=== PATIENT | female | born 1960 | race Two or more races ===

== ENCOUNTER 2021-04-12 11:33 | Outpatient (REF) | payer OTHER, SELFPAY ==
[2021-04-18 23:45] LABS: HPV mRNA E6/E7 rflx Not Detected (Not Detected)
== END 2021-04-12 11:34 | disposition home or self-care (01) ==
LOC: HO.LNP 11:33
PROVIDERS: Visit Provider Internal Medicine
DX: Z01.419 Encounter for gynecological examination (general) (routine) without abnormal findings (principal)
CPT/HCPCS: 87624; 88142

== ENCOUNTER 2021-04-15 09:21 | Outpatient (REF) | payer OTHER, SELFPAY ==
[2021-04-15 11:08] LABS: MANUAL DIFF FLAG NO
[2021-04-15 11:23] LABS: Basophils Absolute Auto 0.1 X10*3/uL (0.0-0.2); Basophils Percent Auto 1.1 % (0-2); Eosinophils Absolute Auto 0.2 X10*3/uL (0.0-0.4); Eosinophils Percent Auto 4.1 % (0-4); Hematocrit 42.4 % (37-47); Imm Gran Abs Auto 0.01 X10*3/uL (0.00-0.03); Imm Gran Pct Auto 0.2 % (0.0-0.4); Lymphocytes Absolute Auto 1.4 X10*3/uL (1.2-4.9); Lymphocytes Percent Auto 30.6 % (20-40); Mean Corpuscular Hemoglobin 28.7 pg (27.0-33.0); Mean Corpuscular Volume 86.9 fL (80-98); Mean Platelet Volume 10.7 fL (9.4-12.3); Monocytes Absolute Auto 0.4 X10*3/uL (0.1-1.2); Neutrophils Absolute Auto 2.6 X10*3/uL (2.0-8.3); Platelet Count 240 X10*3/uL (160-400); Red Blood Count 4.88 X10*6/uL (4.20-5.50); Red Cell Distribution Width 13.1 % (11.0-16.0); White Blood Count 4.7 X10*3/uL (4.8-10.8)
[2021-04-15 11:38] LABS: Alanine Aminotransferase 19 U/L (0-31); Anion Gap 10 (12-20); Aspartate Amino Transferase 24 U/L (5-31); Blood Urea Nitrogen 13 mg/dL (9-16); Calcium 9.3 mg/dL (8.4-10.2); Carbon Dioxide 28 mmol/L (22-29); Chloride 107 mmol/L (96-108); Cholesterol 186 mg/dL; Estimated Glomerular Filt Rate > 60; Glucose Fasting 89 mg/dL (60-99); HDL Cholesterol 35 mg/dL; LDL Cholesterol Calculated 124 mg/dl; Potassium 4.1 mmol/L (3.3-5.1); Sodium 141 mmol/L (135-145); Triglycerides 135 mg/dL
[2021-04-15 11:59] LABS: Vitamin D 25-OH Total 24.7 ng/mL (>30)
== END 2021-04-15 09:22 | disposition home or self-care (01) ==
LOC: HO.HMGCLDS 09:21
PROVIDERS: PCP Internal Medicine; Visit Provider Internal Medicine
DX: Z00.01 Encounter for general adult medical examination with abnormal findings (principal); M35.00 Sjogren syndrome, unspecified; R12 Heartburn; M79.609 Pain in unspecified limb; R20.2 Paresthesia of skin; I10 Essential (primary) hypertension; Z78.0 Asymptomatic menopausal state
CPT/HCPCS: 36415; 80048; 80061; 82306; 84443; 84450; 84460; 85025

== ENCOUNTER 2021-10-04 11:45 | Outpatient (REF) | payer OTHER, SELFPAY ==
--- NOTE | ~2021-10-04 | XR_ITS ---
EXAMINATION: XR HIP, LEFT AND PELVIS CLINICAL INFORMATION: Pain left hip COMPARISON: None TECHNIQUE: Two views of the left hip. FINDINGS: AP pelvis: There is a reduction the lateral right hip joint space with moderate size right acetabular spur. The left hip joint space is normal. SI joints are normal. No visible acute fracture or dislocation of the pelvis. The soft tissues are normal. Left hip: The left hip joint space is maintained normal. No bony erosive changes, loose bodies or soft tissue calcification. No visible acute fracture or dislocation. XR/XR hip LT w PEL1V IMPRESSION: Moderate degenerative changes right hip joint. The left hip joint space is unremarkable.
== END 2021-10-04 11:46 | disposition home or self-care (01) ==
LOC: HO.HMGCX 11:45
PROVIDERS: Visit Provider Internal Medicine
DX: M25.552 Pain in left hip (principal)
CPT/HCPCS: 73502

== ENCOUNTER 2022-04-14 07:00 | Outpatient (REF) | payer OTHER, SELFPAY ==
[2022-04-14 11:06] LABS: Appearance Urine Clear; Color Urine Yellow; Glucose Urine UA Negative (Negative); Leukocyte Esterase Urine Negative (Negative); Nitrite Urine Negative (Negative); PH 5.5 (5.0-9.0); Specific Gravity - Urine 1.025 (1.005-1.025); Urine Blood Negative (Negative); Urine Ketones Negative (Negative); Urine Protein Negative (Neg-Trace)
[2022-04-14 11:08] LABS: MANUAL DIFF FLAG NO
[2022-04-14 11:09] LABS: Basophils Absolute Auto 0.1 X10*3/uL (0.0-0.2); Eosinophils Absolute Auto 0.2 X10*3/uL (0.0-0.4); Eosinophils Percent Auto 4.4 % (0-4); Hematocrit 41.5 % (37.0-47.0); Hemoglobin 13.6 g/dl (12.0-16.0); Imm Gran Abs Auto 0.01 X10*3/uL (0.00-0.03); Imm Gran Pct Auto 0.2 % (0.0-0.4); Mean Corpuscular HGB Conc 32.8 g/dl (31.0-35.0); Mean Corpuscular Hemoglobin 28.3 pg (27.0-33.0); Mean Corpuscular Volume 86.3 fL (80.0-98.0); Mean Platelet Volume 10.6 fL (9.4-12.3); Monocytes Absolute Auto 0.5 X10*3/uL (0.1-1.2); Monocytes Percent Auto 10.2 % (2-11); Neutrophils Absolute Auto 2.3 x10*3/uL (2.0-8.3); Neutrophils Percent Auto 45.2 % (45-73); Platelet Count 233 X10*3/uL (160-400); Red Blood Count 4.81 X10*6/uL (4.20-5.50); Red Cell Distribution Width 13.1 % (11.0-16.0)
[2022-04-14 11:25] LABS: Alanine Aminotransferase 26 U/L (0-31); Anion Gap 13 (12-20); Aspartate Amino Transferase 24 U/L (5-31); Blood Urea Nitrogen 18 mg/dL (9-16); Calcium 9.1 mg/dL (8.4-10.2); Carbon Dioxide 26 mmol/L (22-29); Chloride 106 mmol/L (96-108); Cholesterol 209 mg/dL; Estimated Glomerular Filt Rate > 60; Glucose Fasting 96 mg/dL (60-99); HDL Cholesterol 34 mg/dL; LDL Cholesterol Calculated 138 mg/dl; Potassium 4.2 mmol/L (3.3-5.1); Sodium 141 mmol/L (135-145); Triglycerides 185 mg/dL
[2022-04-14 11:53] LABS: TSH reflex Free T4 2.21 uIU/mL (0.32-4.0)
[2022-04-14 12:18] LABS: Vitamin D 25-OH Total 35.6 ng/mL (>30)
== END 2022-04-14 07:01 | disposition home or self-care (01) ==
LOC: HO.HMGCLDS 07:00
PROVIDERS: PCP Internal Medicine; Visit Provider Internal Medicine
DX: Z00.01 Encounter for general adult medical examination with abnormal findings (principal); R12 Heartburn; M79.7 Fibromyalgia; M54.50 Low back pain, unspecified; M35.00 Sjogren syndrome, unspecified; G47.9 Sleep disorder, unspecified; G47.19 Other hypersomnia
CPT/HCPCS: 36415; 80048; 80061; 81003; 82306; 84443; 84450; 84460; 85025

== ENCOUNTER 2022-05-15 15:40 | Outpatient (REF) | payer OTHER, SELFPAY ==
[2022-05-15 16:02] LABS: MANUAL DIFF FLAG NO
[2022-05-15 16:21] LABS: Basophils Absolute Auto 0.1 X10*3/uL (0.0-0.2); Eosinophils Absolute Auto 0.3 X10*3/uL (0.0-0.4); Eosinophils Percent Auto 5.3 % (0-4); Hematocrit 41.4 % (37.0-47.0); Hemoglobin 13.8 g/dl (12.0-16.0); Imm Gran Abs Auto 0.01 X10*3/uL (0.00-0.03); Imm Gran Pct Auto 0.2 % (0.0-0.4); Lymphocytes Absolute Auto 1.8 X10*3/uL (1.2-4.9); Lymphocytes Percent Auto 35.3 % (20-40); Mean Corpuscular HGB Conc 33.3 g/dl (31.0-35.0); Mean Corpuscular Hemoglobin 28.6 pg (27.0-33.0); Mean Corpuscular Volume 85.7 fL (80.0-98.0); Mean Platelet Volume 10.1 fL (9.4-12.3); Monocytes Absolute Auto 0.5 X10*3/uL (0.1-1.2); Monocytes Percent Auto 8.8 % (2-11); Neutrophils Absolute Auto 2.5 x10*3/uL (2.0-8.3); Neutrophils Percent Auto 49.4 % (45-73); Platelet Count 256 X10*3/uL (160-400); Red Blood Count 4.83 X10*6/uL (4.20-5.50); Red Cell Distribution Width 12.9 % (11.0-16.0); White Blood Count 5.1 X10*3/uL (4.8-10.8)
[2022-05-15 16:34] LABS: Appearance Urine Clear; Color Urine Yellow; Glucose Urine UA Negative (Negative); Leukocyte Esterase Urine Trace (Negative); Nitrite Urine Negative (Negative); Specific Gravity - Urine >= 1.030 (1.005-1.025); UMIC TRIGGER UA YES; Urine Blood Negative (Negative); Urine Ketones Trace mg/dL (Negative); Urine Protein Negative (Neg-Trace)
[2022-05-15 16:39] LABS: Bacteria Urine None Seen (None Seen); Hyaline Casts Urine 0-2 /LPF (0-2); WBC Urine 0-5 /HPF (0-5)
[2022-05-15 16:48] LABS: Alanine Aminotransferase 35 U/L (0-31); Albumin Level 4.4 g/dL (3.5-5.0); Alkaline Phosphatase 107 U/L (39-117); Anion Gap 14 (12-20); Aspartate Amino Transferase 28 U/L (5-31); Bilirubin Total 0.2 mg/dL (0.0-1.0); Blood Urea Nitrogen 17 mg/dL (9-16); C Reactive Protein 0.03 mg/dL (< or = 0.50); Calcium 9.5 mg/dL (8.4-10.2); Carbon Dioxide 23 mmol/L (22-29); Chloride 108 mmol/L (96-108); Estimated Glomerular Filt Rate > 60; Glucose Random 116 mg/dL (60-115); Potassium 4.4 mmol/L (3.3-5.1); Rheumatoid Factor < 15.0 IU/mL (<15.0); Sodium 141 mmol/L (135-145); Total Protein 8.1 g/dL (6.5-8.0)
[2022-05-15 17:00] LABS: Erythrocyte Sedimentation Rate 13 MM/HR (0-20)
[2022-05-15 17:34] LABS: Creatinine Urine 189.06 mg/dL; Protein/Creatinine Ratio, Ur 0.07 (<0.2); Total Protein Urine Random 13 mg/dL (<12)
[2022-05-18 15:07] LABS: Anti Nuclear Antibody Screen POSITIVE (NEGATIVE)
[2022-05-21 13:42] LABS: Cardiolipin IgG Ab <2.0 GPL-U/mL; Cardiolipin IgM Ab <2.0 MPL-U/mL
[2022-05-22 04:37] LABS: Beta-2 Glycoprotein IgA 10.1 U/mL (<20.0); Beta-2 Glycoprotein IgG <2.0 U/mL (<20.0); Beta-2 Glycoprotein IgM <2.0 U/mL (<20.0)
[2022-05-22 13:42] LABS: PTT (LAC) Screen 37 sec (<=40)
== END 2022-05-15 15:41 | disposition home or self-care (01) ==
LOC: HO.LAB 15:40
PROVIDERS: Visit Provider Student in an Organized Health Care Education/Training Program
DX: M35.00 Sjogren syndrome, unspecified (principal)
CPT/HCPCS: 36415; 80053; 81001; 82550; 84156; 85025; 85597; 85613; 85652; 85730; 86038; 86039; 86140; 86146; 86147; 86431

== ENCOUNTER 2022-05-16 06:48 | Outpatient (REF) | payer OTHER, SELFPAY ==
[2022-05-17 13:18] LABS: Complement C3 66 mg/dL (83-193)
[2022-05-18 15:07] LABS: IgA 559 mg/dL (47-310); IgG 1798 mg/dL (600-1640); IgM 61 mg/dL (50-300)
[2022-05-18 21:51] LABS: Prot Elec - Albumin 4.5 g/dL (3.8-4.8); Prot Elec - Alpha1 0.2 g/dL (0.2-0.3); Prot Elec - Alpha2 0.7 g/dL (0.5-0.9); Prot Elec - Beta 1 0.6 g/dL (0.4-0.6); Prot Elec - Beta 2 0.5 g/dL (0.2-0.5); Prot Elec - Gamma 1.6 g/dL (0.8-1.7); Prot Elec - Total Protein 8.1 g/dL (6.1-8.1)
[2022-05-23 05:11] LABS: Anti DNA DS Antibody 1 IU/mL; SM/Ribonucleoprotein Ab 2.8 POS AI (<1.0 NEG); Smith Protein <1.0 NEG AI (<1.0 NEG)
[2022-05-24 17:07] LABS: Cryoglobulin, Qual NONE DETECTED ((NDT))
== END 2022-05-16 06:49 | disposition home or self-care (01) ==
LOC: HO.LAB 06:48
PROVIDERS: PCP Internal Medicine; Visit Provider Student in an Organized Health Care Education/Training Program
DX: M35.00 Sjogren syndrome, unspecified (principal)
CPT/HCPCS: 36415; 82595; 82784; 84165; 86160; 86225; 86235; 86334

== ENCOUNTER → 2022-05-24 12:45 | Outpatient (REF) | payer OTHER, SELFPAY | LOC: HO.SL 12:45 | PROVIDERS: PCP Internal Medicine; Visit Provider Nurse Practitioner Family | DX: R06.83 Snoring (principal); G47.9 Sleep disorder, unspecified; G47.19 Other hypersomnia | CPT/HCPCS: 95806 ==

== ENCOUNTER 2022-07-27 14:43 | Outpatient (REF) | payer OTHER, SELFPAY ==
[2022-07-27 16:19] LABS: MANUAL DIFF FLAG NO
[2022-07-27 16:23] LABS: Basophils Percent Auto 0.8 % (0-2); Eosinophils Absolute Auto 0.4 X10*3/uL (0.0-0.4); Eosinophils Percent Auto 7.1 % (0-4); Hematocrit 41.4 % (37.0-47.0); Hemoglobin 13.8 g/dl (12.0-16.0); Imm Gran Abs Auto 0.01 X10*3/uL (0.00-0.03); Imm Gran Pct Auto 0.2 % (0.0-0.4); Lymphocytes Absolute Auto 1.8 X10*3/uL (1.2-4.9); Lymphocytes Percent Auto 35.4 % (20-40); Mean Corpuscular HGB Conc 33.3 g/dl (31.0-35.0); Mean Corpuscular Hemoglobin 28.9 pg (27.0-33.0); Mean Corpuscular Volume 86.8 fL (80.0-98.0); Mean Platelet Volume 10.2 fL (9.4-12.3); Monocytes Absolute Auto 0.4 X10*3/uL (0.1-1.2); Monocytes Percent Auto 8.7 % (2-11); Neutrophils Absolute Auto 2.4 x10*3/uL (2.0-8.3); Neutrophils Percent Auto 47.8 % (45-73); Platelet Count 238 X10*3/uL (160-400); Red Blood Count 4.77 X10*6/uL (4.20-5.50); White Blood Count 5.1 X10*3/uL (4.8-10.8)
[2022-07-27 16:42] LABS: Alanine Aminotransferase 31 U/L (0-31); Albumin Level 4.4 g/dL (3.5-5.0); Alkaline Phosphatase 119 U/L (39-117); Anion Gap 13 (12-20); Aspartate Amino Transferase 27 U/L (5-31); Bilirubin Total 0.2 mg/dL (0.0-1.0); Blood Urea Nitrogen 14 mg/dL (9-16); C Reactive Protein < 0.10 mg/dL (< or = 0.50); Calcium 9.7 mg/dL (8.4-10.2); Carbon Dioxide 28 mmol/L (22-29); Chloride 107 mmol/L (96-108); Estimated Glomerular Filt Rate > 60; Glucose Random 97 mg/dL (60-115); Potassium 4.6 mmol/L (3.3-5.1); Sodium 143 mmol/L (135-145); Total Protein 8.1 g/dL (6.5-8.0)
[2022-07-27 17:02] LABS: Erythrocyte Sedimentation Rate 14 MM/HR (0-20)
[2022-07-27 18:21] LABS: Appearance Urine Clear; Color Urine Yellow; Glucose Urine UA Negative (Negative); Leukocyte Esterase Urine Negative (Negative); Nitrite Urine Negative (Negative); Specific Gravity - Urine >= 1.030 (1.005-1.025); Urine Blood Negative (Negative); Urine Ketones Negative (Negative); Urine Protein Negative (Neg-Trace)
[2022-07-27 18:26] LABS: Bacteria Urine None Seen (None Seen); Hyaline Casts Urine 0-2 /LPF (0-2); WBC Urine 0-5 /HPF (0-5)
[2022-07-27 18:37] LABS: Protein/Creatinine Ratio, Ur 0.06 (<0.2); Total Protein Urine Random 11 mg/dL (<12)
[2022-07-31 13:39] LABS: Complement C3 96 mg/dL (83-193)
[2022-08-02 13:13] LABS: Anti DNA DS Antibody 2 IU/mL
[2022-08-08 13:03] LABS: TPMT Activity 14
== END 2022-07-27 14:44 | disposition home or self-care (01) ==
LOC: HO.LAB 14:43
PROVIDERS: PCP Internal Medicine; Visit Provider Student in an Organized Health Care Education/Training Program
DX: M35.01 Sjogren syndrome with keratoconjunctivitis (principal); M79.7 Fibromyalgia; Z79.899 Other long term (current) drug therapy
CPT/HCPCS: 36415; 80053; 81001; 82657; 84156; 85025; 85652; 86140; 86160; 86225

== ENCOUNTER → 2022-09-24 19:30 | Outpatient (REF) | payer OTHER, SELFPAY | LOC: HO.SL 19:30 | PROVIDERS: Visit Provider Nurse Practitioner Family | DX: G47.9 Sleep disorder, unspecified (principal); G47.19 Other hypersomnia; R06.83 Snoring; Z79.899 Other long term (current) drug therapy | CPT/HCPCS: 95810 ==

== ENCOUNTER 2023-03-28 15:02 | Outpatient (REF) | payer OTHER, SELFPAY ==
--- NOTE | ~2023-03-28 | CT_ITS ---
EXAMINATION: CT head/brain wo IV con CLINICAL INFORMATION: Reason for Exam G44.82 - Headache associated with sexual activity COMPARISON: occipital headache radiating to the front, which started after having sexual intercourse approximately 2 weeks ago TECHNIQUE: Contiguous axial imaging was performed from the skull base to vertex without intravenous contrast. Sagittal and coronal reformatted images were obtained. This CT examination was performed using dose optimization techniques as appropriate, variously including the following: * Automated exposure control * Adjustment of mA and/or kV according to patient size (this includes techniques or standardized protocols for targeted exams where dose is matched to indication/reason for exam; i.e. extremities or head) Use of iterative reconstruction technique DLP: 580 mGy-cm FINDINGS: No acute osseous or soft tissue abnormality. The mastoid air cells and visualized portions of the paranasal sinuses are well aerated. There is no evidence of acute intracranial hemorrhage or territorial infarction. No abnormal mass effect or midline shift is seen. De La Cruz to white matter differentiation is well preserved. No extra-axial fluid collections are identified. No hydrocephalus. No significant volume loss. Patchy periventricular and deep white matter hypoattenuation is consistent with mild small vessel ischemic changes. Degenerative changes of the right temporomandibular joint with calcified bodies within the joint. CT/CT head/brain wo IV con IMPRESSION: 1. No acute intracranial abnormality including hemorrhage, mass effect, hydrocephalus, or acute territorial edematous infarction. 2. Mild chronic microangiopathic white matter hypodensity. 3. Degenerative changes of the right temporomandibular joint with several calcified intra-articular bodies.
== END 2023-03-28 15:03 | disposition home or self-care (01) ==
LOC: HO.CT 15:02
PROVIDERS: PCP Internal Medicine; Visit Provider Internal Medicine
DX: G44.82 Headache associated with sexual activity (principal)
CPT/HCPCS: 70450

== ENCOUNTER 2023-04-16 08:00 | Outpatient (AMB) | payer OTHER, SELFPAY ==
--- NOTE | 2023-04-16 08:06 | MHC.PC.OV ---
Vital Signs 04/16/23 08:09 Height 5 ft 6 in Weight 166 lb BMI 26.8 BP 108/72 Blood Pressure Location Lt brachial Position Sitting Pulse 60 Pulse Source Pulse Oximeter Pulse Oximetry (%) 97 Oxygen Delivery Method Room Air Intake Visit Reasons: Annual PE Intake Note: Pt is here today for her PE Allergies No Known Allergies Allergy (Verified 04/16/23 08:58) Medication List - Last Reconciled 04/16/23 by Helena Han MD calcium carbonate-vitamin D3 200 mg (500 mg) -400 unit tabs PO cyclosporine 0.05% (Restasis) 1 drp ophthalmic (eye) BID duloxetine 20 mg PO DAILY hydroxychloroquine 200 mg PO BID omeprazole 40 mg PO DAILY PRN tizanidine 4 mg PO BEDTIME PRN Tobacco use date assessed: 04/16/23 Dental Screening Dental Screen Date: 04/16/23 Did you have a dental visit in the last 12 months?: Yes Did you have a dental problem in the last 6 months where you did not have access to dental care?: No Was dental information given to patient?: Patient has dentist HPI Annual PE HPI Details 62-year-old lady here today for physical exam. She has Sjogren's syndrome and fibromyalgia currently being followed by Rheumatology at [place], has dry eye syndrome, followed by Dr. Chitra Tee , who also does her regular eye exam. She takes an occasional omeprazole as needed for heartburn symptoms. She is due for again for her screening mammogram this June 2023, does it at [facility], is up-to-date with her cervical cancer. She is up-to-date with her shingles vaccine, Tdap, gets yearly flu vaccine but does not want to get a COVID booster. [facility] Medical History (Updated 04/16/23 @ 09:01 by Helena Han MD) COVID-19 vaccine dose declined Heartburn symptom History of sleep study Long-term use of Plaquenil Difficulty sleeping Achilles tendinitis of left lower extremity Paresthesia and pain of extremity Fibromyalgia Sjogrens syndrome Surgical History Hx of colonoscopy History of cholecystectomy Status post left breast lumpectomy Family History Mother Arthritis Diabetes mellitus Hypertension Mental health disorder Father CKD (chronic kidney disease) Maternal Grandfather Mental health disorder Social History Housing: House Alcohol intake: never Patient Tobacco Use Status: Never used Tobacco e-Cigarette/Vaping Use: Never Used Second Hand Smoke Exposure: No service: No Current occupational status: unemployed Cognitive needs: No Hearing needs: No Vision needs: No Female Reproductive History Menstrual Menopause type: natural Questionnaire PHQ-9 Over the last 2 weeks, how often have you been bothered by any of the following problems? 1. Little interest or pleasure in doing things: several days 2. Feeling down, depressed, or hopeless: not at all 3. Trouble falling or staying asleep, or sleeping too much: several days 4. Feeling tired or having little energy: several days 5. Poor appetite or overeating: not at all 6. Feeling bad about yourself - or that you are a failure or have let yourself or your family down: not at all 7. Trouble concentrating on things, such as reading the newspaper or watching television: not at all 8. Moving or speaking so slowly that other people could have noticed. Or the opposite - being so fidgety or restless that you have been moving around a lot more than usual: not at all 9. Thoughts that you would be better off or of hurting yourself in some way: not at all Total score: 3 Depression Screening Interpretation: Negative 32171 - PHQ-9 Billing: Yes Source: Developed by Drs. Ronaldo Haynes, Deysi Lacey, Jerome Locke and colleagues, with an educational sarmad from [employer]. Thrive Questionnaire Date Thrive assessed: 04/16/23 I am a: Patient What is your living situation today?: I have a steady place to live Within the past 12 months, did the food you bought not last and you didn't have the money to get more?: Never true Within the past 12 months, did you worry whether your food would run out before you got money to buy more?: Never true Do you have trouble paying for medicines?: No Do you have trouble getting transportation to medical appointments?: No Do you have trouble paying your heating and electricity bill?: No Do you have trouble taking care of your child, family member or friend?: No Do you have trouble with day-to-day activities such as bathing, preparing meals, shopping, managing finances, etc.?: No Are you currently unemployed and looking for a job?: No Are you interested in more education?: No AUDIT C Alcohol Use Questionnaire (AUDIT-C) 1. How often do you have a drink containing alcohol?: Never Total Score: 0 BIANCA-7 AMB Questionnaire BIANCA-7 Date BIANCA - 7 assessed: 04/16/23 Feeling nervous, anxious, or on edge: 0 = Not at all Not being able to stop or control worryin = Not at all Worrying too much about different things: 0 = Not at all Trouble relaxin = Not at all Being so restless that it is hard to sit still: 0 = Not at all Becoming easily annoyed or irritable: 0 = Not at all Feeling afraid as if something awful might happen: 0 = Not at all Total BIANCA-7 score (0-4 normal; 5-9 mild; 10-14 moderate; 15-21 severe): 0 Source: Developed by Drs. Ronaldo Haynes, Deysi Lacey, Jerome Locke and colleagues, with an educational sarmad from [employer]. BIANCA-7 Assessment Billing BIANCA-7 Assessment Tool: BIANCA-7 Assessment 93870 Review of Systems Const Reports body aches, Reports difficulty sleeping (Due to body aches and hot flashes), Denies frequent falls, Denies lethargy and Denies weakness Eyes Reports dry eyes (Followed by Dr. Chitra Tee) ENT Reports no additional complaints Card Denies chest pain, Denies rapid heart rate, Denies irregular heart rhythm and Denies lightheadedness Resp Reports no additional complaints GI Reports no additional complaints Denies dysuria and Denies urinary incontinence Musc Reports as per HPI, Reports myalgias, Reports arthralgias, Denies joint swelling, Denies numbness, Reports stiffness and Reports tingling (In lower extremities) Skin/Breast Denies breast pain and Denies rash Neuro Denies frequent falls, Denies numbness, Reports tingling (In lower extremities) and Denies weakness Psych Reports no additional complaints Endo Reports no additional complaints Sushil/Lymph Reports no additional complaints Aller/Immun Reports no additional complaints Physical exam (Primary Care) Vital Signs: Last Vital Signs Pulse 60 04/16/23 08:09 BP 108/72 04/16/23 08:09 Pulse Ox 97 04/16/23 08:09 Oxygen Delivery Method Room Air 04/16/23 08:09 BMI result Body Mass Index 26.8 Tobacco/Smoking Status: Tobacco use Status Tobacco use date assessed 04/16/23 04/16/23 08:19 Patient Tobacco Use Status Never used Tobacco 04/16/23 08:16 e-Cigarette/Vaping Use Never Used 04/16/23 08:16 PHQ-9: PHQ-9 Score PHQ-9: Total score 3 04/16/23 08:48 Depression Screening Interpretation: Negative Thrive Assessment: Date of Thrive Assessment Date Thrive assessed 04/16/23 04/16/23 08:31 Const General: cooperative, comfortable and no acute distress Orientation/consciousness: patient oriented x3 HENMT Head: Yes normocephalic and Yes atraumatic Ears: external ears normal, TM's normal bilaterally and EAC's normal General nose exam: Normal external nose present Face and sinus: Yes sinuses nontender and Yes face symmetric Mouth: Normal oral and palatal mucosa present, oropharynx normal and moist mucous membranes Eyes General: appearance normal, both eyes and all related structures Periorbital: periorbital findings normal EOM: EOMs intact bilaterally Neck Neck: Yes full ROM, Yes no lymphadenopathy, Yes supple and Yes tender (Paracervical area, and base of occiput) Chest Breast/axilla palpation: normal palpation of the breasts and normal palpation of the axillae Resp Auscultation: clear to auscultation bilaterally Cardio Other: S1-S2 present regular rate and rhythm Peripheral pulses: femoral pulses present, popliteal pulses present, posterior tibial pulses present and dorsalis pedis present GI Other: Normal bowel sounds, soft, nontender, no mass palpated General: Yes no CVA tenderness and Yes deferred (Sees OBGYN, up-to-date with her Pap smear and pelvic exam) Back/Spine/Pelvis Back: no CVA tenderness Thoracic/Lumbar Spine: paraspinal muscle tenderness bilaterally in the lower lumbar Skin General skin exam: no rashes or lesions noted Neuro Other: Negative Romberg, able to do tandem walk without difficulty, 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 General: patient oriented x3 Cognition (Neuro): normal cognition Gait exam (Neuro): Normal gait present Motor exam (neuro): 5/5 motor strength present throughout Romberg Test: Negative Extrem Other: Tenderness on mid February total aspect of knees and ankles, no cough tenderness General: Yes full ROM, Yes no joint enlargement, Yes no clubbing, cyanosis or edema and Yes normal gait Psych Appearance: grossly normal and well kempt Mental Status: mental status grossly normal Speech and movement: Normal speech and movement present Affect: normal affect Attitude: cooperative Thought process: Normal thought process present Assessment and Plan Assessment & Plan (1) Annual visit for general adult medical examination with abnormal findings: Code(s): Z00. - Encounter for general adult medical examination with abnormal findings Plan: Will check appropriate labs. Continue with regular dental visit every 6 months and regular eye exams, sees Dr. Chitra Tee. Take adequate calcium in diet and vitamin-D 3 at 2000 IU per cap once a day, in addition to weight-bearing exercises to help maintain good muscle tone and weight control. Instructed to do self-breast exam, and continue to get yearly mammogram, due again June 2023. Colonoscopy screening up-to-date, reminded to get her flu shot, declines getting COVID booster, up-to-date with her shingles vaccine and Tdap (2) Fibromyalgia: Code(s): M79.7 - Fibromyalgia Plan: Followed by Rheumatology, currently on duloxetine and disease and it (3) Sjogrens syndrome: Code(s): M35.00 - Sjogren syndrome, unspecified Qualifiers: Sjogren organ or system involvement: keratoconjunctivitis Qualified Code(s): M35.01 - Sjogren syndrome with keratoconjunctivitis Plan: Currently on hydroxychloroquine, and cyclosporine for her dry eyes Orders: Orders Lipid Panel Today M35.00 - Sjogren syndrome, unspecified, M79.7 - Fibromyalgia, Z00. - Encounter for general adult medical examination with abnormal findings Alanine Aminotransferase Today M35.00 - Sjogren syndrome, unspecified, M79.7 - Fibromyalgia, Z00.01 - Encounter for general adult medical examination with abnormal findings Vitamin D 25-OH Total Today M35.00 - Sjogren syndrome, unspecified, M79.7 - Fibromyalgia, Z00.01 - Encounter for general adult medical examination with abnormal findings Aspartate Amino Transferase Today M35.00 - Sjogren syndrome, unspecified, M79.7 - Fibromyalgia, Z00.01 - Encounter for general adult medical examination with abnormal findings Glucose Fasting Today M35.00 - Sjogren syndrome, unspecified, M79.7 - Fibromyalgia, Z00.01 - Encounter for general adult medical examination with abnormal findings Coding Level of Care Code Est Pt Prev Care 40-64y(24632) Diagnoses Annual visit for general adult medical examination with abnormal findings Z00.01 Fibromyalgia M79.7 Sjogren's syndrome with keratoconjunctivitis sicca M35.01 Sjogren organ or system involvement: keratoconjunctivitis Additional Codes BIANCA-7 Assessment Billing - BIANCA-7 Assessment Tool: BIANCA-7 Assessment 30502 ([id number])
[2023-04-16 08:09] VITALS: BP 108/72; PULSE 60; O2SAT 97; BMI 26.8
== END 2023-04-16 09:01 | disposition home or self-care (01) ==
PROVIDERS: Visit Provider Internal Medicine
DX: Z00.01 Encounter for general adult medical examination with abnormal findings (principal); M79.7 Fibromyalgia; M35.01 Sjogren syndrome with keratoconjunctivitis
CPT/HCPCS: 99396

== ENCOUNTER 2023-04-20 07:16 | Outpatient (REF) | payer OTHER, SELFPAY ==
[2023-04-20 11:33] LABS: Alanine Aminotransferase 25 U/L (0-31); Aspartate Amino Transferase 26 U/L (5-31); Cholesterol 197 mg/dL (<200); Glucose Fasting 93 mg/dL (60-99); HDL Cholesterol 35 mg/dL (>40); LDL Cholesterol Calculated 128 mg/dL (<100); Triglycerides 173 mg/dL (<150)
[2023-04-20 11:49] LABS: Vitamin D 25-OH Total 38.7 ng/mL (>30)
== END 2023-04-20 07:17 | disposition home or self-care (01) ==
LOC: HO.HMGCLDS 07:16
PROVIDERS: PCP Internal Medicine; Visit Provider Internal Medicine
DX: Z00.01 Encounter for general adult medical examination with abnormal findings (principal); M79.7 Fibromyalgia; M35.00 Sjogren syndrome, unspecified
CPT/HCPCS: 36415; 80061; 82306; 82947; 84450; 84460

== ENCOUNTER 2023-09-11 10:10 | Outpatient (AMB) | payer OTHER, SELFPAY ==
[2023-09-11 10:15] VITALS: BP 120/78; PULSE 83; TEMP 36.4; O2SAT 96; BMI 26.8
--- NOTE | 2023-09-11 10:15 | AM.OFFWIN_ITS ---
Intake Vital Signs 09/11/23 10:15 Height 5 ft 6 in Weight 166 lb BMI 26.8 BP 120/78 Blood Pressure Location Lt brachial Position Sitting Pulse 83 Pulse Source Pulse Oximeter Temp 97.5 F Temp Source Temporal Artery Scan Pulse Oximetry (%) 96 Intake Visit Reasons: EP wheezing cough runny nose Intake Note: pt is here today for wheezing runny nose started last Saturday Patient Tobacco Use Status: Never used Tobacco Allergies No Known Allergies Allergy (Verified 09/11/23 10:15) Do you need a note to return to daycare/school/sports/work: Yes HPI HPI Comments History of Present Illness Details iterpretting for her Saturday last week, onset symptoms + wheezing keeps her up at night + congestion, runny nose and eyes + headache Went to ER Saturday and told + URI secondary to RSV at [facility] Notes from her show ecg, labs and xray unremarkable; note reviewed in chart as well Was given prednisone and nasal spray and cough syrup Prednisone helped but has finished course No fevers She said no body aches Normal energy She said feeling better than last week but wanted to be rechecked because wheeze is worse [facility] Medical History (Updated 09/11/23 @ 10:49 by Sandra Schmidt PA-C) TMJ arthropathy COVID-19 vaccine dose declined Heartburn symptom History of sleep study Long-term use of Plaquenil Difficulty sleeping Achilles tendinitis of left lower extremity Paresthesia and pain of extremity Fibromyalgia Sjogrens syndrome Surgical History Hx of colonoscopy History of cholecystectomy Status post left breast lumpectomy Family History Mother Arthritis Diabetes mellitus Hypertension Mental health disorder Father CKD (chronic kidney disease) Maternal Grandfather Mental health disorder Social History Housing: House Alcohol intake: never Patient Tobacco Use Status: Never used Tobacco e-Cigarette/Vaping Use: Never Used Second Hand Smoke Exposure: No service: No Current occupational status: unemployed Cognitive needs: No Hearing needs: No Vision needs: No Review of Systems Const Denies body aches, Denies chills, Denies fatigue and Denies fever(s) Eyes Denies blurry vision ENT Denies otalgia (fullness), Reports nasal discharge, Denies sinus pressure and Reports sore throat Card Denies chest pain Resp Reports chest congestion, Reports cough, Reports pain with cough and Reports wheezing GI Denies abdominal pain Endo Denies fatigue Aller/Immun Reports wheezing Physical Exam Vital Signs: Last Vital Signs Temp 97.5 F 09/11/23 10:15 Pulse 83 09/11/23 10:15 BP 120/78 09/11/23 10:15 Pulse Ox 96 09/11/23 10:15 BMI result Body Mass Index 26.8 General: Non-toxic, NAD. Speaking full sentences. Skin: Warm dry throughout Eye: EOMI HENT: Airway patent. Uvula midline. No pharyngeal erythema or edema. 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 Bilateral canals clear. L Tm + erythema with slight bulge. R TM non-erythe matous, non-bulging. No TM perforation or hemotympanum noted. Respiratory: + diffuse wheeze throughout with crackles R base. No accessory muscle use or stridor. Cardiac: RRR. No murmur MSK: Full ROM extremities. Neurology: A/O. No aphasia or facial droop. Gait without abnormality Psych: Good mood and affect Assessment & Plan Assessment & Plan (1) Bronchitis: Code(s): J40 - Bronchitis, not specified as acute or chronic Plan: Patient seen and evaluated. ER note showed lungs CTA and today after course of steroids she is wheezing throughout with R base crackles She also has R TM erythema on exam Will hold on repeat chest xray and treat empirically for new bacterial bronchitis and R OM Azigthromycin to pharmacy Proair prn wheeze Tessalon for cough D/C flonase and cough syrup F/U with PCP Discussed worsening s/s to monitor for and when to go to ED Patient gave verbal understanding and had no additional questions or concerns at time of discharge All questions answered Medications: New benzonatate 200 mg PO BID-TID PRN 14 caps 0RF cough azithromycin start on day 2 of therapy 250 mg PO DAILY 6 days 6 tabs 0RF albuterol sulfate 90 mcg/actuation 1 puff inhalation QID 1 week PRN 6.7 grams 0RF shortness of breath or wheezing Discontinued hydroxychloroquine Discontinued Reason: Patient no longer taking 200 mg PO BID 180 tabs 1RF Coding Level of Care Code Est Pt Level 3 (41456) Diagnoses Bronchitis J40
== END 2023-09-11 10:51 | disposition home or self-care (01) ==
PROVIDERS: PCP Internal Medicine; Visit Provider Physician Assistant
DX: J40 Bronchitis, not specified as acute or chronic (principal)
CPT/HCPCS: 99213

== ENCOUNTER 2023-09-30 11:50 | Outpatient (AMB) | payer OTHER, SELFPAY ==
--- NOTE | 2023-09-30 12:25 | A.OFFPC_ITS ---
Vital Signs 09/30/23 12:28 Height 5 ft 6 in Weight 166 lb BMI 26.8 BP 104/72 Blood Pressure Location Lt brachial Position Sitting Pulse 71 Pulse Source Pulse Oximeter Pulse Oximetry (%) 97 Oxygen Delivery Method Room Air Intake Visit Reasons: Difficulty sleeping Intake Note: Pt is here today wants to discuss sleep difficulty Allergies No Known Allergies Allergy (Verified 09/30/23 12:45) Medication List - Last Reconciled 09/30/23 by Helena Han MD albuterol sulfate 90 mcg/actuation 1 puff inhalation QID PRN 1 week calcium carbonate-vitamin D3 200 mg (500 mg) -400 unit tabs PO duloxetine 20 mg PO DAILY fluticasone propionate 50 mcg/actuation sprays intranasal omeprazole 40 mg PO DAILY PRN tizanidine 4 mg PO BEDTIME PRN Tobacco use date assessed: 09/30/23 Dental Screening Dental Screen Date: 09/30/23 Did you have a dental visit in the last 12 months?: Yes Did you have a dental problem in the last 6 months where you did not have access to dental care?: No Was dental information given to patient?: Patient has dentist HPI Difficulty sleeping HPI Details 63-year-old lady with history of fibromy algia, Sjogren syndrome, here today complaining of difficulty initiating and maintaining sleep. This has been ongoing issue now for the last several years, has had a home sleep study done in 2021 which showed normal findings, however, patient states that she do really did not sleep during that test as her joint pains has kept her awake. She has b een advised to do an in-lab sleep study but was unable to do so during the pandemic.. Would like to have in lab sleep study done. She has also been having intermittent episodes of pain in her right hip, worse when she lies on that right side. Has been taking Tylenol, massaging arthritis cream over affected joint which affords only temporary relief. No history of trauma or strenuous exertion reported. Denies any abnormality in gait, no history of falls [facility] Medical History (Updated 09/30/23 @ 12:58 by Helena Han MD) Right hip pain TMJ arthropathy COVID-19 vaccine dose declined Heartburn symptom History of sleep study Long-term use of Plaquenil Difficulty sleeping Achilles tendinitis of left lower extremity Paresthesia and pain of extremity Fibromyalgia Sjogrens syndrome Surgical History Hx of colonoscopy History of cholecystectomy Status post left breast lumpectomy Family History Mother Arthritis Diabetes mellitus Hypertension Mental health disorder Father CKD (chronic kidney disease) Maternal Grandfather Mental health disorder Social History Housing: House Alcohol intake: never Patient Tobacco Use Status: Never used Tobacco e-Cigarette/Vaping Use: Never Used Second Hand Smoke Exposure: No service: No Current occupational status: unemployed Cognitive needs: No Hearing needs: No Vision needs: No Questionnaire PHQ-9 Over the last 2 weeks, how often have you been bothered by any of the following problems? 1. Little interest or pleasure in doing things: several days 2. Feeling down, depressed, or hopeless: not at all 3. Trouble falling or staying asleep, or sleeping too much: several days 4. Feeling tired or having little energy: several days 5. Poor appetite or overeating: not at all 6. Feeling bad about yourself - or that you are a failure or have let yourself or your family down: not at all 7. Trouble concentrating on things, such as reading the newspaper or watching television: not at all 8. Moving or speaking so slowly that other people could have noticed. Or the opposite - being so fidgety or restless that you have been moving around a lot more than usual: not at all 9. Thoughts that you would be better off or of hurting yourself in some way: not at all Total score: 3 Depression Screening Interpretation: Negative Depression Screening Done: Yes 99447 - PHQ-9 Billing: Yes Source: Developed by Drs. Ronaldo Haynes, Deysi Lacey, Jerome Locke and colleagues, with an educational sarmad from [employer]. Thrive Questionnaire Date Thrive assessed: 09/30/23 I am a: Patient What is your living situation today?: I have a steady place to live Within the past 12 months, did the food you bought not last and you didn't have the money to get more?: Never true Within the past 12 months, did you worry whether your food would run out before you got money to buy more?: Never true Do you have trouble paying for medicines?: No Do you have trouble getting transportation to medical appointments?: No Do you have trouble paying your heating and electricity bill?: No Do you have trouble taking care of your child, family member or friend?: No Do you have trouble with day-to-day activities such as bathing, preparing meals, shopping, managing finances, etc.?: No Are you currently unemployed and looking for a job?: No Are you interested in more education?: No THRIVE Score: 0 AUDIT C Alcohol Use Questionnaire (AUDIT-C) 1. How often do you have a drink containing alcohol?: Never Total Score: 0 BIANCA-7 AMB Questionnaire BIANCA-7 Date BIANCA - 7 assessed: 09/30/23 Feeling nervous, anxious, or on edge: 0 = Not at all Not being able to stop or control worryin = Not at all Worrying too much about different things: 0 = Not at all Trouble relaxin = Not at all Being so restless that it is hard to sit still: 0 = Not at all Becoming easily annoyed or irritable: 0 = Not at all Feeling afraid as if something awful might happen: 0 = Not at all Total BIANCA-7 score (0-4 normal; 5-9 mild; 10-14 moderate; 15-21 severe): 0 Source: Developed by Drs. Ronaldo Haynes, Deysi Lacey, Jerome Locke and colleagues, with an educational sarmad from [employer]. BIANCA-7 Assessment Billing BIANCA-7 Assessment Tool: BIANCA-7 Assessment 07679 Review of Systems Const Denies frequent falls ENT Reports no additional complaints Card Denies chest pain, Denies rapid heart rate, Denies irregular heart rhythm and Denies lightheadedness Resp Reports no additional complaints GI Reports no additional complaints Denies dysuria and Denies urinary incontinence Musc Reports as per HPI and Denies joint swelling Skin/Breast Denies rash Neuro Denies frequent falls Physical exam (Primary Care) Vital Signs: Last Vital Signs Pulse 71 09/30/23 12:28 BP 104/72 09/30/23 12:28 Pulse Ox 97 09/30/23 12:28 Oxygen Delivery Method Room Air 09/30/23 12:28 BMI result Body Mass Index 26.8 Tobacco/Smoking Status: Tobacco use Status Tobacco use date assessed 09/30/23 09/30/23 12:32 Patient Tobacco Use Status Never used Tobacco 09/30/23 12:32 e-Cigarette/Vaping Use Never Used 09/30/23 12:32 PHQ-9: PHQ-9 Score PHQ-9: Total score 3 10/02/23 04:49 Depression Screening Interpretation: Negative Thrive Assessment: Date of Thrive Assessment Date Thrive assessed 09/30/23 09/30/23 12:34 Const General: comfortable and no acute distress Orientation/consciousness: patient oriented x3 HENMT Head: Yes normocephalic Ears: external ears normal General nose exam: Normal external nose present Face and sinus: Yes sinuses nontender and Yes face symmetric Mouth: Normal oral and palatal mucosa present, oropharynx normal and moist mucous membranes Eyes General: appearance normal, both eyes and all related structures Neck Neck: Yes full ROM, Yes no lymphadenopathy and Yes supple Resp Auscultation: clear to auscultation bilaterally Cardio Other: S1-S2 present regular rate and rhythm GI Other: Normal bowel sounds, soft, nontender, no mass palpated General: Yes no CVA tenderness Back/Spine/Pelvis Back: no CVA tenderness Skin General skin exam: no rashes or lesions noted Neuro Other: Negative Romberg, able to do tandem walk without difficulty, 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 (2) Right hip pain: Code(s): M25.551 - Pain in right hip Plan: X-ray of right hip with pelvis ordered, (3) Loud snoring: Code(s): R06.83 - Snoring Plan: Referred to sleep medicine Clinic for in-lab sleep study Orders: Orders XR hip RT w PEL1V 09/30/23 M25.551 - Pain in right hip Referrals Sleep Medicine Referral G47.9 - Sleep disorder, unspecified Coding Level of Care Code Est Pt Level 3 (11722) Diagnoses Sleeping difficulty G47.9 Right hip pain M25.551 Loud snoring R06.83 Additional Codes BIANCA-7 Assessment Billing - BIANCA-7 Assessment Tool: BIANCA-7 Assessment [id number] ([id number])
[2023-09-30 12:28] VITALS: BP 104/72; PULSE 71; O2SAT 97; BMI 26.8
== END 2023-09-30 13:02 | disposition home or self-care (01) ==
PROVIDERS: PCP Internal Medicine; Visit Provider Internal Medicine
DX: G47.9 Sleep disorder, unspecified (principal); M25.551 Pain in right hip; R06.83 Snoring
CPT/HCPCS: 99213

== ENCOUNTER 2023-09-30 13:03 | Outpatient (REF) | payer OTHER, SELFPAY ==
--- NOTE | ~2023-09-30 | XR_ITS ---
EXAMINATION: XR HIP, RIGHT CLINICAL INFORMATION: Pain. COMPARISON: Prior radiographs dated 10/04/2021. TECHNIQUE: AP and frog-leg lateral views of the right hip are submitted, together with a frontal view of the pelvis. FINDINGS: Bony alignment and mineralization are normal. There is moderately severe narrowing of the right acetabular joint space superolaterally, with exuberant peripheral osteophyte formation at the lateral margin of the right acetabular roof. There is mild narrowing of the superolateral left acetabular joint space. There is mild peripheral osteophyte formation of the left acetabular roof. The femoral heads are smooth. There is no fracture or dislocation. There is chronic widening of the upper sacroiliac joints, left greater than right. This is consistent with prior CT findings (04/26/2020; 5.86). The pubic symphysis is intact. There are pelvic phleboliths. No foreign body is seen. XR/XR hip RT w PEL1V IMPRESSION: There are degenerative changes of the bilateral hips, moderately severe on the right and mild on the left. No fracture or dislocation is seen.
== END 2023-09-30 13:04 | disposition home or self-care (01) ==
LOC: HO.HMGCX 13:03
PROVIDERS: PCP Internal Medicine; Visit Provider Internal Medicine
DX: M25.551 Pain in right hip (principal)
CPT/HCPCS: 73502

== ENCOUNTER 2024-01-09 14:58 | Outpatient (AMB) | payer OTHER, SELFPAY ==
[2024-01-09 15:00] VITALS: BP 112/74; PULSE 86; O2SAT 96; BMI 27.3
--- NOTE | 2024-01-09 15:00 | MHC.OFFVIS ---
Vital Signs 01/09/24 15:00 Height 5 ft 6 in Weight 169 lb BMI 27.3 BP 112/74 Blood Pressure Location Rt brachial Position Sitting Pulse 86 Pulse Source Pulse Oximeter Pulse Oximetry (%) 96 Oxygen Delivery Method Room Air Intake Visit Reasons: INP-Sleep disorder-CONF Intake Note: Patient presents for sleep disorder. patient feels like she gasping and choking when she falls asleep and wakes up a lot and she snores a lot. Allergies No Known Allergies Allergy (Verified 01/09/24 15:03) Medication List - Last Reconciled 01/09/24 by GREGORIO Maldonado albuterol sulfate 90 mcg/actuation 1 puff inhalation QID PRN 1 week calcium carbonate-vitamin D3 200 mg (500 mg) -400 unit tabs PO duloxetine 20 mg PO DAILY fluticasone propionate 50 mcg/actuation sprays intranasal omeprazole 40 mg PO DAILY PRN tizanidine 4 mg PO BEDTIME PRN HPI Comments Details: 63-yr-old female presents for f/u of sleep difficulties. Pt was last seen by our former colleague Delia Chavez NP in 2021. Since that visit, pt underwent in-lab sleep study which showed decreased sleep efficiency, but did not show sleep apnea or PLMS. 09/25/22, in-lab PSG- AHI 0.6/hr, average SpO2 94% w/ O2 alli 86% (though SpO2 ,88% x's 0.1min), PLMS 2.2/hr w/ PLMS arousal index- 0.2/hr. Pt reports she continues to snore and have episodes of gasping arousals, difficulty falling and staying asleep. She is also prone to restless legs, morning headaches, daytime tiredness. She has seen ENT- states was told to try nasal spray. [facility] Medical History (Updated 01/09/24 @ 17:07 by GREGORIO Maldonado) Difficulty sleeping Right hip pain TMJ arthropathy COVID-19 vaccine dose declined Heartburn symptom History of sleep study Long-term use of Plaquenil Achilles tendinitis of left lower extremity Paresthesia and pain of extremity Fibromyalgia Sjogrens syndrome Surgical History Hx of colonoscopy History of cholecystectomy Status post left breast lumpectomy Family History Mother Arthritis Diabetes mellitus Hypertension Mental health disorder Father CKD (chronic kidney disease) Maternal Grandfather Mental health disorder Social History Housing: House Alcohol intake: never Patient Tobacco Use Status: Never used Tobacco e-Cigarette/Vaping Use: Never Used Second Hand Smoke Exposure: No service: No Current occupational status: unemployed Cognitive needs: No Hearing needs: No Vision needs: No Physical Exam Vital Signs: Last Vital Signs Pulse 86 01/09/24 15:00 BP 112/74 01/09/24 15:00 Pulse Ox 96 01/09/24 15:00 Oxygen Delivery Method Room Air 01/09/24 15:00 BMI result Body Mass Index 27.3 Const General: no acute distress Orientation/consciousness: patient oriented x3 HEENT Other: Mallampati stage 3-4 Bilateral intranasal redness. Resp Effort & Inspection: normal respiratory effort and able to speak in complete sentences Auscultation: clear to auscultation bilaterally Cardio Rate: regular rate Rhythm: regular rhythm Heart sounds: S1 normal heart sound present and S2 normal heart sound present Neuro General: patient oriented x3 Psych Mental Status: mental status grossly normal Speech and movement: Clear speech present Attitude: cooperative Assessment & Plan Assessment & Plan (1) Snoring: Code(s): R06.83 - Snoring Category: Medical (2) Difficulty sleeping: Code(s): G47.9 - Sleep disorder, unspecified Category: Medical (3) Allergic rhinitis: Code(s): J30.9 - Allergic rhinitis, unspecified Category: Medical Plan Reviewed in-lab sleep study- no evidence for sleep apnea or PLMS. She does have decreased sleep efficiency. Advised to try OTC saline spray, f/b fluticasone, and then azelastine nasal spray- reviewed optimal administration technique. May also try OTC breathe-right strips for snoring. Pt advsied to call/message if this is not helpful. f/u in 6 months or sooner prn. Medications: New azelastine administer into each nostril 1 - 2 sprays intranasal BID 30 days 30 mL 6RF Changed From fluticasone propionate 50 mcg/actuation intranasal To fluticasone propionate 50 mcg/actuation 1 spray intranasal BID 30 days 16 grams 6RF Coding Level of Care Code Est Pt Level 4 (57136) Diagnoses Snoring R06.83 Difficulty sleeping G47.9 Allergic rhinitis J30.9
== END 2024-01-09 15:30 | disposition home or self-care (01) ==
PROVIDERS: PCP Internal Medicine; Visit Provider Nurse Practitioner Family
DX: R06.83 Snoring (principal); G47.9 Sleep disorder, unspecified; J30.9 Allergic rhinitis, unspecified
CPT/HCPCS: 99214

== ENCOUNTER → 2024-01-09 14:58 | Outpatient (BNVA) | payer OTHER, SELFPAY | PROVIDERS: PCP Internal Medicine; Visit Provider Nurse Practitioner Family | DX: G47.9 Sleep disorder, unspecified (principal); R06.83 Snoring; J30.9 Allergic rhinitis, unspecified | CPT/HCPCS: 99212 ==

== ENCOUNTER 2024-01-17 10:49 | Outpatient (AMB) | payer OTHER, SELFPAY ==
--- NOTE | 2024-01-17 10:53 | AM.OFFWIN_ITS ---
Intake Vital Signs 01/17/24 10:54 Height 5 ft 6 in Weight 169 lb BMI 27.3 BP 118/80 Blood Pressure Location Lt brachial Position Sitting Pulse 74 Pulse Source Pulse Oximeter Temp 98.2 F Temp Source Oral Pulse Oximetry (%) 97 Oxygen Delivery Method Room Air Intake Visit Reasons: EP Pain legs/rash Intake Note: pt here c/o leg pain/rash. Started a while ago. pt can not remember. Has worsened over last couple days Patient Tobacco Use Status: Never used Tobacco Allergies No Known Allergies Allergy (Verified 01/17/24 10:54) Do you need a note to return to daycare/school/sports/work: No HPI HPI Comments History of Present Illness Details Patient is a 63-year-old female complaining of bilateral donald itching for a few weeks now she said it was really itchy yesterday so she decided come in today. She denies any contact with any grass or leaves are being outside at all. She denies any fevers or recent bug bites. She has not taken anything to make it better and nothing seems to make it worse. She is also complaining of right hip pain. She states she saw Dr. Han for it before but it has not getting better, she has not taken any [id number] medication or used any ice or heat to try to make it better. [facility] Medical History (Updated 01/17/24 @ 11:20 by Khushi Harris PA-C) Difficulty sleeping Right hip pain TMJ arthropathy COVID-19 vaccine dose declined Heartburn symptom History of sleep study Long-term use of Plaquenil Achilles tendinitis of left lower extremity Paresthesia and pain of extremity Fibromyalgia Sjogrens syndrome Surgical History Hx of colonoscopy History of cholecystectomy Status post left breast lumpectomy Family History Mother Arthritis Diabetes mellitus Hypertension Mental health disorder Father CKD (chronic kidney disease) Maternal Grandfather Mental health disorder Social History Housing: House Alcohol intake: never Patient Tobacco Use Status: Never used Tobacco e-Cigarette/Vaping Use: Never Used Second Hand Smoke Exposure: No service: No Current occupational status: unemployed Cognitive needs: No Hearing needs: No Vision needs: No Review of Systems Const All systems reviewed & are unremarkable except as noted in HPI and below Physical Exam Vital Signs: Last Vital Signs Temp 98.2 F 01/17/24 10:54 Pulse 74 01/17/24 10:54 BP 118/80 01/17/24 10:54 Pulse Ox 97 01/17/24 10:54 Oxygen Delivery Method Room Air 01/17/24 10:54 BMI result Body Mass Index 27.3 Const General: cooperative, healthy appearing, comfortable and no acute distress Orientation/consciousness: patient oriented x3 Limitations: no limitations HEENT Head: Yes normal to inspection Eyes General: appearance normal, both eyes and all related structures Resp Effort & Inspection: normal respiratory effort and able to speak in complete sentences Skin Other: A streaky, linear maculopapular rash with crusted lesions on anterior bilateral shins, approx 5cm x 3cm area on each leg. Neuro General: patient oriented x3 Results Reviewed Results Reviewed: Reviewed office note from Dr. Han in September and associated x-ray of the right hip. Assessment & Plan Assessment & Plan (1) Contact dermatitis: Code(s): L25.9 - Unspecified contact dermatitis, unspecified cause Qualifiers: Contact dermatitis type: allergic Contact dermatitis trigger: other trigger Qualified Code(s): L23.89 - Allergic contact dermatitis due to other agents Plan: Unknown trigger however this looks exactly like poison shameka. Patient adamantly denies she has had any contact with any kind of leaf or grass. Recommended hydrocortisone cream for symptomatic treatment and I will send a few hydroxyzine so she can be comfortable sleeping at night. (2) Right hip pain: Code(s): M25.551 - Pain in right hip Plan: Reviewed x-ray results with patient and recommended Voltaren cream, if no relief, she should follow up with her PCP. Plan see above Medications: New hydroxyzine HCl May take 1-2 tablets as needed for relief of itching 10 mg PO QID 10 tabs 0RF Coding Level of Care Code Est Pt Level 4 (51313) Diagnoses Allergic contact dermatitis due to other agents L23.89 Contact dermatitis type: allergic Contact dermatitis trigger: other trigger Right hip pain M25.551
[2024-01-17 10:54] VITALS: BP 118/80; PULSE 74; TEMP 36.8; O2SAT 97; BMI 27.3
== END 2024-01-17 11:27 | disposition home or self-care (01) ==
PROVIDERS: PCP Internal Medicine; Visit Provider Physician Assistant
DX: L23.89 Allergic contact dermatitis due to other agents (principal); M25.551 Pain in right hip
CPT/HCPCS: 99214

== ENCOUNTER 2024-02-13 13:46 | Outpatient (AMB) | payer OTHER, SELFPAY ==
[2024-02-13 14:43] VITALS: BMI 27.3
--- NOTE | 2024-02-13 14:43 | A.OFFVIS_ITS ---
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 Patient reports she has been having intermittent episodes of pain in her right hip, worse when she lies on that right side. Has been taking Tylenol, massaging arthritis cream over affected joint which affords only temporary relief. No history of trauma or strenuous exertion reported. 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 Patient reports she has been having intermittent episodes of pain in her right hip, worse when she lies on that right side. Has been taking Tylenol, massaging arthritis cream over affected joint which affords only temporary relief. No history of trauma or strenuous exertion reported. She describes groin pain that is worse with standing form a seated position, getting into and out of bed. She is very uncomfortable. This has been present for ~3-4 months. Left hip pain is also present but less so. [facility] Medical History Bilateral hip pain Degenerative joint disease of both hips Difficulty sleeping Right hip pain TMJ arthropathy COVID-19 vaccine dose declined Heartburn symptom History of sleep study Long-term use of Plaquenil Achilles tendinitis of left lower extremity Paresthesia and pain of extremity Fibromyalgia Sjogrens syndrome Surgical History Hx of colonoscopy History of cholecystectomy Status post left breast lumpectomy Family History Mother Arthritis Diabetes mellitus Hypertension Mental health disorder Father CKD (chronic kidney disease) Maternal Grandfather Mental health disorder Social History Housing: House Alcohol intake: never Patient Tobacco Use Status: Never used Tobacco e-Cigarette/Vaping Use: Never Used Second Hand Smoke Exposure: No Advance Directives: No Advance Directives Information Provided: No Do you have a plan to hurt others: No Plan service: No Current occupational status: unemployed Cognitive needs: No Hearing needs: No Vision needs: No Physical Exam Vital Signs: BMI result Body Mass Index 27.3 Extrem Other: Right hip with 0-90 deg flexion 20 deg abd and 10 deg add with pain + impingement test with restricted FADIIR + gait antalgia on right Results Reviewed Results Reviewed: I personally reviewed relevant radiographs. There is mild left and moderate right hip OA with pincer type impingement Assessment & Plan Assessment & Plan (1) Degenerative joint disease of both hips: Code(s): M16.0 - Bilateral primary osteoarthritis of hip Category: Medical Plan: This is a 63 yo F with right hip OA and Sjogren's and fibromyalgia. I explained the details surrounding her hip OA and her hip pain. I discussed treatment options including PT, injections and AMADOR. At this point, given the duration of her symptoms and her comorbidities I recommend a hip injection. I explained this to her and she would like to proceed forward. I ordered a hip injection with Pain Management. See me in 2-3 months. (2) Sjogrens syndrome: Code(s): M35.00 - Sjogren syndrome, unspecified Category: Medical Qualifiers: Sjogren organ or system involvement: keratoconjunctivitis Qualified Code(s): M35.01 - Sjogren syndrome with keratoconjunctivitis Plan: (3) Fibromyalgia: Code(s): M79.7 - Fibromyalgia Category: Medical Plan: Orders: Referrals Pain Management Referral M16.11 - Unilateral primary osteoarthritis, right hip Coding Level of Care Code New Pt Level 4 (07262) Diagnoses Degenerative joint disease of both hips M16.0 Sjogren's syndrome with keratoconjunctivitis sicca M35.01 Sjogren organ or system involvement: keratoconjunctivitis Fibromyalgia M79.7
== END 2024-02-13 15:59 | disposition home or self-care (01) ==
PROVIDERS: PCP Internal Medicine; Visit Provider Orthopaedic Surgery
DX: M16.0 Bilateral primary osteoarthritis of hip (principal); M35.01 Sjogren syndrome with keratoconjunctivitis; M79.7 Fibromyalgia
CPT/HCPCS: 99204

== ENCOUNTER → 2024-02-13 13:46 | Outpatient (BNVA) | payer OTHER, SELFPAY | PROVIDERS: PCP Internal Medicine; Visit Provider Orthopaedic Surgery | DX: M16.0 Bilateral primary osteoarthritis of hip (principal); M35.01 Sjogren syndrome with keratoconjunctivitis; M79.7 Fibromyalgia | CPT/HCPCS: 99202 ==

== ENCOUNTER 2024-02-19 10:09 | Outpatient (AMB) | payer OTHER, SELFPAY ==
--- NOTE | 2024-02-19 10:21 | AM.OFFWIN_ITS ---
Intake Vital Signs 02/19/24 10:23 Height 5 ft 6 in Weight 166 lb BMI 26.8 BP 108/70 Blood Pressure Location Rt brachial Position Sitting Pulse 81 Pulse Source Pulse Oximeter Temp 98.6 F Temp Source Oral Pulse Oximetry (%) 97 Oxygen Delivery Method Room Air Intake Visit Reasons: EP ?UTI 3 weeks Intake Note: pt here c/o urinary symptoms, frequency, urgency, burning for 3 weeks Patient Tobacco Use Status: Never used Tobacco Allergies No Known Allergies Allergy (Verified 02/19/24 10:22) Do you need a note to return to daycare/school/sports/work: No HPI HPI Comments History of Present Illness Details Patient is a 63-year-old female complaining of 3 weeks of ongoing issues with urination. She states that she tries to go but sometimes the urine does not pass, but she feels like she has to go and can not. She states she had 1 day of burning when she urinates about a week ago but that has since resolved. She denies any fevers. She states she was told she has had kidney stones in the past but they were always small and passed on their own. She denies any blo od in her urine. [facility]LY [facility] Medical History Bilateral hip pain Degenerative joint disease of both hips Difficulty sleeping Right hip pain TMJ arthropathy COVID-19 vaccine dose declined Heartburn symptom History of sleep study Long-term use of Plaquenil Achilles tendinitis of left lower extremity Paresthesia and pain of extremity Fibromyalgia Sjogrens syndrome Surgical History Hx of colonoscopy History of cholecystectomy Status post left breast lumpectomy Family History Mother Arthritis Diabetes mellitus Hypertension Mental health disorder Father CKD (chronic kidney disease) Maternal Grandfather Mental health disorder Social History Housing: House Alcohol intake: never Patient Tobacco Use Status: Never used Tobacco e-Cigarette/Vaping Use: Never Used Second Hand Smoke Exposure: No service: No Current occupational status: unemployed Cognitive needs: No Hearing needs: No Vision needs: No Review of Systems Const All systems reviewed & are unremarkable except as noted in HPI and below Physical Exam Vital Signs: Last Vital Signs Temp 98.6 F 02/19/24 10:23 Pulse 81 02/19/24 10:23 BP 108/70 02/19/24 10:23 Pulse Ox 97 02/19/24 10:23 Oxygen Delivery Method Room Air 02/19/24 10:23 BMI result Body Mass Index 26.8 Const General: cooperative, healthy appearing, comfortable, no acute distress and well developed Orientation/consciousness: patient oriented x3 Limitations: no limitations HEENT Head: Yes normal to inspection Eyes General: appearance normal, both eyes and all related structures Neck Neck: Yes normal visual inspection and Yes full ROM Resp Effort & Inspection: normal respiratory effort and able to speak in complete sentences GI Inspection: Yes normal to inspection Palpation (GI): Soft to palpation and nontender General: Yes no CVA tenderness Back/Spine/Pelvis Back: no CVA tenderness Skin General skin exam: no rashes or lesions noted Neuro General: patient oriented x3 Extrem General: Yes normal to inspection Results AMB Urinalysis, Automated UA Leukoctes 0 Ang/uL Last Edit by Madi Radre CMA on 02/19/24 10:33 UA Nitrite Negative Last Edit by Madi Rader CMA on 02/19/24 10:33 UA Urobilinogen 0.2 mg/dL Last Edit by Madi Rader CMA on 02/19/24 10:33 UA Protein 15 mg/dL Last Edit by Madi Rader CMA on 02/19/24 10:33 UA pH 5.5 Last Edit by Madi Rader CMA on 02/19/24 10:33 UA Blood 25 Dat/uL Last Edit by Madi Rader CMA on 02/19/24 10:33 UA Specific [place] 1.025 Last Edit by Madi Rader CMA on 02/19/24 10:33 UA Ketone Negative Last Edit by Madi Rader CMA on 02/19/24 10:33 UA Bilirubin 0 mg/dL Last Edit by Madi Rader CMA on 02/19/24 10:33 UA Glucose 0 mg/dL Last Edit by Madi Rader CMA on 02/19/24 10:33 Results Reviewed Results Reviewed: Laboratory Last Values Urine pH (Auto) 5.5 02/19/24 10:31 Specific [place] (Auto) 1.025 02/19/24 10:31 Urine Protein (Auto) 15 mg/dL 02/19/24 10:31 Glucose (UA)(Auto) 0 mg/dL 02/19/24 10:31 Urine Ketones (Auto) Negative 02/19/24 10:31 Urine Blood (Auto) 25 Dat/uL 02/19/24 10:31 Urine Nitrite (Auto) Negative 02/19/24 10:31 Urine Bilirubin (Auto) 0 mg/dL 02/19/24 10:31 Urine Urobilinogen (Auto) 0.2 mg/dL 02/19/24 10:31 Leukocyte Esterase (Auto) 0 Ang/uL 02/19/24 10:31 Assessment & Plan Assessment & Plan (1) Blood in urine: Code(s): R31.9 - Hematuria, unspecified Qualifiers: Hematuria type: other microscopic Qualified Code(s): R31.29 - Other microscopic hematuria Plan: UA was negative for infection, + blood, as patient has history of kidney stones and is intermittently unable to pass urine, sent to ED for further workup. Called [facility] ED with expect Plan see above Orders: Orders AMB Urinalysis Automated Today Z13.9 - Encounter for screening, unspecified Coding Level of Care Code Est Pt Level 5 (07344) Diagnoses Other microscopic hematuria R31.29 Hematuria type: other microscopic
[2024-02-19 10:23] VITALS: BP 108/70; PULSE 81; TEMP 37; O2SAT 97; BMI 26.8
== END 2024-02-19 11:06 | disposition home or self-care (01) ==
PROVIDERS: PCP Internal Medicine; Visit Provider Physician Assistant
DX: R31.29 Other microscopic hematuria (principal)
CPT/HCPCS: 81003; 99215

== ENCOUNTER 2024-02-19 11:05 | Emergency (ER) | payer OTHER, SELFPAY ==
--- NOTE | ~2024-02-19 | CT_ITS ---
EXAMINATION: CT ABDOMEN AND PELVIS WITHOUT CONTRAST CLINICAL INFORMATION: Flank pain. Hematuria. COMPARISON: 04/26/2020 TECHNIQUE: Multidetector volumetric imaging was performed from the superior aspect of the liver through the pubic symphysis. Sagittal and coronal reformatted images were obtained on the technologist's workstation. This CT examination was performed using dose optimization techniques as appropriate, variously including the following: *Automated exposure control *Adjustment of mA and/or kV according to patient size (this includes techniques or standardized protocols for targeted exams where dose is matched to indication/reason for exam; i.e. extremities or head) *Use of iterative reconstruction technique DLP: 555 mGy-cm FINDINGS: LUNG BASES: The visualized lung bases are unremarkable. LIVER, GALLBLADDER, AND BILIARY TREE: The noncontrast liver is decreased in attenuation. No biliary ductal dilatation is present. The gallbladder is surgically absent. PANCREAS: Unremarkable. SPLEEN: Unremarkable. ADRENAL GLANDS: Unremarkable. KIDNEYS AND URETERS: The kidneys are symmetric in size. 9 mm exophytic upper pole right renal lesion is incompletely evaluated though may represent a cyst. No renal or ureteral calculus. No hydronephrosis or perinephric fluid collection. BLADDER: Underdistended. GASTROINTESTINAL TRACT: Small and large bowel loops are of normal caliber. No small bowel obstruction. Diverticular disease of the colon. ABDOMINAL WALL: Small fat-containing umbilical hernia. LYMPH NODES: No bulky lymphadenopathy. VASCULAR: Normal caliber abdominal aorta. PELVIC VISCERA: Unremarkable. OSSEOUS STRUCTURES: No destructive bone lesions. CT/CT abdomen pelvis wo IV con IMPRESSION: No nephrolithiasis or hydronephrosis. Hepatic steatosis.
[2024-02-19 11:22] VITALS: BP 134/79; PULSE 70; RESP 18; TEMP 36.3; O2SAT 96; BMI 27.5
--- NOTE | 2024-02-19 11:27 | ED.GENADULT ---
HPI - General Adult General Chief complaint: Urogenital-Female Stated complaint: blood in urine Time Seen by Provider: 02/19/24 13:46 Source: patient, RN notes reviewed and old records reviewed Mode of arrival: ambulatory History of Present Illness ED Provider: Brenda Fuchs PA-C HPI narrative: 63-year-old female with a past medical history of fibromyalgia presenting to the ED complaining of microscopic hematuria noted at PCP office [employer] and urinary frequency/urgency/hesitancy x3 weeks. Also reports associated back pain. Denies fever, chills, nausea/vomiting, abdominal pain, dysuria. Related Data Home Medications ?Medication ?Instructions ?Recorded ?Confirmed duloxetine 20 mg capsule,delayed 20 mg PO DAILY 04/13/22 05/15/22 release tizanidine 4 mg capsule 4 mg PO BEDTIME PRN 06/14/22 calcium carbonate 200 mg calcium tab PO 07/27/22 01/09/24 (500 mg)-vitamin D3 400 unit tablet Previous Rx's ?Medication ?Instructions ?Recorded albuterol sulfate 90 mcg/actuation 1 puff inhalation QID PRN 09/11/23 aerosol inhaler shortness of breath or wheezing 1 week #6.7 grams azelastine 137 mcg (0.1 %) nasal 1 - 2 spray intranasal BID 30 days 01/09/24 spray #30 mL fluticasone propionate 50 1 spray intranasal BID 30 days #16 01/09/24 mcg/actuation nasal grams spray,suspension hydroxyzine HCl 10 mg tablet 10 mg PO QID #10 tabs 01/17/24 omeprazole 40 mg capsule,delayed 40 mg PO DAILY PRN heartburn #90 02/05/24 release caps phenazopyridine 200 mg tablet 200 mg PO TID PRN pain 6 doses #6 02/19/24 (Pyridium) tabs Allergies Allergy/AdvReac Type Severity Reaction Status Date / Time No Known Allergies Allergy Verified 02/19/24 11:30 Review of Systems Review of Systems: Constitutional: No Fever, No Chills ENT/Mouth: No Ear Pain, No Nasal Congestion, No Sinus Pain, No Hoarseness, No sore throat, No Rhinorrhea, No Swallowing Difficulty Cardiovascular: No Chest Pain, No SOB Respiratory: No Cough, No Sputum, No Wheezing Gastrointestinal: No Nausea, No Vomiting, No Diarrhea, No Constipation, No Abdominal pain Genitourinary: No Dysuria, + Urinary Frequency, + Hematuria (microscopic), No Urinary Incontinence/retention, + Urgency, + Flank Pain, + urinary hesitancy Musculoskeletal: No joint pain, No Myalgias, No Joint Swelling Skin: No Skin Lesions, No rash Neuro: No Weakness Yes all other systems are reviewed and are negative Constitutional: Constitutional: Reports as per [facility] Past Medical History Attestation statement: The following information was validated with the patient. Source: old records reviewed Medical History Bilateral hip pain Degenerative joint disease of both hips Difficulty sleeping Right hip pain TMJ arthropathy COVID-19 vaccine dose declined Heartburn symptom History of sleep study Long-term use of Plaquenil Achilles tendinitis of left lower extremity Paresthesia and pain of extremity Fibromyalgia Sjogrens syndrome Surgical History Hx of colonoscopy History of cholecystectomy Status post left breast lumpectomy Family History Family History Mother Arthritis Diabetes mellitus Hypertension Mental health disorder Father CKD (chronic kidney disease) Maternal Grandfather Mental health disorder Social History Social History Housing: House Alcohol intake: never Patient Tobacco Use Status: Never used Tobacco e-Cigarette/Vaping Use: Never Used Second Hand Smoke Exposure: No Advance Directives: No Advance Directives Information Provided: No Do you have a plan to hurt others: No Plan service: No Current occupational status: unemployed Cognitive needs: No Hearing needs: No Vision needs: No Physical Exam ED Vital Signs: Vital Signs - 24 hr 02/19/24 11:22 Temperature 97.3 F Pulse Rate 70 Respiratory Rate 18 Blood Pressure 134/79 Pulse Oximetry 96 Oxygen Delivery Method Room Air BMI result Body Mass Index 27.5 Const General: cooperative, healthy appearing and no acute distress Orientation/consciousness: patient oriented x3 Limitations: no limitations HENMT Head: Yes normal to inspection and Yes atraumatic Ears: hearing grossly normal bilaterally General nose exam: Normal external nose present Face and sinus: Yes normal facial exam Eyes General: appearance normal, both eyes and all related structures EOM: EOMs intact bilaterally Neck Neck: Yes normal visual inspection and Yes no meningeal signs Resp Effort & Inspection: normal respiratory effort and no respiratory distress Cardio Rate: regular rate GI Inspection: Yes normal to inspection Palpation (GI): Soft to palpation, nontender, no guarding and not rigid General: Yes no CVA tenderness Back/Spine/Pelvis Back: no CVA tenderness Skin Rashes: no rashes Wounds: no wounds Neuro General: patient oriented x3, tone normal and no meningeal signs Cranial nerves: Yes CN's II-XII intact bilaterally Gait exam (Neuro): Normal gait present Extrem General: Yes normal to inspection Course Course Course Narrative: This is an RME: Additional HPI, ROS, PE not included below will be deferred to primary provider. RME assessment and note performed by: Adele Cook PA-C This is a 76-[id number]-female, with a hx of fibromyalgia, who presents to the ER with complaints of hematuria. She was seen at her PCP this morning as she has had urinary frequency and urgency. No dysuria. Also endorsing back pain. Plan: Labs, CT -labs reassuring. UA with trace blood, not infected > will discharge home with Pyridium and urology follow-up CT abdomen pelvis wo IV con IMPRESSION: No nephrolithiasis or hydronephrosis. Hepatic steatosis. >Results discussed with patient including worrisome signs and symptoms and strict return precautions, and when to return to the emergency department. They verbalized understanding and feel safe for discharge at this time. Medical Decision Making Medical Decision Making [facility] Narrative: 63-year-old female with a past medical history of fibromyalgia presenting to the ED complaining of microscopic hematuria noted at PCP office [employer]ILD[employer] and urinary frequency/urgency/hesitancy x3 weeks. Also reports associated back pain. On exam vital signs stable, NAD, nontoxic appearing, abdomen soft/nontender, no CVAT. Concern for UTI vs renal stone vs pyelo. Lower suspicion for appendicitis/diverticulitis without tenderness on exam Plan: Labs, UA, CT Please refer to course for remaining clinical decision making, interpretation of labs/imaging results, and discussions with consultants and/or family members. Differential Diagnosis Differential Diagnoses: The differential diagnosis associated with the presentation includes As above Admission/Observation Consideration of admission/observation: Escalation of care including admission/observation considered Lab Data [facility] Lab Attestation statement: I reviewed the patient's lab results. 02/19/24 12:07 02/19/24 12:07 Labs: Lab Results 02/19/24 02/19/24 Range/Units 12:07 14:00 WBC 5.7 (4.8-10.8) X10*3/uL RBC 5.13 (4.20-5.50) X10*6/uL Hgb 14.9 (12.0-16.0) g/dl Hct 44.8 (37.0-47.0) % MCV 87.3 (80.0-98.0) fL MCH 29.0 (27.0-33.0) pg MCHC 33.3 (31.0-35.0) g/dl RDW 12.9 (11.0-16.0) % Plt Count 253 (160-400) X10*3/uL MPV 9.8 (9.4-12.3) fL Immature Gran % (Auto) 0.4 (0.0-0.4) % Neut % (Auto) 59.8 (45-73) % Lymph % (Auto) 28.1 (20-40) % [place] % (Auto) 8.4 (2-11) % Eos % (Auto) 2.8 (0-4) % Baso % (Auto) 0.5 (0-2) % Lymph # (Auto) 1.6 (1.2-4.9) X10*3/uL [place] # (Auto) 0.5 (0.1-1.2) X10*3/uL Eos # (Auto) 0.2 (0.0-0.4) X10*3/uL Baso # (Auto) 0.0 (0.0-0.2) X10*3/uL Abs Immat Gran (auto) 0.02 (0.00-0.03) X10*3/uL Absolute Neuts (auto) 3.4 (2.0-8.3) x10*3/uL Absolute Nucleated RBC 0.000 (0.0-0.012) X10*3/uL Nucleated RBC % (auto) 0.0 (0.0-0.2) /100WBC Sodium 141 (135-145) mmol/L Potassium 4.8 (3.3-5.1) mmol/L Chloride 108 (96-108) mmol/L Carbon Dioxide 29 (22-29) mmol/L Anion Gap 9 L (12-20) BUN 16 (9-16) mg/dL Creatinine 0.83 (0.5-1.4) mg/dL Estim Creat Clear Calc 71.1 Estimated GFR > 60 Random Glucose 114 (60-115) mg/dL Calcium 9.8 (8.4-10.2) mg/dL Magnesium 2.4 (1.6-2.6) mg/dL Total Bilirubin 0.3 (0.0-1.0) mg/dL Direct Bilirubin 0.1 (0.0-0.5) mg/dL AST 25 (5-31) U/L ALT 27 (0-31) U/L Alkaline Phosphatase 122 H (39-117) U/L Total Protein 8.3 H (6.5-8.0) g/dL Albumin 4.4 (3.5-5.0) g/dL Lipase 34 (8-78) U/L Urine Color Yellow Urine Appearance Clear Urine pH 5.0 (5.0-9.0) Ur Specific [place] 1.025 (1.005-1.025) Urine Protein Negative (Neg-Trace) mg/dL Urine Glucose (UA) Negative (Negative) mg/dL Urine Ketones Negative (Negative) mg/dL Urine Blood Trace H (Negative) Urine Nitrite Negative (Negative) Ur Leukocyte Esterase Negative (Negative) Urine RBC 0-2 (0-2) /HPF Urine WBC 0-5 (0-5) /HPF Ur Squamous Epith Cells 0-2 (0-2) /HPF Urine Bacteria None Seen (None Seen) Hyaline Casts 0-2 (0-2) /LPF Radiology Impression Discussion of test interpretation with radiology: I have reviewed the radiologist's reading. Independent Historian Clinical information obtained from an independent historian. History obtained from or confirmed by: Spouse External Record Review External record reviewed: Inpatient record, Office record, Outpatient record, Prior outpatient labs, Prior outpatient radiology, Primary care record and Outside ED record Tests considered The following testing was considered but not selected: As above Prescription Management I considered prescription management with: Pain Medication Discharge Plan Discharge Clinical Impression: Hematuria, microscopic, Urinary hesitancy Patient Disposition: Home, Self-Care Instructions: Hematuria (ED), Urinary Urgency and Frequency (DC) Additional Instructions: Your blood work and CT scan were reassuring Your urine does have microscopic blood, please follow-up with urology as well as her doctor If symptoms persist or worsen you constant worsening pain, inability to pee, fever, nausea or vomiting return to the ED Prescriptions: New phenazopyridine [Pyridium] 200 mg tablet 200 mg PO TID PRN (Reason: pain) Qty: 6 0RF No Action omeprazole 40 mg capsule,delayed release(DR/EC) 40 mg PO DAILY PRN (Reason: heartburn) Qty: 90 1RF duloxetine 20 mg capsule,delayed release(DR/EC) 20 mg PO DAILY albuterol sulfate 90 mcg/actuation HFA aerosol inhaler 1 puff inhalation QID PRN (Reason: shortness of breath or wheezing) 7 Days Qty: 6.7 0RF hydroxyzine HCl 10 mg tablet 10 mg PO QID Qty: 10 0RF Rx Instructions: May take 1-2 tablets as needed for relief of itching tizanidine 4 mg capsule 4 mg PO BEDTIME PRN calcium carbonate-vitamin D3 200 mg (500 mg) -400 unit tablet PO fluticasone propionate 50 mcg/actuation spray,suspension 1 spray intranasal BID 30 Days Qty: 16 6RF azelastine 137 mcg (0.1 %) aerosol,spray 1 - 2 spray intranasal BID 30 Days Qty: 30 6RF Rx Instructions: administer into each nostril Referrals: [facility] [Provider Group] Helena Han MD [Primary Care Provider] - Print Language: Greenlandic
[2024-02-19 12:12] LABS: MANUAL DIFF FLAG NO
[2024-02-19 12:18] LABS: Basophils Percent Auto 0.5 % (0-2); Eosinophils Absolute Auto 0.2 X10*3/uL (0.0-0.4); Eosinophils Percent Auto 2.8 % (0-4); Hematocrit 44.8 % (37.0-47.0); Hemoglobin 14.9 g/dl (12.0-16.0); Imm Gran Abs Auto 0.02 X10*3/uL (0.00-0.03); Imm Gran Pct Auto 0.4 % (0.0-0.4); Lymphocytes Absolute Auto 1.6 X10*3/uL (1.2-4.9); Lymphocytes Percent Auto 28.1 % (20-40); Mean Corpuscular HGB Conc 33.3 g/dl (31.0-35.0); Mean Corpuscular Volume 87.3 fL (80.0-98.0); Mean Platelet Volume 9.8 fL (9.4-12.3); Monocytes Absolute Auto 0.5 X10*3/uL (0.1-1.2); Monocytes Percent Auto 8.4 % (2-11); Neutrophils Absolute Auto 3.4 x10*3/uL (2.0-8.3); Neutrophils Percent Auto 59.8 % (45-73); Platelet Count 253 X10*3/uL (160-400); Red Blood Count 5.13 X10*6/uL (4.20-5.50); Red Cell Distribution Width 12.9 % (11.0-16.0); White Blood Count 5.7 X10*3/uL (4.8-10.8)
[2024-02-19 12:32] LABS: Alanine Aminotransferase 27 U/L (0-31); Albumin Level 4.4 g/dL (3.5-5.0); Alkaline Phosphatase 122 U/L (39-117); Anion Gap 9 (12-20); Aspartate Amino Transferase 25 U/L (5-31); Bilirubin Direct 0.1 mg/dL (0.0-0.5); Bilirubin Total 0.3 mg/dL (0.0-1.0); Blood Urea Nitrogen 16 mg/dL (9-16); Calcium 9.8 mg/dL (8.4-10.2); Carbon Dioxide 29 mmol/L (22-29); Chloride 108 mmol/L (96-108); Creatinine Clr Calc Pharmacy 71.1; Estimated Glomerular Filt Rate > 60; Glucose Random 114 mg/dL (60-115); Lipase 34 U/L (8-78); Magnesium 2.4 mg/dL (1.6-2.6); Potassium 4.8 mmol/L (3.3-5.1); Sodium 141 mmol/L (135-145); Total Protein 8.3 g/dL (6.5-8.0)
[2024-02-19 14:18] LABS: Appearance Urine Clear; Color Urine Yellow; Glucose Urine UA Negative (Negative); Leukocyte Esterase Urine Negative (Negative); Nitrite Urine Negative (Negative); Specific Gravity - Urine 1.025 (1.005-1.025); UMIC TRIGGER UACC YES; Urine Blood Trace (Negative); Urine Ketones Negative (Negative); Urine Protein Negative (Neg-Trace)
[2024-02-19 14:23] LABS: Bacteria Urine None Seen (None Seen); Hyaline Casts Urine 0-2 /LPF (0-2); RBC Urine 0-2 /HPF (0-2); Squamous Epithelial Cell Urine 0-2 /HPF (0-2); WBC Urine 0-5 /HPF (0-5)
[2024-02-19 15:35] VITALS: BP 128/71; PULSE 60; RESP 16; TEMP 36.2; O2SAT 95
== END 2024-02-19 15:36 | disposition home or self-care (01) ==
PROVIDERS: Physician Assistant Medical; Emergency Provider Emergency Medicine; PCP Internal Medicine
DX: R31.29 Other microscopic hematuria (principal); R39.11 Hesitancy of micturition; Z79.899 Other long term (current) drug therapy
CPT/HCPCS: 36415; 74176; 80048; 80076; 81001; 83690; 83735; 85025; 99282; 99284

== ENCOUNTER 2024-02-24 10:26 | Outpatient (AMB) | payer OTHER, SELFPAY ==
[2024-02-24 10:32] VITALS: BP 122/88; PULSE 71; O2SAT 96; BMI 27.8
--- NOTE | 2024-02-24 10:32 | A.OFFPC_ITS ---
Vital Signs 02/24/24 10:32 Height 5 ft 5 in Weight 167 lb BMI 27.8 BP 122/88 Blood Pressure Location Lt brachial Position Sitting Pulse 71 Pulse Source Pulse Oximeter Pulse Oximetry (%) 96 Oxygen Delivery Method Room Air Intake Visit Reasons: re-current rash on feet Intake Note: Pt is here today for her re-current rash on feet Allergies No Known Allergies Allergy (Verified 02/24/24 11:06) Medication List - Last Reconciled 02/24/24 by Helena Han MD albuterol sulfate 90 mcg/actuation 1 puff inhalation QID PRN 1 week azelastine 1 - 2 sprays intranasal BID 30 days calcium carbonate-vitamin D3 200 mg (500 mg) -400 unit tabs PO duloxetine 20 mg PO DAILY hydrocortisone 1% (Anti-Itch (hydrocortisone)) 1 appl topical TID PRN omeprazole 40 mg PO DAILY PRN phenazopyridine (Pyridium) 200 mg PO TID PRN 6 doses Tobacco use date assessed: 02/24/24 Dental Screening Dental Screen Date: 02/24/24 HPI re-current rash on feet HPI Details 63-year-old lady here today complaining of increased dusky color in both feet. She initially was prescribed a cream for athlete's foot for a rash on both feet which has helped. However the discoloration remains. She also was recently seen at the ER complaining of urinary frequency and urgency and low back pain. Urinalysis showed unremarkable findings except for presence of microscopic hematuria.. Patient also would like a handicap placard completed today as she has severe osteoarthritis and has been having difficulty walking for long distances. [facility] Medical History Bilateral hip pain Degenerative joint disease of both hips Difficulty sleeping Right hip pain TMJ arthropathy COVID-19 vaccine dose declined Heartburn symptom History of sleep study Long-term use of Plaquenil Achilles tendinitis of left lower extremity Paresthesia and pain of extremity Fibromyalgia Sjogrens syndrome Surgical History Hx of colonoscopy History of cholecystectomy Status post left breast lumpectomy Family History Mother Arthritis Diabetes mellitus Hypertension Mental health disorder Father CKD (chronic kidney disease) Maternal Grandfather Mental health disorder Social History Housing: House Alcohol intake: never Patient Tobacco Use Status: Never used Tobacco e-Cigarette/Vaping Use: Never Used Second Hand Smoke Exposure: No service: No Current occupational status: unemployed Cognitive needs: No Hearing needs: No Vision needs: No Questionnaire PHQ-9 Over the last 2 weeks, how often have you been bothered by any of the following problems? 1. Little interest or pleasure in doing things: not at all 2. Feeling down, depressed, or hopeless: not at all 3. Trouble falling or staying asleep, or sleeping too much: several days 4. Feeling tired or having little energy: several days 5. Poor appetite or overeating: not at all 6. Feeling bad about yourself - or that you are a failure or have let yourself or your family down: not at all 7. Trouble concentrating on things, such as reading the newspaper or watching television: not at all 8. Moving or speaking so slowly that other people could have noticed. Or the opposite - being so fidgety or restless that you have been moving around a lot more than usual: not at all 9. Thoughts that you would be better off or of hurting yourself in some way: not at all Total score: 2 Depression Screening Interpretation: Negative Depression Screening Done: Yes 79740 - PHQ-9 Billing: Yes Source: Developed by Drs. Ronaldo Haynes, Deysi Lacey, Jerome Locke and colleagues, with an educational sarmad from [employer]. Thrive Questionnaire Date Thrive assessed: 09/30/23 I am a: Patient What is your living situation today?: I have a steady place to live Within the past 12 months, did the food you bought not last and you didn't have the money to get more?: Never true Within the past 12 months, did you worry whether your food would run out before you got money to buy more?: Never true Do you have trouble paying for medicines?: No Do you have trouble getting transportation to medical appointments?: No Do you have trouble paying your heating and electricity bill?: No Do you have trouble taking care of your child, family member or friend?: No Do you have trouble with day-to-day activities such as bathing, preparing meals, shopping, managing finances, etc.?: No Are you currently unemployed and looking for a job?: No Are you interested in more education?: No Please select the resources that you would like help with: Housing/Fdc Currently or been in a relationship where the following occur: No concerns reported THRIVE Score: 0 AUDIT C Alcohol Use Questionnaire (AUDIT-C) 1. How often do you have a drink containing alcohol?: Never Total Score: 0 BIANCA-7 AMB Questionnaire BIANCA-7 Date BIANCA - 7 assessed: 09/30/23 Feeling nervous, anxious, or on edge: 0 = Not at all Not being able to stop or control worryin = Not at all Worrying too much about different things: 0 = Not at all Trouble relaxin = Not at all Being so restless that it is hard to sit still: 0 = Not at all Becoming easily annoyed or irritable: 0 = Not at all Feeling afraid as if something awful might happen: 0 = Not at all Total BIANCA-7 score (0-4 normal; 5-9 mild; 10-14 moderate; 15-21 severe): 0 Source: Developed by Drs. Ronaldo Haynes, Deysi Lacey, Jerome Locke and colleagues, with an educational sarmad from [employer]. BIANCA-7 Assessment Billing BIANCA-7 Assessment Tool: BIANCA-7 Assessment 75547 Review of Systems Const All systems reviewed & are unremarkable except as noted in HPI and below Physical exam (Primary Care) Vital Signs: Last Vital Signs Pulse 71 02/24/24 10:32 BP 122/88 02/24/24 10:32 Pulse Ox 96 02/24/24 10:32 Oxygen Delivery Method Room Air 02/24/24 10:32 BMI result Body Mass Index 27.8 Tobacco/Smoking Status: Tobacco use Status Tobacco use date assessed 02/24/24 02/24/24 10:33 Patient Tobacco Use Status Never used Tobacco 02/24/24 10:33 e-Cigarette/Vaping Use Never Used 02/24/24 10:33 PHQ-9: PHQ-9 Score PHQ-9: Total score 2 03/02/24 01:41 Depression Screening Interpretation: Negative Thrive Assessment: Date of Thrive Assessment Date Thrive assessed 09/30/23 02/24/24 10:33 Currently or been in a relationship where the following occur: No concerns reported Const Other: Alert oriented x3, no acute distress noted ambulatory with slow gait Orientation/consciousness: patient oriented x3 Neck Neck: Yes full ROM, Yes no lymphadenopathy and Yes supple Thyroid: Thyroid normal Resp Effort & Inspection: normal respiratory effort and able to speak in complete sentences Auscultation: clear to auscultation bilaterally Cardio Other: S1-S2 present regular rate and rhythm, decreased pedal pulses noted in both lower extremities Bruits: no carotid bruits GI Palpation (GI): Soft to palpation, nontender, no guarding and no masses Auscultation: normal bowel sounds Skin Other: Duskiness of both feet, slight erythema noted on lateral aspect of both feet Neuro General: patient oriented x3, gait normal, tone normal, moves all extremities and no focal motor deficits Extrem Other: Both feet cool to touch, unable to palpate good pulses in dorsalis pedis or popliteal tibial area no calf tenderness Assessment and Plan Assessment & Plan (1) Decreased pedal pulses: Code(s): R09.89 - Other specified symptoms and signs involving the circulatory and respiratory systems Plan: Ordered arterial ultrasound (2) Numbness and tingling of both legs below knees: Code(s): R20.0 - Anesthesia of skin; R20.2 - Paresthesia of skin Plan: Arterial ultrasound of both lower extremity ordered (3) Hematuria, microscopic: Code(s): R31.29 - Other microscopic hematuria Plan: Ordered a repeat urinalysis with microscopic exam and urine cytology for m icrohematuria (4) Degenerative joint disease of both hips: Code(s): M16.0 - Bilateral primary osteoarthritis of hip Plan: Handicap placard application completed and given back to patient (5) Rash: Code(s): R21 - Rash and other nonspecific skin eruption Plan: Empirically prescribed triamcinolone acetonide 0.1% to apply sparingly to affected area twice a day for no more than 10 days at a time. Return to clinic if no improvement noted Orders: Orders UA CC w/rflx Micro + Cult 02/24/24 R31.29 - Other microscopic hematuria US arterial duplex LE BI 02/24/24 R09.89 - Other specified symptoms and signs involving the circulatory and respiratory systems, R20.0 - Anesthesia of skin, R20.2 - Paresthesia of skin Medications: New triamcinolone acetonide 0.1% 1 appl topical BID 30 grams 0RF 10 days R21 - Rash and other nonspecific skin eruption cane As directed 1 ea 0RF M16.0 - Bilateral primary osteoarthritis of hip Coding Level of Care Code Est Pt Level 4 (83514) Diagnoses Decreased pedal pulses R09.89 Numbness and tingling of both legs below knees R20.0; R20.2 Hematuria, microscopic R31.29 Degenerative joint disease of both hips M16.0 Rash R21 Additional Codes BIANCA-7 Assessment Billing - BIANCA-7 Assessment Tool: BIANCA-7 Assessment [id number] ([id number])
== END 2024-02-24 12:26 | disposition home or self-care (01) ==
PROVIDERS: PCP Internal Medicine; Visit Provider Internal Medicine
DX: R09.89 Other specified symptoms and signs involving the circulatory and respiratory systems (principal); R20.0 Anesthesia of skin; R20.2 Paresthesia of skin; R31.29 Other microscopic hematuria; M16.0 Bilateral primary osteoarthritis of hip; R21 Rash and other nonspecific skin eruption
CPT/HCPCS: 99214

== ENCOUNTER 2024-02-24 11:31 | Outpatient (REF) | payer OTHER, SELFPAY ==
[2024-02-24 13:17] LABS: Appearance Urine Clear; Color Urine Dark Yellow; Glucose Urine UA Negative (Negative); Leukocyte Esterase Urine Negative (Negative); Nitrite Urine Negative (Negative); Specific Gravity - Urine 1.025 (1.005-1.025); Urine Blood Negative (Negative); Urine Ketones Negative (Negative); Urine Protein Negative (Neg-Trace)
== END 2024-02-24 11:32 | disposition home or self-care (01) ==
LOC: HO.HMGCLDS 11:31
PROVIDERS: PCP Internal Medicine; Visit Provider Internal Medicine
DX: R31.29 Other microscopic hematuria (principal)
CPT/HCPCS: 81003

== ENCOUNTER 2024-03-03 13:23 | Outpatient (REF) | payer OTHER, SELFPAY ==
--- NOTE | ~2024-03-03 | US_ITS ---
EXAMINATION: Noninvasive assessment of the bilateral lower extremities with ARTERIAL DUPLEX. CLINICAL INFORMATION: Decreased pedal pulses with lower extremity numbness and tingling TECHNIQUE: Duplex Doppler techniques with waveform analysis and measurement of velocities in the bilateral common femoral, profunda femoris, superficial femoral, popliteal and tibial arteries were performed. . COMPARISON: None FINDINGS: DIRECT DUPLEX DOPPLER FINDINGS: RIGHT LEG: Common femoral artery: 124 cm/s, phasicity: Triphasic Profunda femoris artery: 60.4 cm/s, phasicity: Triphasic Superficial femoral artery (proximal): 85.3 cm/s, phasicity: Triphasic Superficial femoral artery (mid): 75.4 cm/s, phasicity: Triphasic Superficial femoral artery (distal): 55.9 cm/s, phasicity: Triphasic Popliteal artery: 80.5 cm/s, phasicity: Triphasic Posterior tibial artery: 66.6 cm/s, phasicity: Triphasic Peroneal artery: 20.0 cm/s, phasicity: Biphasic Anterior tibial artery: 43.1 cm/s, phasicity: Triphasic Dorsalis pedis artery: 33.2 cm/s, phasicity:Biphasic Pardo's cyst in the popliteal fossa measuring 3.1 x 1.1 x 1.3 cm LEFT LEG: Common femoral artery: 163 cm/s, phasicity: Triphasic Profunda femoris artery: 53.9 cm/s, phasicity: Triphasic Superficial femoral artery (proximal): 82.4 cm/s, phasicity: Triphasic Superficial femoral artery (mid): 89.1 cm/s, phasicity: Triphasic Superficial femoral artery (distal): 85.7 cm/s, phasicity: Biphasic Popliteal artery: 108 cm/s, phasicity: Triphasic Posterior tibial artery: 86.1 cm/s, phasicity: Triphasic Peroneal artery: 40.1 cm/s, phasicity: Triphasic Anterior tibial artery: 8.1 cm/s, phasicity: Monophasic Dorsalis pedis artery: 24.3 cm/s, phasicity: Monophasic US/US arterial duplex LE BI IMPRESSION: Right leg: Widely patent arterial flow throughout the right lower extremity without significant stenosis or occlusion. Left leg: Widely patent arterial flow within the left lower extremity without significant stenosis or occlusion. Dampened waveform in the anterior tibial artery which could be due to distal atresia
== END 2024-03-03 13:24 | disposition home or self-care (01) ==
LOC: HO.US 13:23
PROVIDERS: PCP Internal Medicine; Visit Provider Internal Medicine
DX: R09.89 Other specified symptoms and signs involving the circulatory and respiratory systems (principal); R20.0 Anesthesia of skin; R20.2 Paresthesia of skin
CPT/HCPCS: 93925

== ENCOUNTER 2024-04-03 13:25 | Outpatient (REF) | payer OTHER, SELFPAY ==
[2024-04-03 16:08] LABS: Urine Cytology See Pathology rpt
== END 2024-04-03 13:26 | disposition home or self-care (01) ==
LOC: HO.LNP 13:25
PROVIDERS: PCP Internal Medicine; Visit Provider Urology
DX: N39.0 Urinary tract infection, site not specified (principal); N28.89 Other specified disorders of kidney and ureter
CPT/HCPCS: 81003; 88112; 99202

== ENCOUNTER 2024-04-03 13:25 | Outpatient (AMB) | payer OTHER, SELFPAY ==
--- NOTE | 2024-04-03 13:26 | MHC.OFFVIS ---
Intake Visit Reasons: microscopic hematuria/possible kidney cyst Intake Note: Patient is present for MICROSCOPIC HEMATURIA/POSSIBLE KIDNEY CYST Urology Medication:PYRIDIUM Antibiotic Allergy:NONE Blood Thinner:NONE Supervisor Wool Shearing Required: Yes Supervisor Wool Shearing Name: Alberto [id number] Information Interpreted: non-clinical & clinical Allergies No Known Allergies Allergy (Verified 04/03/24 13:27) HPI Comments Details: Rebecca here for evaluation for microscopic hematuria and renal lesion. Reviewed 02/19/24 CTAP wo IV contrast- a 9mm exophytic indeterminate lesion right upper pole. I have discussed reasons for blood in the urine may include but are not limited to kidney stones, cancer in the urinary tract, BPH, or inflammatory conditions of the urinary tract. I have discussed workup to include cystoscopy evaluation. Further evaluation of renal lesion with mri abdomen renal mass protocol. [facility] Medical History Bilateral hip pain Degenerative joint disease of both hips Difficulty sleeping Right hip pain TMJ arthropathy COVID-19 vaccine dose declined Heartburn symptom History of sleep study Long-term use of Plaquenil Achilles tendinitis of left lower extremity Paresthesia and pain of extremity Fibromyalgia Sjogrens syndrome Surgical History Hx of colonoscopy History of cholecystectomy Status post left breast lumpectomy Family History Mother Arthritis Diabetes mellitus Hypertension Mental health disorder Father CKD (chronic kidney disease) Maternal Grandfather Mental health disorder Social History Housing: House Alcohol intake: never Patient Tobacco Use Status: Never used Tobacco e-Cigarette/Vaping Use: Never Used Second Hand Smoke Exposure: No service: No Current occupational status: unemployed Cognitive needs: No Hearing needs: No Vision needs: No Review of Systems Const All systems reviewed & are unremarkable except as noted in HPI and below Reports no additional complaints Eyes Reports no additional complaints ENT Reports no additional complaints Card Reports no additional complaints Resp Reports no additional complaints GI Reports no additional complaints Reports as per HPI Musc Reports no additional complaints Skin/Breast Reports system reviewed and no additional complaints, except as documented Neuro Reports no additional complaints Psych Reports no additional complaints Endo Reports no additional complaints Sushil/Lymph Reports no additional complaints Aller/Immun Reports no additional complaints Physical Exam Const General: cooperative, healthy appearing and no acute distress Orientation/consciousness: patient oriented x3 HEENT Head: Yes normal to inspection, Yes normocephalic and Yes atraumatic Eyes Conjunctivae: conjunctivae normal Neck Neck: Yes normal visual inspection and Yes trachea midline Chest Chest palpation & inspection: normal inspection of the chest Resp Effort & Inspection: normal respiratory effort Cardio Rate: regular rate GI Inspection: Yes normal to inspection Neuro General: patient oriented x3 Psych Appearance: grossly normal Results AMB Urinalysis, Automated UA Leukoctes 0 Ang/uL Last Edit by Jeremi Rene [facility] on 04/03/24 13:43 UA Nitrite Negative Last Edit by Jeremi Rene [facility] on 04/03/24 13:43 UA Urobilinogen 0.2 mg/dL Last Edit by Jeremi Rene [facility] on 04/03/24 13:43 UA Protein 0 mg/dL Last Edit by Jeremi Rene [facility] on 04/03/24 13:43 UA pH 5.5 Last Edit by Jeremi Rene [facility] on 04/03/24 13:43 UA Blood 25 Dat/uL Last Edit by Jeremi Rene [facility] on 04/03/24 13:43 UA Specific [place] 1.030 Last Edit by Jeremi Rene [facility] on 04/03/24 13:43 UA Ketone Negative Last Edit by Jeremi Rene [facility] on 04/03/24 13:43 UA Bilirubin 0 mg/dL Last Edit by Jeremi Rene [facility] on 04/03/24 13:43 UA Glucose 0 mg/dL Last Edit by Jeremi Rene [facility] on 04/03/24 13:43 Results Reviewed Results Reviewed: Laboratory Last Values Urine pH (Auto) 5.5 04/03/24 13:42 Specific [place] (Auto) 1.030 04/03/24 13:42 Urine Protein (Auto) 0 mg/dL 04/03/24 13:42 Glucose (UA)(Auto) 0 mg/dL 04/03/24 13:42 Urine Ketones (Auto) Negative 04/03/24 13:42 Urine Blood (Auto) 25 Dat/uL 04/03/24 13:42 Urine Nitrite (Auto) Negative 04/03/24 13:42 Urine Bilirubin (Auto) 0 mg/dL 04/03/24 13:42 Urine Urobilinogen (Auto) 0.2 mg/dL 04/03/24 13:42 Leukocyte Esterase (Auto) 0 Ang/uL 04/03/24 13:42 Date of Service: 02/19/24 EXAMINATION: CT ABDOMEN AND PELVIS WITHOUT CONTRAST CLINICAL INFORMATION: Flank pain. Hematuria. COMPARISON: 04/26/2020 TECHNIQUE: Multidetector volumetric imaging was performed from the superior aspect of the liver through the pubic symphysis. Sagittal and coronal reformatted images were obtained on the technologist's workstation. This CT examination was performed using dose optimization techniques as appropriate, variously including the following: *Automated exposure control *Adjustment of mA and/or kV according to patient size (this includes techniques or standardized protocols for targeted exams where dose is matched to indication/reason for exam; i.e. extremities or head) *Use of iterative reconstruction technique DLP: 555 mGy-cm FINDINGS: LUNG BASES: The visualized lung bases are unremarkable. LIVER, GALLBLADDER, AND BILIARY TREE: The noncontrast liver is decreased in attenuation. No biliary ductal dilatation is present. The gallbladder is surgically absent. PANCREAS: Unremarkable. SPLEEN: Unremarkable. ADRENAL GLANDS: Unremarkable. KIDNEYS AND URETERS: The kidneys are symmetric in size. 9 mm exophytic upper pole right renal lesion is incompletely evaluated though may represent a cyst. No renal or ureteral calculus. No hydronephrosis or perinephric fluid collection. BLADDER: Underdistended. GASTROINTESTINAL TRACT: Small and large bowel loops are of normal caliber. No small bowel obstruction. Diverticular disease of the colon. ABDOMINAL WALL: Small fat-containing umbilical hernia. LYMPH NODES: No bulky lymphadenopathy. VASCULAR: Normal caliber abdominal aorta. PELVIC VISCERA: Unremarkable. OSSEOUS STRUCTURES: No destructive bone lesions. No nephrolithiasis or hydronephrosis. Hepatic steatosis. Assessment & Plan Assessment & Plan (1) Renal mass of unknown nature: Code(s): N28.89 - Other specified disorders of kidney and ureter Category: Medical Plan I have discussed workup to include cystoscopy evaluation. Further evaluation of renal lesion with mri abdomen renal mass protocol. Orders: Orders AMB Urinalysis Automated 04/03/24 Z13.9 - Encounter for screening, unspecified Urine Cytology 04/03/24 N39.0 - Urinary tract infection, site not specified Patient Instructions: The patient had an opportunity to ask questions regarding treatment plan. The patient expressed understanding and agreement with the above treatment plan. The patient is aware they should contact our office by phone for worsening of their current condition or the appearance of new symptoms. Compliance is encouraged with any medications and followup testing that is ordered. It is a privilege to be allowed the opportunity to participate in the urologic care of your patient. If you have any questions or concerns regarding treatment for the above conditions please do not hesitate to contact me. The office telephone contact is [phone]. This note is constructed in part using voice recognition software. While every effort has been made to ensure accuracy surgical scheduler errors may have been included. Yours sincerely, Kb Garcia MD Coding Level of Care Code New Pt Level 4 (44882) Diagnoses Renal mass of unknown nature N28.89
== END 2024-04-03 14:32 | disposition home or self-care (01) ==
PROVIDERS: PCP Internal Medicine; Visit Provider Urology
DX: N28.89 Other specified disorders of kidney and ureter (principal)
CPT/HCPCS: 99204

== ENCOUNTER 2024-04-13 08:31 | Outpatient (AMB) | payer OTHER, SELFPAY ==
--- NOTE | 2024-04-13 08:34 | A.OFFVIS_ITS ---
Vital Signs 04/13/24 08:35 Height 5 ft 5 in Weight 167 lb BMI 27.8 Intake Visit Reasons: OV Bilat hip OA,discuss surgery Intake Note: Rebecca is a 63 year old female who presents today for a follow up of her bilateral hip OA, right greater than left. At her last visit on 02/13/24 various treatment options were discussed & a referral to pain management was placed for injection in the right hip. As per Pain managment workload, patient does not wish to proceed with injection Allergies No Known Allergies Allergy (Verified 04/27/24 09:13) HPI HPI OV Bilat hip OA,discuss surgery: Details: Rebecca is a 63 year old female who presents today for a follow up of her bilateral hip OA, right greater than left. At her last visit on 02/13/24 various treatment options were discussed & a referral to pain management was placed for injection in the right hip. As per Pain managment workload, patient does not wish to proceed with injection. She has been having severe right hip pain and walking with a limp. She is frustrated that she can not be more active. She has Sjogren's apparently and she did not want an injection if it was only going to be temporary. [facility] Medical History (Updated 04/27/24 @ 09:39 by Helena Han MD) Skin lesion of right arm Chronic GERD Bilateral hip pain Degenerative joint disease of both hips Difficulty sleeping Right hip pain TMJ arthropathy COVID-19 vaccine dose declined Heartburn symptom History of sleep study Long-term use of Plaquenil Achilles tendinitis of left lower extremity Paresthesia and pain of extremity Fibromyalgia Sjogrens syndrome Surgical History Hx of colonoscopy History of cholecystectomy Status post left breast lumpectomy Family History Mother Arthritis Diabetes mellitus Hypertension Mental health disorder Father CKD (chronic kidney disease) Maternal Grandfather Mental health disorder Social History Housing: House Alcohol intake: never Patient Tobacco Use Status: Never used Tobacco e-Cigarette/Vaping Use: Never Used Second Hand Smoke Exposure: No service: No Current occupational status: unemployed Cognitive needs: No Hearing needs: No Vision needs: No Physical Exam Vital Signs: BMI result Body Mass Index 27.8 Extrem Other: Right hip with 0-90 deg flexion 20 deg abd and 10 deg add with pain + impingement test with restricted FADIIR + gait antalgia on right Results Reviewed Results Reviewed: I personally reviewed relevant radiographs. Moderately severe right hip osteoarthritis. Mild left hip osteoarthritis Assessment & Plan Assessment & Plan (1) Arthritis of right hip: Code(s): M16.11 - Unilateral primary osteoarthritis, right hip Category: Medical Plan: This is a 63-year-old woman with severe arthritis of the right hip. She walks with a cane and can not walk without pain and a limp. She has tried conservative management with physical therapy and NSAIDs but she can not tolerate NSAIDs and has a history of Sjogren's and fibromyalgia. I had a long discussion with her and her . She has severe disease and is severely limited. She would like to be more active. I do think she is suffering from severe arthritis and would benefit from arthroplasty. I asked her about Rheumatology and her diagnosis of Sjogren's and she states she has not seen a sales service technician for a short while. I will have her see 1 of our rheumatologists here. I reviewed with her the radiographic findings and the risks, benefits and alternatives to surgery including, but not limited to the risk of infection, pain, need for further surgery as well as the medical complications associated with surgery. She does have some chronic pain and I discussed that inpatient with a diagnosis of fibromyalgia recovery is typically longer but this is not a contraindication to surgery. Sjogren's syndrome can lead to stiffness in joints mostly the smaller joints however and I would encourage her to get feedback from a sales service technician to possibly resume her disease modifying antirheumatic agents if reasonable. (2) Sjogrens syndrome: Code(s): M35.00 - Sjogren syndrome, unspecified Category: Medical Qualifiers: Sjogren organ or system involvement: keratoconjunctivitis Qualified Code(s): M35.01 - Sjogren syndrome with keratoconjunctivitis Plan: Referral to rheumatology (3) Fibromyalgia: Code(s): M79.7 - Fibromyalgia Category: Medical Plan: Coding Level of Care Code Est Pt Level 4 (04182) Diagnoses Arthritis of right hip M16.11 Sjogren's syndrome with keratoconjunctivitis sicca M35.01 Sjogren organ or system involvement: keratoconjunctivitis Fibromyalgia M79.7
[2024-04-13 08:35] VITALS: BMI 27.8
== END 2024-04-13 09:07 | disposition home or self-care (01) ==
PROVIDERS: PCP Internal Medicine; Visit Provider Orthopaedic Surgery
DX: M16.11 Unilateral primary osteoarthritis, right hip (principal); M79.7 Fibromyalgia; M35.01 Sjogren syndrome with keratoconjunctivitis
CPT/HCPCS: 99214

== ENCOUNTER → 2024-04-13 08:31 | Outpatient (BNVA) | payer OTHER, SELFPAY | PROVIDERS: PCP Internal Medicine; Visit Provider Orthopaedic Surgery | DX: M16.0 Bilateral primary osteoarthritis of hip (principal); M35.01 Sjogren syndrome with keratoconjunctivitis; M79.7 Fibromyalgia; R26.89 Other abnormalities of gait and mobility | CPT/HCPCS: 99212 ==

== ENCOUNTER 2024-04-27 08:01 | Outpatient (AMB) | payer OTHER, SELFPAY ==
[2024-04-27 08:09] VITALS: BP 124/80; PULSE 65; O2SAT 97; BMI 28.0
--- NOTE | 2024-04-27 08:09 | A.OFFPC_ITS ---
Vital Signs 04/27/24 08:09 Height 5 ft 5 in Weight 168 lb BMI 28.0 BP 124/80 Blood Pressure Location Rt brachial Position Sitting Pulse 65 Pulse Source Pulse Oximeter Pulse Oximetry (%) 97 Oxygen Delivery Method Room Air Intake Visit Reasons: PE Intake Note: Pt is here today mammogram 10/07/23, papsmear 04/13/21, colonoscopy 01/26/16 Allergies No Known Allergies Allergy (Verified 04/27/24 09:13) Medication List - Last Reconciled 04/27/24 by Helena Han MD albuterol sulfate 90 mcg/actuation 1 puff inhalation QID PRN 1 week calcium carbonate-vitamin D3 200 mg (500 mg) -400 unit tabs PO cane As directed hydrocortisone 1% (Anti-Itch (hydrocortisone)) 1 appl topical TID PRN omeprazole 40 mg PO DAILY PRN triamcinolone acetonide 0.1% 1 appl topical BID 10 days Tobacco use date assessed: 04/27/24 Dental Screening Dental Screen Date: 04/27/24 Did you have a dental visit in the last 12 months?: Yes Did you have a dental problem in the last 6 months where you did not have access to dental care?: No Was dental information given to patient?: Patient has dentist HPI PE HPI Details 63-year-old lady with history of fibromy algia, Sjogren syndrome, osteoarthritis in both hips, here today for her physical exam. She is up-to-date with her screening mammogram done earlier this year, last Pap smear was done in 2020 with negative findings, and she had a screening colonoscopy done 2016 done at [facility] which showed normal findings, due again in 2025. Complains of frequent heartburn and abdominal bloating/gas, not relieved with omeprazole. Patient would like a referral back to [facility] for further evaluation and would like to have an upper endoscopy done. Complaining of pruritic skin lesions on right forearm which seems to be increasing in size and number, requesting referral to Dermatology. Has bilateral degenerative arthritis in both hips right more than the left, seen by Dr. Briseno, and is to be scheduled for right hip replacement. Patient does not want to get any vaccines. [facility] Medical History (Updated 04/27/24 @ 09:39 by Helena Han MD) Skin lesion of right arm Chronic GERD Bilateral hip pain Degenerative joint disease of both hips Difficulty sleeping Right hip pain TMJ arthropathy COVID-19 vaccine dose declined Heartburn symptom History of sleep study Long-term use of Plaquenil Achilles tendinitis of left lower extremity Paresthesia and pain of extremity Fibromyalgia Sjogrens syndrome Surgical History Hx of colonoscopy History of cholecystectomy Status post left breast lumpectomy Family History Mother Arthritis Diabetes mellitus Hypertension Mental health disorder Father CKD (chronic kidney disease) Maternal Grandfather Mental health disorder Social History Housing: House Alcohol intake: never Patient Tobacco Use Status: Never used Tobacco e-Cigarette/Vaping Use: Never Used Second Hand Smoke Exposure: No service: No Current occupational status: unemployed Cognitive needs: No Hearing needs: No Vision needs: No Questionnaire PHQ-9 Over the last 2 weeks, how often have you been bothered by any of the following problems? 1. Little interest or pleasure in doing things: not at all 2. Feeling down, depressed, or hopeless: not at all 3. Trouble falling or staying asleep, or sleeping too much: not at all 4. Feeling tired or having little energy: not at all 5. Poor appetite or overeating: not at all 6. Feeling bad about yourself - or that you are a failure or have let yourself or your family down: not at all 7. Trouble concentrating on things, such as reading the newspaper or watching television: not at all 8. Moving or speaking so slowly that other people could have noticed. Or the opposite - being so fidgety or restless that you have been moving around a lot more than usual: not at all 9. Thoughts that you would be better off or of hurting yourself in some way: not at all Total score: 0 Depression Screening Interpretation: Negative Depression Screening Done: Yes [id number] - PHQ-9 Billing: Yes Source: Developed by Drs. Ronaldo Haynes, Deysi Lacey, Jerome Locke and colleagues, with an educational sarmad from [employer]. Thrive Questionnaire Date Thrive assessed: 04/27/24 I am a: Patient What is your living situation today?: I have a steady place to live Within the past 12 months, did the food you bought not last and you didn't have the money to get more?: Never true Within the past 12 months, did you worry whether your food would run out before you got money to buy more?: Never true Do you have trouble paying for medicines?: No Do you have trouble getting transportation to medical appointments?: No Do you have trouble paying your heating and electricity bill?: No Do you have trouble taking care of your child, family member or friend?: No Do you have trouble with day-to-day activities such as bathing, preparing meals, shopping, managing finances, etc.?: No Are you currently unemployed and looking for a job?: No Are you interested in more education?: No Please select the resources that you would like help with: None Currently or been in a relationship where the following occur: No concerns reported THRIVE Score: 0 AUDIT C Alcohol Use Questionnaire (AUDIT-C) 1. How often do you have a drink containing alcohol?: Never Total Score: 0 BIANCA-7 AMB Questionnaire BIANCA-7 Date BIANCA - 7 assessed: 04/27/24 Feeling nervous, anxious, or on edge: 0 = Not at all Not being able to stop or control worryin = Not at all Worrying too much about different things: 0 = Not at all Trouble relaxin = Not at all Being so restless that it is hard to sit still: 0 = Not at all Becoming easily annoyed or irritable: 0 = Not at all Feeling afraid as if something awful might happen: 0 = Not at all Total BIANCA-7 score (0-4 normal; 5-9 mild; 10-14 moderate; 15-21 severe): 0 Source: Developed by Drs. Ronaldo Haynes, Deysi Lacey, Jerome Locke and colleagues, with an educational sarmad from [employer]. BIANCA-7 Assessment Billing BIANCA-7 Assessment Tool: BIANCA-7 Assessment 87491 Review of Systems Const Denies frequent falls and Denies weakness Eyes Details: Sees Dr. Chitra Tee at [facility] Reports blurry vision (Wears reading glasses) and Reports dry eyes ENT Reports no additional complaints, Denies dizziness and Reports dry mouth Card Denies chest pain, Denies rapid heart rate, Denies irregular heart rhythm and Denies lightheadedness Resp Reports no additional complaints GI Reports as per HPI, Denies melena, Denies hematochezia, Denies change in bowel habits and Reports excessive flatus Denies dysuria and Denies urinary incontinence Musc Reports as per HPI, Denies abnormal gait and Denies joint swelling Skin/Breast Reports as per HPI, Denies breast swelling, Denies breast pain and Denies breast mass Neuro Denies abnormal gait, Denies dizziness, Denies frequent falls, Denies convulsions, Denies Sensory deficit (Neuro) and Denies weakness Psych Reports no additional complaints Endo Reports no additional complaints Sushil/Lymph Reports no additional complaints Aller/Immun Reports no additional complaints Physical exam (Primary Care) Vital Signs: Last Vital Signs Pulse 65 04/27/24 08:09 BP 124/80 04/27/24 08:09 Pulse Ox 97 04/27/24 08:09 Oxygen Delivery Method Room Air 04/27/24 08:09 BMI result Body Mass Index 28.0 Tobacco/Smoking Status: Tobacco use Status Tobacco use date assessed 04/27/24 04/27/24 08:11 Patient Tobacco Use Status Never used Tobacco 04/27/24 08:11 e-Cigarette/Vaping Use Never Used 04/27/24 08:11 PHQ-9: PHQ-9 Score PHQ-9: Total score 0 04/27/24 08:52 Depression Screening Interpretation: Negative Thrive Assessment: Date of Thrive Assessment Date Thrive assessed 04/27/24 04/27/24 08:52 Currently or been in a relationship where the following occur: No concerns reported Const Other: Alert oriented x3, no acute distress noted ambulatory with slow gait Orientation/consciousness: patient oriented x3 Neck Neck: Yes full ROM, Yes no lymphadenopathy and Yes supple Thyroid: Thyroid normal Resp Effort & Inspection: normal respiratory effort and able to speak in complete sentences Auscultation: clear to auscultation bilaterally Cardio Other: S1-S2 present regular rate and rhythm, decreased pedal pulses noted in both lower extremities Bruits: no carotid bruits GI Palpation (GI): Soft to palpation, nontender, no guarding and no masses Auscultation: normal bowel sounds General: Yes no CVA tenderness Back/Spine/Pelvis Back: no CVA tenderness and No back tenderness Skin Other: Brownish macular lesions noted on right forearm some with irregular margins Neuro General: patient oriented x3, gait normal, tone normal, moves all extremities and no focal motor deficits Sensory Exam: No Sensory deficit (Neuro) Extrem General: Yes full ROM, Yes no joint enlargement, Yes no pedal edema, Yes no calf tenderness and Yes normal gait Psych Appearance: grossly normal and well kempt Mental Status: mental status grossly normal Affect: normal affect Attitude: cooperative Thought process: Normal thought process present Thought content: Normal thought content present Assessment and Plan Assessment & Plan (1) Annual visit for general adult medical examination with abnormal findings: Code(s): Z00.01 - Encounter for general adult medical examination with abnormal findings Plan: Will check appropriate labs. Recommended dental visit every 6 months regular eye exams, sees Dr. Chitra Tee Take adequate calcium in diet and vitamin- D 3 at 2000 IU per cap once a day, in addition to weight-bearing exercises to help maintain good muscle tone and weight control. Instructed to do self-breast exam, and up-to-date with her yearly mammogram. Advised to get a bone density scan, patient will be seeing her childrens club attendant later this year states that she will request testing. Patient does not want to get any vaccinations. She is up-to-date with her colonoscopy done at [facility], due again in 2025 (2) Skin lesion of right arm: Code(s): L98.9 - Disorder of the skin and subcutaneous tissue, unspecified Plan: Referred to [place] [facility] for further evaluation management (3) Fibromyalgia: Code(s): M79.7 - Fibromyalgia Plan: Has an appointment for follow-up with Dr. Alonso, rheumatology clinic at [facility] in 06/2024 (4) Sjogrens syndrome: Code(s): M35.00 - Sjogren syndrome, unspecified Qualifiers: Sjogren organ or system involvement: keratoconjunctivitis Qualified Code(s): M35.01 - Sjogren syndrome with keratoconjunctivitis Plan: Has an appointment for follow-up with her childrens club attendant, Dr. Alonso already scheduled (5) COVID-19 vaccine dose declined: Code(s): Z28.21 - Immunization not carried out because of patient refusal (6) Difficulty sleeping: Code(s): G47.9 - Sleep disorder, unspecified Plan: , no obstructive sleep apnea or restless leg syndrome seen on recent sleep study, has an appointment for follow-up with the sleep clinic already scheduled later this year (7) Degenerative joint disease of both hips: Code(s): M16.0 - Bilateral primary osteoarthritis of hip Plan: Sees Dr. Briseno, has been advised right hip replacement (8) Blood in urine: Code(s): R31.9 - Hematuria, unspecified Qualifiers: Hematuria type: other microscopic Qualified Code(s): R31.29 - Other microscopic hematuria Plan: Has an appointment for follow-up with her urology for cystoscopy evaluation next month (9) Chronic GERD: Code(s): K21.9 - Gastro-esophageal reflux disease without esophagitis Plan: Discontinue omeprazole, not helping, prescription sent for famotidine 40 mg 1 tablet taken once a day an hour before supper or before sleeping. Referred to [facility] for further evaluation management Orders: Orders Complete Blood Count Auto Diff Today K21.9 - Gastro-esophageal reflux disease without esophagitis, M35.01 - Sjogren syndrome with keratoconjunctivitis, M79.7 - Fibromyalgia, R31.29 - Other microscopic hematuria, Z00.01 - Encounter for general adult medical examination with abnormal findings, Z13.1 - Encounter for screening for diabetes mellitus, Z13.220 - Encounter for screening for lipoid disorders Alanine Aminotransferase Today K21.9 - Gastro-esophageal reflux disease without esophagitis, M35.01 - Sjogren syndrome with keratoconjunctivitis, M79.7 - Fibromyalgia, R31.29 - Other microscopic hematuria, Z00.01 - Encounter for general adult medical examination with abnormal findings, Z13.1 - Encounter for screening for diabetes mellitus, Z13.220 - Encounter for screening for lipoid disorders Basic Metabolic Panel Fasting Today K21.9 - Gastro-esophageal reflux disease without esophagitis, M35.01 - Sjogren syndrome with keratoconjunctivitis, M79.7 - Fibromyalgia, R31.29 - Other microscopic hematuria, Z00.01 - Encounter for general adult medical examination with abnormal findings, Z13.1 - Encounter for screening for diabetes mellitus, Z13.220 - Encounter for screening for lipoid disorders Aspartate Amino Transferase Today K21.9 - Gastro-esophageal reflux disease without esophagitis, M35.01 - Sjogren syndrome with keratoconjunctivitis, M79.7 - Fibromyalgia, R31.29 - Other microscopic hematuria, Z00.01 - Encounter for general adult medical examination with abnormal findings, Z13.1 - Encounter for screening for diabetes mellitus, Z13.220 - Encounter for screening for lipoid disorders Lipid Panel Today K21.9 - Gastro-esophageal reflux disease without esophagitis, M35.01 - Sjogren syndrome with keratoconjunctivitis, M79.7 - Fibromyalgia, R31.29 - Other microscopic hematuria, Z00.01 - Encounter for general adult medical examination with abnormal findings, Z13.1 - Encounter for screening for diabetes mellitus, Z13.220 - Encounter for screening for lipoid disorders Vitamin D 25-OH Total Today K21.9 - Gastro-esophageal reflux disease without esophagitis, M35.01 - Sjogren syndrome with keratoconjunctivitis, M79.7 - Fibromyalgia, R31.29 - Other microscopic hematuria, Z00.01 - Encounter for general adult medical examination with abnormal findings, Z13.1 - Encounter for screening for diabetes mellitus, Z13.220 - Encounter for screening for lipoid disorders Referrals Gastroenterology Referral K21.9 - Gastro-esophageal reflux disease without esophagitis Dermatology Referral L98.9 - Disorder of the skin and subcutaneous tissue, unspecified Medications: New famotidine 40 mg PO BEDTIME 30 tabs 2RF Discontinued omeprazole Discontinued Reason: Doctor's Order 40 mg PO DAILY PRN 90 caps 1RF heartburn Coding Level of Care Code Est Pt Prev Care 40-64y(81066) Diagnoses Annual visit for general adult medical examination with abnormal findings Z00.01 Skin lesion of right arm L98.9 Fibromyalgia M79.7 Sjogren's syndrome with keratoconjunctivitis sicca M35.01 Sjogren organ or system involvement: keratoconjunctivitis COVID-19 vaccine dose declined Z28.21 Difficulty sleeping G47.9 Degenerative joint disease of both hips M16.0 Other microscopic hematuria R31.29 Hematuria type: other microscopic Chronic GERD K21.9 Additional Codes BIANCA-7 Assessment Billing - BIANCA-7 Assessment Tool: BIANCA-7 Assessment [id number] ([id number])
== END 2024-04-27 11:04 | disposition home or self-care (01) ==
PROVIDERS: PCP Internal Medicine; Visit Provider Internal Medicine
DX: Z00.01 Encounter for general adult medical examination with abnormal findings (principal); L98.9 Disorder of the skin and subcutaneous tissue, unspecified; M79.7 Fibromyalgia; M35.01 Sjogren syndrome with keratoconjunctivitis; Z28.21 Immunization not carried out because of patient refusal; G47.9 Sleep disorder, unspecified; M16.0 Bilateral primary osteoarthritis of hip; R31.29 Other microscopic hematuria; K21.9 Gastro-esophageal reflux disease without esophagitis

== ENCOUNTER → 2024-04-27 08:01 | Outpatient (BNVA) | payer OTHER, SELFPAY | PROVIDERS: PCP Internal Medicine; Visit Provider Internal Medicine | DX: Z00.01 Encounter for general adult medical examination with abnormal findings (principal); L98.9 Disorder of the skin and subcutaneous tissue, unspecified; M79.7 Fibromyalgia; M35.01 Sjogren syndrome with keratoconjunctivitis; G47.9 Sleep disorder, unspecified; M16.0 Bilateral primary osteoarthritis of hip; R31.29 Other microscopic hematuria; K21.9 Gastro-esophageal reflux disease without esophagitis; Z28.21 Immunization not carried out because of patient refusal | CPT/HCPCS: 96127 ==

== ENCOUNTER 2024-04-29 07:11 | Outpatient (REF) | payer OTHER, SELFPAY ==
[2024-04-29 10:10] LABS: MANUAL DIFF FLAG NO
[2024-04-29 10:16] LABS: Basophils Percent Auto 0.8 % (0-2); Eosinophils Absolute Auto 0.2 X10*3/uL (0.0-0.4); Eosinophils Percent Auto 4.3 % (0-4); Hematocrit 42.5 % (37.0-47.0); Imm Gran Abs Auto 0.02 X10*3/uL (0.00-0.03); Imm Gran Pct Auto 0.4 % (0.0-0.4); Lymphocytes Absolute Auto 1.7 X10*3/uL (1.2-4.9); Lymphocytes Percent Auto 33.5 % (20-40); Mean Corpuscular HGB Conc 32.9 g/dl (31.0-35.0); Mean Corpuscular Hemoglobin 28.7 pg (27.0-33.0); Mean Corpuscular Volume 87.3 fL (80.0-98.0); Mean Platelet Volume 10.5 fL (9.4-12.3); Monocytes Absolute Auto 0.4 X10*3/uL (0.1-1.2); Monocytes Percent Auto 8.2 % (2-11); Neutrophils Absolute Auto 2.7 x10*3/uL (2.0-8.3); Neutrophils Percent Auto 52.8 % (45-73); Platelet Count 229 X10*3/uL (160-400); Red Blood Count 4.87 X10*6/uL (4.20-5.50); Red Cell Distribution Width 13.2 % (11.0-16.0); White Blood Count 5.1 X10*3/uL (4.8-10.8)
[2024-04-29 10:49] LABS: Alanine Aminotransferase 32 U/L (0-31); Anion Gap 9 (12-20); Aspartate Amino Transferase 28 U/L (5-31); Blood Urea Nitrogen 14 mg/dL (9-16); Calcium 9.3 mg/dL (8.4-10.2); Carbon Dioxide 29 mmol/L (22-29); Chloride 108 mmol/L (96-108); Cholesterol 182 mg/dL (<200); Estimated Glomerular Filt Rate > 60; Glucose Fasting 90 mg/dL (60-99); HDL Cholesterol 32 mg/dL (>40); LDL Cholesterol Calculated 119 mg/dL (<100); Potassium 3.8 mmol/L (3.3-5.1); Sodium 142 mmol/L (135-145); Triglycerides 157 mg/dL (<150)
[2024-04-29 11:06] LABS: Vitamin D 25-OH Total 40.9 ng/mL (>30)
== END 2024-04-29 07:12 | disposition home or self-care (01) ==
LOC: HO.HMGCLDS 07:11
PROVIDERS: PCP Internal Medicine; Visit Provider Internal Medicine
DX: Z00.01 Encounter for general adult medical examination with abnormal findings (principal); Z13.220 Encounter for screening for lipoid disorders; Z13.1 Encounter for screening for diabetes mellitus; M35.01 Sjogren syndrome with keratoconjunctivitis; M79.7 Fibromyalgia; R31.29 Other microscopic hematuria; K21.9 Gastro-esophageal reflux disease without esophagitis
CPT/HCPCS: 36415; 80048; 80061; 82306; 84450; 84460; 85025

== ENCOUNTER 2024-05-22 12:34 | Outpatient (AMB) | payer OTHER, SELFPAY ==
--- NOTE | 2024-05-22 13:01 | MHC.OFFVIS ---
Intake Visit Reasons: Cysto Intake Note: Patient is present for Cystoscopy Urology Medication:none Antibiotic Allergy:none Blood Thinner:none Lot:[id number] Exp:06/08/27 Technology Auditor Required: No Allergies No Known Allergies Allergy (Verified 05/22/24 13:03) HPI Comments Details: 05/22/24--Rebecca here for follow up for microscopic hematuria and renal lesion. Here for cysto. Cystoscopy findings. mild bladder wall thickening. no suspicious lesions. MRI pending. Review of chart: 04/03/24--Reviewed 02/19/24 CTAP wo IV contrast- a 9mm exophytic indeterminate lesion right upper pole. I have discussed reasons for blood in the urine may include but are not limited to kidney stones, cancer in the urinary tract, BPH, or inflammatory conditions of the urinary tract. I have discussed workup to include cystoscopy evaluation. Further evaluation of renal lesion with mri abdomen renal mass protocol. [facility] Medical History (Updated 04/27/24 @ 09:39 by Helena Han MD) Skin lesion of right arm Chronic GERD Bilateral hip pain Degenerative joint disease of both hips Difficulty sleeping Right hip pain TMJ arthropathy COVID-19 vaccine dose declined Heartburn symptom History of sleep study Long-term use of Plaquenil Achilles tendinitis of left lower extremity Paresthesia and pain of extremity Fibromyalgia Sjogrens syndrome Surgical History Hx of colonoscopy History of cholecystectomy Status post left breast lumpectomy Family History Mother Arthritis Diabetes mellitus Hypertension Mental health disorder Father CKD (chronic kidney disease) Maternal Grandfather Mental health disorder Social History Housing: House Alcohol intake: never Patient Tobacco Use Status: Never used Tobacco e-Cigarette/Vaping Use: Never Used Second Hand Smoke Exposure: No service: No Current occupational status: unemployed Cognitive needs: No Hearing needs: No Vision needs: No Review of Systems Const All systems reviewed & are unremarkable except as noted in HPI and below Reports no additional complaints Eyes Reports no additional complaints ENT Reports no additional complaints Card Reports no additional complaints Resp Reports no additional complaints GI Reports no additional complaints Reports as per HPI Musc Reports no additional complaints Skin/Breast Reports system reviewed and no additional complaints, except as documented Neuro Reports no additional complaints Psych Reports no additional complaints Endo Reports no additional complaints Sushil/Lymph Reports no additional complaints Aller/Immun Reports no additional complaints Office Procedures Cystoscopy Consent Discussed risk and benefit or proposed procedure with the patient. Information consent for procedure given to the patient. Discussed technical aspects, risks, benefits and alternatives in full. Addressed all of the patient's questions and concerns regarding the procedure. The patient demonstrated knowledge and understanding. They wish to proceed with this procedure. Preparation The patient was prepped in the usual manner. A consultant nurse was present and in the room. Genitalia was prepped with betadine solution in a sterile manner. Lidocaine Jelly 2% was placed into the urethra and 16Fr flexible Olympus cystoscope was inserted into the meatus after adequate lubrication. Procedure Time out per protocol performed. Bladder Inspection Bladder Inspection: The bladder was inspected in its entirety with utilization retroflexion displaying: Tumor(s): no suspicious bladder lesions visualized Trabeculation: Mild no cellule changes, or diverticuli Mucosal Erthema: NA Orifices: normal shape and position Urethra: normal Cystoscopy findings: as noted, no suspicious bladder lesions visualized [id number] DISPOSABLE SCOPE URO-G FLEXIBLE SCOPE Procedure code (CPT) selection complete Office Meds lidocaine HCl 2 % mucosal jelly in applicator Performing Provider: Kb Garcia MD [facility] Administered by: Patricio Weiss LPN on 05/22/24 13:25 Dose Route Admin Location Dispensed Lot Number Expiration Date ND Fashion Consultant Selling 10 mL intra-urethral 10 mL naproxen 500 mg tablet Performing Provider: Kb Garcia MD Performing Location[facility] [place] Administered by: Patricio Weiss LPN on 05/22/24 13:25 Dose Route Admin Location Dispensed Lot Number Expiration Date ND Fashion Consultant Selling 500 mg PO 1 tab ciprofloxacin HCl 500 mg tablet Performing Provider: Kb Garcia MD Performing Location: [facility] [place] [facility] Administered by: Patricio Weiss LPN on 05/22/24 13:25 Dose Route Admin Location Dispensed Lot Number Expiration Date ND Fashion Consultant Selling 500 mg PO 1 tab Results AMB Urinalysis, Automated UA Leukoctes 0 Ang/uL Last Edit by Jeremi Rene CCMA on 05/22/24 13:18 UA Nitrite Negative Last Edit by Jeremi Rene, [facility] on 05/22/24 13:18 UA Urobilinogen 0.2 mg/dL Last Edit by Jeremi Rene [facility] on 05/22/24 13:18 UA Protein 15 mg/dL Last Edit by Jeremi Rene [facility] on 05/22/24 13:18 UA pH 5.0 Last Edit by Jeremi Rene, [facility] on 05/22/24 13:18 UA Blood 10 Dat/uL Last Edit by Jeremi Rene [facility] on 05/22/24 13:18 UA Specific [place] 1.030 Last Edit by Jeremi Rene [facility] on 05/22/24 13:18 UA Ketone Negative Last Edit by Jeremi Rene [facility] on 05/22/24 13:18 UA Bilirubin 1 mg/dL Last Edit by Jeremi Rene [facility] on 05/22/24 13:18 UA Glucose 0 mg/dL Last Edit by Jeremi Rene [facility] on 05/22/24 13:18 Results Reviewed Results Reviewed: Laboratory Last Values Urine pH (Auto) 5.0 05/22/24 13:17 Specific [place] (Auto) 1.030 05/22/24 13:17 Urine Protein (Auto) 15 mg/dL 05/22/24 13:17 Glucose (UA)(Auto) 0 mg/dL 05/22/24 13:17 Urine Ketones (Auto) Negative 05/22/24 13:17 Urine Blood (Auto) 10 Dat/uL 05/22/24 13:17 Urine Nitrite (Auto) Negative 05/22/24 13:17 Urine Bilirubin (Auto) 1 mg/dL 05/22/24 13:17 Urine Urobilinogen (Auto) 0.2 mg/dL 05/22/24 13:17 Leukocyte Esterase (Auto) 0 Ang/uL 05/22/24 13:17 Date of Service: 02/19/24 EXAMINATION: CT ABDOMEN AND PELVIS WITHOUT CONTRAST CLINICAL INFORMATION: Flank pain. Hematuria. COMPARISON: 04/26/2020 TECHNIQUE: Multidetector volumetric imaging was performed from the superior aspect of the liver through the pubic symphysis. Sagittal and coronal reformatted images were obtained on the technologist's workstation. This CT examination was performed using dose optimization techniques as appropriate, variously including the following: *Automated exposure control *Adjustment of mA and/or kV according to patient size (this includes techniques or standardized protocols for targeted exams where dose is matched to indication/reason for exam; i.e. extremities or head) *Use of iterative reconstruction technique DLP: 555 mGy-cm FINDINGS: LUNG BASES: The visualized lung bases are unremarkable. LIVER, GALLBLADDER, AND BILIARY TREE: The noncontrast liver is decreased in attenuation. No biliary ductal dilatation is present. The gallbladder is surgically absent. PANCREAS: Unremarkable. SPLEEN: Unremarkable. ADRENAL GLANDS: Unremarkable. KIDNEYS AND URETERS: The kidneys are symmetric in size. 9 mm exophytic upper pole right renal lesion is incompletely evaluated though may represent a cyst. No renal or ureteral calculus. No hydronephrosis or perinephric fluid collection. BLADDER: Underdistended. GASTROINTESTINAL TRACT: Small and large bowel loops are of normal caliber. No small bowel obstruction. Diverticular disease of the colon. ABDOMINAL WALL: Small fat-containing umbilical hernia. LYMPH NODES: No bulky lymphadenopathy. VASCULAR: Normal caliber abdominal aorta. PELVIC VISCERA: Unremarkable. OSSEOUS STRUCTURES: No destructive bone lesions. No nephrolithiasis or hydronephrosis. Hepatic steatosis. Assessment & Plan Assessment & Plan (1) Renal mass of unknown nature: Code(s): N28.89 - Other specified disorders of kidney and ureter Category: Medical (2) Blood in urine: Code(s): R31.9 - Hematuria, unspecified Category: Medical Qualifiers: Hematuria type: other microscopic Qualified Code(s): R31.29 - Other microscopic hematuria Plan Cystoscopy findings. mild bladder wall thickening. no suspicious lesions. Further evaluation of renal lesion with mri abdomen renal mass protocol. MRI pending. Orders: Orders AMB Cystoscopy 05/22/24 R31.29 - Other microscopic hematuria AMB Urinalysis Automated 05/22/24 Z13.9 - Encounter for screening, unspecified Patient Instructions: The patient had an opportunity to ask questions regarding treatment plan. The patient expressed understanding and agreement with the above treatment plan. The patient is aware they should contact our office by phone for worsening of their current condition or the appearance of new symptoms. Compliance is encouraged with any medications and followup testing that is ordered. It is a privilege to be allowed the opportunity to participate in the urologic care of your patient. If you have any questions or concerns regarding treatment for the above conditions please do not hesitate to contact me. The office telephone contact is [phone]. This note is constructed in part using voice recognition software. While every effort has been made to ensure accuracy sql engineer errors may have been included. Yours sincerely, Kb Garcia MD Coding Level of Care Code Procedure Only Diagnoses Renal mass of unknown nature N28.89 Other microscopic hematuria R31.29 Hematuria type: other microscopic CPT Codes Cystoscopy - CPT: 58453-[id number] ([id number])
== END 2024-05-22 14:00 | disposition home or self-care (01) ==
PROVIDERS: PCP Internal Medicine; Visit Provider Urology
DX: R31.29 Other microscopic hematuria (principal); Z13.9 Encounter for screening, unspecified
CPT/HCPCS: 52000

== ENCOUNTER → 2024-05-22 12:34 | Outpatient (BNVA) | payer OTHER, SELFPAY | PROVIDERS: PCP Internal Medicine; Visit Provider Urology | DX: R31.29 Other microscopic hematuria (principal); N28.89 Other specified disorders of kidney and ureter | CPT/HCPCS: 52000; 81003 ==

== ENCOUNTER → 2024-05-25 09:04 | Outpatient (BNV) | payer OTHER, SELFPAY | PROVIDERS: PCP Internal Medicine; Visit Provider Radiology Diagnostic Radiology | DX: N28.89 Other specified disorders of kidney and ureter (principal); R39.11 Hesitancy of micturition; R31.29 Other microscopic hematuria | CPT/HCPCS: 74183 ==

== ENCOUNTER 2024-05-25 09:06 | Outpatient (REF) | payer OTHER, SELFPAY ==
--- NOTE | ~2024-05-25 | MR_ITS ---
EXAMINATION: MR ABDOMEN WITHOUT AND WITH CONTRAST CLINICAL INFORMATION: 9 mm exophytic lesion, right kidney. COMPARISON: Correlated to CT dated February 19, 2024. TECHNIQUE: MR abdomen was performed without and with use of 7.5 mL intravenous Gadavist gadolinium contrast. Postcontrast images are performed in multiphase dynamic sequences. Imaging was performed in 3 planes. No reported immediate complications. FINDINGS: Submitted for interpretation on July 06, 2024. LIVER, GALLBLADDER, AND BILIARY TREE: Liver measures 16 cm. No focal enhancing lesion. Main portal vein, hepatic veins and intrahepatic portion of the IVC are patent. No intrahepatic biliary ductal dilatation. Bladder is absent. Common bile duct measures 4 mm. PANCREAS: No focal pancreatic mass. No main pancreatic ductal dilatation. No peripancreatic fluid collection. SPLEEN: 9 cm. No focal mass. ADRENAL GLANDS: No nodular lesions. KIDNEYS AND URETERS: Right kidney: There is an 8 mm exophytic intrinsic hyperintense T1 fat-sat without enhancement lesion in the lateral aspect of the upper pole/midportion junction. There is a 4 mm intrinsic hyperintense T1 fat sat nonenhancing lesion at the corticomedullary junction anterior midportion. Normal enhancement pattern throughout the renal parenchyma. No hydronephrosis. Normal enhancement pattern of the main renal vessels. Left kidney: Less than 3 mm nonenhancing lesions in the corticomedullary junction of the posterior midportion and posterior midportion/lower pole junction. Normal enhancement pattern of the renal parenchyma. No hydronephrosis. Normal enhancement pattern of the main renal vessels. GASTROINTESTINAL TRACT: Abundant stool. No intestinal obstruction pattern. No ascites. ABDOMINAL WALL: Fat-containing umbilical hernia, moderate size. LYMPH NODES: No lymphadenopathy, retroperitoneal or mesenteric. VASCULAR: No aneurysm or dissection, abdominal aorta. OSSEOUS STRUCTURES: Multilevel thoracolumbar spondylosis more conspicuous at L1-2, T11-12, L3-4 to L5-S1 levels. MR/MR abdomen wo/w con IMPRESSION: 8 mm hemorrhagic nonenhancing cyst, right kidney. Recommend follow-up. Electronically signed by: Aguilar Morton MD 07/06/2024 03:59 PM EST
[2024-05-25] MEDS: gadobutroL 7.5 ML VIAL IVPUSH (10:16)
== END 2024-05-25 09:07 | disposition home or self-care (01) ==
LOC: HO.MRI 09:06
PROVIDERS: PCP Internal Medicine; Visit Provider Urology
DX: R31.29 Other microscopic hematuria (principal); R39.11 Hesitancy of micturition
CPT/HCPCS: 74183; A9585

== ENCOUNTER 2024-06-15 08:01 | Outpatient (REF) | payer OTHER, SELFPAY ==
[2024-06-15 10:11] LABS: MANUAL DIFF FLAG NO
[2024-06-15 10:18] LABS: Basophils Percent Auto 0.9 % (0-2); Eosinophils Absolute Auto 0.2 X10*3/uL (0.0-0.4); Eosinophils Percent Auto 5.2 % (0-4); Hematocrit 42.9 % (37.0-47.0); Hemoglobin 14.2 g/dl (12.0-16.0); Imm Gran Abs Auto 0.01 X10*3/uL (0.00-0.03); Imm Gran Pct Auto 0.2 % (0.0-0.4); Lymphocytes Absolute Auto 1.6 X10*3/uL (1.2-4.9); Lymphocytes Percent Auto 33.8 % (20-40); Mean Corpuscular HGB Conc 33.1 g/dl (31.0-35.0); Mean Corpuscular Hemoglobin 28.5 pg (27.0-33.0); Mean Corpuscular Volume 86.1 fL (80.0-98.0); Mean Platelet Volume 10.4 fL (9.4-12.3); Monocytes Absolute Auto 0.4 X10*3/uL (0.1-1.2); Monocytes Percent Auto 9.5 % (2-11); Neutrophils Absolute Auto 2.4 x10*3/uL (2.0-8.3); Neutrophils Percent Auto 50.4 % (45-73); Platelet Count 244 X10*3/uL (160-400); Red Blood Count 4.98 X10*6/uL (4.20-5.50); Red Cell Distribution Width 13.1 % (11.0-16.0); White Blood Count 4.7 X10*3/uL (4.8-10.8)
[2024-06-15 10:36] LABS: Alanine Aminotransferase 37 U/L (0-31); Albumin Level 3.9 g/dL (3.5-5.0); Alkaline Phosphatase 104 U/L (39-117); Anion Gap 11 (12-20); Aspartate Amino Transferase 34 U/L (5-31); Bilirubin Total 0.5 mg/dL (0.0-1.0); Blood Urea Nitrogen 11 mg/dL (9-16); C Reactive Protein < 0.10 mg/dL (< or = 0.50); Carbon Dioxide 26 mmol/L (22-29); Chloride 107 mmol/L (96-108); Estimated Glomerular Filt Rate > 60; Glucose Random 95 mg/dL (60-115); Potassium 3.8 mmol/L (3.3-5.1); Sodium 140 mmol/L (135-145); Total Protein 7.8 g/dL (6.5-8.0)
[2024-06-15 10:47] LABS: Appearance Urine Clear; Color Urine Yellow; Glucose Urine UA Negative (Negative); Leukocyte Esterase Urine Negative (Negative); Nitrite Urine Negative (Negative); Urine Blood Negative (Negative); Urine Ketones Negative (Negative); Urine Protein Negative (Neg-Trace)
[2024-06-15 10:53] LABS: Bacteria Urine None Seen (None Seen); Hyaline Casts Urine 0-2 /LPF (0-2); RBC Urine 0-2 /HPF (0-2); Squamous Epithelial Cell Urine 0-2 /HPF (0-2); WBC Urine 0-5 /HPF (0-5)
[2024-06-15 10:57] LABS: Creatinine Urine 162.78 mg/dL; Protein/Creatinine Ratio, Ur 0.06 (<0.2); Total Protein Urine Random 10 mg/dL (<12)
[2024-06-15 11:10] LABS: Erythrocyte Sedimentation Rate 12 MM/HR (0-20)
[2024-06-16 08:58] LABS: Complement C3 60 mg/dL (83-193)
[2024-06-16 13:39] LABS: Prot Elec - Alpha1 0.2 g/dL (0.2-0.3); Prot Elec - Alpha2 0.6 g/dL (0.5-0.9); Prot Elec - Beta 1 0.5 g/dL (0.4-0.6); Prot Elec - Beta 2 0.5 g/dL (0.2-0.5); Prot Elec - Gamma 1.5 g/dL (0.8-1.7); Prot Elec - Total Protein 7.4 g/dL (6.1-8.1)
[2024-06-16 18:13] LABS: Anti DNA DS Antibody 1 IU/mL
[2024-06-16 22:38] LABS: IgA 541 mg/dL (70-320); IgG 1782 mg/dL (600-1540); IgM 69 mg/dL (50-300)
== END 2024-06-15 08:02 | disposition home or self-care (01) ==
LOC: HO.HMGCLDS 08:01
PROVIDERS: PCP Internal Medicine; Visit Provider Student in an Organized Health Care Education/Training Program
DX: M35.01 Sjogren syndrome with keratoconjunctivitis (principal); M32.9 Systemic lupus erythematosus, unspecified
CPT/HCPCS: 36415; 80053; 81001; 82570; 82784; 84156; 84165; 85025; 85652; 86140; 86160; 86225; 86334

== ENCOUNTER 2024-06-24 15:41 | Outpatient (AMB) | payer OTHER, SELFPAY ==
--- NOTE | 2024-06-24 15:43 | MHC.OFFVIS ---
Vital Signs 06/24/24 15:47 Height 5 ft 5 in Weight 170 lb 3.15 oz BMI 28.3 BP 120/80 Blood Pressure Location Rt brachial Position Sitting Pulse 75 Pulse Source Pulse Oximeter Pulse Oximetry (%) 97 Oxygen Delivery Method Room Air Intake Visit Reasons: Sjogren's/CM Intake Note: Patient presents for Sjogren's. Dot Net Architect Required: Yes Dot Net Architect Language: Belt Line Feeder Services: Dot Net Architect Present Dot Net Architect Name: Brea [id number] Information Interpreted: non-clinical & clinical Allergies No Known Allergies Allergy (Verified 06/24/24 15:46) Medication List - Last Reconciled 06/24/24 by Andrew Mohan MD albuterol sulfate 90 mcg/actuation 1 puff inhalation QID PRN 1 week calcium carbonate-vitamin D3 200 mg (500 mg) -400 unit tabs PO cane As directed famotidine 40 mg PO BEDTIME hydrocortisone 1% (Anti-Itch (hydrocortisone)) 1 appl topical TID PRN triamcinolone acetonide 0.1% 1 appl topical BID 10 days HPI Comments Details: This is a 64-year-old female with SLE/Sjogren's overlap who presents for follow-up. She states that after her last visit with id 07/2022 she lost her insurance and she ran out of her hydroxychloroquine. She states that she has been feeling about the same overall. She has been having worsening right hip pain however. She was recently evaluated by Orthopedics and right hip replacement was suggested. She is here for rheumatology clearance. She denies any other significant joint pains. Denies any unexplained fevers, weight loss or skin rashes. She continues to have dry eyes and dry mouth. She uses tears that are prescribed by her retort setter as well as a natural supplement for her generalized dryness. Initial history: This is a 62-year-old female with a past medical history of Sjogren's and fibromyalgia who is here for evaluation. She she used to follow-up at [facility] but the housekeeping lead over there left the practice. She was diagnosed with Sjogren and fibromyalgia about 2 years ago. She has dry eyes and dry mouth. She is on Restasis eyedrops as well as Plaquenil once daily. She is also on Cymbalta 20 mg daily for fibromyalgia. Patient continues to have diffuse pain, usually worse when it is colder or humid. Sicca symptoms are unchanged. Well controlled with eyedrops PFSH Medical History Skin lesion of right arm Chronic GERD Bilateral hip pain Degenerative joint disease of both hips Difficulty sleeping Right hip pain TMJ arthropathy COVID-19 vaccine dose declined Heartburn symptom History of sleep study Long-term use of Plaquenil Achilles tendinitis of left lower extremity Paresthesia and pain of extremity Fibromyalgia Sjogrens syndrome Surgical History Hx of colonoscopy History of cholecystectomy Status post left breast lumpectomy Family History Mother Arthritis Diabetes mellitus Hypertension Mental health disorder Father CKD (chronic kidney disease) Maternal Grandfather Mental health disorder Social History Housing: House Alcohol intake: never Patient Tobacco Use Status: Never used Tobacco e-Cigarette/Vaping Use: Never Used Second Hand Smoke Exposure: No service: No Current occupational status: unemployed Cognitive needs: No Hearing needs: No Vision needs: No Female Reproductive History Menstrual Menopause type: natural Review of Systems Const Denies fever(s) and Denies weight loss Eyes Reports dry eyes ENT Reports dry mouth Resp Reports no additional complaints Musc Reports arthralgias and Denies joint swelling Skin/Breast Denies rash Physical Exam Vital Signs: Last Vital Signs Pulse 75 06/24/24 15:47 BP 120/80 06/24/24 15:47 Pulse Ox 97 06/24/24 15:47 Oxygen Delivery Method Room Air 06/24/24 15:47 BMI result Body Mass Index 28.3 Const General: cooperative, healthy appearing, comfortable and no acute distress Nutritional Appearance: overweight Orientation/consciousness: patient oriented x3 Limitations: no limitations HEENT Head: Yes normocephalic and Yes atraumatic Mouth: moist mucous membranes Resp Effort & Inspection: normal respiratory effort and able to speak in complete sentences Auscultation: clear to auscultation bilaterally Cardio Rate: regular rate Rhythm: regular rhythm Heart sounds: S1 normal heart sound present and S2 normal heart sound present GI Inspection: No distended Palpation (GI): Soft to palpation and nontender Skin Other: Subtle livedo reticularis on both legs Neuro General: patient oriented x3 Extrem Other: Subtle osteoarthritic changes of both hands with no active synovitis Multiple fibromyalgia tender points Normal nailfold capillaroscopy Assessment & Plan Assessment & Plan (1) Sjogrens syndrome: Code(s): M35.00 - Sjogren syndrome, unspecified Category: Medical Qualifiers: Sjogren organ or system involvement: keratoconjunctivitis Qualified Code(s): M35.01 - Sjogren syndrome with keratoconjunctivitis Plan: This is a 64-year-old female with Sjogren's/mild SLE diagnosed in 2019 with (+ve SSa + TIMEKEEPER dry eyes on Restasis and dry mouth, arthralgias, fatigue) who presents for follow-up. After her last visit in 07/2022 patient ran out of her insurance and was unable to follow-up with me. She has not been on hydroxychloroquine for more than 1 year. On exam I do not see any signs suggestive of active disease. Her blood work is essentially unremarkable except for low C3 and C4 but no signs of organ damage. She is not on any DMARDs currently. I will keep monitoring patient off DMARDs at this time Labs before next visit in 6 months (2) Pre-op evaluation: Code(s): Z01.818 - Encounter for other preprocedural examination Category: Medical Plan: From Rheumatology standpoint, patient does not have active disease and is not on DMARDs currently. No objection to right hip replacement Plan I spent 25 minutes reviewing patient's chart, evaluating patient, ordering diagnostic workup, counseling patient and documenting in the chart Orders: Orders Complement C4 6 Months M32.9 - Systemic lupus erythematosus, unspecified Erythrocyte Sedimentation Rate 6 Months M32.9 - Systemic lupus erythematosus, unspecified Protein Creatinine Ratio, Ur 6 Months M32.9 - Systemic lupus erythematosus, unspecified Sjogren's Antibodies 6 Months M32.9 - Systemic lupus erythematosus, unspecified Comprehensive Met. Panel 6 Months M32.9 - Systemic lupus erythematosus, unspecified Anti DNA DS Antibody 6 Months M32.9 - Systemic lupus erythematosus, unspecified Complement C3 6 Months M32.9 - Systemic lupus erythematosus, unspecified C Reactive Protein 6 Months M32.9 - Systemic lupus erythematosus, unspecified UA w Microscopic 6 Months M32.9 - Systemic lupus erythematosus, unspecified DNA Double Stranded-Crithidia 6 Months M32.9 - Systemic lupus erythematosus, unspecified Complete Blood Count Auto Diff 6 Months M32.9 - Systemic lupus erythematosus, unspecified Coding Level of Care Code Est Pt Level 4 (74305) Diagnoses Sjogren's syndrome with keratoconjunctivitis sicca M35.01 Sjogren organ or system involvement: keratoconjunctivitis Pre-op evaluation Z01.818
[2024-06-24 15:47] VITALS: BP 120/80; PULSE 75; O2SAT 97; BMI 28.3
== END 2024-06-24 16:16 | disposition home or self-care (01) ==
PROVIDERS: PCP Internal Medicine; Visit Provider Student in an Organized Health Care Education/Training Program
DX: M35.01 Sjogren syndrome with keratoconjunctivitis (principal); Z01.818 Encounter for other preprocedural examination
CPT/HCPCS: 99214

== ENCOUNTER → 2024-06-24 15:41 | Outpatient (BNVA) | payer OTHER, SELFPAY | PROVIDERS: PCP Internal Medicine; Visit Provider Student in an Organized Health Care Education/Training Program | DX: Z01.818 Encounter for other preprocedural examination (principal); M35.01 Sjogren syndrome with keratoconjunctivitis; M79.7 Fibromyalgia; Z79.899 Other long term (current) drug therapy | CPT/HCPCS: 99212 ==

== ENCOUNTER 2024-07-10 15:58 | Outpatient (AMB) | payer OTHER, SELFPAY ==
--- NOTE | 2024-07-09 22:25 | A.OFFVIS_ITS ---
Intake Visit Reasons: MRI follow up(MRI Pending) Intake Note: Patient is present for MRI Results Urology Med: None Antibiotic Allergy: None Blood Thinner: None Incident Response Coordinator Required: Yes Incident Response Coordinator Language: Ride Operator Services: Incident Response Coordinator Present Incident Response Coordinator Name: [id number] Information Interpreted: non-clinical & clinical Accompanied by: Self / Same As Patient Allergies No Known Allergies Allergy (Verified 06/24/24 15:46) Medication List - Last Reconciled 07/11/24 by Kb Garcia MD albuterol sulfate 90 mcg/actuation 1 puff inhalation QID PRN 1 week calcium carbonate-vitamin D3 200 mg (500 mg) -400 unit tabs PO cane As directed famotidine 40 mg PO BEDTIME hydrocortisone 1% (Anti-Itch (hydrocortisone)) 1 appl topical TID PRN triamcinolone acetonide 0.1% 1 appl topical BID 10 days HPI Comments Details: 07/10/24--Rebecca is followed for hematuria and had MRI for indeterminate cyst. I have reviewed results with her. FU in Mri--05/25/24--right hemorrhagic nonenhancing cyst. microscopic hematuria. FU in one year. 05/22/24--Rebecca here for follow up for microscopic hematuria and renal lesion. Here for cysto. Cystoscopy findings. mild bladder wall thickening. no suspicious lesions. MRI pending. Review of chart: 04/03/24--Reviewed 02/19/24 CTAP wo IV contrast- a 9mm exophytic indeterminate lesion right upper pole. I have discussed reasons for blood in the urine may include but are not limited to kidney stones, cancer in the urinary tract, BPH, or inflammatory conditions of the urinary tract. I have discussed workup to include cystoscopy evaluation. Further evaluation of renal lesion with mri abdomen renal mass protocol. [facility] Medical History Skin lesion of right arm Chronic GERD Bilateral hip pain Degenerative joint disease of both hips Difficulty sleeping Right hip pain TMJ arthropathy COVID-19 vaccine dose declined Heartburn symptom History of sleep study Long-term use of Plaquenil Achilles tendinitis of left lower extremity Paresthesia and pain of extremity Fibromyalgia Sjogrens syndrome Surgical History Hx of colonoscopy History of cholecystectomy Status post left breast lumpectomy Family History Mother Arthritis Diabetes mellitus Hypertension Mental health disorder Father CKD (chronic kidney disease) Maternal Grandfather Mental health disorder Social History Housing: House Alcohol intake: never Patient Tobacco Use Status: Never used Tobacco e-Cigarette/Vaping Use: Never Used Second Hand Smoke Exposure: No service: No Current occupational status: unemployed Cognitive needs: No Hearing needs: No Vision needs: No Review of Systems Const All systems reviewed & are unremarkable except as noted in HPI and below Reports no additional complaints Eyes Reports no additional complaints ENT Reports no additional complaints Card Reports no additional complaints Resp Reports no additional complaints GI Reports no additional complaints Reports as per HPI Musc Reports no additional complaints Skin/Breast Reports system reviewed and no additional complaints, except as documented Neuro Reports no additional complaints Psych Reports no additional complaints Endo Reports no additional complaints Sushil/Lymph Reports no additional complaints Aller/Immun Reports no additional complaints Telehealth Telehealth Telehealth Platform: [employer] Location of provider rendering services: practice address Location of patient: address on file Patient Identification confirmed using: Name, : Yes Telehealth method: voice only Patient verbally consented to treatment: Yes Patient verbally consented to billing insurance company: Yes Patient informed of any privacy concerns related to visit: Yes Minutes spent on Phone/Video with Pt.: 16 Results Reviewed Results Reviewed: Date of Service: 05/25/24 MR ABDOMEN WITHOUT AND WITH CONTRAST CLINICAL INFORMATION: 9 mm exophytic lesion, right kidney. COMPARISON: Correlated to CT dated February 19, 2024. TECHNIQUE: MR abdomen was performed without and with use of 7.5 mL intravenous Gadavist gadolinium contrast. Postcontrast images are performed in multiphase dynamic sequences. Imaging was performed in 3 planes. No reported immediate complications. FINDINGS: Submitted for interpretation on July 06, 2024. LIVER, GALLBLADDER, AND BILIARY TREE: Liver measures 16 cm. No focal enhancing lesion. Main portal vein, hepatic veins and intrahepatic portion of the IVC are patent. No intrahepatic biliary ductal dilatation. Bladder is absent. Common bile duct measures 4 mm. PANCREAS: No focal pancreatic mass. No main pancreatic ductal dilatation. No peripancreatic fluid collection. SPLEEN: 9 cm. No focal mass. ADRENAL GLANDS: No nodular lesions. KIDNEYS AND URETERS: Right kidney: There is an 8 mm exophytic intrinsic hyperintense T1 fat-sat without enhancement lesion in the lateral aspect of the upper pole/midportion junction. There is a 4 mm intrinsic hyperintense T1 fat sat nonenhancing lesion at the corticomedullary junction anterior midportion. Normal enhancement pattern throughout the renal parenchyma. No hydronephrosis. Normal enhancement pattern of the main renal vessels. Left kidney: Less than 3 mm nonenhancing lesions in the corticomedullary junction of the posterior midportion and posterior midportion/lower pole junction. Normal enhancement pattern of the renal parenchyma. No hydronephrosis. Normal enhancement pattern of the main renal vessels. GASTROINTESTINAL TRACT: Abundant stool. No intestinal obstruction pattern. No ascites. ABDOMINAL WALL: Fat-containing umbilical hernia, moderate size. LYMPH NODES: No lymphadenopathy, retroperitoneal or mesenteric. VASCULAR: No aneurysm or dissection, abdominal aorta. OSSEOUS STRUCTURES: Multilevel thoracolumbar spondylosis more conspicuous at L1-2, T11-12, L3-4 to L5-S1 levels. IMPRESSION: 8 mm hemorrhagic nonenhancing cyst, right kidney. Recommend follow-up. Date of Service: 02/19/24 EXAMINATION: CT ABDOMEN AND PELVIS WITHOUT CONTRAST CLINICAL INFORMATION: Flank pain. Hematuria. COMPARISON: 04/26/2020 TECHNIQUE: Multidetector volumetric imaging was performed from the superior aspect of the liver through the pubic symphysis. Sagittal and coronal reformatted images were obtained on the technologist's workstation. This CT examination was performed using dose optimization techniques as appropriate, variously including the following: *Automated exposure control *Adjustment of mA and/or kV according to patient size (this includes techniques or standardized protocols for targeted exams where dose is matched to indication/reason for exam; i.e. extremities or head) *Use of iterative reconstruction technique DLP: 555 mGy-cm FINDINGS: LUNG BASES: The visualized lung bases are unremarkable. LIVER, GALLBLADDER, AND BILIARY TREE: The noncontrast liver is decreased in attenuation. No biliary ductal dilatation is present. The gallbladder is surgically absent. PANCREAS: Unremarkable. SPLEEN: Unremarkable. ADRENAL GLANDS: Unremarkable. KIDNEYS AND URETERS: The kidneys are symmetric in size. 9 mm exophytic upper pole right renal lesion is incompletely evaluated though may represent a cyst. No renal or ureteral calculus. No hydronephrosis or perinephric fluid collection. BLADDER: Underdistended. GASTROINTESTINAL TRACT: Small and large bowel loops are of normal caliber. No small bowel obstruction. Diverticular disease of the colon. ABDOMINAL WALL: Small fat-containing umbilical hernia. LYMPH NODES: No bulky lymphadenopathy. VASCULAR: Normal caliber abdominal aorta. PELVIC VISCERA: Unremarkable. OSSEOUS STRUCTURES: No destructive bone lesions. No nephrolithiasis or hydronephrosis. Hepatic steatosis. Assessment & Plan Assessment & Plan (1) Blood in urine: Code(s): R31.9 - Hematuria, unspecified Category: Medical Qualifiers: Hematuria type: other microscopic Qualified Code(s): R31.29 - Other microscopic hematuria (2) Renal cyst: Code(s): N28.1 - Cyst of kidney, acquired Category: Medical Plan right hemorrhagic cyst. microscopic hematuria. FU in one year. Renal US prior Orders: Orders US renal BI 10 Months N28.1 - Cyst of kidney, acquired, R31.29 - Other microscopic hematuria Patient Instructions: The patient had an opportunity to ask questions regarding treatment plan. The patient expressed understanding and agreement with the above treatment plan. The patient is aware they should contact our office by phone for worsening of their current condition or the appearance of new symptoms. Compliance is enco uraged with any medications and followup testing that is ordered. It is a privilege to be allowed the opportunity to participate in the urologic care of your patient. If you have any questions or concerns regarding treatment for the above conditions please do not hesitate to contact me. The office telephone contact is [phone]. This note is constructed in part using voice recognition software. While every effort has been made to ensure accuracy visiting teacher errors may have been included. Yours sincerely, Kb Garcia MD Coding Level of Care Code Tele Est Pt Level 3 (69557) Diagnoses Other microscopic hematuria R31.29 Hematuria type: other microscopic Renal cyst N28.1
== END 2024-07-10 16:00 | disposition home or self-care (01) ==
LOC: HO.HUSH 15:58
PROVIDERS: PCP Internal Medicine; Visit Provider Urology
DX: R31.29 Other microscopic hematuria (principal); N28.1 Cyst of kidney, acquired
CPT/HCPCS: 99213

== ENCOUNTER → 2024-07-10 15:58 | Outpatient (BNVA) | payer OTHER, SELFPAY | PROVIDERS: PCP Internal Medicine; Visit Provider Urology ==

== ENCOUNTER 2024-08-03 15:13 | Outpatient (AMB) | payer OTHER, SELFPAY ==
--- NOTE | 2024-08-03 15:32 | A.OFFVIS_ITS ---
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 09/25/22, in-lab PSG- AHI 0.6/hr, average SpO2 94% w/ O2 alli 86% (though SpO2 ,88% x's 0.1min), PLMS 2.2/hr w/ PLMS arousal index- 0.2/hr. Pt reports she continues to have bothersome snoring. She has tried the nasal sprays, and this helps soem but not completely. She previously was seen ENT- states was told to try nasal spray. [facility] Medical History Skin lesion of right arm Chronic GERD Bilateral hip pain Degenerative joint disease of both hips Difficulty sleeping Right hip pain TMJ arthropathy COVID-19 vaccine dose declined Heartburn symptom History of sleep study Long-term use of Plaquenil Achilles tendinitis of left lower extremity Paresthesia and pain of extremity Fibromyalgia Sjogrens syndrome Surgical History Hx of colonoscopy History of cholecystectomy Status post left breast lumpectomy Family History Mother Arthritis Diabetes mellitus Hypertension Mental health disorder Father CKD (chronic kidney disease) Maternal Grandfather Mental health disorder Social History Housing: House Alcohol intake: never Patient Tobacco Use Status: Never used Tobacco e-Cigarette/Vaping Use: Never Used Second Hand Smoke Exposure: No service: No Current occupational status: unemployed Cognitive needs: No Hearing needs: No Vision needs: No Physical Exam Vital Signs: Last Vital Signs Pulse 69 08/03/24 15:33 BP 115/72 08/03/24 15:33 Pulse Ox 96 08/03/24 15:33 Oxygen Delivery Method Room Air 08/03/24 15:33 BMI result Body Mass Index 28.8 Const General: no acute distress Orientation/consciousness: patient oriented x3 Resp Effort & Inspection: normal respiratory effort and able to speak in complete sentences Auscultation: clear to auscultation bilaterally Neuro General: patient oriented x3 Psych Mental Status: mental status grossly normal Speech and movement: Clear speech present Attitude: cooperative Assessment & Plan Assessment & Plan (1) Snoring: Code(s): R06.83 - Snoring Category: Medical (2) Difficulty sleeping: Code(s): G47.9 - Sleep disorder, unspecified Category: Medical (3) Allergic rhinitis: Code(s): J30.9 - Allergic rhinitis, unspecified Category: Medical Plan Continue OTC saline spray, f/b fluticasone, and then azelastine nasal spray- reviewed optimal administration technique. Reviewed OTC snoring treatments, such as breathe-right strips, oral snoring appliances, wedge pillows, anti-role devices. Printed information on these devices shared with patient. Pt advised to call/message if this is not helpful. Monitor headaches, restless leg s/s. f/u in 6 months or sooner prn. Coding Level of Care Code Est Pt Level 3 (15954) Diagnoses Snoring R06.83 Difficulty sleeping G47.9 Allergic rhinitis J30.9
[2024-08-03 15:33] VITALS: BP 115/72; PULSE 69; O2SAT 96; BMI 28.8
== END 2024-08-03 16:23 | disposition home or self-care (01) ==
PROVIDERS: PCP Internal Medicine; Visit Provider Nurse Practitioner Family
DX: R06.83 Snoring (principal); G47.9 Sleep disorder, unspecified; J30.9 Allergic rhinitis, unspecified
CPT/HCPCS: 99213

== ENCOUNTER 2024-08-18 07:13 | Outpatient (REF) | payer OTHER, SELFPAY ==
[2024-08-18 07:22] LABS: MANUAL DIFF FLAG NO
--- NOTE | 2024-08-18 07:24 | ECG_ITS ---
Test Reason : PRE OP Blood Pressure : */* mmHG Vent. Rate : 62 BPM Atrial Rate : 62 BPM P-R Int : 158 ms QRS Dur : 78 ms QT Int : 440 ms P-R-T Axes : 43 50 71 degrees QTcB Int : 446 ms Normal sinus rhythm Normal ECG No previous ECGs available Referred By: Helena Han Electronically Signed By: Mono Ortega
[2024-08-18 08:22] LABS: Basophils Absolute Auto 0.1 X10*3/uL (0.0-0.2); Basophils Percent Auto 0.9 % (0-2); Eosinophils Absolute Auto 0.2 X10*3/uL (0.0-0.4); Eosinophils Percent Auto 4.2 % (0-4); Hematocrit 43.3 % (37.0-47.0); Hemoglobin 14.4 g/dl (12.0-16.0); Imm Gran Abs Auto 0.01 X10*3/uL (0.00-0.03); Imm Gran Pct Auto 0.2 % (0.0-0.4); Lymphocytes Percent Auto 36.2 % (20-40); Mean Corpuscular HGB Conc 33.3 g/dl (31.0-35.0); Mean Corpuscular Hemoglobin 28.6 pg (27.0-33.0); Mean Corpuscular Volume 86.1 fL (80.0-98.0); Mean Platelet Volume 10.2 fL (9.4-12.3); Monocytes Absolute Auto 0.5 X10*3/uL (0.1-1.2); Neutrophils Absolute Auto 2.7 x10*3/uL (2.0-8.3); Neutrophils Percent Auto 49.5 % (45-73); Platelet Count 219 X10*3/uL (160-400); Red Blood Count 5.03 X10*6/uL (4.20-5.50); Red Cell Distribution Width 13.1 % (11.0-16.0); White Blood Count 5.5 X10*3/uL (4.8-10.8)
[2024-08-18 08:56] LABS: Anion Gap 8 (12-20); Blood Urea Nitrogen 15 mg/dL (9-16); Calcium 8.8 mg/dL (8.4-10.2); Carbon Dioxide 26 mmol/L (22-29); Chloride 110 mmol/L (96-108); Estimated Glomerular Filt Rate > 60; Glucose Fasting 85 mg/dL (60-99); Potassium 3.9 mmol/L (3.3-5.1); Sodium 140 mmol/L (135-145)
== END 2024-08-18 07:14 | disposition home or self-care (01) ==
LOC: HO.LAB 07:13
PROVIDERS: PCP Internal Medicine; Visit Provider Internal Medicine
DX: Z01.818 Encounter for other preprocedural examination (principal); M16.0 Bilateral primary osteoarthritis of hip
CPT/HCPCS: 36415; 80048; 85025; 93005

== ENCOUNTER → 2024-08-18 07:24 | Outpatient (BNV) | payer OTHER, SELFPAY | PROVIDERS: PCP Internal Medicine; Visit Provider Internal Medicine Cardiovascular Disease | DX: Z01.818 Encounter for other preprocedural examination (principal) | CPT/HCPCS: 93010 ==

== ENCOUNTER 2024-08-31 12:45 | Outpatient (AMB) | payer OTHER, SELFPAY ==
[2024-08-31 13:01] VITALS: BP 122/80; PULSE 69; TEMP 36.7; O2SAT 97; BMI 29.0
--- NOTE | 2024-08-31 13:01 | MHC.PC.OV ---
Vital Signs 08/31/24 13:01 Height 5 ft 5 in Weight 174 lb BMI 29.0 BP 122/80 Blood Pressure Location Lt brachial Position Sitting Pulse 69 Pulse Source Pulse Oximeter Temp 98.1 F Temp Source Oral Pulse Oximetry (%) 97 Oxygen Delivery Method Room Air Intake Visit Reasons: Rt AMADOR Dr Briseno 10/21/24 Intake Note: Pt is here today for her pre-op with Dr. Briseno for Rt AMADOR on 10/21/24 Allergies No Known Allergies Allergy (Verified 08/31/24 13:28) Medication List - Last Reconciled 08/31/24 by Helena Han MD albuterol sulfate 90 mcg/actuation 1 puff inhalation QID PRN 1 week zzqzyzb-obxdhdqyoiizd-kxsyrmtx 250-250-65 mg (Excedrin Extra Strength) 1 tab PO Q4-6H PRN calcium carbonate-vitamin D3 200 mg (500 mg) -400 unit tabs PO cane As directed walker Folding front wheeled walker Tobacco use date assessed: 08/31/24 Dental Screening Dental Screen Date: 08/31/24 Did you have a dental visit in the last 12 months?: Yes Did you have a dental problem in the last 6 months where you did not have access to dental care?: No Was dental information given to patient?: Patient has dentist HPI Rt AMADOR Dr Briseno 10/21/24 HPI Details 64-year-old lady with past medical history significant for osteoarthritis, allergic rhinitis, fibromyalgia and Sjogren syndrome, here today for preoperative exam for right total hip arthroplasty, scheduled for 10/21/24, requested by Dr. Briseno. -She manages migraines occurring twice weekly with Excedrin Extra Strength, but has switched to Excedrin Tension Headache due to aspirin concerns pre-surgery. - she has mixed dyslipidemia linked to poor dietary habits - has occasional gastroesophageal reflux, discussed lifestyle modifications and taking kafn-wcv-xhyrbey Pepcid AC as needed - Ongoing management for Systemic Lupus Erythematosus and Sj?gren's Syndrome under rheumatology was noted. - Encouraged to get vaccinated against the flu and get a COVID booster. [facility] Medical History (Updated 09/06/24 @ 22:58 by Helena Han MD) Chronic GERD Bilateral hip pain Degenerative joint disease of both hips Difficulty sleeping TMJ arthropathy COVID-19 vaccine dose declined Heartburn symptom History of sleep study Long-term use of Plaquenil Achilles tendinitis of left lower extremity Paresthesia and pain of extremity Fibromyalgia Sjogrens syndrome Surgical History Hx of colonoscopy History of cholecystectomy Status post left breast lumpectomy Family History Mother Arthritis Diabetes mellitus Hypertension Mental health disorder Father CKD (chronic kidney disease) Maternal Grandfather Mental health disorder Social History Housing: House Alcohol intake: never Patient Tobacco Use Status: Never used Tobacco e-Cigarette/Vaping Use: Never Used Second Hand Smoke Exposure: No service: No Current occupational status: unemployed Cognitive needs: No Hearing needs: No Vision needs: Yes Questionnaire PHQ-9 Over the last 2 weeks, how often have you been bothered by any of the following problems? 1. Little interest or pleasure in doing things: more than half the days 2. Feeling down, depressed, or hopeless: more than half the days 4. Feeling tired or having little energy: several days 5. Poor appetite or overeating: not at all 6. Feeling bad about yourself - or that you are a failure or have let yourself or your family down: not at all 7. Trouble concentrating on things, such as reading the newspaper or watching television: not at all 8. Moving or speaking so slowly that other people could have noticed. Or the opposite - being so fidgety or restless that you have been moving around a lot more than usual: not at all 9. Thoughts that you would be better off or of hurting yourself in some way: not at all Depression Screening Interpretation: Negative Depression Screening Done: Yes Source: Developed by Drs. Ronaldo Haynes, Deysi Lacey, Jerome Locke and colleagues, with an educational asrmad from [employer]. Thrive Questionnaire Date Thrive assessed: 08/24/24 I am a: Patient What is your living situation today?: I have a steady place to live Within the past 12 months, did the food you bought not last and you didn't have the money to get more?: I choose not to answer this question Within the past 12 months, did you worry whether your food would run out before you got money to buy more?: I choose not to answer this question Do you have trouble paying for medicines?: I choose not to answer this question Do you have trouble getting transportation to medical appointments?: No Do you have trouble paying your heating and electricity bill?: No Do you have trouble taking care of your child, family member or friend?: No Do you have trouble with day-to-day activities such as bathing, preparing meals, shopping, managing finances, etc.?: No Are you currently unemployed and looking for a job?: No Are you interested in more education?: No Please select the resources that you would like help with: None Currently or been in a relationship where the following occur: No concerns reported THRIVE Score: 0 AUDIT C Alcohol Use Questionnaire (AUDIT-C) 1. How often do you have a drink containing alcohol?: Never Total Score: 0 BIANCA-7 AMB Questionnaire BIANCA-7 Date BIANCA - 7 assessed: 08/31/24 Feeling nervous, anxious, or on edge: 0 = Not at all Not being able to stop or control worryin = Not at all Worrying too much about different things: 0 = Not at all Trouble relaxin = Nearly every day Being so restless that it is hard to sit still: 0 = Not at all Becoming easily annoyed or irritable: 0 = Not at all Feeling afraid as if something awful might happen: 0 = Not at all Total BIANCA-7 score (0-4 normal; 5-9 mild; 10-14 moderate; 15-21 severe): 3 Source: Developed by Drs. Ronaldo Haynes, Deysi Lacey, Jerome Locke and colleagues, with an educational sarmad from [employer]. BIANCA-7 Assessment Billing BIANCA-7 Assessment Tool: BIANCA-7 Assessment 91024 Review of Systems Const All systems reviewed & are unremarkable except as noted in HPI and below Reports no additional complaints Eyes Reports dry eyes ENT Reports dry mouth Card Reports no additional complaints Resp Reports no additional complaints GI Reports no additional complaints Reports as per HPI Musc Reports arthralgias and Denies joint swelling Skin/Breast Reports system reviewed and no additional complaints, except as documented Neuro Reports no additional complaints Psych Reports no additional complaints Endo Reports no additional complaints Sushil/Lymph Reports no additional complaints Aller/Immun Reports no additional complaints Physical exam (Primary Care) Vital Signs: Last Vital Signs Temp 98.1 F 08/31/24 13:01 Pulse 69 08/31/24 13:01 BP 122/80 08/31/24 13:01 Pulse Ox 97 08/31/24 13:01 Oxygen Delivery Method Room Air 08/31/24 13:01 BMI result Body Mass Index 29.0 Tobacco/Smoking Status: Tobacco use Status Tobacco use date assessed 08/31/24 08/31/24 13:03 Patient Tobacco Use Status Never used Tobacco 08/31/24 13:03 e-Cigarette/Vaping Use Never Used 08/31/24 13:03 Depression Screening Interpretation: Negative Thrive Assessment: Date of Thrive Assessment Date Thrive assessed 08/24/24 08/31/24 13:03 Currently or been in a relationship where the following occur: No concerns reported Const Other: Alert oriented x3, no acute distress noted ambulatory with slow gait Orientation/consciousness: patient oriented x3 HENMT Ears: external ears normal, TM's normal bilaterally and EAC's normal General nose exam: Normal external nose present Face and sinus: Yes face symmetric Mouth: Normal oral and palatal mucosa present, oropharynx normal and moist mucous membranes Eyes General: appearance normal, both eyes and all related structures Neck Neck: Yes full ROM, Yes no lymphadenopathy and Yes supple Thyroid: Thyroid normal Resp Effort & Inspection: normal respiratory effort and able to speak in complete sentences Auscultation: clear to auscultation bilaterally Cardio Other: S1-S2 present regular rate and rhythm GI Palpation (GI): Soft to palpation, nontender, no guarding and no masses Auscultation: normal bowel sounds General: Yes no CVA tenderness Back/Spine/Pelvis Back: no CVA tenderness and No back tenderness Neuro General: patient oriented x3, gait normal, moves all extremities and no focal motor deficits Extrem Other: Decreased range of motion in hip joints, no gross bone deformity or joint swelling General: Yes no joint enlargement, Yes no pedal edema, Yes no calf tenderness and Yes normal gait Psych Appearance: grossly normal and well kempt Mental Status: mental status grossly normal Affect: normal affect Attitude: cooperative Thought process: Normal thought process present Thought content: Normal thought content present Results Reviewed Results Reviewed: Name: Rebecca Cole Age/Sex: 64/F : 1960 Unit#: [id number] Attend Dr: Helena Han MD Re08/18/24 Status: DEP REF Location: [facility] Disch: SPEC : [id number] REYNOLD: 08/18/24 STATUS: COMP REQ : [id number] RECD: 08/18/[address] [facility] [address]: Helena Han MD COMP: 08/18/24 ENTERED: 08/18/24 [facility] DR: ORDERED: CBC Auto Diff Test Result Flag Reference WBC 5.5 4.8-10.8 X10*3/uL RBC 5.03 4.20-5.50 X10*6/uL HGB 14.4 12.0-16.0 g/dl HCT 43.3 37.0-47.0 % MCV 86.1 80.0-98.0 fL MCH 28.6 27.0-33.0 pg MCHC 33.3 31.0-35.0 g/dl RDW 13.1 11.0-16.0 % PLT 219 160-400 X10*3/uL MPV 10.2 9.4-12.3 fL Neut Pct Auto 49.5 45-73 % ImGran Pct Auto 0.2 0.0-0.4 % Lymp Pct Auto 36.2 20-40 % [place] Pct Auto 9.0 2-11 % Eos Pct Auto 4.2 H 0-4 % Baso Pct Auto 0.9 0-2 % NRBC Pct Auto 0.0 0.0-0.2 /100WBC ANC Neut Abs # 2.7 2.0-8.3 x10*3/uL ImGran Abs Auto 0.01 0.00-0.03 X10*3/uL Lymph Abs Auto 2.0 1.2-4.9 X10*3/uL [place] Abs Auto 0.5 0.1-1.2 X10*3/uL Eos Abs Auto 0.2 0.0-0.4 X10*3/uL Baso Abs Auto 0.1 0.0-0.2 X10*3/uL NRBC Abs Auto 0.000 0.0-0.012 X10*3/uL Name: Rebecca Cole Age/Sex: 64/F [facility] 1960 [id number]#: [id number] Attend Dr: Helena Han MD Re08/18/24 Status: DEP REF Location: [facility] Disch: SPEC : [id number] REYNOLD: 08/18/24 STATUS: COMP REQ : [id number] RECD: 08/18/[address]: Helena Han MD COMP: 08/18/24 ENTERED: 08/18/24 [facility] DR: ORDERED: Met Prof Fast Test Result Flag Reference Sodium 140 135-145 mmol/L Potassium 3.9 3.3-5.1 mmol/L CL 110 H 96-108 mmol/L CO2 26 22-29 mmol/L Gap 8 L 12-20 BUN 15 9-16 mg/dL Creat 0.78 0.5-1.4 mg/dL eGFR > 60 Chronic Kidney Disease: Estimated GFR < 60 mL/min/1.73m2 Severe Kidney Disease: Estimated GFR < 15 mL/min/1.73m2 FBS 85 60-99 mg/dL CA 8.8 8.4-10.2 mg/dL Coding Level of Care Code Est Pt Level 4 (33934) Diagnoses Pre-op evaluation Z01.818 Sjogren's syndrome with keratoconjunctivitis sicca M35.01 Sjogren organ or system involvement: keratoconjunctivitis Fibromyalgia M79.7 Degenerative joint disease of both hips M16.0 Chronic GERD K21.9 Additional Codes BIANCA-7 Assessment Billing - BIANCA-7 Assessment Tool: BIANCA-7 Assessment 97681 ([id number]) Assessment & Plan Assessment & Plan (1) Pre-op evaluation: Code(s): Z01.818 - Encounter for other preprocedural examination Category: Medical Plan: Currently not on any NSAIDs or DMARDs for her arthritis for Sjogren syndrome, evaluated already by Rheumatology and no contraindications to proposed surgery seen. Patient has been advised to avoid any NSAIDs at least a week prior to scheduled surgery (2) Sjogrens syndrome: Code(s): M35.00 - Sjogren syndrome, unspecified Category: Medical Qualifiers: Sjogren organ or system involvement: keratoconjunctivitis Qualified Code(s): M35.01 - Sjogren syndrome with keratoconjunctivitis Plan: Followed by Rheumatology currently off DMARD, as per rheumatology disease not active (3) Fibromyalgia: Code(s): M79.7 - Fibromyalgia Category: Medical Plan: Takes Tylenol as needed (4) Degenerative joint disease of both hips: Code(s): M16.0 - Bilateral primary osteoarthritis of hip Category: Medical Plan: Takes Tylenol as needed (5) Chronic GERD: Code(s): K21.9 - Gastro-esophageal reflux disease without esophagitis Category: Medical Plan: Takes OTC famotidine as needed
--- OUTSIDE RECORDS SUMMARY | 2024-08-31 17:24 | XMS_ITS | Clinical Summary ---
Author Organization [facility] ity Address [address] [place] [address] Care Team Providers Care Ropeman Name Role Phone Unavailable Primary Care Provider Unavailabl e Social History Tobacco Use Types Packs/Day Years Used Date Smoking Tobacco: Never Assessed Sex and Gender Information Value Date Recorded Sex Assigned at Not on file Gender Identity Not on file Sexual Orientation Not on file Plan of Treatment Health Maintenance Due Date Last Done Comments Breast Cancer Screening 1960 DTaP,Tdap,and Td Vaccines (1 - Tdap) 1980 Cervical Cancer Screening: P ap Smear 1982 Zoster Vaccines (1 of 2) 2011 COVID-19 Vaccine (2023-2 5 season) 2024 Influenza Vaccine (#1) 2024 RSV Immunization Patients 60 + Years Old (1 - 1-dose 75+ series) 2036 HIB Vaccines Aged Out No longer eligi ble based on patient's age to complete this topic HPV Vaccines Aged Out No longer eligi ble based on patient's age to complete this topic Hepatitis A Vaccines Aged Out No long er eligible based on patient's age to complete this topic Hepatitis B Vaccines Aged Out No long er eligible based on patient's age to complete this topic IPV Vaccines Aged Out No longer eligi ble based on patient's age to complete this topic MMR Vaccines Aged Out No longer eligi ble based on patient's age to complete this topic Meningococcal ACWY Vaccine Aged Out N o longer eligible based on patient's age to complete this topic Pneumococcal Vaccine: Pediat rics (0 to 5 Years) and At-Risk Patients (6 to 64 Years) Aged Out No longer eligible b ased on patient's age to complete this topic RSV Immunization Patients Un latricia 20 months Aged Out No longer eligible b ased on patient's age to complete this topic Varicella Vaccines Aged Out No longer eligible based on patient's age to complete this topic
--- OUTSIDE RECORDS SUMMARY | 2024-08-31 17:24 | XMS_ITS | Patient Health Record ---
Author Organization [facility] Address [address] [address] Support Name Relationship Address Phone PAULETTE DOUGLAS Guarantor Unknown [phone] Reason For Referral No Information Plan Of Treatment No Information
== END 2024-08-31 15:58 | disposition home or self-care (01) ==
PROVIDERS: PCP Internal Medicine; Visit Provider Internal Medicine
DX: Z01.818 Encounter for other preprocedural examination (principal); M35.01 Sjogren syndrome with keratoconjunctivitis; M79.7 Fibromyalgia; M16.0 Bilateral primary osteoarthritis of hip; K21.9 Gastro-esophageal reflux disease without esophagitis

== ENCOUNTER → 2024-08-31 12:45 | Outpatient (BNVA) | payer OTHER, SELFPAY | PROVIDERS: PCP Internal Medicine; Visit Provider Internal Medicine | DX: Z01.818 Encounter for other preprocedural examination (principal); M35.01 Sjogren syndrome with keratoconjunctivitis; M79.7 Fibromyalgia; M16.0 Bilateral primary osteoarthritis of hip; K21.9 Gastro-esophageal reflux disease without esophagitis | CPT/HCPCS: 96127; 99212 ==

== ENCOUNTER → 2024-09-25 08:38 | Outpatient (BNVA) | payer OTHER, SELFPAY | PROVIDERS: PCP Internal Medicine | DX: Z01.818 Encounter for other preprocedural examination (principal) ==

== ENCOUNTER 2024-10-12 11:10 | Outpatient (AMB) | payer OTHER, SELFPAY ==
--- NOTE | 2024-10-12 11:53 | A.OFFPC_ITS ---
Vital Signs 10/12/24 11:54 Height 5 ft 5 in Weight 17 lb BMI 2.8 BP 110/90 H Blood Pressure Location Lt brachial Position Sitting Pulse 86 Pulse Source Pulse Oximeter Temp 98.2 F Temp Source Oral Pulse Oximetry (%) 96 Oxygen Delivery Method Room Air Intake Visit Reasons: Back Pain Intake Note: Pt is here today Lower mid back pain into Lt mid back: Has a foul odor upon urination Source Water Protection Specialist Required: Yes Source Water Protection Specialist Name: ROBERT ledezma [id number] Information Interpreted: clinical only Allergies No Known Allergies Allergy (Verified 10/12/24 11:56) Medication List - Last Reconciled 10/12/24 by Helena Han MD acetaminophen-caffeine 500-65 mg 1 tab PO TID PRN albuterol sulfate 90 mcg/actuation 1 puff inhalation QID PRN 1 week cane As directed cholecalciferol (vitamin D3) (Vitamin D3) 25 mcg PO DAILY docosahexaenoic acid-epa 120-180 mg (Fish Oil) 1 cap PO DAILY magnesium citrate 100 mg PO DAILY peg 400-propylene glycol 0.4-0.3 % (Systane Gel) 1 drp ophthalmic (eye) Q4-6H PRN potassium gluconate 550 mg PO DAILY walker Folding front wheeled walker Tobacco use date assessed: 10/12/24 Dental Screening Dental Screen Date: 08/31/24 [facility] Medical History (Updated 09/23/24 @ 11:07 by Franci Montes, RN) DJD (degenerative joint disease) History of blood transfusion Hepatic steatosis Hand numbness Arthritis Migraines Hx of migraines Allergic rhinitis Snores Chronic GERD Bilateral hip pain Degenerative joint disease of both hips TMJ arthropathy COVID-19 vaccine dose declined Heartburn symptom History of sleep study Long-term use of Plaquenil Difficulty sleeping Achilles tendinitis of left lower extremity Paresthesia and pain of extremity Fibromyalgia Sjogrens syndrome Surgical History (Updated 09/23/24 @ 10:15 by Franci Montes, RN) History of lumpectomy of right breast Hx of hemorrhoidectomy Hx of colonoscopy History of cholecystectomy Family History Mother Arthritis Diabetes mellitus Hypertension Mental health disorder Father CKD (chronic kidney disease) Maternal Grandfather Mental health disorder Social History Housing: House Are you a primary companion caregiver to a significant other at home: No Do you presently have visiting nurse or other home services: No Alcohol intake: never Comment: in bathroom, aware of trip hazard Patient Tobacco Use Status: Never used Tobacco e-Cigarette/Vaping Use: Never Used Second Hand Smoke Exposure: No service: No Current occupational status: unemployed Cognitive needs: No Hearing needs: No Vision needs: Yes Questionnaire Thrive Questionnaire Date Thrive assessed: 08/24/24 I am a: Patient What is your living situation today?: I have a steady place to live Within the past 12 months, did the food you bought not last and you didn't have the money to get more?: I choose not to answer this question Within the past 12 months, did you worry whether your food would run out before you got money to buy more?: I choose not to answer this question Do you have trouble paying for medicines?: I choose not to answer this question Do you have trouble getting transportation to medical appointments?: No Do you have trouble paying your heating and electricity bill?: No Do you have trouble taking care of your child, family member or friend?: No Do you have trouble with day-to-day activities such as bathing, preparing meals, shopping, managing finances, etc.?: No Are you currently unemployed and looking for a job?: No Are you interested in more education?: No Please select the resources that you would like help with: None Currently or been in a relationship where the following occur: No concerns reported THRIVE Score: 0 BIANCA-7 AMB Questionnaire BIANCA-7 Date BIANCA - 7 assessed: 08/31/24 Source: Developed by Drs. Ronaldo Haynes, Deysi Lacey, Jerome Locke and colleagues, with an educational sarmad from [employer]. Physical exam (Primary Care) Vital Signs: Last Vital Signs Temp 98.2 F 10/12/24 11:54 Pulse 86 10/12/24 11:54 BP 110/90 H 10/12/24 11:54 Pulse Ox 96 10/12/24 11:54 Oxygen Delivery Method Room Air 10/12/24 11:54 BMI result Body Mass Index 2.8 Tobacco/Smoking Status: Tobacco use Status Tobacco use date assessed 10/12/24 10/12/24 11:59 Patient Tobacco Use Status Never used Tobacco 10/12/24 11:59 e-Cigarette/Vaping Use Never Used 10/12/24 11:59 Thrive Assessment: Date of Thrive Assessment Date Thrive assessed 08/24/24 10/12/24 11:59 Currently or been in a relationship where the following occur: No concerns reported Results AMB Urinalysis, Automated UA Leukoctes 0 Ang/uL Last Edit by Jazmyn Ledezma, KATY on 10/12/24 12:05 UA Nitrite Negative Last Edit by Jazmyn Ledezma, SUPERINTENDENT CUSTODIAN JANITOR on 10/12/24 12:05 UA Urobilinogen 0.2 mg/dL Last Edit by Jazmyn Ledezma, SUPERINTENDENT CUSTODIAN JANITOR on 10/12/24 12:05 UA Protein 0 mg/dL Last Edit by Jazmyn Ledezma, SUPERINTENDENT CUSTODIAN JANITOR on 10/12/24 12:05 UA pH 5.5 Last Edit by Jazmyn Ledezma, SUPERINTENDENT CUSTODIAN JANITOR on 10/12/24 12:05 UA Blood 0 Dat/uL Last Edit by Jazmyn Ledezma, SUPERINTENDENT CUSTODIAN JANITOR on 10/12/24 12:05 UA Specific [place] 1.030 Last Edit by Jazmyn Ledezma, SUPERINTENDENT CUSTODIAN JANITOR on 10/12/24 12:05 UA Ketone Negative Last Edit by Jazmyn Ledezma, SUPERINTENDENT CUSTODIAN JANITOR on 10/12/24 12:05 UA Bilirubin 1 mg/dL Last Edit by Jazmyn Ledezma, SUPERINTENDENT CUSTODIAN JANITOR on 10/12/24 12:05 UA Glucose 100 mg/dL Last Edit by Jazmyn Ledezma, SUPERINTENDENT CUSTODIAN JANITOR on 10/12/24 12:05 Results Reviewed Results Reviewed: Laboratory Last Values Urine pH (Auto) 5.5 10/12/24 12:02 Specific [place] (Auto) 1.030 10/12/24 12:02 Urine Protein (Auto) 0 mg/dL 10/12/24 12:02 Glucose (UA)(Auto) 100 mg/dL 10/12/24 12:02 Urine Ketones (Auto) Negative 10/12/24 12:02 Urine Blood (Auto) 0 Dat/uL 10/12/24 12:02 Urine Nitrite (Auto) Negative 10/12/24 12:02 Urine Bilirubin (Auto) 1 mg/dL 10/12/24 12:02 Urine Urobilinogen (Auto) 0.2 mg/dL 10/12/24 12:02 Leukocyte Esterase (Auto) 0 Ang/uL 10/12/24 12:02 Coding Level of Care Code Est Pt Level 3 (15499) Diagnoses Acute low back pain M54.50 Assessment & Plan Assessment & Plan (1) Acute low back pain: Code(s): M54.50 - Low back pain, unspecified Plan: Radiating to midthoracic area, not accompanied by any urinary incontinence, no dysuria urinary frequency. Urinalysis did not show any evidence of UTI. Advised to take Tylenol arthritis 650 mg per tablet 1 tablet 3 times a day as needed for pain, apply Salonpas patch to affected area every 12 hours as needed as well Orders: Orders AMB Urinalysis Automated Today Z13.9 - Encounter for screening, unspecified
[2024-10-12 11:54] VITALS: BP 110/90; PULSE 86; TEMP 36.8; O2SAT 96
--- OUTSIDE RECORDS SUMMARY | 2024-10-12 12:43 | XMS_ITS | Clinical Summary ---
Author Organization [facility] ity Address [address] [place] [address] Care Team Providers Care Manager Inventory Management Name Role Phone Unavailable Primary Care Provider Unavailabl e Social History Tobacco Use Types Packs/Day Years Used Date Smoking Tobacco: Never Assessed Comments Unknown Sex and Gender Information Value Date Recorded Sex Assigned at Not on file Legal Sex Female 5:43 PM EST Gender Identity Not on file Sexual Orientation Not on file Plan of Treatment Health Maintenance Due Date Last Done Comments Breast Cancer Screening 1960 DTaP,Tdap,and Td Vaccines (1 - Tdap) 1980 Cervical Cancer Screening: P ap Smear 1982 Pneumococcal Vaccine: 50+ Ye ars (1 of 1 - PCV) 2011 Zoster Vaccines (1 of 2) 2011 COVID-19 Vaccine (1 - 2023-2 5 season) 2024 Influenza Vaccine (#1) 2024 [...] patient's age to complete this topic Meningococcal B Vacine Aged Out No lo nger eligible based on patient's age to complete [...]
--- OUTSIDE RECORDS SUMMARY | 2024-10-12 12:43 | XMS_ITS | Patient Health Record ---
Author Organization [facility] Address [address] [address] Support Name Relationship Address Phone PAULETTE DOUGLAS Guarantor Unknown [phone] Reason For Referral No Information Plan Of Treatment No Information
--- OUTSIDE RECORDS SUMMARY | 2024-10-12 12:43 | XMS_ITS | Clinical Summary ---
Author Organization [facility] Address [address] [place] [address] Care Team Providers Care Operations Lieutenant Name Role Phone Estefani Luna PA-C Primary Care Provider [phone] Source Comments PLEASE NOTE, if this patient is a minor, it may be UNLAWFUL to discuss sensitive information that is contained in these records (such as FAMILY PLANNING, MENTAL HEALTH or SUBSTANCE ABUSE) with the minor patient's parent or other person without the patient's specific authorization.[facility] Medications clotrimazole (LOTRIMIN) 1 % creamIndications :Tinea corporis Apply topically 2 (two) times daily. 15 g 0 5 Active sodium chloride (OCEAN) 0.65 % nasal sprayIndications :Nasal congestion Place 1 [place] into the nostril(s) as needed for congestion. 60 mL 3 5 Active omeprazole (PRILOSEC) [address] capsuleIndicatio ns:Gastroesophag eal reflux disease, esophagitis presence not specified Take 1 Cap by mouth every morning before breakfast. Do not crush or chew. 30 Cap 3 6 Active diclofenac (VOLTAREN) 1 % gelIndications:D DD (degenerative disc disease), cervical,Bilater al shoulder pain Apply topically 2 (two) times daily. Apply to most painful area. 100 g 3 6 Active phenylephrine-pr amoxine (PREPARATION H) 0.25-1 % rectal creamIndications :Anal itching Place rectally 4 (four) times daily as needed for irritation. 26 g 2 6 Active Active Problems Problem Noted Date Diagnosed Date Chronic pain syndrome 01/05/2016 Overview (01/05/2016): Per rheumat. Fibromyalgia as possible dx, she does not have signif arthritic changes to cause her level of pain. They will not follow at [facility], for us to follow and determine next line of treatment H/O electromyography. FEBRUARY 03 [facility]. Normal Bilat LE EMG 03/09/2015 Vitamin D insufficiency 11/25/2014 GERD (gastroesophageal reflux disease) 5 Positive LILLY (antinuclear antibody). [facility] la b. 2010 11/25/2014 DDD (degenerative disc disease), cervical 2014 Overview (11/25/2014): Xray 2006 at [facility] and then at [facility] February 2012: same, mild DDD Calcaneal spur. Lt foot. Xray 2006 11/25/2014 Headache 11/25/2014 Overview (11/25/2014): MRI at [facility] 2006 (report sent for scan) Ct head at [facility]: February 2012: No acute pathology H/O colonoscopy. [facility]. December 2005. Rec to repeat in 10ys. Due 2015. 11/25/2014 Breast mass, right. Phyllode s tu s/p resection Mar 2013. Dr Holder at [facility]. Last Mammo January 2014 Normal 11/19/2014 Overview (11/19/2014): S/p removal of Phyllodes Tu of rt breast: 03/2013 Dr Holder (surgeon) [facility] Breast S/P hemorrhoidectomy. [facility] 200511/19/2014 Sleep disturbance. Sleep issac dy performed at [facility] in 2009. No BOB. Seen by Neuro [facility]. Rec better sleep hygene. 11/19/2014 Overview (11/19/2014): Result type: Polysomnogram Study Result date: 16 May 2010 8:41 Result status: Auth (Verified) Result title: Polysomnogram Performed by: Asuncion Alexis MD on 16 May 2010 8:41 Encounter info: [id number], [facility], One Time OP, 05/07/2010 - 05/07/2010 Contributor system: [employer] * Final Report * Polysomnogram POLYSOMNOGRAM REPORT Ordering Physician: Linda Pruett M.D. Order ID: [id number] Date of Service: May 07, 2010 through May 08, 2010 INTRODUCTION: This is a 49-year-old female who is 5' 5 tall, weighs 163 pounds for a BMI of 27.2 who is referred for disorder of initiating and maintaining sleep, excessive somnolence and a.m. headaches. On her sleep intake questionnaire, she indicated that she falls asleep in permissive/ passive situations and active situations. Her score on the [place] Sleepiness Scale is 9 to 10. She indicates that she has not been seen to snore at night or to stop breathing during sleep at night. She drinks no alcoholic beverages, drinks two caffeinated beverages and does not smoke. Her bedtime is 10:00 p.m. and uptime is 4:30 a.m. on weekdays. Her bedtime is 10:00 p.m. and 8:00 a.m. on weekends. She indicates that she takes Excedrin for headaches and had her gallbladder removed. MEDICATIONS: None. NOTE: The technologist noted that the patient had a migraine at the start of the study and took an Excedrin. DESCRIPTION: This overnight polysomnogram was done utilizing a Exabre digital polysomnograph machine. Four channels were devoted to EEG for sleep scoring, 2 channels for extraoculograms, left and right respectively, 1 for chin EMG, 2 channels for left and right anterior tibialis EMG, respectively, 1 for EKG, 1 for combined nasal and oral airflow monitoring, 1 for nasal pressure transducer, 1 for intercostal EMG, 1 channel for thoracic strain gauge, 1 for abdominal strain gauge, 1 for end-tidal CO2 monitoring, and oximetry on the last channel to monitor arterial oxygen saturation. The paper speed was set at 10 mm./sec.; the low linear filter setting was 1 Hz., high linear 70 Hz. for the EEG channels and appropriate band widths were set for the other channels. Sleep was scored by 30-second epochs according to the AASM Manual for the Scoring of Sleep and Associated Events: Rules, Terminology and Technical Specifications, 2007. SLEEP ARCHITECTURE: Lights were turned out at 2021h and turned on at 0527h. The total recording time was 533 minutes. The total sleep time was 317 minutes resulting in a sleep efficiency of 59%. Sleep maintenance was 63%. Sleep latency was 43 minutes. REM latency was 226 minutes. RESPIRATORY DATA: Occasional light snoring was noted. There were no respiratory events. The apnea-hypopnea index was 0.0 with a non-REM AHI of 0.0 and a REM AHI of 0.0. The patient spent 65% of the time in the supine position with an apnea- hypopnea index of zero. There were eight arousals for an index of 2/hour and no respiratory events with arousals. There were no snore arousals. Oxygen saturation ranged from 93% to 99% with an average of 96%. The end-tidal CO2 average was 49 with a maximum of 42. The number of minutes with saturation below 89% was 0.0 minutes. ECG DATA: The heart rate ranged from 42-75 with an average of 46. No arrhythmias were noted. LIMB MOVEMENT DATA: There were no periodic limb movements during sleep. There were no unusual movements or behaviors noted. The patient felt that she had a typical night. The EEG was within normal limits (alpha intrusion). No bruxism was noted. CLINICAL INTERPRETATION: The patient did not sleep well in the lab with numerous arousals. When she was able to sleep, breathing was sustained fairly well. The technologist noted [id number] snoring at times. Review of samples of the videos suggested that this was largely dependent on the position in which she slept. When she slept with her neck flexed she snored more. She tended to snore less if her neck was flexed only slightly or straight. DIAGNOSTIC CLASSIFICATION: AXIS A: 1. Sleep apnea, sleep-related breathing disorder, unspecified, mild snoring (327.20). AXIS B: 1. Polysomnogram. AXIS C: 1. Headaches, gallbladder removal. RECOMMENDATIONS: 1. Please send this patient for a Sleep Medicine consultation to obtain a better sense of why she might have difficulties falling asleep and staying asleep. Review of sleep hygiene elements might be pertinent. DocID: [id number] Electronically verified by: Asuncion Alexis M.D. 05/17/2010 18:09 Asuncion Alexis M.D. A P DOC#: [id number] [facility]#: [id number] NAB cc: Linda Pruett M.D. [address] [facility] [address] Family History Medical History Relation Name Comments Kidney disease Father Diabetes Mother Hypertension Mother Diabetes Sister 1 Hypertension Sister 1 Diabetes Sister 2 Hypertension Sister 2 Diabetes Sister 3 Hypertension Sister 3 Relation Name Status Comments Daughter 1 Alive Daughter 2 Alive Father Mother Alive Sister 1 Alive Sister 2 Alive Sister 3 Alive Son Alive Social History Tobacco Use Types Packs/Day Years Used Date Smoking Tobacco: Never Alcohol Use Standard Drinks/Week Comments No 0 (1 standard drink = 0.6 oz pur e alcohol) Social Connections Answer Date Recorded Social Connections and Isolation 0 03/29/2019 Financial Resource Strain Answer Date R ecorded Financial Resource Strain 0 2018 Stress Answer Date Recorded Stress 0 03/29/2019 Physical Activity Answer Date Recorded Physical Activity 0 03/29/2019 Food Insecurity Answer Date Recorded Food 0 03/29/2019 Transportation Needs Answer Date Record ed Transportation 0 03/29/2019 Housing Stability Answer Date Recorded Housing 0 03/29/2019 Safety and Environment Answer Date Erick rded Safety 0 03/29/2019 Utilities Answer Date Recorded Utilities 0 03/29/2019 Employment Answer Date Recorded Employment 0 03/29/2019 Comments No Sex and Gender Information Value Date Recorded Sex Assigned at Not on file Legal Sex Female 9:02 AM PDT Gender Identity Not on file Sexual Orientation Not on file Last Filed Vital Signs Vital Sign Reading Time Taken Comments Blood Pressure 102/60 11/04/2015 8:54 AM EDT Pulse 68 11/04/2015 8:54 AM EDT Temperature 36.8 ??C (98.3 ??F) 11/04/2015 8:54 AM ED T Respiratory Rate 14 11/04/2015 8:54 AM EDT Oxygen Saturation - - Inhaled Oxygen Concentration - - Weight 75.7 kg (166 lb 14.4 oz) 11/04/2015 8:54 AM EDT Height 166.4 cm (5' 5.5 ) 11/04/2015 8:54 AM EDT Body Mass Index 27.35 11/04/2015 8:54 AM EDT Plan of Treatment Not on file Insurance [facility] ([facility]) Member Subscriber Plan / Payer (Ef fective 2014-Present) Name:Rebecca Cole Relation to Subscriber:Self Name:Rebecca Cole Payer ID:[id number] Group ID:Not on file Type:Ry Address: [address] [place] [id number] Care Teams Operations Lieutenant Relationship Specialty Start Date End Date Estefani Luna PA-C [address] [place] [address] PCP - General 09/30/18
== END 2024-10-12 12:27 | disposition home or self-care (01) ==
PROVIDERS: PCP Internal Medicine; Visit Provider Internal Medicine
DX: Z13.9 Encounter for screening, unspecified (principal)

== ENCOUNTER → 2024-10-12 11:10 | Outpatient (BNVA) | payer OTHER, SELFPAY | PROVIDERS: PCP Internal Medicine; Visit Provider Internal Medicine | DX: M54.50 Low back pain, unspecified (principal) | CPT/HCPCS: 81003; 99212 ==

== ENCOUNTER 2024-10-15 08:54 | Outpatient (AMB) | payer OTHER, SELFPAY ==
--- NOTE | 2024-10-15 09:08 | MHC.OFFVIS ---
Vital Signs 10/15/24 09:13 Height 5 ft 5 in Weight 174 lb BMI 29.0 Intake Visit Reasons: Pre-Op: R AMADOR w/NE 10/21/24 Intake Note: Rebecca is a 64 year old female who presents today for a pre op appointment for her left total hip arthroplasty 10/21/24 NE. Patient has vomiting and headaches after anaesthesias. Allergies No Known Allergies Allergy (Verified 10/15/24 09:12) HPI HPI Pre-Op: R AMADOR w/NE 10/21/24: Details: Ms. Cole is a 64-year-old female who presents to the office today for her preoperative history and physical examination pending right total hip arthroplasty with Dr. Briseno on 10-21-24. Patient denies any allergies to any medications. Patient has been seen by her PCP as well as rheumatology for clearance in which no contraindications for surgery were found. Patient reports that her right hip pain is impacting her quality of life. She has tried and failed all conservative treatment and therefore has consented to move forward with right total hip arthroplasty. [facility] Medical History (Updated 10/15/24 @ 08:26 by Rachael Whittington PA-C) DJD (degenerative joint disease) History of blood transfusion Hepatic steatosis Hand numbness Arthritis Migraines Hx of migraines Allergic rhinitis Snores Chronic GERD Bilateral hip pain Degenerative joint disease of both hips TMJ arthropathy COVID-19 vaccine dose declined Heartburn symptom History of sleep study Long-term use of Plaquenil Difficulty sleeping Achilles tendinitis of left lower extremity Paresthesia and pain of extremity Fibromyalgia Sjogrens syndrome Surgical History (Updated 09/23/24 @ 10:15 by Franci Montes RN) History of lumpectomy of right breast Hx of hemorrhoidectomy Hx of colonoscopy History of cholecystectomy Family History Mother Arthritis Diabetes mellitus Hypertension Mental health disorder Father CKD (chronic kidney disease) Maternal Grandfather Mental health disorder Social History Housing: House Are you a primary care coordination manager to a significant other at home: No Do you presently have visiting nurse or other home services: No Alcohol intake: never Comment: in bathroom, aware of trip hazard Patient Tobacco Use Status: Never used Tobacco e-Cigarette/Vaping Use: Never Used Second Hand Smoke Exposure: No service: No Current occupational status: unemployed Cognitive needs: No Hearing needs: No Vision needs: Yes Review of Systems Const All systems reviewed & are unremarkable except as noted in HPI and below Physical Exam Vital Signs: BMI result Body Mass Index 29.0 Const General: cooperative, healthy appearing, comfortable, no acute distress, well developed, alert and awake Orientation/consciousness: patient oriented x3 HEENT Head: Yes normal to inspection, Yes normocephalic and Yes atraumatic Eyes General: appearance normal, both eyes and all related structures Neck Neck: Yes normal visual inspection and Yes no lymphadenopathy Resp Effort & Inspection: normal respiratory effort and able to speak in complete sentences Cardio Rate: regular rate Peripheral pulses: Peripheral pulses 2+ throughout GI Inspection: Yes normal to inspection Palpation (GI): Soft to palpation Skin General skin exam: no rashes or lesions noted Neuro General: patient oriented x3 Extrem Other: Right hip with 0-90 deg flexion 20 deg abd and 10 deg add with pain + impingement test with restricted FADIIR + gait antalgia on right Psych Mental Status: mental status grossly normal Assessment & Plan Assessment & Plan (1) Osteoarthritis of right hip: Code(s): M16.11 - Unilateral primary osteoarthritis, right hip Category: Medical Plan Ms. Cole is a 64-year-old female who presents to the office today for her preoperative history and physical examination pending right total hip arthroplasty with Dr. Briseno on 10-21-24. Patient denies any allergies to any medications. Patient has been seen by her PCP as well as rheumatology for clearance in which no contraindications for surgery were found. Patient reports that her right hip pain is impacting her quality of life. She has tried and failed all conservative treatment and therefore has consented to move forward with right total hip arthroplasty. Patient saw her PCP Dr. Han on 08/31/2024 and was cleared with no contraindications. Patient was seen by Rheumatology. Dr. Mohan on 06/24/2024 for preoperative clearance. patient has a past medical history significant for Sjogren's and mild SLE. She is currently not on any DMARDs and therefore was cleared with no contraindications for surgery. I discussed in detail the procedure and what to expect pre and post operatively. We discussed the risks, benefits and alternatives to the surgery as well as the rehabilitation course. The risks; which include, but are not limited to infection, bleeding, nerve injury, ongoing pain, swelling, and stiffness, perioperative risk of injury to bones and soft tissues, and blood clots. I?ve answered all questions and with their understanding they have consented to move forward with right total hip arthroplasty with Dr. Briseno. No contraindications to aspirin or Celebrex. Andrei is the patient's and would like a call after surgery he can be reached at [phone] Orders: Orders XR hip RT min 2V Today M25.559 - Pain in unspecified hip Complete Blood Count no Diff Today Z01.818 - Encounter for other preprocedural examination Basic Metabolic Panel Today Z01.818 - Encounter for other preprocedural examination Coding Level of Care Code Global (54150) Diagnoses Osteoarthritis of right hip M16.11
[2024-10-15 09:13] VITALS: BMI 29.0
== END 2024-10-15 09:47 | disposition home or self-care (01) ==
LOC: HO.HOS 08:55
PROVIDERS: PCP Internal Medicine; Visit Provider Physician Assistant
DX: M16.11 Unilateral primary osteoarthritis, right hip (principal)
CPT/HCPCS: 99024

== ENCOUNTER → 2024-10-15 08:57 | Outpatient (BNV) | payer OTHER, SELFPAY | PROVIDERS: Visit Provider Radiology Diagnostic Radiology | DX: M16.11 Unilateral primary osteoarthritis, right hip (principal) | CPT/HCPCS: 73502 ==

== ENCOUNTER 2024-10-15 09:08 | Outpatient (REF) | payer OTHER, SELFPAY ==
--- NOTE | ~2024-10-15 | XR_ITS ---
CLINICAL HISTORY: M25.559 - Pain in unspecified hip 3 view, pelvis and right hip Comparison: None Findings: The bones are intact. There are Moderate to severe osteoarthritic changes at the right hip with large acetabular osteophytes. The left hip demonstrates milder degenerative changes. The soft tissues are unremarkable. IMPRESSION: There are Moderate to severe osteoarthritic changes at the right hip with large acetabular osteophytes. This document has been electronically signed by: Jacyk Morales MD on 10/16/2024 08:56:56
--- OUTSIDE RECORDS SUMMARY | 2024-10-16 09:43 | XMS_ITS | Clinical Summary ---
Author Organization [facility] ity Address [address] [place] [address] Care Team Providers Care Talend Developer Name Role Phone Unavailable Primary Care Provider [...]
--- OUTSIDE RECORDS SUMMARY | 2024-10-16 09:44 | XMS_ITS | Clinical Summary ---
Author Organization [facility] Address [address] [place] [address] Care Team Providers Care Caseworker Protective Services Name Role Phone Estefani Luna PA-C Primary Care Provider [phone] Source Comments PLEASE NOTE, if this patient [...] % nasal sprayIndications :Nasal congestion Place 1 [place] into the nostril(s) as needed for congestion. [...] of pain. They will not follow at [facility], for us to follow and determine next line of treatment H/O electromyography. FEBRUARY 03 [facility]. Normal Bilat LE EMG 03/09/2015 Vitamin D insufficiency 11/25/2014 GERD (gastroesophageal reflux disease) 5 Positive LILLY (antinuclear antibody). [facility] la b. 2010 11/25/2014 DDD (degenerative disc disease), cervical 2014 Overview (11/25/2014): Xray 2006 at [facility] and then at [facility] February 2012: same, mild DDD Calcaneal spur. Lt foot. Xray 2006 11/25/2014 Headache 11/25/2014 Overview (11/25/2014): MRI at [facility] 2006 (report sent for scan) Ct head at [facility]: February 2012: No acute pathology H/O colonoscopy. [facility]. December 2005. Rec to repeat in 10ys. Due 2015. 11/25/2014 Breast mass, right. Phyllode s tu s/p resection Mar 2013. Dr Holder at [facility]. Last Mammo January 2014 Normal 11/19/2014 Overview (11/19/2014): S/p removal of Phyllodes Tu of rt breast: 03/2013 Dr Holder (surgeon) [facility] Breast S/P hemorrhoidectomy. [facility] 200511/19/2014 Sleep disturbance. Sleep issac dy performed at [facility] in 2009. No BOB. Seen by Neuro [facility]. Rec better sleep hygene. 11/19/2014 Overview (11/19/2014): Result type: Polysomnogram Study Result date: 16 May 2010 8:41 Result status: Auth (Verified) Result title: Polysomnogram Performed by: Asuncion Alexis MD on 16 May 2010 8:41 Encounter info: [id number], [facility], One Time OP, 05/07/2010 - 05/07/2010 Contributor system: [employer] * Final Report * Polysomnogram POLYSOMNOGRAM REPORT Ordering Physician: Linda Pruett M.D. Order ID: [id number] Date of Service: May 07, 2010 through [...] and active situations. Her score on the [place] Sleepiness Scale is 9 to 10. She [...] This overnight polysomnogram was done utilizing a PENRITH digital polysomnograph machine. Four channels were devoted [...] was sustained fairly well. The technologist noted [id number] snoring at times. Review of samples of [...] sleep hygiene elements might be pertinent. DocID: [id number] Electronically verified by: Asuncion Alexis M.D. 05/17/2010 18:09 Asuncion Alexis M.D. A P DOC#: [id number] [facility]#: [id number] NAB cc: Linda Pruett M.D. [address] [facility] [address] Family History Medical History Relation Name Comments [...] Plan of Treatment Not on file Insurance [facility] ([facility]) Member Subscriber Plan / Payer (Ef fective 2014-Present) Name:Rebecca Cole Relation to Subscriber:Self Name:Rebecca Cole Payer ID:[id number] Group ID:Not on file Type:Ry Address: [address] [place] [id number] Care Teams Caseworker Protective Services Relationship Specialty Start Date End Date Estefani Luna PA-C [address] [place] [address] PCP - General 09/30/18
--- OUTSIDE RECORDS SUMMARY | 2024-10-16 09:44 | XMS_ITS | Patient Health Record ---
Author Organization [facility] Address [address] [address] Support Name Relationship Address Phone PAULETTE DOUGLAS Guarantor Unknown [phone] Reason For Referral No Information Plan Of Treatment No Information
== END 2024-10-15 09:09 | disposition home or self-care (01) ==
LOC: HO.HOSX 09:08
PROVIDERS: Visit Provider Physician Assistant
DX: Z01.818 Encounter for other preprocedural examination (principal); M16.11 Unilateral primary osteoarthritis, right hip
CPT/HCPCS: 73502; 99212

== ENCOUNTER 2024-10-20 10:09 | Day surgery (SDC) | payer OTHER, SELFPAY ==
[2024-09-23 09:54] VITALS: BP 115/74; PULSE 73; RESP 16; O2SAT 97; BMI 28.8
[2024-09-23 12:43] LABS: MRSA Nasal PCR NEGATIVE (Negative); SA Nasal PCR POSITIVE (Negative)
[2024-10-15 10:46] LABS: Hematocrit 42.5 % (37.0-47.0); Hemoglobin 14.3 g/dl (12.0-16.0); Mean Corpuscular HGB Conc 33.6 g/dl (31.0-35.0); Mean Corpuscular Hemoglobin 29.1 pg (27.0-33.0); Mean Corpuscular Volume 86.4 fL (80.0-98.0); Mean Platelet Volume 9.9 fL (9.4-12.3); Platelet Count 221 X10*3/uL (160-400); Red Blood Count 4.92 X10*6/uL (4.20-5.50); Red Cell Distribution Width 13.4 % (11.0-16.0); White Blood Count 4.6 X10*3/uL (4.8-10.8)
[2024-10-15 11:19] LABS: Anion Gap 9 (12-20); Blood Urea Nitrogen 15 mg/dL (9-16); Calcium 9.3 mg/dL (8.4-10.2); Carbon Dioxide 28 mmol/L (22-29); Chloride 109 mmol/L (96-108); Creatinine Clr Calc Pharmacy 78.4; Estimated Glomerular Filt Rate > 60; Glucose Random 87 mg/dL (60-115); Potassium 4.3 mmol/L (3.3-5.1); Sodium 142 mmol/L (135-145)
[2024-10-20] VITALS (12 sets, daily range): BP systolic 103–149; BP diastolic 53–86; PULSE 69–84; RESP 10–18; TEMP 36.2–37.4; O2SAT 93–98; BMI 29.1
--- NOTE | ~2024-10-20 | XR_ITS ---
EXAMINATION: XR PELVIS 1-2 VIEWS HISTORY: s/p RTHA COMPARISON: Comparison is made with the prior examination dated 10/15/2024. FINDINGS: A single AP view of the pelvis is submitted. The patient is status post right total hip arthroplasty. The orthopedic elements are in anatomic alignment on this single AP view. The left hip and sacroiliac joint spaces are maintained. There are postoperative changes in the soft tissues. XR/XR pelvis 1-2V IMPRESSION: Status post right total hip arthroplasty. Electronically signed by: Ronaldo Dunaway MD 10/20/2024 03:42 PM EDT
[2024-10-20] MEDS: Lactated Ringers 1,000 ML 80 ML IVCONT (11:09)
[2024-10-20 11:25] LABS: Hematocrit 42.7 % (37.0-47.0); Hemoglobin 14.5 g/dl (12.0-16.0)
--- NOTE | 2024-10-20 12:05 | MHC.SHP ---
Pre-Procedural Eval Section A - 24 Hr Update-Section A only Date of Service: 10/20/24 The patient is an INPATIENT: No Changes since office visit: No Cold of Flu in the past 2 weeks, No New Medical Problems, No Changes in Medication and No Patient answered all questions The patient has been examined within 24 hours of the surgical procedure. The History & Physical has been completed within 30 days and I have reviewed it.: Yes Section B - Complete if H&P > 30 days Chief Complaint: Unilateral primary osteoarthritis, right hip Allergies: Allergies Allergy/AdvReac Type Severity Reaction Status Date / Time No Known Allergies Allergy Verified 10/20/24 10:39 Plan I have reviewed the history and physical and performed a pertinent physical examination on my patient. No changes have occurred unless specified. Time Spent With Patient Time: Total time managing care of this patient today ____ minutes.
--- NOTE | 2024-10-20 12:17 | HO.ANESPROP2 ---
HPI - Anesthesia Eval Consult details Narrative: THR PMFSH Active Problems Active Problems: All Active Problems Pre-op exam (Acute) Renal cyst (Acute) Skin lesion of right arm (Acute) Allergic rhinitis (Acute) Chronic GERD (Acute) Degenerative joint disease of both hips (Acute) TMJ arthropathy (Acute) COVID-19 vaccine dose declined (Acute) Long-term use of Plaquenil (Acute) Fibromyalgia (Acute) Sjogrens syndrome (Acute) Past Medical History Medical History DJD (degenerative joint disease) History of blood transfusion Hepatic steatosis Hand numbness Arthritis Migraines Hx of migraines Allergic rhinitis Snores Chronic GERD Bilateral hip pain Degenerative joint disease of both hips TMJ arthropathy COVID-19 vaccine dose declined Heartburn symptom History of sleep study Long-term use of Plaquenil Difficulty sleeping Achilles tendinitis of left lower extremity Paresthesia and pain of extremity Fibromyalgia Sjogrens syndrome Family History Family History Mother Arthritis Diabetes mellitus Hypertension Mental health disorder Father CKD (chronic kidney disease) Maternal Grandfather Mental health disorder Family history of problems with anesthesia: No Surgical History Surgical History History of lumpectomy of right breast Hx of hemorrhoidectomy Hx of colonoscopy History of cholecystectomy History of Problems with Anesthesia: No Social History Social History Housing: House Are you a primary child care lead teacher to a significant other at home: No Do you presently have visiting nurse or other home services: No Alcohol intake: never Comment: in bathroom, aware of trip hazard Patient Tobacco Use Status: Never used Tobacco e-Cigarette/Vaping Use: Never Used Second Hand Smoke Exposure: No Use of substances other than those prescribed or required for medical reasons: No Have you been hit, kicked, punched, or otherwise hurt by someone within the past year? If so, by whom?: No Spiritual Healthcare Practices: none Yarsani Healthcare Practices: none Cultural Healthcare Practices: none Are you DNR?: No Advance Directives: No (will bring dos) Advance Directives Information Provided: Yes Advance Directives on File: No Recently lost weight without trying: No Nutrition Risks: No Nutritional Risk Poor oral hygiene: No service: No Current occupational status: unemployed Cognitive needs: No Hearing needs: No Vision needs: Yes Meds Allergies Allergy/AdvReac Type Severity Reaction Status Date / Time No Known Allergies Allergy Verified 10/20/24 10:39 Active Medications: Current Medications Lactated Ringer's (Lr) 1,000 mls @ 80 mls/hr IVCONT .[id number] SHANNON Last Admin: 10/20/24 11:09 Dose: 80 mls/hr Home Medications ?Medication ?Instructions ?Recorded ?Confirmed ?Last Taken ?Type acetaminophen-caffeine 500 mg-65 1 tab PO TID PRN Migraine Headache 09/23/24 09/25/24 Unknown History mg tablet cholecalciferol (vitamin D3) 25 25 mcg PO DAILY 09/23/24 09/25/24 Unknown History mcg (1,000 unit) capsule (Vitamin D3) magnesium citrate 100 mg capsule 100 mg PO DAILY 09/23/24 09/25/24 Unknown History peg 400-propylene glycol 0.4 %-0.3 1 drp ophthalmic (eye) Q4-6H PRN 09/23/24 09/25/24 Unknown History % eye gel drops (Systane Gel) Dry Eyes potassium gluconate 550 mg (90 mg) 550 mg PO DAILY 09/23/24 09/25/24 Unknown History tablet docosahexaenoic acid (dha)-epa 120 1 cap PO DAILY 09/25/24 09/25/24 Unknown History mg-180 mg capsule (Fish Oil) Exam Height,Weight and Vital Signs: Height 5 ft 5 in Weight 78.471 kg Last Vital Signs Temp 97.9 F 10/20/24 10:40 Pulse 82 10/20/24 10:40 Resp 14 10/20/24 10:40 BP 149/86 H 10/20/24 10:40 Pulse Ox 97 10/20/24 10:40 O2 Del Method Room Air 10/20/24 10:40 Pertinent Lab Results Pertinent Lab Results: Laboratory Tests 09/23/24 10/15/24 10/15/24 10:30 10:24 10:25 WBC 4.6 L RBC 4.92 Hgb 14.3 Hct 42.5 MCV 86.4 MCH 29.1 MCHC 33.6 RDW 13.4 Plt Count 221 MPV 9.9 Absolute Nucleated RBC 0.000 Nucleated RBC % (auto) 0.0 Sodium 142 Potassium 4.3 Chloride 109 H Carbon Dioxide 28 Anion Gap 9 L BUN 15 Creatinine 0.76 Estim Creat Clear Calc 78.4 Estimated GFR > 60 Random Glucose 87 Calcium 9.3 Nasal Screen MRSA (PCR) NEGATIVE Nasal S. aureus Screen POSITIVE A Nasal MRSA/S.aureus Interp SEE NOTE Blood Type O Positive Antibody Screen NEGATIVE 10/20/24 11:13 WBC RBC Hgb 14.5 Hct 42.7 MCV MCH MCHC RDW Plt Count MPV Absolute Nucleated RBC Nucleated RBC % (auto) Sodium Potassium Chloride Carbon Dioxide Anion Gap BUN Creatinine Estim Creat Clear Calc Estimated GFR Random Glucose Calcium Nasal Screen MRSA (PCR) Nasal S. aureus Screen Nasal MRSA/S.aureus Interp Blood Type Antibody Screen Airway Mallampati Class: II TM Dist: >3cm Neck ROM: Full Heart: rrr Lungs: cta Assessment and Plan Assessment Anesthesia Assessment: Anesthesia Plan Discussed Final Anesthetic Review Family History of Problems with Anesthesia: No History of Problems with Anesthesia: No ASA Class: III Final Preanesthetic Review: No Changes in Pt Med Stat, Meds/Allgs Chart Reviewed, Consent Obtained/Reviewed and Anes Risks/Benef Reviewed Patient Risk: Intermediate Procedure Risk: Intermediate Anesthetic Plan Anesthetic Plan: GA Disposition: Standard PACU
--- NOTE | 2024-10-20 13:10 | P.DS_ITS ---
DS: Providers Provider Date of Service: 10/21/24 Date of discharge: 10/21/24 Primary care physician: Helean Han MD DS: Summary Hospital Course Hospital Course: The patient underwent a successful right total hip arthroplasty, they were transferred to PACU and then to the floor to recover. During their stay, their vitals were stable, afebrile at 98.1. Labs were unremarkable, H/H 12.18/37.0. POD 1 they were started on Aspirin 325mg po bid for DVT ppx, they also received Physical Therapy services twice a day. Prior to discharge, their dressing was clean dry and intact, and the plan was to be discharged home with VNA services. Time Attestation Discharge Coordination Time (in mins): 30 Quality: Safe Use of Opioids Does Pt have an Active Cancer Diagnosis on the Problem List?: No Quality: Stroke Does the patient have a stroke diagnosis?: No Physical Exam Vital Signs: Vital Signs: Last Vital Signs Temp 97.9 F 10/20/24 10:40 Pulse 82 10/20/24 10:40 Resp 14 10/20/24 10:40 BP 149/86 H 10/20/24 10:40 Pulse Ox 97 10/20/24 10:40 O2 Del Method Room Air 10/20/24 10:40 BMI result Body Mass Index 28.8 Const: General: cooperative, healthy appearing and no acute distress Resp: Effort & Inspection: normal respiratory effort and able to speak in complete sentences Cardio: Rate: regular rate Peripheral pulses: Peripheral pulses 2+ throughout GI: Palpation (GI): Soft to palpation Skin: Lesions: no lesions Rashes: no rashes Extrem: Other: right hip dressing is c/d/i. Able to dorsi/plantar flex. Calf is supple and nontender. Sensation intact. Pedal pulse intact. DS: Data Data Completed and Pending Labs on day of discharge: Laboratory Results - last 24 hr 10/20/24 11:13 Hgb 14.5 Hct 42.7 Discharge Plan Discharge Patient Disposition: Home Health Service Referrals: Rachael Whittington PA-C [Physician Gate Shear Operator] - 11/05/24 12:45 pm Discharge Medications: New acetaminophen 325 mg Tablet 650 mg PO Q6H PRN (Reason: Pain, Mild 1-3,Fever,Headache) 30 Days Qty: 240 0RF aspirin 325 mg Tablet 325 mg PO BID 30 Days Qty: 60 0RF celecoxib 200 mg Capsule 200 mg PO BID 30 Days Qty: 60 0RF docusate sodium 100 mg Capsule 100 mg PO BID 30 Days Qty: 60 0RF oxycodone 5 mg Tablet 5 mg PO Q4H PRN (Reason: Pain, Moderate(Pain Scale 4-6)) 7 Days Qty: 42 0RF Rx Instructions: Partial Fill upon patient request. Continued (DME) walker [facility] See Rx Instructions .ROUTE .MEDSUPPLY Qty: 1 0RF Rx Instructions: Folding front wheeled walker cholecalciferol (vitamin D3) [Vitamin D3] 25 mcg (1,000 unit) Capsule 25 mcg PO DAILY magnesium citrate 100 mg Capsule 100 mg PO DAILY potassium gluconate 550 mg (90 mg) Tablet 550 mg PO DAILY Systane Gel 0.4-0.3 % Drops,Gel 1 drp OPHTHALMIC (EYE) Q4-6H PRN (Reason: Dry Eyes) acetaminophen-caffeine 500-65 mg Tablet 1 tab PO TID PRN (Reason: Migraine Headache) albuterol sulfate 90 mcg/actuation HFA aerosol inhaler 1 puff inhalation QID PRN (Reason: shortness of breath or wheezing) 7 Days Qt y: 6.7 0RF (DME) cane Device See Rx Instructions .Route Qty: 1 0RF Rx Instructions: As directed Fish Oil 120-180 mg capsule 1 cap PO DAILY Discharge Orders: Discharge Order (Routine); Ordered 10/21/24 Ordered By: Rachael Whittington Diet: Advance to usual diet Activity on Discharge: Use cane or walker Activity Restrictions/Additional Instructions: Physical Therapy for total hip arthroplasty: posterior precautions, gait training, ROM, strength Limit stair climbing No showering, no tub bath-keep dressing clean, dry and intact No driving x 6 weeks Continue ASA tabs once a day x 6 weeks Follow up with [facility] in 2 weeks Print Language: Azeri
--- NOTE | 2024-10-20 13:10 | W.MHC.F2F ---
Service Date Service Date: 10/20/24 Encounter Date of encounter: 10/21/24 Reasons for Services Signs and symptoms assessed: s/p RTHA Pt. is considered homebound due to recent surgery. Unable to drive, poor balance, poor gait mechanics. Reason for physical therapy: home safety and mobility, therapeutic exercises, restore joint function, gait/transfer training and ADL training Reason for occupational therapy: home safety and mobility, therapeutic exercises, restore joint function, gait/transfer training and ADL training Homebound: Leaving the home is medically contraindicated at this time without the asist of a device and/or another person due th the listed conditions above and below. Reason homebound: unsteady gait / fall risk, leg weakness, pain with ambulation, pain with transfers, poor balance / fall risk and unable to drive Certification: Based on the above findings, I certify that this patient is confined to the home and needs intermittent care home care, physical therapy and/or speech therapy, or continues to need occupational therapy. The patient is under my care, and I have initiated the establishment of the plan of care. The patient will be followed by a physician who will periodically review the plan of care. Time Spent With Patient Time: Total time managing care of this patient today ____ minutes.
--- NOTE | 2024-10-20 14:43 | P.BOP_ITS ---
Brief Operative Note Date of Service: 10/20/24 Pre-op diagnosis: Right hip OA Post-op diagnosis: same Procedure: Right AMADOR Implants: Ct Trident2 50/ 10 deg liner [place] Accolade2 #3 132/+4/32 ceramic Surgeon: Markus Briseno MD Anesthesia: GETA and local Was an Retail Business Manager used for this Procedure?: Yes Retail Business Manager: Rachael Whittington Estimated blood loss (mL): 200 IV fluids (mL): 1,000 Pathology: other Condition: stable Disposition: PACU
--- NOTE | 2024-10-20 14:51 | W.PM.OPN ---
Operative Note Operative Note Date of Service: 10/20/24 Narrative: Date of Service: 10/20/24 Pre-op diagnosis: Right hip OA Post-op diagnosis: same Procedure: Right AMADOR Implants: [place] Trident2 50/ [address] Accolade2 #3 132/+4/32 ceramic Surgeon: Markus Briseno MD Anesthesia: GETA and local Was an Law Office Assistant used for this Procedure?: Yes Law Office Assistant: Rachael Whittington Estimated blood loss (mL): 200 IV fluids (mL): 1,000 Pathology: other Condition: stable Disposition: PACU Procedure in detail: Patient was brought into the operating room and placed in the right lateral decubitus position. All bony prominences were well padded and the limb was prepped and draped in standard sterile fashion. A time-out was called to identify proper site procedure proper surgeon IV antibiotics and 1 g of tranexamic acid were administered. I began by making a curvilinear incision over the posterolateral aspect of the greater trochanter. Dissection was taken down to the tensor fascia which was incised in line with the incision and a Charnley retractor was placed. Cautery was used to maintain hemostasis. The hip was internally rotated and the external rotators were identified. The vessels were cauterized and a full-thickness capsular/external rotator layer was developed starting just proximal to the piriformis. This layer was tagged and a dull Hohmann retractor was placed underneath the neck in the hip was dislocated. A neck cut was made 1 cm proximal to the lesser trochanter and the head and neck were removed and measured 46-47mm on the back table. The head was deformed and eburnated. I then removed the labrum and cauterized the fovea. There were acetabular osteophytes tyhat were removed with a rongeur and a curved osteotome. I started with a 44 reamer and medialized to the inner table. I sequentially reamed up to a size 50 and impacted a 50mm cup at 45 degrees of inclination and 25 degrees of version. I then placed a 10 deg posterior lipped liner and turned my attention to the femur. I identified the piriformis insertion and used this as a starting point for my alfred cutter. The medius tendon was protected with a Hibs retractor. A Charnley awl was inserted in the canal and a curved curette used to remove the lateral bone. I irrigated copiously. I then sequentially broached in the patient's natural version to a size 3 and placed my trial implants. I used a #3/132/+4 based on my pre-operative template. I removed all instrumentation and copiously irrigated. I placed my final femoral implant and again took the hip through range of motion and was satisfied with the stability and length. The final +4/32 implant was impacted in place and the hip reduced. I then irrigated copiously and placed 1 g of local tranexamic acid. I performed a capsular closure with 2.0 fiberwire, Francis's fascia with 0 Vicryl, subcuticular with 2-0 Vicryl and the skin with kiko. Patient was placed into a sterile dressing. Patient was extubated brought to the recovery room in stable condition. There were no known complications.
[2024-10-20] MEDS: HYDROmorphone HCl 0.5 MG/0.5 ML SYRINGE 0.25 MG IVPUSH (15:55)
[2024-10-20] MEDS: Lactated Ringers 1,000 ML 100 ML IVCONT (17:13)
[2024-10-20] MEDS: 0.9 % Sodium Chloride Flush 3 ML SYRINGE IVFLUSH (17:16)
--- NOTE | 2024-10-20 17:48 | P.CONHOSP_ITS ---
History of Present Illness Data of Consult Service Date: 10/20/24 Requesting physician: Rachael Whittington Primary Care Provider: Helena Han MD [facility] Reason for consult: medical management 64-year-old female with history of fibromyalgia, Sjogren's syndrome, GERD admitted to Orthopedic surgery for management of osteoarthritis of the right hip s/p AMADOR with consult placed hospitalist service for medical management. Procedure was uneventful without any complications. Vital signs intraoperatively and postoperatively have been stable. She is currently reporting 9/10 pain in the R hip. No other complaints at this time. Review of Systems 2 Review of Systems: Yes all other systems are reviewed and are negative [facility] Medical History DJD (degenerative joint disease) History of blood transfusion Hepatic steatosis Hand numbness Arthritis Migraines Hx of migraines Allergic rhinitis Snores Chronic GERD Bilateral hip pain Degenerative joint disease of both hips TMJ arthropathy COVID-19 vaccine dose declined Heartburn symptom History of sleep study Long-term use of Plaquenil Difficulty sleeping Achilles tendinitis of left lower extremity Paresthesia and pain of extremity Fibromyalgia Sjogrens syndrome Family History Mother Arthritis Diabetes mellitus Hypertension Mental health disorder Father CKD (chronic kidney disease) Maternal Grandfather Mental health disorder Surgical History History of lumpectomy of right breast Hx of hemorrhoidectomy Hx of colonoscopy History of cholecystectomy Social History Household Members: Spouse Housing: House Are you a primary patient care specialist to a significant other at home: No Do you presently have visiting nurse or other home services: No Alcohol intake: never Comment: in bathroom, aware of trip hazard Patient Tobacco Use Status: Never used Tobacco e-Cigarette/Vaping Use: Never Used Second Hand Smoke Exposure: No Use of substances other than those prescribed or required for medical reasons: No Have you been hit, kicked, punched, or otherwise hurt by someone within the past year? If so, by whom?: No Do you feel safe in your current relationship?: Yes Spiritual Healthcare Practices: none Mormonism Healthcare Practices: none Cultural Healthcare Practices: none Are you DNR?: No Advance Directives: No (will bring dos) Advance Directives Information Provided: Yes Advance Directives on File: No Do you have a plan to hurt others: No Plan Recently lost weight without trying: No Nutrition Risks: No Nutritional Risk Patient : No : No Poor oral hygiene: No service: No Current occupational status: unemployed Cognitive needs: No Hearing needs: No Vision needs: Yes Meds Allergies Allergy/AdvReac Type Severity Reaction Status Date / Time No Known Allergies Allergy Verified 10/20/24 10:39 Active Medications: Current Medications Acetaminophen (Acetaminophen 325 Mg Tablet) 650 mg PO Q6H PRN PRN Reason: Pain, Mild 1-3,fever,headache Albuterol Sulfate (Albuterol Sulfate 90 Mcg 8 Gm Inhaler) 1 puff INHALE QID PRN PRN Reason: shortness of breath or wheezing Aspirin (Aspirin 325 Mg Tablet) 325 mg PO BID [facility] Celecoxib (Celecoxib 200 Mg Capsule) 200 mg PO BID [facility] Docusate Sodium (Docusate Sodium 100 Mg Capsule) 100 mg PO BID [facility] Hydromorphone HCl (Hydromorphone Hcl 0.5 Mg/0.5 Ml Syringe) 0.25 mg IVPUSH Q4H PRN; Protocol PRN Reason: Pain, Severe (Pain Scale 7-10) Lactated Ringer's (Lr) 1,000 mls @ 100 mls/hr IVCONT .Q10H [facility] Last Admin: 10/20/24 17:13 Dose: 100 mls/hr Cefazolin Sodium/Dextrose (Ancef) 2 gm in 50 mls @ 100 mls/hr IV POSTOP ONE Stop: 10/20/24 19:29 Magnesium Hydroxide (Milk Of Magnesia 30 Ml Oral.Susp) 30 ml PO DAILY PRN PRN Reason: Constipation Ondansetron HCl (Ondansetron Hcl 4 Mg/2 Ml Vial) 4 mg IVPUSH Q8H PRN PRN Reason: Nausea and Vomiting Oxycodone HCl (Oxycodone Hcl Immed Release 5 Mg Tablet) 5 mg PO Q4H PRN PRN Reason: Pain, Moderate(Pain Scale 4-6) Oxycodone HCl (Oxycodone Hcl Er 10 Mg Tab.Er.12h) 10 mg PO BID [facility] Polyethyl Glycol/Propylene Glycol (Propylene Glycol/Peg 400 Gel Eye Drops 10ml) 1 drop EYE-BOTH Q4H PRN PRN Reason: Dry Eyes Sodium Chloride (0.9 % Sodium Chloride Flush 3 Ml Syringe) 3 ml IVFLUSH QSHIFT [facility] Last Admin: 10/20/24 17:16 Dose: 3 ml Vitamin D (Cholecalciferol (Vitamin D3) 25 Mcg Tablet) 25 mcg PO DAILY [facility] Home Medications ?Medication ?Instructions ?Recorded ?Confirmed ?Last Taken ?Type acetaminophen-caffeine 500 mg-65 1 tab PO TID PRN Migraine Headache 09/23/24 09/25/24 Unknown History mg tablet cholecalciferol (vitamin D3) 25 25 mcg PO DAILY 09/23/24 09/25/24 Unknown History mcg (1,000 unit) capsule (Vitamin D3) magnesium citrate 100 mg capsule 100 mg PO DAILY 09/23/24 09/25/24 Unknown History peg 400-propylene glycol 0.4 %-0.3 1 drp ophthalmic (eye) Q4-6H PRN 09/23/24 09/25/24 Unknown History % eye gel drops (Systane Gel) Dry Eyes potassium gluconate 550 mg (90 mg) 550 mg PO DAILY 09/23/24 09/25/24 Unknown History tablet docosahexaenoic acid (dha)-epa 120 1 cap PO DAILY 09/25/24 09/25/24 Unknown History mg-180 mg capsule (Fish Oil) Physical Exam 2 Vital Signs and Narrative: Vital Signs: Last Vital Signs Temp 97.2 F 10/20/24 16:26 Pulse 74 10/20/24 16:26 Resp 17 10/20/24 16:26 BP 130/65 10/20/24 16:26 Pulse Ox 96 10/20/24 16:26 O2 Del Method Room Air 10/20/24 16:26 O2 Flow Rate 2 10/20/24 16:00 BMI result Body Mass Index 29.1 Constitutional - Awake and Alert, No apparent distress Eyes - PERRLA, EOMI Cardiovascular - S1S2, RRR, No edema Respiratory - Normal lung expansion, Normal respiratory effort, No respiratory distress, CTA bilaterally Extremities - no calf tenderness bilaterally, no swelling Skin - Warm/Dry Neurological - Alert & oriented x3 Psychological - Appropriate affect Results Labs 10/20/24 11:13 10/15/24 10:24 Imaging Radiologist's Impressions: Impressions Pelvis X-Ray 10/20/24 15:00 IMPRESSION: Status post right total hip arthroplasty. Electronically signed by: Ronaldo Dunaway MD 10/20/2024 03:42 PM EDT RP Assessment and Plan (1) Osteoarthritis of right hip: Status: Resolved Plan 64-year-old female with history of fibromyalgia, Sjogren's syndrome, GERD admitted to Orthopedic surgery for management of osteoarthritis of the right hip s/p AMADOR with consult placed hospitalist service for medical management. # right hip osteoarthritis s/p AMADOR pod 0 -plan per Orthopedic surgery #SOB/Wheezing following COVID-19 -albuterol prn # Sjogren's syndrome -continue eyedrops Thank you for allowing me to participate in this consult. Signing off at this time. Please do not hesitate to call for further questions or for any acute medical issues
[2024-10-20] MEDS: oxyCODONE HCl Immed Release 5 MG TABLET PO (18:05)
[2024-10-20] MEDS: ceFAZolin Sodium/Dextrose,Iso 2 GM/50 ML PIGGYBACK IV (18:06)
[2024-10-20] MEDS: ondansetron HCL 4 MG/2 ML VIAL IVPUSH (19:16)
[2024-10-20] MEDS: Celecoxib 200 MG CAPSULE PO (20:12)
[2024-10-20] MEDS: oxyCODONE HCl ER 10 MG TAB.ER.12H PO (20:12)
[2024-10-20] MEDS: Docusate Sodium 100 MG CAPSULE PO (20:12)
[2024-10-21] MEDS: Lactated Ringers 1,000 ML 100 ML IVCONT (02:26)
[2024-10-21 03:18] VITALS: BP 113/58; PULSE 78; RESP 16; TEMP 36.5; O2SAT 93
[2024-10-21] MEDS: HYDROmorphone HCl 0.5 MG/0.5 ML SYRINGE 0.25 MG IVPUSH (06:09)
[2024-10-21 06:50] LABS: MANUAL DIFF FLAG NO
[2024-10-21 07:00] LABS: Basophils Percent Auto 0.3 % (0-2); Eosinophils Percent Auto 0.1 % (0-4); Hemoglobin 12.1 g/dl (12.0-16.0); Imm Gran Abs Auto 0.02 X10*3/uL (0.00-0.03); Imm Gran Pct Auto 0.3 % (0.0-0.4); Lymphocytes Absolute Auto 1.1 X10*3/uL (1.2-4.9); Lymphocytes Percent Auto 14.1 % (20-40); Mean Corpuscular HGB Conc 32.7 g/dl (31.0-35.0); Mean Corpuscular Hemoglobin 28.8 pg (27.0-33.0); Mean Corpuscular Volume 88.1 fL (80.0-98.0); Mean Platelet Volume 10.5 fL (9.4-12.3); Monocytes Absolute Auto 0.7 X10*3/uL (0.1-1.2); Monocytes Percent Auto 9.8 % (2-11); Neutrophils Absolute Auto 5.6 x10*3/uL (2.0-8.3); Neutrophils Percent Auto 75.4 % (45-73); Platelet Count 206 X10*3/uL (160-400); Red Cell Distribution Width 13.7 % (11.0-16.0); White Blood Count 7.4 X10*3/uL (4.8-10.8)
[2024-10-21] MEDS: Celecoxib 200 MG CAPSULE PO (07:00)
[2024-10-21] MEDS: oxyCODONE HCl ER 10 MG TAB.ER.12H PO (07:00)
[2024-10-21] MEDS: Docusate Sodium 100 MG CAPSULE PO (07:00)
[2024-10-21] MEDS: Cholecalciferol (Vitamin D3) 25 MCG TABLET PO (07:00)
[2024-10-21 07:11] LABS: Anion Gap 9 (12-20); Blood Urea Nitrogen 15 mg/dL (9-16); Calcium 8.3 mg/dL (8.4-10.2); Carbon Dioxide 27 mmol/L (22-29); Chloride 107 mmol/L (96-108); Creatinine Clr Calc Pharmacy 83.1; Estimated Glomerular Filt Rate > 60; Glucose Fasting 107 mg/dL (60-99); Potassium 4.3 mmol/L (3.3-5.1); Sodium 139 mmol/L (135-145)
[2024-10-21 07:25] VITALS: BP 100/60; PULSE 72; RESP 18; TEMP 36.7; O2SAT 93
--- NOTE | 2024-10-21 09:54 | MHC.CM.PN ---
pt zhen prior to being seen by cm pt zhen home self care
--- NOTE | 2024-10-21 10:13 | MHC.CM.PN ---
pt dcd today prior to being seen by cm pt home with magy
[2024-10-21 10:45] VITALS: BP 120/60; PULSE 68; RESP 16; TEMP 36.3; O2SAT 94
--- NOTE | 2024-10-21 11:49 | HO.POSTANES ---
Post Anesthesia Evaluation Post Anesthesia Evaluation Date of Service: 10/21/24 Vital Signs: Vital Signs Temp Pulse Resp BP Pulse Ox O2 Del Method 10/21/24 10:45 97.3 F 68 16 120/60 94 Room Air 10/21/24 07:25 98.1 F 72 18 100/60 93 Room Air 10/21/24 03:18 97.7 F 78 16 113/58 L 93 Room Air 10/20/24 23:50 98.4 F 84 16 103/62 93 Room Air Anesthesia: General Endotracheal-GETA Mental Status: Awake Pain Control: Satisfactory Nausea/Vomiting: None Hydration: Adequate Anesthesia-Related Issues: No Anes. Related Issues
--- NOTE | 2024-10-21 11:53 | PC.NURSE ---
Pt denies pain at this time. OOB in recliner with assitance to BR using walker. Tolerating po and voiding. Denies dizziness at this time
== END 2024-10-21 11:53 | disposition home health service (06) ==
LOC: HO.SSS 13:09 → HO.S3 15:26
PROVIDERS: Physician Assistant; PCP Internal Medicine; Visit Provider Orthopaedic Surgery
PROC: (CPT 27130; principal; 2024-10-20 13:50)
DX: M16.11 Unilateral primary osteoarthritis, right hip (principal); M25.551 Pain in right hip; M79.7 Fibromyalgia; M35.00 Sjogren syndrome, unspecified; K21.9 Gastro-esophageal reflux disease without esophagitis; Z79.899 Other long term (current) drug therapy; Z98.890 Other specified postprocedural states; Z56.0 Unemployment, unspecified
CPT/HCPCS: 27130; 36415; 72170; 80048; 85014; 85018; 85025; 85027; 86850; 86900; 86901; 87640; 87641; 88304; 88311; 97162; 97165; C1776; J0131; J0690; J1100; J1171; J2003; J2371; J2405; J2704; J3010; J7120

== ENCOUNTER → 2024-10-20 10:09 | Outpatient (BNV) | payer OTHER, SELFPAY | PROVIDERS: PCP Internal Medicine; Visit Provider Physician Assistant | DX: M16.11 Unilateral primary osteoarthritis, right hip (principal) | CPT/HCPCS: 99222 ==

== ENCOUNTER → 2024-10-20 10:09 | Outpatient (BNV) | payer OTHER, SELFPAY | PROVIDERS: PCP Internal Medicine; Visit Provider Orthopaedic Surgery | DX: Z47.1 Aftercare following joint replacement surgery (principal); Z96.641 Presence of right artificial hip joint | CPT/HCPCS: 27130; 99024; G0180 ==

== ENCOUNTER → 2024-10-20 13:08 | Outpatient (BNV) | payer OTHER, SELFPAY | PROVIDERS: PCP Internal Medicine; Visit Provider Radiology Diagnostic Radiology | DX: Z96.641 Presence of right artificial hip joint (principal) | CPT/HCPCS: 72170 ==

== ENCOUNTER 2024-10-26 14:30 | Emergency (ER) | payer OTHER, SELFPAY ==
--- NOTE | ~2024-10-26 | US_ITS ---
EXAMINATION: US TRIPLEX LOWER EXTREMITY, RIGHT CLINICAL INFORMATION: Right lower extremity pain and swelling. COMPARISON: None available. TECHNIQUE: Color-flow triplex imaging with spectral analysis and compression Doppler were performed on the right lower extremity. FINDINGS: Respiratory variation, normal compression and augmented flow are noted throughout the right lower extremity. The visualized common femoral vein, superficial femoral vein, profunda femoral vein, and midcalf peroneal and posterior tibial venous segments show no evidence of deep venous thrombosis. Limited evaluation of the popliteal vein due to limited patient motion. No indirect evidence of thrombus. There is no Pardo's cyst. US/US venous duplex LE RT IMPRESSION: No evidence of deep venous thrombosis involving the right lower extremity. Electronically signed by: Adrian Hernandez MD 10/26/2024 04:43 PM EDT
[2024-10-26 15:28] VITALS: BP 130/61; PULSE 80; RESP 16; TEMP 36.8; O2SAT 98; BMI 30.8
--- NOTE | 2024-10-26 15:29 | ED.GENADULT ---
HPI - General Adult General Chief complaint: General Medical Stated complaint: leg swelling surgery 10/20 Time Seen by Provider: 10/26/24 21:37 Source: patient, family and old records reviewed Mode of arrival: ambulatory Limitations: no limitations History of Present Illness ED Provider: JOSÉ LORA narrative: 64 yo female with PMH of GERD, migraines, sjogrens who is s/p R THR on 09/22 presents with posterior leg pain and swelling. She denies CP/SOB, rash. She otherwise feels fine and has been doing PT and using walker at home. She is taking her aspirin as prescribed. She was worried she had a DVT came for US. MD complaint: leg swelling Onset (ago): day(s) (few) Location: right and lower extremity Radiation: non-radiation Severity: mild Quality: aching Pain Consistency: intermittent Relieving factors: none Exacerbating factors: movement Associated symptoms: denies other symptoms Treatments prior to arrival: none Related Data Home Medications ?Medication ?Instructions ?Recorded ?Confirmed acetaminophen-caffeine 500 mg-65 1 tab PO TID PRN Migraine Headache 09/23/24 09/25/24 mg tablet cholecalciferol (vitamin D3) 25 25 mcg PO DAILY 09/23/24 09/25/24 mcg (1,000 unit) capsule (Vitamin D3) magnesium citrate 100 mg capsule 100 mg PO DAILY 09/23/24 09/25/24 peg 400-propylene glycol 0.4 %-0.3 1 drp ophthalmic (eye) Q4-6H PRN 09/23/24 09/25/24 % eye gel drops (Systane Gel) Dry Eyes potassium gluconate 550 mg (90 mg) 550 mg PO DAILY 09/23/24 09/25/24 tablet docosahexaenoic acid (dha)-epa 120 1 cap PO DAILY 09/25/24 09/25/24 mg-180 mg capsule (Fish Oil) Previous Rx's ?Medication ?Instructions ?Recorded albuterol sulfate 90 mcg/actuation 1 puff inhalation QID PRN 09/11/23 aerosol inhaler shortness of breath or wheezing 1 week #6.7 grams cane #1 ea 02/24/24 walker #1 ea 08/12/24 acetaminophen 325 mg tablet 650 mg (2 x 325 mg) PO Q6H PRN 10/21/24 Pain, Mild 1-3,Fever,Headache 30 days #240 tabs aspirin 325 mg tablet 325 mg PO BID 30 days #60 tabs 10/21/24 celecoxib 200 mg capsule 200 mg PO BID 30 days #60 caps 10/21/24 docusate sodium 100 mg capsule 100 mg PO BID 30 days #60 caps 10/21/24 oxycodone 5 mg tablet 5 mg PO Q4H PRN Pain, 10/21/24 Moderate(Pain Scale 4-6) 7 days #42 tabs polyethylene glycol 3350 17 gram 17 g PO BID PRN constipation #14 ea 10/26/24 oral powder packet (Miralax) Allergies Allergy/AdvReac Type Severity Reaction Status Date / Time No Known Allergies Allergy Verified 10/26/24 15:32 Review of Systems Review of Systems: Constitutional : No Fever, No Chills ENT/Mouth : No Ear Pain, No Hoarseness, No sore throat Eyes: No Eye Pain, No Swelling, No Redness, No Foreign Body Cardiovascular : No Chest Pain, No SOB Respiratory : No Cough, No Dyspnea Gastrointestinal : No Nausea, No Vomiting, No Diarrhea, No abdominal Pain Genitourinary : No Dysuria, No Hematuria Musculoskeletal : positive joint pain, No Myalgias, pos leg swelling Skin : No Skin lacerations, No rash Neuro : No Weakness, No Numbness, No Loss of Consciousness, No Dizziness, No Headache Psych : No Anxiety/Panic, No Depression All other systems reviewed and are negative [facility] Past Medical History Attestation statement: The following information was validated with the patient. Source: old records reviewed Medical History DJD (degenerative joint disease) History of blood transfusion Hepatic steatosis Hand numbness Arthritis Migraines Hx of migraines Allergic rhinitis Snores Chronic GERD Bilateral hip pain Degenerative joint disease of both hips TMJ arthropathy COVID-19 vaccine dose declined Heartburn symptom History of sleep study Long-term use of Plaquenil Difficulty sleeping Achilles tendinitis of left lower extremity Paresthesia and pain of extremity Fibromyalgia Sjogrens syndrome Surgical History History of lumpectomy of right breast Hx of hemorrhoidectomy Hx of colonoscopy History of cholecystectomy Family History Family History Mother Arthritis Diabetes mellitus Hypertension Mental health disorder Father CKD (chronic kidney disease) Maternal Grandfather Mental health disorder Social History Social History Household Members: Spouse Housing: House Are you a primary care aide to a significant other at home: No Do you presently have visiting nurse or other home services: No Alcohol intake: never Comment: in bathroom, aware of trip hazard Patient Tobacco Use Status: Never used Tobacco e-Cigarette/Vaping Use: Never Used Second Hand Smoke Exposure: No Advance Directives: No Advance Directives Information Provided: Yes service: No Current occupational status: unemployed Cognitive needs: No Hearing needs: No Vision needs: Yes Physical Exam ED Vital Signs: Vital Signs - 24 hr 10/26/24 15:28 10/26/24 22:04 Temperature 98.2 F 99 F Pulse Rate 80 86 Respiratory Rate 16 16 Blood Pressure 130/61 119/56 L Pulse Oximetry 98 95 Oxygen Delivery Method Room Air Room Air BMI result Body Mass Index 30.8 Appearance: Alert. Oriented X3. No acute distress. Eyes: Pupils equal, round and reactive to light. ENT: Pharynx normal. Neck: Normal inspection. Neck supple. CVS: Normal heart rate and rhythm. Pulses normal. Respiratory: No respiratory distress. Breath sounds normal. Abdomen: Soft and non-tender. Skin: Skin warm and dry. Normal skin color. Normal skin turgor. Extremities: R dresssing c/d/i - no signs of infection, leg is warm to touch 2+ DP pulse, SILT intact, there is no pitting edema on exam but R leg is greater than L Neuro: Oriented X 3. No motor deficit. No sensory deficit. CN2-12 intact Course Course Course Narrative: This is a rapid medical exam performed by Maria M Mccormack PA-C. The patient is a 64-year-old female with a history of degenerative joint disease, fibromyalgia, Sjogren's syndrome who presents with right lower extremity pain and swelling x3 days. Patient was status post right hip replacement 6 days ago. On exam, the right calf is objectively more swollen than the left, plan to screen basic labs and obtain a Doppler study to rule out DVT. The patient was stable and can return to the waiting room pending her full medical assessment. Medical Decision Making Medical Decision Making MDM Narrative: 66 yo male with PMH Of afib on eliquis, CHF, anxiety, GERD, HLD, HTN here with c/o R leg swelling post surgery but she has no CP/SOB no signs of infection, pulses present at this time will obtain basic labs and DVT study - at this time if negative will place on DOAC and refer to orthopedics. No CP/SOB to suggest PE. Differential Diagnosis Differential Diagnoses: The differential diagnosis associated with the presentation includes DVT, post op swelling, no signs of infection, no signs of compartment syndrome Admission/Observation Consideration of admission/observation: Escalation of care including admission/observation considered DVT negative precautions to return no CP/SOB to suggest VTE Lab Data MDM Lab Attestation statement: I reviewed the patient's lab results. 10/26/24 16:56 10/26/24 16:56 Labs: Lab Results 10/26/24 Range/Units 16:56 WBC 7.3 (4.8-10.8) X10*3/uL RBC 4.21 (4.20-5.50) X10*6/uL Hgb 12.3 (12.0-16.0) g/dl Hct 36.7 L (37.0-47.0) % MCV 87.2 (80.0-98.0) fL MCH 29.2 (27.0-33.0) pg MCHC 33.5 (31.0-35.0) g/dl RDW 13.5 (11.0-16.0) % Plt Count 252 (160-400) X10*3/uL MPV 9.6 (9.4-12.3) fL Immature Gran % (Auto) 0.4 (0.0-0.4) % Neut % (Auto) 75.2 H (45-73) % Lymph % (Auto) 15.1 L (20-40) % [place] % (Auto) 7.3 (2-11) % Eos % (Auto) 1.5 (0-4) % Baso % (Auto) 0.5 (0-2) % Lymph # (Auto) 1.1 L (1.2-4.9) X10*3/uL [place] # (Auto) 0.5 (0.1-1.2) X10*3/uL Eos # (Auto) 0.1 (0.0-0.4) X10*3/uL Baso # (Auto) 0.0 (0.0-0.2) X10*3/uL Abs Immat Gran (auto) 0.03 (0.00-0.03) X10*3/uL Absolute Neuts (auto) 5.5 (2.0-8.3) x10*3/uL Absolute Nucleated RBC 0.000 (0.0-0.012) X10*3/uL Nucleated RBC % (auto) 0.0 (0.0-0.2) /100WBC Sodium 140 (135-145) mmol/L Potassium 3.8 (3.3-5.1) mmol/L Chloride 109 H (96-108) mmol/L Carbon Dioxide 21 L (22-29) mmol/L Anion Gap 14 (12-20) BUN 19 H (9-16) mg/dL Creatinine 0.65 (0.5-1.4) mg/dL Estim Creat Clear Calc 88.1 Estimated GFR > 60 Random Glucose 108 (60-115) mg/dL Calcium 8.9 D (8.4-10.2) mg/dL Magnesium 2.8 H (1.6-2.6) mg/dL Total Bilirubin 0.5 (0.0-1.0) mg/dL AST 40 H (5-31) U/L ALT 40 H (0-31) U/L Alkaline Phosphatase 99 (39-117) U/L Total Protein 7.6 (6.5-8.0) g/dL Albumin 3.7 (3.5-5.0) g/dL Independent Interpretation I performed an independent interpretation of an: Ultrasound (no DVT) Radiology Impression Discussion of test interpretation with radiology: I have reviewed the radiologist's reading. Independent Historian Clinical information obtained from an independent historian. History obtained from or confirmed by: Spouse External Record Review External record reviewed: Inpatient record and Outpatient record Discharge Plan Discharge Clinical Impression: Leg swelling Patient Disposition: Home, Self-Care Additional Instructions: return for worsening symptoms such as swelling, fevers, red rash, chest pain or trouble breathing please monitor the leg if more pain occurs or increased swelling return and repeat ultrasound if you feel it is not improving over the next week can also repeat the ultrasound Prescriptions: No Action (DME) walker Misc See Rx Instructions .ROUTE .MEDSUPPLY Qty: 1 0RF Rx Instructions: Folding front wheeled walker polyethylene glycol 3350 [Miralax] 17 gram powder in packet 17 g PO BID PRN (Reason: constipation) Qty: 14 0RF cholecalciferol (vitamin D3) [Vitamin D3] 25 mcg (1,000 unit) Capsule 25 mcg PO DAILY magnesium citrate 100 mg Capsule 100 mg PO DAILY potassium gluconate 550 mg (90 mg) Tablet 550 mg PO DAILY Systane Gel 0.4-0.3 % Drops,Gel 1 drp OPHTHALMIC (EYE) Q4-6H PRN (Reason: Dry Eyes) acetaminophen-caffeine 500-65 mg Tablet 1 tab PO TID PRN (Reason: Migraine Headache) acetaminophen 325 mg Tablet 650 mg PO Q6H PRN (Reason: Pain, Mild 1-3,Fever,Headache) 30 Days Qty: 240 0RF aspirin 325 mg Tablet 325 mg PO BID 30 Days Qty: 60 0RF celecoxib 200 mg Capsule 200 mg PO BID 30 Days Qty: 60 0RF docusate sodium 100 mg Capsule 100 mg PO BID 30 Days Qty: 60 0RF oxycodone 5 mg Tablet 5 mg PO Q4H PRN (Reason: Pain, Moderate(Pain Scale 4-6)) 7 Days Qty: 42 0RF Rx Instructions: Partial Fill upon patient request. albuterol sulfate 90 mcg/actuation HFA aerosol inhaler 1 puff inhalation QID PRN (Reason: shortness of breath or wheezing) 7 Days Qty: 6.7 0RF (DME) cane Device See Rx Instructions .Route Qty: 1 0RF Rx Instructions: As directed Fish Oil 120-180 mg capsule 1 cap PO DAILY Interventions: ED Discharge Assessment Last Done: 10/26/24 22:04 Discharge Date/Time: 10/26/24 22:05 Print Language: Croatian
[2024-10-26 17:12] LABS: MANUAL DIFF FLAG NO
[2024-10-26 17:14] LABS: Basophils Percent Auto 0.5 % (0-2); Eosinophils Absolute Auto 0.1 X10*3/uL (0.0-0.4); Eosinophils Percent Auto 1.5 % (0-4); Hematocrit 36.7 % (37.0-47.0); Hemoglobin 12.3 g/dl (12.0-16.0); Imm Gran Abs Auto 0.03 X10*3/uL (0.00-0.03); Imm Gran Pct Auto 0.4 % (0.0-0.4); Lymphocytes Absolute Auto 1.1 X10*3/uL (1.2-4.9); Lymphocytes Percent Auto 15.1 % (20-40); Mean Corpuscular HGB Conc 33.5 g/dl (31.0-35.0); Mean Corpuscular Hemoglobin 29.2 pg (27.0-33.0); Mean Corpuscular Volume 87.2 fL (80.0-98.0); Mean Platelet Volume 9.6 fL (9.4-12.3); Monocytes Absolute Auto 0.5 X10*3/uL (0.1-1.2); Monocytes Percent Auto 7.3 % (2-11); Neutrophils Absolute Auto 5.5 x10*3/uL (2.0-8.3); Neutrophils Percent Auto 75.2 % (45-73); Platelet Count 252 X10*3/uL (160-400); Red Blood Count 4.21 X10*6/uL (4.20-5.50); Red Cell Distribution Width 13.5 % (11.0-16.0); White Blood Count 7.3 X10*3/uL (4.8-10.8)
[2024-10-26 17:31] LABS: Alanine Aminotransferase 40 U/L (0-31); Albumin Level 3.7 g/dL (3.5-5.0); Alkaline Phosphatase 99 U/L (39-117); Anion Gap 14 (12-20); Aspartate Amino Transferase 40 U/L (5-31); Bilirubin Total 0.5 mg/dL (0.0-1.0); Blood Urea Nitrogen 19 mg/dL (9-16); Calcium 8.9 mg/dL (8.4-10.2); Carbon Dioxide 21 mmol/L (22-29); Chloride 109 mmol/L (96-108); Creatinine Clr Calc Pharmacy 88.1; Estimated Glomerular Filt Rate > 60; Glucose Random 108 mg/dL (60-115); Magnesium 2.8 mg/dL (1.6-2.6); Potassium 3.8 mmol/L (3.3-5.1); Sodium 140 mmol/L (135-145); Total Protein 7.6 g/dL (6.5-8.0)
[2024-10-26 22:04] VITALS: BP 119/56; PULSE 86; RESP 16; TEMP 37.2; O2SAT 95
== END 2024-10-26 22:05 | disposition home or self-care (01) ==
PROVIDERS: Physician Assistant Medical; Emergency Provider Emergency Medicine; PCP Internal Medicine
DX: R60.0 Localized edema (principal); M35.00 Sjogren syndrome, unspecified; Z79.899 Other long term (current) drug therapy
CPT/HCPCS: 36415; 80053; 83735; 85025; 93971; 99282; 99284

== ENCOUNTER → 2024-10-26 15:28 | Outpatient (BNV) | payer OTHER, SELFPAY | PROVIDERS: PCP Internal Medicine; Visit Provider Radiology Diagnostic Radiology | DX: R22.41 Localized swelling, mass and lump, right lower limb (principal) | CPT/HCPCS: 93971 ==

== ENCOUNTER 2024-11-05 12:43 | Outpatient (AMB) | payer OTHER, SELFPAY ==
--- NOTE | 2024-11-05 12:46 | A.OFFVIS_ITS ---
Vital Signs 11/05/24 12:53 Height 5 ft 3 in Weight 174 lb BMI 30.8 Intake Visit Reasons: 2WK PO: R AMADOR w/NE 10/21/24 Intake Note: Rebecca is a 64 year old female who presents today for a post op appointment s/p right total hip arthroplasty 10/21/24 NE. Patient reports she is doing better. Allergies No Known Allergies Allergy (Verified 11/05/24 12:47) HPI HPI 2WK PO: R AMADOR w/NE 10/21/24: Details: Ms. Cole is a 64 year old female who presents to the office today s/p RTHA performed on 10/21/[address] Briseno. She is currently using a rollator walker to assist with ambulation. She is overall doing very well. She is currently experiencing some discomfort from constipation as a result of taking the narcotic pain medications. [facility] Medical History DJD (degenerative joint disease) History of blood transfusion Hepatic steatosis Hand numbness Arthritis Migraines Hx of migraines Allergic rhinitis Snores Chronic GERD Bilateral hip pain Degenerative joint disease of both hips TMJ arthropathy COVID-19 vaccine dose declined Heartburn symptom History of sleep study Long-term use of Plaquenil Difficulty sleeping Achilles tendinitis of left lower extremity Paresthesia and pain of extremity Fibromyalgia Sjogrens syndrome Surgical History History of lumpectomy of right breast Hx of hemorrhoidectomy Hx of colonoscopy History of cholecystectomy Family History Mother Arthritis Diabetes mellitus Hypertension Mental health disorder Father CKD (chronic kidney disease) Maternal Grandfather Mental health disorder Social History Household Members: Spouse Housing: House Are you a primary career development facilitator to a significant other at home: No Do you presently have visiting nurse or other home services: No Alcohol intake: never Comment: in bathroom, aware of trip hazard Patient Tobacco Use Status: Never used Tobacco e-Cigarette/Vaping Use: Never Used Second Hand Smoke Exposure: No service: No Current occupational status: unemployed Cognitive needs: No Hearing needs: No Vision needs: Yes Review of Systems Const All systems reviewed & are unremarkable except as noted in HPI and below Physical Exam Vital Signs: BMI result Body Mass Index 30.8 Const General: cooperative, healthy appearing and no acute distress Resp Effort & Inspection: normal respiratory effort and able to speak in complete s entences Cardio Rate: regular rate Peripheral pulses: Peripheral pulses 2+ throughout Skin Lesions: no lesions Rashes: no rashes Extrem Other: Right hip incision site is c/d/i. Husam intact. No surrounding erythema or drainage. Able to perform SLR. Good internal and external rotation. Able to dorsi/plantar flex. NVI. Assessment & Plan Assessment & Plan (1) S/P total right hip arthroplasty: Code(s): Z96.641 - Presence of right artificial hip joint Category: Surgical Plan Ms. Cloe is a 64 year old female who presents to the office today s/p RTHA performed on 10/21/[address] Briseno. She is currently using a rollator walker to assist with ambulation. She is overall doing very well. She is currently experiencing some discomfort from constipation as a result of taking the narcotic pain medications. While in the office today husam were removed and steri-strips were applied. The patient will attend out patient physical therapy here at the hospital. I addressed concerns for constipation, the patient reports that she is passing gas and has had only two small bowel movements but has struggled. I have recommended Magnesium Citrate OTC. She will followup in 4 weeks, sooner if needed. Coding Level of Care Code Global (02234) Diagnoses S/P total right hip arthroplasty Z96.641
[2024-11-05 12:53] VITALS: BMI 30.8
--- OUTSIDE RECORDS SUMMARY | 2024-11-05 13:46 | XMS_ITS | Patient Health Record ---
Author Organization [facility] Address [address] [address] Support Name Relationship Address Phone PAULETTE DOUGLAS Guarantor Unknown [phone] Reason For Referral No Information Plan Of Treatment No Information
--- OUTSIDE RECORDS SUMMARY | 2024-11-05 13:46 | XMS_ITS | Clinical Summary ---
Author Organization [facility] Address [address] [place] [address] Care Team Providers Care Polysomnographic Technologist Name Role Phone Estefani Luna PA-C Primary Care Provider [phone] Source Comments PLEASE NOTE, if this patient [...] % nasal sprayIndications :Nasal congestion Place 1 Meacham into the nostril(s) as needed for congestion. [...] of pain. They will not follow at [facility], for us to follow and determine next line of treatment H/O electromyography. FEBRUARY 03 [facility]. Normal Bilat LE EMG 03/09/2015 Vitamin D insufficiency 11/25/2014 GERD (gastroesophageal reflux disease) 5 Positive LILLY (antinuclear antibody). [facility] la b. 2010 11/25/2014 DDD (degenerative disc disease), cervical 2014 Overview (11/25/2014): Xray 2006 at [facility] and then at [facility] [place] February 2012: same, mild DDD Calcaneal spur. Lt foot. Xray 2006 11/25/2014 Headache 11/25/2014 Overview (11/25/2014): MRI at [facility] 2006 (report sent for scan) Ct head at [facility]: February 2012: No acute pathology H/O colonoscopy. [facility]. December 2005. Rec to repeat in 10ys. Due 2015. 11/25/2014 Breast mass, right. Phyllode s tu s/p resection Mar 2013. Dr Holder at [facility]. Last Mammo January 2014 Normal 11/19/2014 Overview (11/19/2014): S/p removal of Phyllodes Tu of rt breast: 03/2013 Dr Holder (surgeon) [facility] Breast S/P hemorrhoidectomy. [facility] 200511/19/2014 Sleep disturbance. Sleep issac dy performed at [facility] in 2009. No BOB. Seen by Neuro [facility]. Rec better sleep hygene. 11/19/2014 Overview (11/19/2014): Result type: Polysomnogram Study Result date: 16 May 2010 8:41 Result status: Auth (Verified) Result title: Polysomnogram Performed by: Asuncion Alexis MD on 16 May 2010 8:41 Encounter info: [id number], [facility], One Time OP, 05/07/2010 - 05/07/2010 Contributor system: [employer] * Final Report * Polysomnogram POLYSOMNOGRAM REPORT Ordering Physician: Linda Pruett M.D. Order ID: [id number] Date of Service: May 07, 2010 through [...] and active situations. Her score on the [place] Sleepiness Scale is 9 to 10. She [...] This overnight polysomnogram was done utilizing a [employer] digital polysomnograph machine. Four channels were devoted [...] was sustained fairly well. The technologist noted [id number] snoring at times. Review of samples of [...] sleep hygiene elements might be pertinent. DocID: [id number] Electronically verified by: Asuncion Alexis M.D. 05/17/2010 18:09 Asuncion Alexis M.D. A P DOC#: [id number] [facility]#: [id number] NAB cc: Linda Pruett M.D. [address] [facility] [address] Family History Medical History Relation Name Comments [...] Plan of Treatment Not on file Insurance [facility] ([facility]) Member Subscriber Plan / Payer (Ef fective 2014-Present) Name:Rebecca Cole Relation to Subscriber:Self Name:Rebecca Cole Payer ID:[id number] Group ID:Not on file Type:Ry Address: [address] [place] [id number] Care Teams Polysomnographic Technologist Relationship Specialty Start Date End Date Estefani Luna PA-C [address] [place] [address] PCP - General 09/30/18
--- OUTSIDE RECORDS SUMMARY | 2024-11-05 13:46 | XMS_ITS | Clinical Summary ---
Author Organization [facility] ity Address [address] [place] [address] Care Team Providers Care Security Rep Name Role Phone Unavailable Primary Care Provider [...] Vaccines (1 of 2) 2011 COVID-19 Vaccine ( - 2023-2 5 season) 2024 Influenza Vaccine (#1) 2024 RSV Immunization Adult Patie nts (1 - 1-dose 75+ series) 2036 HIB [...]
== END 2024-11-05 13:33 | disposition home or self-care (01) ==
LOC: HO.HOS 12:44
PROVIDERS: PCP Internal Medicine; Visit Provider Physician Assistant
DX: Z96.641 Presence of right artificial hip joint (principal)
CPT/HCPCS: 99024

== ENCOUNTER → 2024-11-05 12:43 | Outpatient (BNVA) | payer OTHER, SELFPAY | PROVIDERS: PCP Internal Medicine; Visit Provider Physician Assistant | DX: Z47.1 Aftercare following joint replacement surgery (principal); Z96.641 Presence of right artificial hip joint | CPT/HCPCS: 99212 ==

== ENCOUNTER 2024-11-30 12:09 | Outpatient (REF) | payer OTHER, SELFPAY ==
--- NOTE | ~2024-11-30 | XR_ITS ---
EXAMINATION: XR HIP, RIGHT CLINICAL INFORMATION: M25.559 - Pain in unspecified hip COMPARISON: October 20, 2024. TECHNIQUE: Cross lateral view of the right hip. FINDINGS: Metallic prosthesis with an acetabular and femoral component well-seated in the osseous structures. No gross malalignment. No gross loosening. XR/XR hip RT 1V IMPRESSION: No acute fracture or dislocation. Electronically signed by: Aguilar Morton MD 12/02/2024 02:51 PM EDT
--- NOTE | ~2024-11-30 | XR_ITS ---
EXAMINATION: XR PELVIS CLINICAL INFORMATION: M25.559 - Pain in unspecified hip COMPARISON: October 20, 2024. TECHNIQUE: AP view of the pelvis. FINDINGS: There is a metallic right hip prosthesis with an acetabular and femoral component well-seated in the osseous structures without gross cortical disruption or loosening. Mild degenerative changes in the left coxofemoral joint. The bony pelvis is intact. Degenerative changes in the symphysis pubis. Spondylosis from L3-4 to L5-S1. XR/XR pelvis 1-2V IMPRESSION: Status post total right hip arthroplasty without acute fracture or dislocation. Electronically signed by: Aguilar Morton MD 12/02/2024 02:50 PM EDT
--- OUTSIDE RECORDS SUMMARY | 2024-11-30 14:29 | XMS_ITS | Patient Health Record ---
Author Organization [facility] Address [address] [address] Support Name Relationship Address Phone PAULETTE DOUGLAS Guarantor Unknown [phone] Reason For Referral No Information Plan Of Treatment No Information
--- OUTSIDE RECORDS SUMMARY | 2024-11-30 14:29 | XMS_ITS | Clinical Summary ---
Author Organization [facility] ity Address [address] [place] [address] Care Team Providers Care Animal Husbandry Technician Name Role Phone Unavailable Primary Care Provider [...] - 2023-2 5 season) 2024 Influenza Vaccine (Season Ended) 2025 RSV Immunization Adult Patie nts (1 - [...] age to complete this topic Meningococcal B Vaccine Aged Out No l onger eligible based on patient's age to complete [...]
--- OUTSIDE RECORDS SUMMARY | 2024-11-30 14:29 | XMS_ITS | Clinical Summary ---
Author Organization [facility] Address [address] [place] [address] Care Team Providers Care Valet Service Attendant Name Role Phone Estefani Luna PA-C Primary Care Provider [phone] Source Comments PLEASE NOTE, if this patient [...] % nasal sprayIndications :Nasal congestion Place 1 [place] into the nostril(s) as needed for congestion. [...] of pain. They will not follow at [facility], for us to follow and determine next line of treatment H/O electromyography. FEBRUARY 03 [facility]. Normal Bilat LE EMG 03/09/2015 Vitamin D insufficiency 11/25/2014 GERD (gastroesophageal reflux disease) 5 Positive LILLY (antinuclear antibody). [facility] la b. 2010 11/25/2014 DDD (degenerative disc disease), cervical 2014 Overview (11/25/2014): Xray 2006 at [facility] and then at [facility] February 2012: same, mild DDD Calcaneal spur. Lt foot. Xray 2006 11/25/2014 Headache 11/25/2014 Overview (11/25/2014): MRI at [facility] 2006 (report sent for scan) Ct head at [facility]: February 2012: No acute pathology H/O colonoscopy. [facility]. December 2005. Rec to repeat in 10ys. Due 2015. 11/25/2014 Breast mass, right. Phyllode s tu s/p resection Mar 2013. Dr Holder at [facility]. Last Mammo January 2014 Normal 11/19/2014 Overview (11/19/2014): S/p removal of Phyllodes Tu of rt breast: 03/2013 Dr Holder (surgeon) [facility] Breast S/P hemorrhoidectomy. [facility] 200511/19/2014 Sleep disturbance. Sleep issac dy performed at [facility] in 2009. No BOB. Seen by Neuro [facility]. Rec better sleep hygene. 11/19/2014 Overview (11/19/2014): Result type: Polysomnogram Study Result date: 16 May 2010 8:41 Result status: Auth (Verified) Result title: Polysomnogram Performed by: Asuncion Alexis MD on 16 May 2010 8:41 Encounter info: [id number], [facility], One Time OP, 05/07/2010 - 05/07/2010 Contributor system: [email or web address] * Final Report * Polysomnogram POLYSOMNOGRAM REPORT Ordering Physician: Linda Pruett M.D. Order ID: [id number] Date of Service: May 07, 2010 through [...] and active situations. Her score on the [place] Sleepiness Scale is 9 to 10. She [...] This overnight polysomnogram was done utilizing a [employer] digital polysomnograph machine. Four channels were devoted [...] was sustained fairly well. The technologist noted [id number] snoring at times. Review of samples of [...] sleep hygiene elements might be pertinent. DocID: [id number] Electronically verified by: Asuncion Alexis M.D. 05/17/2010 18:09 Asuncion Alexis M.D. A P DOC#: [id number] [facility]#: [id number] NAB cc: Linda Pruett M.D. [address] [facility] [address] Family History Medical History Relation Name Comments [...] Plan of Treatment Not on file Insurance [facility] ([facility]) Member Subscriber Plan / Payer (Ef fective 2014-Present) Name:Rebecca Cole Relation to Subscriber:Self Name:Rebecca Cole Payer ID:[id number] Group ID:Not on file Type:Ry Address: [address] [place] [id number] Care Teams Valet Service Attendant Relationship Specialty Start Date End Date Estefani Luna PA-C [address] [place] [address] PCP - General 09/30/18
== END 2024-11-30 12:10 | disposition home or self-care (01) ==
LOC: HO.HOSX 12:09
PROVIDERS: Visit Provider Orthopaedic Surgery
DX: M25.559 Pain in unspecified hip (principal); Z96.641 Presence of right artificial hip joint
CPT/HCPCS: 72170; 73501; 99212

== ENCOUNTER 2024-11-30 12:56 | Outpatient (AMB) | payer OTHER, SELFPAY ==
--- NOTE | 2024-11-30 13:18 | MHC.OFFVIS ---
Intake Visit Reasons: 6WK PO: R AMADOR w/NE 10/21/24 Intake Note: Rebecca is a 64 year old female who presents today for a post op appointment about 6 weeks s/p right total hip arthroplasty 10/21/24 Allergies No Known Allergies Allergy (Verified 11/05/24 12:47) HPI HPI 6WK PO: R AMADOR w/NE 10/21/24: Details: Six weeks postop doing well. She has not started outpatient physical therapy. She discontinued aspirin because of stomach upset. She notes mild swelling of the right lower extremity. [facility] Medical History DJD (degenerative joint disease) History of blood transfusion Hepatic steatosis Hand numbness Arthritis Migraines Hx of migraines Allergic rhinitis Snores Chronic GERD Bilateral hip pain Degenerative joint disease of both hips TMJ arthropathy COVID-19 vaccine dose declined Heartburn symptom History of sleep study Long-term use of Plaquenil Difficulty sleeping Achilles tendinitis of left lower extremity Paresthesia and pain of extremity Fibromyalgia Sjogrens syndrome Surgical History History of lumpectomy of right breast Hx of hemorrhoidectomy Hx of colonoscopy History of cholecystectomy Family History Mother Arthritis Diabetes mellitus Hypertension Mental health disorder Father CKD (chronic kidney disease) Maternal Grandfather Mental health disorder Social History Household Members: Spouse Housing: House Are you a primary care program resident to a significant other at home: No Do you presently have visiting nurse or other home services: No Alcohol intake: never Comment: in bathroom, aware of trip hazard Patient Tobacco Use Status: Never used Tobacco e-Cigarette/Vaping Use: Never Used Second Hand Smoke Exposure: No service: No Current occupational status: unemployed Cognitive needs: No Hearing needs: No Vision needs: Yes Physical Exam Extrem Other: Incision clean dry and intact No pain with hip range of motion Positive Trendelenburg gait Results Reviewed Results Reviewed: I personally reviewed relevant radiographs. Right AMADOR in expected post operative position with no hardware complications or evidence of loosening Assessment & Plan Assessment & Plan (1) S/P total right hip arthroplasty: Code(s): Z96.641 - Presence of right artificial hip joint Category: Surgical Plan: Doing well 6 weeks status post right hip replacement. I recommend outpatient PT for gait training. Follow up in 6 weeks. Discussed hip precautions. Orders: Orders XR pelvis 1-2V Today M25.559 - Pain in unspecified hip XR hip RT 1V Today M25.559 - Pain in unspecified hip Coding Level of Care Code Global (24104) Diagnoses S/P total right hip arthroplasty Z96.641
--- OUTSIDE RECORDS SUMMARY | 2024-11-30 15:32 | XMS_ITS | Clinical Summary ---
Author Organization [facility] ity Address [address] [place] [address] Care Team Providers Care Automotive Detailer Name Role Phone Unavailable Primary Care Provider [...]
--- OUTSIDE RECORDS SUMMARY | 2024-11-30 15:32 | XMS_ITS | Clinical Summary ---
Author Organization [facility] Address [address] [place] [address] Care Team Providers Care Spool Sorter Name Role Phone Estefani Luna PA-C Primary Care Provider [phone] Source Comments PLEASE NOTE, if this patient [...] % nasal sprayIndications :Nasal congestion Place 1 [place] into the nostril(s) as needed for congestion. [...] of pain. They will not follow at [facility], for us to follow and determine next line of treatment H/O electromyography. FEBRUARY 03 [facility]. Normal Bilat LE EMG 03/09/2015 Vitamin D insufficiency 11/25/2014 GERD (gastroesophageal reflux disease) 5 Positive LILLY (antinuclear antibody). [facility] la b. 2010 11/25/2014 DDD (degenerative disc disease), cervical 2014 Overview (11/25/2014): Xray 2006 at [facility] and then at [facility] February 2012: same, mild DDD Calcaneal spur. Lt foot. Xray 2006 11/25/2014 Headache 11/25/2014 Overview (11/25/2014): MRI at [facility] 2006 (report sent for scan) Ct head at [facility]: February 2012: No acute pathology H/O colonoscopy. [facility]. December 2005. Rec to repeat in 10ys. Due 2015. 11/25/2014 Breast mass, right. Phyllode s tu s/p resection Mar 2013. Dr Holder at [facility]. Last Mammo January 2014 Normal 11/19/2014 Overview (11/19/2014): S/p removal of Phyllodes Tu of rt breast: 03/2013 Dr Holder (surgeon) [facility] Breast S/P hemorrhoidectomy. [facility] 200511/19/2014 Sleep disturbance. Sleep issac dy performed at [facility] in 2009. No BOB. Seen by Neuro [facility]. Rec better sleep hygene. 11/19/2014 Overview (11/19/2014): Result type: Polysomnogram Study Result date: 16 May 2010 8:41 Result status: Auth (Verified) Result title: Polysomnogram Performed by: Asuncion Alexis MD on 16 May 2010 8:41 Encounter info: [id number], [facility], One Time OP, 05/07/2010 - 05/07/2010 Contributor system: [employer] * Final Report * Polysomnogram POLYSOMNOGRAM REPORT Ordering Physician: Linda Pruett M.D. Order ID: [id number] Date of Service: May 07, 2010 through [...] and active situations. Her score on the [place] Sleepiness Scale is 9 to 10. She [...] This overnight polysomnogram was done utilizing a [employer] digital polysomnograph machine. Four channels were devoted [...] was sustained fairly well. The technologist noted [id number] snoring at times. Review of samples of [...] sleep hygiene elements might be pertinent. DocID: [id number] Electronically verified by: Asuncion Alexis M.D. 05/17/2010 18:09 Asuncion Alexis M.D. A P DOC#: [id number] [facility]#: [id number] NAB cc: Linda Pruett M.D. [address] [facility] [address] Family History Medical History Relation Name Comments [...] Plan of Treatment Not on file Insurance [facility] ([facility]) Member Subscriber Plan / Payer (Ef fective 2014-Present) Name:Rebecca Cole Relation to Subscriber:Self Name:Rebecca Cole Payer ID:[id number] Group ID:Not on file Type:Ry Address: [address] [place] [id number] Care Teams Spool Sorter Relationship Specialty Start Date End Date Estefani Luna PA-C [address] [place] [address] PCP - General 09/30/18
== END 2024-11-30 13:45 | disposition home or self-care (01) ==
LOC: HO.HOS 12:57
PROVIDERS: PCP Internal Medicine; Visit Provider Orthopaedic Surgery
DX: Z96.641 Presence of right artificial hip joint (principal)
CPT/HCPCS: 99024

== ENCOUNTER → 2024-11-30 13:03 | Outpatient (BNV) | payer OTHER, SELFPAY | PROVIDERS: Visit Provider Radiology Diagnostic Radiology | DX: M25.551 Pain in right hip (principal); Z96.641 Presence of right artificial hip joint | CPT/HCPCS: 72170; 73501 ==

== ENCOUNTER 2024-12-01 09:49 | Emergency (ER) | payer OTHER, SELFPAY ==
--- NOTE | ~2024-12-01 | CT_ITS ---
EXAMINATION: CT ABDOMEN AND PELVIS WITH CONTRAST CLINICAL INFORMATION: Left lower quadrant abdominal pain. COMPARISON: None available. TECHNIQUE: Multidetector volumetric images were obtained from the superior aspect of the liver through the pubic symphysis following administration 85 mL of Omnipaque 350 intravenous contrast. Sagittal and coronal reformatted images were obtained on the technologist's workstation. Oral contrast: No This CT examination was performed using dose optimization techniques as appropriate, variously including the following: *Automated exposure control *Adjustment of mA and/or kV according to patient size (this includes techniques or standardized protocols for targeted exams where dose is matched to indication/reason for exam; i.e. extremities or head) *Use of iterative reconstruction technique FINDINGS: LUNG BASES: The visualized lung bases are unremarkable. LIVER, GALLBLADDER, AND BILIARY TREE: The liver is normal in size, shape, and attenuation. No focal hepatic lesion or biliary ductal dilatation is present. There has been a cholecystectomy. PANCREAS: Unremarkable. SPLEEN: Unremarkable. ADRENAL GLANDS: Unremarkable. KIDNEYS AND URETERS: The kidneys are normal in size, shape, and attenuation. No hydronephrosis, hydroureter, or calculi seen. No perinephric stranding. There is an 8 mm cyst arising from the right lateral mid kidney. There is minimal scarring in the dorsal inferior pole of the right kidney. BLADDER: Partially obscured by streak artifact from right hip prosthesis. Imaged aspects are normal. GASTROINTESTINAL TRACT: The small and large bowel are unremarkable. The appendix is unremarkable. ABDOMINAL WALL: No significant hernia is appreciated. LYMPH NODES: Normal. VASCULAR: Unremarkable. PELVIC VISCERA: The uterus and adnexa are unremarkable. OSSEOUS STRUCTURES: Total right hip arthroplasty without complication. No lytic or blastic bone lesion identified. Mild degenerative changes throughout the spine. CT/CT abdomen pelvis w IV con IMPRESSION: 1. No acute abnormality in the abdomen or pelvis. 2. See the body of the report for ancillary findings. Electronically signed by: Adrian Hernandez MD 12/01/2024 01:21 PM EDT
[2024-12-01 09:51] VITALS: BP 144/67; PULSE 88; RESP 12; TEMP 36.6; O2SAT 97; BMI 29.6
[2024-12-01 10:12] LABS: MANUAL DIFF FLAG NO
[2024-12-01 10:15] LABS: Basophils Percent Auto 0.8 % (0-2); Eosinophils Absolute Auto 0.2 X10*3/uL (0.0-0.4); Eosinophils Percent Auto 4.2 % (0-4); Hematocrit 38.8 % (37.0-47.0); Hemoglobin 12.5 g/dl (12.0-16.0); Imm Gran Abs Auto 0.01 X10*3/uL (0.00-0.03); Imm Gran Pct Auto 0.2 % (0.0-0.4); Lymphocytes Absolute Auto 1.1 X10*3/uL (1.2-4.9); Lymphocytes Percent Auto 21.9 % (20-40); Mean Corpuscular HGB Conc 32.2 g/dl (31.0-35.0); Mean Corpuscular Hemoglobin 28.6 pg (27.0-33.0); Mean Corpuscular Volume 88.8 fL (80.0-98.0); Mean Platelet Volume 9.8 fL (9.4-12.3); Monocytes Absolute Auto 0.4 X10*3/uL (0.1-1.2); Monocytes Percent Auto 8.3 % (2-11); Neutrophils Absolute Auto 3.3 x10*3/uL (2.0-8.3); Neutrophils Percent Auto 64.6 % (45-73); Platelet Count 220 X10*3/uL (160-400); Red Blood Count 4.37 X10*6/uL (4.20-5.50); Red Cell Distribution Width 13.5 % (11.0-16.0); White Blood Count 5.1 X10*3/uL (4.8-10.8)
[2024-12-01 10:32] LABS: Alanine Aminotransferase 34 U/L (0-31); Alkaline Phosphatase 106 U/L (39-117); Anion Gap 11 (12-20); Aspartate Amino Transferase 33 U/L (5-31); Bilirubin Total 0.3 mg/dL (0.0-1.0); Blood Urea Nitrogen 14 mg/dL (9-16); Carbon Dioxide 27 mmol/L (22-29); Chloride 109 mmol/L (96-108); Creatinine Clr Calc Pharmacy 84.5; Estimated Glomerular Filt Rate > 60; Glucose Random 111 mg/dL (60-115); Lipase 27 U/L (8-78); Potassium 4.1 mmol/L (3.3-5.1); Sodium 143 mmol/L (135-145); Total Protein 7.5 g/dL (6.5-8.0)
--- NOTE | 2024-12-01 11:03 | ED.ABDPAIN ---
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 Patient describes a burning like sensation that is constant, and starts in her epigastrium, radiates down into her left side, and down into her left leg. She denies any exacerbating symptoms. She does report some urinary frequency, denies dysuria or hematuria. She states that she has a history of gastritis and symptoms feel similar however more severe. She does take omeprazole which he has been taking regularly. She denies any fevers, chills, chest pain, shortness of breath, vomiting or nausea. No diarrhea constipation, last moved her bowels earlier today. Denies taking any medications today for her symptoms. She did have a cholecystectomy several years ago. Does report increased belching. No other complaints or concerns at this time. MD elicited complaint: abdominal pain Pertinent past history: gastritis Onset (ago): day(s) Pain Consistency: constant Location: epigastric, LUQ and LLQ Severity: moderate Quality: burning Migration to: no migration Exacerbating factors: nothing Relieving factors: nothing Associated symptoms: denies other symptoms Related Data Home Medications ?Medication ?Instructions ?Recorded ?Confirmed acetaminophen-caffeine 500 mg-65 1 tab PO TID PRN Migraine Headache 09/23/24 09/25/24 mg tablet cholecalciferol (vitamin D3) 25 25 mcg PO DAILY 09/23/24 09/25/24 mcg (1,000 unit) capsule (Vitamin D3) magnesium citrate 100 mg capsule 100 mg PO DAILY 09/23/24 09/25/24 peg 400-propylene glycol 0.4 %-0.3 1 drp ophthalmic (eye) Q4-6H PRN 09/23/24 09/25/24 % eye gel drops (Systane Gel) Dry Eyes potassium gluconate 550 mg (90 mg) 550 mg PO DAILY 09/23/24 09/25/24 tablet docosahexaenoic acid (dha)-epa 120 1 cap PO DAILY 09/25/24 09/25/24 mg-180 mg capsule (Fish Oil) Previous Rx's ?Medication ?Instructions ?Recorded albuterol sulfate 90 mcg/actuation 1 puff inhalation QID PRN 09/11/23 aerosol inhaler shortness of breath or wheezing 1 week #6.7 grams cane #1 ea 02/24/24 walker #1 ea 08/12/24 acetaminophen 325 mg tablet 650 mg (2 x 325 mg) PO Q6H PRN 10/21/24 Pain, Mild 1-3,Fever,Headache 30 days #240 tabs aspirin 325 mg tablet 325 mg PO BID 30 days #60 tabs 10/21/24 celecoxib 200 mg capsule 200 mg PO BID 30 days #60 caps 10/21/24 docusate sodium 100 mg capsule 100 mg PO BID 30 days #60 caps 10/21/24 oxycodone 5 mg tablet 5 mg PO Q4H PRN Pain, 10/21/24 Moderate(Pain Scale 4-6) 7 days #42 tabs polyethylene glycol 3350 17 gram 17 g PO BID PRN constipation #14 ea 10/30/24 oral powder packet (Miralax) Allergies Allergy/AdvReac Type Severity Reaction Status Date / Time No Known Allergies Allergy Verified 12/01/24 09:53 Review of Systems Review of Systems Constitutional: No Weight loss, No Fever, No Chills, No Night Sweats, No Fatigue, No Malaise ENT/Mouth: No Hearing loss, No Ear Pain, No Nasal Congestion, No Sinus Pain, No Hoarseness, No sore throat, No Rhinorrhea, No Swallowing Difficulty Eyes: No Eye Pain, No Swelling, No Redness, No Foreign Body, No Discharge, No Vision Changes Cardiovascular: No Chest Pain, No SOB, No Dyspnea on Exertion, No Orthopnea, No Edema, No Palpitations Respiratory: No Cough, No Sputum, No Wheezing, No Smoke Exposure, No Dyspnea Gastrointestinal: No Nausea, No Vomiting, No Diarrhea, No Constipation, + Abdominal pain, No Hematochezia, No Melena Genitourinary: No irregular bleeding, No Dysuria, + Urinary Frequency, No Hematuria, No Urinary Incontinence/retention, No Urgency, No Flank Pain, No Urinary Flow Changes, No Hesitancy Musculoskeletal: No joint pain, No Myalgias, No Joint Swelling Skin: No Skin Lesions, No rash Neuro: No Weakness, No Numbness, No Paresthesias, No Loss of Consciousness, No Dizziness, No Headache Psych: No Anxiety/Panic, No Depression, No SI/HI/AH/VH, No Social Issues, Heme/Lymph: No Bruising, No Bleeding,No Lymphadenopathy Endocrine: No Polyuria, No Polydipsia, No Temperature Intolerance Yes all other systems are reviewed and are negative Constitutional: Reports as per [facility] Past Medical History Attestation statement: The following information was validated with the patient. Medical History DJD (degenerative joint disease) History of blood transfusion Hepatic steatosis Hand numbness Arthritis Migraines Hx of migraines Allergic rhinitis Snores Chronic GERD Bilateral hip pain Degenerative joint disease of both hips TMJ arthropathy COVID-19 vaccine dose declined Heartburn symptom History of sleep study Long-term use of Plaquenil Difficulty sleeping Achilles tendinitis of left lower extremity Paresthesia and pain of extremity Fibromyalgia Sjogrens syndrome Surgical History History of lumpectomy of right breast Hx of hemorrhoidectomy Hx of colonoscopy History of cholecystectomy Family History Family History Mother Arthritis Diabetes mellitus Hypertension Mental health disorder Father CKD (chronic kidney disease) Maternal Grandfather Mental health disorder Social History Social History Household Members: Spouse Housing: House Are you a primary memory care program resident to a significant other at home: No Do you presently have visiting nurse or other home services: No Alcohol intake: never Comment: in bathroom, aware of trip hazard Patient Tobacco Use Status: Never used Tobacco e-Cigarette/Vaping Use: Never Used Second Hand Smoke Exposure: No service: No Current occupational status: unemployed Cognitive needs: No Hearing needs: No Vision needs: Yes Physical Exam ED Vital Signs: Vital Signs - 24 hr 12/01/24 09:51 12/01/24 11:55 12/01/24 14:55 Temperature 97.8 F Pulse Rate 88 82 76 Respiratory Rate 12 16 16 Blood Pressure 144/67 H 145/64 H 137/79 Pulse Oximetry 97 97 97 Oxygen Delivery Method Room Air Room Air Room Air 12/01/24 15:27 Temperature 0 F L Pulse Rate 76 Respiratory Rate 16 Blood Pressure 137/79 Pulse Oximetry 97 Oxygen Delivery Method Room Air BMI result Body Mass Index 29.6 Const General: cooperative, comfortable and no acute distress Orientation/consciousness: patient oriented x3 Limitations: no limitations HENMT Head: Yes normal to inspection, Yes normocephalic and Yes atraumatic Ears: hearing grossly normal bilaterally General nose exam: Normal external nose present Face and sinus: Yes normal facial exam Mouth: Normal oral and palatal mucosa present, oropharynx normal and moist mucous membranes Throat: Yes posterior oropharynx normal Eyes General: appearance normal, both eyes and all related structures Eyelids: Yes eyelids normal Conjunctivae: conjunctivae normal Sclerae: sclerae normal Pupils: Equal, round and reactive pupils present EOM: EOMs intact bilaterally Neck Neck: Yes normal visual inspection, Yes full ROM and Yes no lymphadenopathy Lymphatic: no lymphadenopathy noted Chest Chest palpation & inspection: normal inspection of the chest Resp Effort & Inspection: normal respiratory effort and able to speak in complete sentences Auscultation: clear to auscultation bilaterally, no crackles, no rales, no rhonchi and no wheezes Cardio Rate: regular rate Rhythm: regular rhythm Heart sounds: S1 normal heart sound present and S2 normal heart sound present GI Inspection: Yes normal to inspection Skin General skin exam: no rashes or lesions noted Trauma: no lacerations or abrasions Wounds: no wounds Neuro General: patient oriented x3 and moves all extremities Cranial nerves: Yes Equal, round and reactive pupils present Extrem General: Yes normal to inspection Right upper extremity: normal to inspection Left upper extremity: normal to inspection Right lower extremity: normal to inspection Left lower extremity: normal to inspection Course Reevaluation(s) Reevaluation #1: CT returns revealing no acute abnormality. There is a 8 mm cyst in the right lateral mid kidney. With mild degenerative changes throughout the spine, otherwise unremarkable. Labs returned, she has no leukocytosis, stable H&H, chemistry revealing no significant electrolyte derangement. AST ALT slightly elevated at 33 and 34. Negative troponin. Urine does not appear to be infected. EKG normal sinus rhythm with no acute ischemic changes. Patient re-evaluated, feeling much better after receiving medication. Symptoms consistent with gastritis like presentation. She will follow-up with GI specialist as well as her primary care physician. Given strict return precautions. Advised to stay away from NSAIDs, spicy, and acidic foods. Encouraged to continue taking omeprazole as needed. Patient stable for discharge. Time: 14:02 Medical Decision Making Medical Decision Making [facility] Narrative: This is a 64-year-old female who presents emergency department with complaints of epigastric pain and abdominal pain for the last week. On arrival, patient is well-appearing, speaking in full sentences under no acute distress. Vital signs reveal slight leak hypertensive at 144/67, all other vital signs within normal limits. Abdomen is soft with mild tenderness palpation in the left upper quadrant left lower quadrant. She expresses some urinary symptoms. Differential diagnoses include acute gastritis, gastroenteritis, diverticulitis, diverticulosis, atypical ACS. Will obtain labs, EKG, and CT abdomen and pelvis. Will medicate with GI cocktail. We will continue to closely monitor pending overall workup. Differential Diagnosis Differential Diagnoses: The differential diagnosis associated with the presentation includes See above Admission/Observation Consideration of admission/observation: Escalation of care including admission/observation considered Lab Data [facility] Lab Attestation statement: I reviewed the patient's lab results. No leukocytosis, stable H&H, chemistry with no significant electrolyte derangement, she does have slight elevation in AST and ALT at 33 and 34, just beyond normal. Troponin less than 2.7, no need for repeat. 12/01/24 10:07 12/01/24 10:07 Labs: Lab Results 12/01/24 12/01/24 Range/Units 10:07 12:00 WBC 5.1 (4.8-10.8) X10*3/uL RBC 4.37 (4.20-5.50) X10*6/uL Hgb 12.5 (12.0-16.0) g/dl Hct 38.8 (37.0-47.0) % MCV 88.8 (80.0-98.0) fL MCH 28.6 (27.0-33.0) pg MCHC 32.2 (31.0-35.0) g/dl RDW 13.5 (11.0-16.0) % Plt Count 220 (160-400) X10*3/uL MPV 9.8 (9.4-12.3) fL Immature Gran % (Auto) 0.2 (0.0-0.4) % Neut % (Auto) 64.6 (45-73) % Lymph % (Auto) 21.9 (20-40) % [place] % (Auto) 8.3 (2-11) % Eos % (Auto) 4.2 H (0-4) % Baso % (Auto) 0.8 (0-2) % Lymph # (Auto) 1.1 L (1.2-4.9) X10*3/uL [place] # (Auto) 0.4 (0.1-1.2) X10*3/uL Eos # (Auto) 0.2 (0.0-0.4) X10*3/uL Baso # (Auto) 0.0 (0.0-0.2) X10*3/uL Abs Immat Gran (auto) 0.01 (0.00-0.03) X10*3/uL Absolute Neuts (auto) 3.3 (2.0-8.3) x10*3/uL Absolute Nucleated RBC 0.000 (0.0-0.012) X10*3/uL Nucleated RBC % (auto) 0.0 (0.0-0.2) /100WBC Sodium 143 (135-145) mmol/L Potassium 4.1 (3.3-5.1) mmol/L Chloride 109 H (96-108) mmol/L Carbon Dioxide 27 (22-29) mmol/L Anion Gap 11 L (12-20) BUN 14 (9-16) mg/dL Creatinine 0.69 (0.5-1.4) mg/dL Estim Creat Clear Calc 84.5 Estimated GFR > 60 Random Glucose 111 (60-115) mg/dL Calcium 9.0 (8.4-10.2) mg/dL Total Bilirubin 0.3 (0.0-1.0) mg/dL AST 33 H (5-31) U/L ALT 34 H (0-31) U/L Alkaline Phosphatase 106 (39-117) U/L Troponin I High Sens < 2.7 (<3.5-17.0) ng/L Total Protein 7.5 (6.5-8.0) g/dL Albumin 4.0 (3.5-5.0) g/dL Lipase 27 (8-78) U/L Urine Color Yellow Urine Appearance Clear Urine pH 8.0 (5.0-9.0) Ur Specific [place] <= 1.005 (1.005-1.025) Urine Protein Negative (Neg-Trace) mg/dL Urine Glucose (UA) Negative (Negative) mg/dL Urine Ketones Negative (Negative) mg/dL Urine Blood Negative (Negative) Urine Nitrite Negative (Negative) Ur Leukocyte Esterase Negative (Negative) Urine RBC 0-2 (0-2) /HPF Urine WBC 0-5 (0-5) /HPF Ur Squamous Epith Cells 0-2 (0-2) /HPF Urine Bacteria None Seen (None Seen) Hyaline Casts 0-2 (0-2) /LPF Independent Interpretation I performed an independent interpretation of an: EKG Interpretation: EKG normal sinus rhythm at a ventricular rate of 91 beats per minute, no ST elevation or depression. QT QTC 388/477. No STEMI. Radiology Impression Discussion of test interpretation with radiology: I have reviewed the radiologist's reading. Radiologist Impression: FINDINGS: LUNG BASES: The visualized lung bases are unremarkable. LIVER, GALLBLADDER, AND BILIARY TREE: The liver is normal in size, shape, and attenuation. No focal hepatic lesion or biliary ductal dilatation is present. There has been a cholecystectomy. PANCREAS: Unremarkable. SPLEEN: Unremarkable. ADRENAL GLANDS: Unremarkable. KIDNEYS AND URETERS: The kidneys are normal in size, shape, and attenuation. No hydronephrosis, hydroureter, or calculi seen. No perinephric stranding. There is an 8 mm cyst arising from the right lateral mid kidney. There is minimal scarring in the dorsal inferior pole of the right kidney. BLADDER: Partially obscured by streak artifact from right hip prosthesis. Imaged aspects are normal. GASTROINTESTINAL TRACT: The small and large bowel are unremarkable. The appendix is unremarkable. ABDOMINAL WALL: No significant hernia is appreciated. LYMPH NODES: Normal. VASCULAR: Unremarkable. PELVIC VISCERA: The uterus and adnexa are unremarkable. OSSEOUS STRUCTURES: Total right hip arthroplasty without complication. No lytic or blastic bone lesion identified. Mild degenerative changes throughout the spine. CT/CT abdomen pelvis w IV con IMPRESSION: 1. No acute abnormality in the abdomen or pelvis. 2. See the body of the report for ancillary findings. Electronically signed by: Adrian Hernandez MD 12/01/2024 01:21 PM EDT Dictated By: Adrian Hernandez MD Medications Administered Discontinued Medications Generic Name Dose Route Start Last Admin Trade Name Freq PRN Reason Stop Dose Admin Al Hydroxide/Mg Hydroxide 30 ml 12/01/24 11:52 12/01/24 11:59 Magnesium Hydrox/Alum Hydrox 30 Ml Oral.Susp PO 12/01/24 11:53 30 ml ONCE ONE Administration Iohexol 100 ml 12/01/24 12:34 12/01/24 12:34 Iohexol 350 Mg/Ml 100 Ml Infus..Btl IV 12/01/24 12:35 85 ml ONCE ONE Administration Lidocaine HCl 15 ml 12/01/24 11:52 12/01/24 11:59 Lidocaine Hcl Viscous 2 % 15 Ml Solution MUCOUS MEM 12/01/24 11:53 15 ml ONCE ONE Administration Discharge Plan Discharge Clinical Impression: Abdominal pain Patient Disposition: Home, Self-Care Instructions: Gastritis (ED), Diet for Stomach Ulcers and Gastritis (ED), Abdominal Pain (ED) Additional Instructions: You were seen in the emergency department due to abdominal pain. Your workup today was reassuring. Your CT scan does not show any abnormalities to suggest your symptoms. You do have a 8 mm cyst in the right lateral mid kidney. You stated that you had a history of this, you can follow-up with the primary care physician. Continue taking the omeprazole as prescribed. Urine does not appear to be infected. You may have gastritis and/or an ulcer, please see attached documentation for recommendations on diet. If any new or worsening symptoms occur including but not limited to severe headache, dizziness, blurred vision, severe chest pain, shortness of breath, please seek emergent care. Prescriptions: No Action (DME) [facility] See Rx Instructions .ROUTE .MEDSUPPLY Qty: 1 0RF Rx Instructions: Christy front wheeled alex[place]ria polyethylene glycol 3350 [Miralax] 17 gram powder in packet 17 g PO BID PRN (Reason: constipation) Qty: 14 0RF cholecalciferol (vitamin D3) [Vitamin D3] 25 mcg (1,000 unit) Capsule 25 mcg PO DAILY magnesium citrate 100 mg Capsule 100 mg PO DAILY potassium gluconate 550 mg (90 mg) Tablet 550 mg PO DAILY Systane Gel 0.4-0.3 % Drops,Gel 1 drp OPHTHALMIC (EYE) Q4-6H PRN (Reason: Dry Eyes) acetaminophen-caffeine 500-65 mg Tablet 1 tab PO TID PRN (Reason: Migraine Headache) acetaminophen 325 mg Tablet 650 mg PO Q6H PRN (Reason: Pain, Mild 1-3,Fever,Headache) 30 Days Qty: 240 0RF aspirin 325 mg Tablet 325 mg PO BID 30 Days Qty: 60 0RF celecoxib 200 mg Capsule 200 mg PO BID 30 Days Qty: 60 0RF docusate sodium 100 mg Capsule 100 mg PO BID 30 Days Qty: 60 0RF oxycodone 5 mg Tablet 5 mg PO Q4H PRN (Reason: Pain, Moderate(Pain Scale 4-6)) 7 Days Qty: 42 0RF Rx Instructions: Partial Fill upon patient request. albuterol sulfate 90 mcg/actuation HFA aerosol inhaler 1 puff inhalation QID PRN (Reason: shortness of breath or wheezing) 7 Days Qty: 6.7 0RF (DME) cane Device See Rx Instructions .Route Qty: 1 0RF Rx Instructions: As directed Fish Oil 120-180 mg capsule 1 cap PO DAILY [place] [facility] [place] Group] Interventions: ED Discharge Assessment Last Done: 12/01/24 15:27 Discharge Date/Time: 12/01/24 15:27 Print Language: Yemeni
--- NOTE | 2024-12-01 11:04 | ECG_ITS ---
Test Reason : EPIGASTRIC PAIN Blood Pressure : */* mmHG Vent. Rate : 91 BPM Atrial Rate : 91 BPM P-R Int : 150 ms QRS Dur : 80 ms QT Int : 388 ms P-R-T Axes : 74 32 72 degrees QTcB Int : 477 ms Normal sinus rhythm Normal ECG When compared with ECG of 18-Aug-2024 07:21, No significant change was found Referred By: Adele Mariee Electronically Signed By: Mnoo Ortega
[2024-12-01 11:39] LABS: Troponin-I High Sensitivity < 2.7 ng/L (<3.5-17.0)
--- OUTSIDE RECORDS SUMMARY | 2024-12-01 11:41 | XMS_ITS | Clinical Summary ---
Author Organization [facility] ity Address [address] [place] [address] Care Team Providers Care Grounding Engineer Name Role Phone Unavailable Primary Care Provider [...]
--- OUTSIDE RECORDS SUMMARY | 2024-12-01 11:41 | XMS_ITS | Clinical Summary ---
Author Organization [facility] Address [address] [place] [address] Care Team Providers Care Business Editor Name Role Phone Estefani Luna PA-C Primary Care Provider [phone] Source Comments PLEASE NOTE, if this patient [...] % nasal sprayIndications :Nasal congestion Place 1 [place] into the nostril(s) as needed for congestion. [...] of pain. They will not follow at [facility], for us to follow and determine next line of treatment H/O electromyography. FEBRUARY 03 [facility]. Normal Bilat LE EMG 03/09/2015 Vitamin D insufficiency 11/25/2014 GERD (gastroesophageal reflux disease) 5 Positive LILLY (antinuclear antibody). [facility] la b. 2010 11/25/2014 DDD (degenerative disc disease), cervical 2014 Overview (11/25/2014): Xray 2006 at [facility] and then at [facility] February 2012: same, mild DDD Calcaneal spur. Lt foot. Xray 2006 11/25/2014 Headache 11/25/2014 Overview (11/25/2014): MRI at [facility] 2006 (report sent for scan) Ct head at [facility]: February 2012: No acute pathology H/O colonoscopy. [facility]. December 2005. Rec to repeat in 10ys. Due 2015. 11/25/2014 Breast mass, right. Phyllode s tu s/p resection Mar 2013. Dr Holder at [facility]. Last Mammo January 2014 Normal 11/19/2014 Overview (11/19/2014): S/p removal of Phyllodes Tu of rt breast: 03/2013 Dr Holder (surgeon) [facility] Breast S/P hemorrhoidectomy. [facility] 200511/19/2014 Sleep disturbance. Sleep issac dy performed at [facility] in 2009. No BOB. Seen by Neuro [facility]. Rec better sleep hygene. 11/19/2014 Overview (11/19/2014): Result type: Polysomnogram Study Result date: 16 May 2010 8:41 Result status: Auth (Verified) Result title: Polysomnogram Performed by: Asuncion Alexis MD on 16 May 2010 8:41 Encounter info: [id number], [facility], One Time OP, 05/07/2010 - 05/07/2010 Contributor system: [employer] * Final Report * Polysomnogram POLYSOMNOGRAM REPORT Ordering Physician: Linda Pruett M.D. Order ID: [id number] Date of Service: May 07, 2010 through [...] and active situations. Her score on the [place] Sleepiness Scale is 9 to 10. She [...] This overnight polysomnogram was done utilizing a [employer] digital polysomnograph machine. Four channels were devoted [...] was sustained fairly well. The technologist noted [id number] snoring at times. Review of samples of [...] sleep hygiene elements might be pertinent. DocID: [id number] Electronically verified by: Asuncion Alexis M.D. 05/17/2010 18:09 Asuncion Alexis M.D. A P DOC#: [id number] [facility]#: [id number] NAB cc: Linda Pruett M.D. [address] [facility] [address] Family History Medical History Relation Name Comments [...] Plan of Treatment Not on file Insurance [facility]) Member Subscriber Plan / Payer (Ef fective 2014-Present) Name:Rebecca Cole Relation to Subscriber:Self Name:Rebecca Cole Payer ID:[id number] Group ID:Not on file Type:Ry Address: [address] [place] [id number] Care Teams Business Editor Relationship Specialty Start Date End Date Estefani Luna PA-C [address] [place] [address] PCP - General 09/30/18
--- OUTSIDE RECORDS SUMMARY | 2024-12-01 11:41 | XMS_ITS | Patient Health Record ---
Author Organization [facility] Address [address] [address] Support Name Relationship Address Phone PAULETTE DOUGLAS Guarantor Unknown [phone] Reason For Referral No Information Plan Of Treatment No Information
[2024-12-01 11:55] VITALS: BP 145/64; PULSE 82; RESP 16; O2SAT 97
[2024-12-01] MEDS: Lidocaine HCl Viscous 2 % 15 ML SOLUTION MUCOUS MEM (11:59)
[2024-12-01] MEDS: Magnesium Hydrox/Alum Hydrox 30 ML ORAL.SUSP PO (11:59)
[2024-12-01 12:06] LABS: Appearance Urine Clear; Color Urine Yellow; Glucose Urine UA Negative (Negative); Leukocyte Esterase Urine Negative (Negative); Nitrite Urine Negative (Negative); Specific Gravity - Urine <= 1.005 (1.005-1.025); Urine Blood Negative (Negative); Urine Ketones Negative (Negative); Urine Protein Negative (Neg-Trace)
[2024-12-01 12:26] LABS: Bacteria Urine None Seen (None Seen); Hyaline Casts Urine 0-2 /LPF (0-2); RBC Urine 0-2 /HPF (0-2); Squamous Epithelial Cell Urine 0-2 /HPF (0-2); WBC Urine 0-5 /HPF (0-5)
[2024-12-01] MEDS: iohexoL 350 MG/ML 100 ML INFUS..BTL IV (12:34)
[2024-12-01 14:55] VITALS: BP 137/79; PULSE 76; RESP 16; O2SAT 97
[2024-12-01 15:27] VITALS: BP 137/79; PULSE 76; RESP 16; TEMP -17.7; TEMP 0; O2SAT 97
== END 2024-12-01 15:27 | disposition home or self-care (01) ==
PROVIDERS: Physician Assistant Medical; Emergency Provider Emergency Medicine; PCP Internal Medicine
DX: R10.12 Left upper quadrant pain (principal); R10.32 Left lower quadrant pain; M35.00 Sjogren syndrome, unspecified
CPT/HCPCS: 36415; 74177; 80053; 81001; 83690; 84484; 85025; 93005; 99284; 99285; Q9967

== ENCOUNTER → 2024-12-01 11:04 | Outpatient (BNV) | payer OTHER, SELFPAY | PROVIDERS: Emergency Provider Emergency Medicine; PCP Internal Medicine; Visit Provider Internal Medicine Cardiovascular Disease | DX: R10.13 Epigastric pain (principal) | CPT/HCPCS: 93010 ==

== ENCOUNTER → 2024-12-01 11:19 | Outpatient (BNV) | payer OTHER, SELFPAY | PROVIDERS: Emergency Provider Emergency Medicine; PCP Internal Medicine; Visit Provider Radiology Diagnostic Radiology | DX: R10.9 Unspecified abdominal pain (principal) | CPT/HCPCS: 74177 ==

== ENCOUNTER 2024-12-04 10:08 | Outpatient (AMB) | payer OTHER, SELFPAY ==
--- NOTE | 2024-12-04 10:05 | A.OFFPC_ITS ---
Intake Visit Reasons: discuss referral/Needs to update PCP Allergies No Known Allergies Allergy (Verified 12/04/24 10:27) Medication List - Last Reconciled 12/04/24 by Helena Han MD acetaminophen 650 mg (2 x 325 mg) PO Q6H PRN 30 days acetaminophen-caffeine 500-65 mg 1 tab PO TID PRN cane As directed cholecalciferol (vitamin D3) (Vitamin D3) 25 mcg PO DAILY docosahexaenoic acid-epa 120-180 mg (Fish Oil) 1 cap PO DAILY magnesium citrate 100 mg PO DAILY peg 400-propylene glycol 0.4-0.3 % (Systane Gel) 1 drp ophthalmic (eye) Q4-6H PRN potassium gluconate 550 mg PO DAILY walker Folding front wheeled walker Tobacco use date assessed: 12/04/24 Dental Screening Dental Screen Date: 12/04/24 Did you have a dental visit in the last 12 months?: Yes Did you have a dental problem in the last 6 months where you did not have access to dental care?: No Was dental information given to patient?: Patient has dentist HPI discuss referral/Needs to update PCP HPI Details 64-year-old lady here today via teleheal th visit, accompanied by , complaining of frequent epigastric pain radiating down left lower abdomen, present now for the last week. She went to the ER and workup done there all came back negative including CAT scan of abdomen and pelvis. Patient states that venous worse later in the day and at bedtime, usually triggered with eating acidic foods. She has been taking omeprazole once a day at 40 mg per capsule which affords only temporary relief. She also has stopped taking NSAIDs. [facility] Medical History (Updated 12/04/24 @ 10:44 by Helena Han MD) Heartburn symptom Epigastric abdominal pain DJD (degenerative joint disease) History of blood transfusion Hepatic steatosis Hand numbness Arthritis Migraines Hx of migraines Allergic rhinitis Snores Chronic GERD Bilateral hip pain Degenerative joint disease of both hips TMJ arthropathy COVID-19 vaccine dose declined History of sleep study Long-term use of Plaquenil Difficulty sleeping Achilles tendinitis of left lower extremity Paresthesia and pain of extremity Fibromyalgia Sjogrens syndrome Surgical History History of lumpectomy of right breast Hx of hemorrhoidectomy Hx of colonoscopy History of cholecystectomy Family History Mother Arthritis Diabetes mellitus Hypertension Mental health disorder Father CKD (chronic kidney disease) Maternal Grandfather Mental health disorder Social History Household Members: Spouse Housing: House Are you a primary home child care provider to a significant other at home: No Do you presently have visiting nurse or other home services: No Alcohol intake: never Comment: in bathroom, aware of trip hazard Patient Tobacco Use Status: Never used Tobacco e-Cigarette/Vaping Use: Never Used Second Hand Smoke Exposure: No service: No Current occupational status: unemployed Cognitive needs: No Hearing needs: No Vision needs: Yes Questionnaire Thrive Questionnaire Date Thrive assessed: 08/24/24 BIANCA-7 AMB Questionnaire BIANCA-7 Date BIANCA - 7 assessed: 08/31/24 Source: Developed by Drs. Ronaldo Haynes, Deysi Lacey, Jerome Locke and colleagues, with an educational sarmad from [employer]. Review of Systems Const Denies anorexia, Denies fever(s), Denies poor appetite and Denies weakness ENT Denies dysphagia Card Reports no additional complaints Resp Reports no additional complaints GI Reports as per HPI, Denies melena, Denies hematochezia, Denies change in bowel habits, Denies dysphagia and Reports nausea Reports no additional complaints Neuro Denies weakness Physical exam (Primary Care) Tobacco/Smoking Status: Tobacco use Status Tobacco use date assessed 12/04/24 12/04/24 10:08 Patient Tobacco Use Status Never used Tobacco 12/04/24 10:08 e-Cigarette/Vaping Use Never Used 12/04/24 10:08 Thrive Assessment: Date of Thrive Assessment Date Thrive assessed 08/24/24 12/04/24 10:08 Telehealth Telehealth Telehealth Platform: [facility] Location of provider rendering services: practice address Location of patient: address on file Patient Identification confirmed using: Name, : Yes Telehealth method: video Patient verbally consented to treatment: Yes Patient verbally consented to billing insurance company: Yes Patient informed of any privacy concerns related to visit: Yes Minutes spent on Phone/Video with Pt.: 15 Coding Level of Care Code Tele Est Pt Level 4 (32463) Diagnoses Heartburn R12 Epigastric pain R10.13 Assessment & Plan Assessment & Plan (1) Heartburn: Code(s): R12 - Heartburn Category: Medical (2) Epigastric pain: Code(s): R10.13 - Epigastric pain Category: Medical Plan - Ordered upper GI series - prescription sent for omeprazole 40 mg per capsule to take once a day an hour before eating supper or before bedtime. - Advised to avoid triggers for heartburn such as anything acidic like tomatos, no greasy fried foods, avoid charrred grilled foods, avoid caffeine. Do not lie down right away after eating, - Referred to GI Clinic for further evaluation, and possible upper endoscopic evaluation. Patient advised to call us if after 10 days, she does not receive any appointment for her upper GI series or GI clinic appointment Orders: Orders [place] upper GI series 12/04/24 R10.13 - Epigastric pain, R12 - Heartburn Referrals Gastroenterology Referral R10.13 - Epigastric pain, R12 - Heartburn Medications: New omeprazole take 1 hour before supper or before bedtime 40 mg PO QPM 30 caps 4RF
--- OUTSIDE RECORDS SUMMARY | 2024-12-04 11:07 | XMS_ITS | Patient Health Record ---
Author Organization [facility] Address [address] [address] Support Name Relationship Address Phone PAULETTE DOUGLAS Guarantor Unknown [phone] Reason For Referral No Information Plan Of Treatment No Information
--- OUTSIDE RECORDS SUMMARY | 2024-12-04 11:07 | XMS_ITS | Clinical Summary ---
Author Organization [facility] Address [address] [place] [address] Care Team Providers Care Lap Cutter Name Role Phone Estefani Luna PA-C Primary Care Provider [phone] Source Comments PLEASE NOTE, if this patient [...] % nasal sprayIndications :Nasal congestion Place 1 [place] into the nostril(s) as needed for congestion. [...] of pain. They will not follow at [facility], for us to follow and determine next line of treatment H/O electromyography. FEBRUARY 03 [facility]. Normal Bilat LE EMG 03/09/2015 Vitamin D insufficiency 11/25/2014 GERD (gastroesophageal reflux disease) 5 Positive LILLY (antinuclear antibody). [facility] la b. 2010 11/25/2014 DDD (degenerative disc disease), cervical 2014 Overview (11/25/2014): Xray 2006 at [facility] and then at [facility] February 2012: same, mild DDD Calcaneal spur. Lt foot. Xray 2006 11/25/2014 Headache 11/25/2014 Overview (11/25/2014): MRI at [facility] 2006 (report sent for scan) Ct head at [facility]: February 2012: No acute pathology H/O colonoscopy. [facility]. December 2005. Rec to repeat in 10ys. Due 2015. 11/25/2014 Breast mass, right. Phyllode s tu s/p resection Mar 2013. Dr Holder at [facility]. Last Mammo January 2014 Normal 11/19/2014 Overview (11/19/2014): S/p removal of Phyllodes Tu of rt breast: 03/2013 Dr Holder (surgeon) [facility] Breast S/P hemorrhoidectomy. [facility] 200511/19/2014 Sleep disturbance. Sleep issac dy performed at [facility] in 2009. No BOB. Seen by Neuro [facility]. Rec better sleep hygene. 11/19/2014 Overview (11/19/2014): Result type: Polysomnogram Study Result date: 16 May 2010 8:41 Result status: Auth (Verified) Result title: Polysomnogram Performed by: Asuncion Alexis MD on 16 May 2010 8:41 Encounter info: [id number], [facility], One Time OP, 05/07/2010 - 05/07/2010 Contributor system: [employer] * Final Report * Polysomnogram POLYSOMNOGRAM REPORT Ordering Physician: Linda Pruett M.D. Order ID: [id number] Date of Service: May 07, 2010 through [...] and active situations. Her score on the [place] Sleepiness Scale is 9 to 10. She [...] This overnight polysomnogram was done utilizing a [employer] digital polysomnograph machine. Four channels were devoted [...] was sustained fairly well. The technologist noted [id number] snoring at times. Review of samples of [...] sleep hygiene elements might be pertinent. DocID: [id number] Electronically verified by: Asuncion Alexis M.D. 05/17/2010 18:09 Asuncion Alexis M.D. A P DOC#: [id number] [facility]#: [id number] NAB cc: Linda Pruett M.D. [address] [facility] [address] Family History Medical History Relation Name Comments [...] Plan of Treatment Not on file Insurance [facility] ([facility]) Member Subscriber Plan / Payer (Ef fective 2014-Present) Name:Rebecca Cole Relation to Subscriber:Self Name:Rebecca Cole Payer ID:[id number] Group ID:Not on file Type:Ry Address: [address] [place] [id number] Care Teams Lap Cutter Relationship Specialty Start Date End Date Estefani Luna PA-C [address] [place] [address] PCP - General 09/30/18
--- OUTSIDE RECORDS SUMMARY | 2024-12-04 11:07 | XMS_ITS | Clinical Summary ---
Author Organization [facility] ity Address [address] [place] [address] Care Team Providers Care Radiology Asst Name Role Phone Unavailable Primary Care Provider [...]
== END 2024-12-04 11:54 | disposition home or self-care (01) ==
LOC: HO.HMCC 10:08
PROVIDERS: PCP Internal Medicine; Visit Provider Internal Medicine
DX: R12 Heartburn (principal)

== ENCOUNTER → 2024-12-04 10:08 | Outpatient (BNVA) | payer OTHER, SELFPAY | PROVIDERS: PCP Internal Medicine; Visit Provider Internal Medicine ==

== ENCOUNTER 2024-12-16 11:22 | Outpatient (REF) | payer OTHER, SELFPAY ==
--- OUTSIDE RECORDS SUMMARY | 2024-12-16 12:23 | XMS_ITS | Clinical Summary ---
Author Organization [facility] ity Address [address] [place] [address] Care Team Providers Care Exhaust Tender Name Role Phone Unavailable Primary Care Provider [...]
--- OUTSIDE RECORDS SUMMARY | 2024-12-16 12:23 | XMS_ITS | Clinical Summary ---
Author Organization [facility] Address [address] [place] [address] Care Team Providers Care Camera Engineer Name Role Phone Estefani Luna PA-C Primary Care Provider [phone] Source Comments PLEASE NOTE, if this patient [...] % nasal sprayIndications :Nasal congestion Place 1 [place] into the nostril(s) as needed for congestion. [...] of pain. They will not follow at [facility], for us to follow and determine next line of treatment H/O electromyography. FEBRUARY 03 [facility]. Normal Bilat LE EMG 03/09/2015 Vitamin D insufficiency 11/25/2014 GERD (gastroesophageal reflux disease) 5 Positive LILLY (antinuclear antibody). [facility] la b. 2010 11/25/2014 DDD (degenerative disc disease), cervical 2014 Overview (11/25/2014): Xray 2006 at [facility] and then at [facility] February 2012: same, mild DDD Calcaneal spur. Lt foot. Xray 2006 11/25/2014 Headache 11/25/2014 Overview (11/25/2014): MRI at [facility] 2006 (report sent for scan) Ct head at [facility]: February 2012: No acute pathology H/O colonoscopy. [facility]. December 2005. Rec to repeat in 10ys. Due 2015. 11/25/2014 Breast mass, right. Phyllode s tu s/p resection Mar 2013. Dr Holder at [facility]. Last Mammo January 2014 Normal 11/19/2014 Overview (11/19/2014): S/p removal of Phyllodes Tu of rt breast: 03/2013 Dr Holder (surgeon) [facility] Breast S/P hemorrhoidectomy. [facility] 200511/19/2014 Sleep disturbance. Sleep issac dy performed at [facility] in 2009. No BOB. Seen by Neuro [facility]. Rec better sleep hygene. 11/19/2014 Overview (11/19/2014): Result type: Polysomnogram Study Result date: 16 May 2010 8:41 Result status: Auth (Verified) Result title: Polysomnogram Performed by: Asuncion Alexis MD on 16 May 2010 8:41 Encounter info: [id number], [facility], One Time OP, 05/07/2010 - 05/07/2010 Contributor system: [employer] * Final Report * Polysomnogram POLYSOMNOGRAM REPORT Ordering Physician: Linda Pruett M.D. Order ID: [id number] Date of Service: May 07, 2010 through [...] and active situations. Her score on the [place] Sleepiness Scale is 9 to 10. She [...] This overnight polysomnogram was done utilizing a [employer] digital polysomnograph machine. Four channels were devoted [...] was sustained fairly well. The technologist noted ifsl-bu-sildsupr snoring at times. Review of samples of [...] sleep hygiene elements might be pertinent. DocID: [id number] Electronically verified by: Asuncion Alexis M.D. 05/17/2010 18:09 Asuncion Alexis M.D. A P DOC#: [id number] [facility]#: [id number] NAB cc: Linda Pruett M.D. [address] [facility] [address] Family History Medical History Relation Name Comments [...] of Treatment Not on file Insurance [facility] ([facility]) Member Subscriber Plan / Payer (Ef fective 2014-Present) Name:Rebecca Cole Relation to Subscriber:Self Name:Rebecca Cole Payer ID:[id number] Group ID:Not on file Type:Ry Address: [address] [place] [id number] Care Teams Camera Engineer Relationship Specialty Start Date End Date Estefani Luna PA-C [address] [place] [address] PCP - General 09/30/18
--- OUTSIDE RECORDS SUMMARY | 2024-12-16 12:23 | XMS_ITS | Patient Health Record ---
Author Organization [facility] Address [address] [address] Support Name Relationship Address Phone PAULETTE DOUGLAS Guarantor Unknown [phone] Reason For Referral No Information Plan Of Treatment No Information
[2024-12-16 13:36] LABS: MANUAL DIFF FLAG NO
[2024-12-16 14:00] LABS: Basophils Percent Auto 0.9 % (0-2); Eosinophils Absolute Auto 0.2 X10*3/uL (0.0-0.4); Eosinophils Percent Auto 5.7 % (0-4); Hematocrit 41.9 % (37.0-47.0); Hemoglobin 13.5 g/dl (12.0-16.0); Imm Gran Abs Auto 0.01 X10*3/uL (0.00-0.03); Imm Gran Pct Auto 0.2 % (0.0-0.4); Lymphocytes Absolute Auto 1.1 X10*3/uL (1.2-4.9); Lymphocytes Percent Auto 26.7 % (20-40); Mean Corpuscular HGB Conc 32.2 g/dl (31.0-35.0); Mean Corpuscular Hemoglobin 28.4 pg (27.0-33.0); Mean Platelet Volume 10.2 fL (9.4-12.3); Monocytes Absolute Auto 0.4 X10*3/uL (0.1-1.2); Monocytes Percent Auto 8.7 % (2-11); Neutrophils Absolute Auto 2.4 x10*3/uL (2.0-8.3); Neutrophils Percent Auto 57.8 % (45-73); Platelet Count 231 X10*3/uL (160-400); Red Blood Count 4.76 X10*6/uL (4.20-5.50); Red Cell Distribution Width 13.5 % (11.0-16.0); White Blood Count 4.2 X10*3/uL (4.8-10.8)
[2024-12-16 14:02] LABS: Appearance Urine Turbid; Color Urine Dark Yellow; Glucose Urine UA Negative (Negative); Leukocyte Esterase Urine Negative (Negative); Nitrite Urine Negative (Negative); Specific Gravity - Urine >= 1.030 (1.005-1.025); Urine Blood Negative (Negative); Urine Ketones Trace mg/dL (Negative); Urine Protein Trace mg/dL (Neg-Trace)
[2024-12-16 14:09] LABS: Bacteria Urine None Seen (None Seen); RBC Urine 0-2 /HPF (0-2); Squamous Epithelial Cell Urine 0-2 /HPF (0-2); WBC Urine 0-5 /HPF (0-5)
[2024-12-16 14:38] LABS: Alanine Aminotransferase 40 U/L (0-31); Albumin Level 3.8 g/dL (3.5-5.0); Alkaline Phosphatase 89 U/L (39-117); Anion Gap 12 (12-20); Aspartate Amino Transferase 37 U/L (5-31); Bilirubin Total 0.4 mg/dL (0.0-1.0); Blood Urea Nitrogen 15 mg/dL (9-16); C Reactive Protein < 0.10 mg/dL (< or = 0.50); Calcium 9.5 mg/dL (8.4-10.2); Carbon Dioxide 25 mmol/L (22-29); Chloride 108 mmol/L (96-108); Estimated Glomerular Filt Rate > 60; Glucose Random 120 mg/dL (60-115); Potassium 3.7 mmol/L (3.3-5.1); Sodium 141 mmol/L (135-145); Total Protein 7.2 g/dL (6.5-8.0)
[2024-12-16 14:39] LABS: Erythrocyte Sedimentation Rate 12 MM/HR (0-20)
[2024-12-16 14:42] LABS: Creatinine Urine 302.36 mg/dL; Protein/Creatinine Ratio, Ur 0.06 (<0.2); Total Protein Urine Random 17 mg/dL (<12)
[2024-12-17 11:38] LABS: Complement C3 99 mg/dL (83-193)
[2024-12-17 20:48] LABS: Anti DNA DS Antibody 1 IU/mL; Antibody to SS-A Antigen 1.0 POS AI (<1.0 NEG); Antibody to SS-B Antigen <1.0 NEG AI (<1.0 NEG)
[2024-12-24 08:03] LABS: DNAds, Crithidia Antibody Positive (Negative)
[2024-12-24 08:33] LABS: DNAds, Crithidia Antibody 1:10 titer (<1:10)
== END 2024-12-16 11:23 | disposition home or self-care (01) ==
LOC: HO.HMGCLDS 11:22
PROVIDERS: PCP Internal Medicine; Visit Provider Student in an Organized Health Care Education/Training Program
DX: M32.9 Systemic lupus erythematosus, unspecified (principal)
CPT/HCPCS: 36415; 80053; 81001; 82570; 84156; 85025; 85652; 86140; 86160; 86225; 86235; 86255

== ENCOUNTER 2024-12-22 15:37 | Outpatient (AMB) | payer OTHER, SELFPAY ==
[2024-12-22 15:41] VITALS: BP 118/68; PULSE 84; O2SAT 96; BMI 29.5
--- NOTE | 2024-12-22 15:41 | A.OFFVIS_ITS ---
Vital Signs 12/22/24 15:41 Height 5 ft 4 in Weight 171 lb 11.841 oz BMI 29.5 BP 118/68 Blood Pressure Location Lt brachial Position Sitting Pulse 84 Pulse Source Pulse Oximeter Pulse Oximetry (%) 96 Oxygen Delivery Method Room Air Intake Visit Reasons: Sjogren's/SLE Intake Note: Patient presents for follow up on Sjogren's, FM, and lab review. Allergies No Known Allergies Allergy (Verified 12/22/24 15:50) Medication List - Last Reconciled 12/22/24 by Deonna Prado MD acetaminophen 650 mg (2 x 325 mg) PO Q6H PRN 30 days acetaminophen-caffeine 500-65 mg 1 tab PO TID PRN cane As directed cholecalciferol (vitamin D3) (Vitamin D3) 25 mcg PO DAILY docosahexaenoic acid-epa 120-180 mg (Fish Oil) 1 cap PO DAILY magnesium citrate 100 mg PO DAILY omeprazole 40 mg PO QPM peg 400-propylene glycol 0.4-0.3 % (Systane Gel) 1 drp ophthalmic (eye) Q4-6H PRN potassium gluconate 550 mg PO DAILY walker Folding front wheeled walker walker (Ultra-Light Rollator misc) use As directed HPI Comments Details: Patient is a 64-year-old female with GERD, allergic rhinitis, polyarticular osteoarthritis, fibromyalgia and SLE/Sjogren's syndrome here today for follow up Interval History: Patient last seen 06/24/[address] Mohan. At that time she was following up for her SLE/Sjogren's overlap. She was not on hydroxychloroquine at the time and was complaining of worsening right hip pain. She was evaluated by ortho and scheduled for a right hip replacement. There was no evidence of active disease at that time and so the plan was to monitor her off DMARDs. Patient had right hip replacement about 2 months ago. Doing well on recovering well. Continues to have widespread joint pain. 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 No change in her symptoms and so was monitored off medications Initial history: This is a 62-year-old female with a past medical history of Sjogren's and fibromyalgia who is here for evaluation. She she used to follow- up at [facility] but the linen controller over there left the practice. She was diagnosed with Sjogren and fibromyalgia about 2 years ago. She has dry eyes and dry mouth. She is on Restasis eyedrops as well as Plaquenil once daily. She is also on Cymbalta 20 mg daily for fibromyalgia. Patient continues to have diffuse pain, usually worse when it is colder or humid. Sicca symptoms are unchanged. Well controlled with eyedrops Current Rheumatology Medication(s): [facility] Medical History (Updated 12/22/24 @ 16:06 by Deonna Prado MD) Heartburn symptom Epigastric abdominal pain DJD (degenerative joint disease) History of blood transfusion Hepatic steatosis Hand numbness Arthritis Migraines Hx of migraines Allergic rhinitis Snores Chronic GERD Bilateral hip pain Degenerative joint disease of both hips TMJ arthropathy COVID-19 vaccine dose declined History of sleep study Long-term use of Plaquenil Difficulty sleeping Achilles tendinitis of left lower extremity Paresthesia and pain of extremity Fibromyalgia Sjogrens syndrome Surgical History History of lumpectomy of right breast Hx of hemorrhoidectomy Hx of colonoscopy History of cholecystectomy Family History Mother Arthritis Diabetes mellitus Hypertension Mental health disorder Father CKD (chronic kidney disease) Maternal Grandfather Mental health disorder Social History Household Members: Spouse Housing: House Are you a primary personal care home administrator to a significant other at home: No Do you presently have visiting nurse or other home services: No Alcohol intake: never Comment: in bathroom, aware of trip hazard Patient Tobacco Use Status: Never used Tobacco e-Cigarette/Vaping Use: Never Used Second Hand Smoke Exposure: No service: No Current occupational status: unemployed Cognitive needs: No Hearing needs: No Vision needs: Yes Review of Systems Const Details: Review of Systems Constitutional: Denies fever, chills, weight loss ENT: Denies vision changes, eye pain or eye redness, dental caries, dry mouth GI: Denies nausea, vomiting, diarrhea, abdominal pain, change in BM Pulm: Denies SOB, HAIRSTON, hemoptysis, wheezing Cards: Denies chest pain, palpitations Skin: Denies Raynaud's, rash, nail changes, photosensitivity, WARP TIER: Denies headaches, weakness, paresthesias, recurrent falls MSK: as per HPI All other systems reviewed and are unremarkable except noted above Physical Exam Vital Signs: Last Vital Signs Pulse 84 12/22/24 15:41 BP 118/68 12/22/24 15:41 Pulse Ox 96 12/22/24 15:41 Oxygen Delivery Method Room Air 12/22/24 15:41 BMI result Body Mass Index 29.5 Vital signs reviewed Physical Examination CONSTITUITIONAL Patient alert and cooperative. Well appearing and in no apparent painful distress HEENT Conjunctiva and sclera clear. ?Pupils equal round and reactive to light. ?No lymphadenopathy. ? CHEST/RESPIRATORY SYSTEM Normal respiratory effort and able to speak in complete sentences. ?Clear to auscultation bilaterally. ?No crackles, rales, rhonchi, wheezes heard. CARDIAC SYSTEM Regular rate and rhythm. ?S1 and S2 heard no murmurs. ?Radial pulses intact bilaterally MSK Hands: ?Able to make a fist. No synovitis noted to the MCPs, PIPs or DIPs. ?No tenderness to palpation of these joints. No deformities noted. ? Wrists: ?Full range of motion at the wrists without pain. ?No tenderness to palpation or synovitis noted to the wrists. Elbows: Full range of motion without pain. No tenderness, weakness, swelling, increased warmth or erythema. Shoulders: Full range of active range of motion without pain. No tenderness, weakness, swelling, increased warmth or erythema. Hips: Full range of motion without pain. Hip bursa: No tenderness to palpation Knees: ?Full range of motion. ?No tenderness, swelling, increased warmth or erythema.?No effusion or crepitations Ankles: Full range of motion. ?No tenderness, swelling, increased warmth or erythema.? Feet: ?Negative squeeze test. ?No tenderness to palpation or swelling of the MTPs. Tender points:?No tenderness to palpation of the bilateral trapezius, supraspinatus, greater trochanters, anterior costochondral junctions, bilateral gluteal areas, bilateral suboccipital muscle insertions SKIN Livedo reticularis noted to bilateral lower extremity Results Reviewed Results Reviewed: Laboratory Tests 12/16/24 11:26 WBC 4.2 L RBC 4.76 Hgb 13.5 Hct 41.9 Plt Count 231 ESR 12 Sodium 141 Potassium 3.7 Chloride 108 Carbon Dioxide 25 BUN 15 Creatinine 0.73 AST 37 H ALT 40 H C-Reactive Protein < 0.10 Immunology labs 12/16/24 11:26 Double Strand DNA Ab 1 Complement C3 99 Complement C4 15 Urine tests 12/16/24 11:26 Urine Protein Trace Urine Blood Negative Protein/Creatinin Ratio 0.06 Assessment & Plan Assessment & Plan (1) Sjogrens syndrome: Comment: Sjogren's/mild SLE diagnosed in 2019 with (+ve SSa + 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 No current signs of active disease on examination. Continue to monitor immunosuppression Plan - Continue to monitor off immunosuppression - RTC 1 year - Labs before visit: CBC, CMP, ESR, CRP, C3, C4, dsDNA, UA, UPC (2) Fibromyalgia: Code(s): M79.7 - Fibromyalgia Category: Medical Plan: #Fibromyalgia Discussed with patient about non pharmacological management of fibromyalgia and patient is agreeable to non pharmacological management. Does not want to do any pills. Encouraged movement and stretching Plan I spent 20 minutes reviewing the record and labs, taking a history, examining the patient, discussing the treatment plan, ordering diagnostic work up and d ocumenting in the medical record Orders: Orders Complement C3 1 Year - Sjogren syndrome with keratoconjunctivitis C Reactive Protein 1 Year - Sjogren syndrome with keratoconjunctivitis Erythrocyte Sedimentation Rate 1 Year - Sjogren syndrome with keratoconjunctivitis Protein Electrophoresis,Ran Ur 1 Year - Sjogren syndrome with keratoconjunctivitis Protein Electrophoresis, Serum 1 Year - Sjogren syndrome with keratoconjunctivitis Rheumatoid Factor 1 Year . - Sjogren syndrome with keratoconjunctivitis Anti DNA DS Antibody 1 Year . - Sjogren syndrome with keratoconjunctivitis Complement C4 1 Year . - Sjogren syndrome with keratoconjunctivitis Complete Blood Count Auto Diff 1 Year - Sjogren syndrome with keratoconjunctivitis Comprehensive Met. Panel 1 Year - Sjogren syndrome with keratoconjunctivitis UA w Microscopic 1 Year - Sjogren syndrome with keratoconjunctivitis Coding Level of Care Code Est Pt Level 3 (73558) Diagnoses Sjogren's syndrome with keratoconjunctivitis sicca Sjogren organ or system involvement: keratoconjunctivitis Fibromyalgia M79.7
--- OUTSIDE RECORDS SUMMARY | 2024-12-22 16:37 | XMS_ITS | Clinical Summary ---
Author Organization [facility] ity Address [address] [place] [address] Care Team Providers Care Chief Of Vital Statistics Name Role Phone Unavailable Primary Care Provider [...]
--- OUTSIDE RECORDS SUMMARY | 2024-12-22 16:37 | XMS_ITS | Patient Health Record ---
Author Organization [facility] Address [address] [address] Support Name Relationship Address Phone PAULETTE DOUGLAS Guarantor Unknown [phone] Reason For Referral No Information Plan Of Treatment No Information
--- OUTSIDE RECORDS SUMMARY | 2024-12-22 16:37 | XMS_ITS | Clinical Summary ---
Author Organization [facility] Address [address] [place] [address] Care Team Providers Care Dry House Worker Name Role Phone Estefani Luna PA-C Primary Care Provider Source Comments PLEASE NOTE, if this patient [...] % nasal sprayIndications :Nasal congestion Place 1 [place] into the nostril(s) as needed for congestion. [...] of pain. They will not follow at [facility], for us to follow and determine next line of treatment H/O electromyography. FEBRUARY 03 [facility]. Normal Bilat LE EMG 03/09/2015 Vitamin D insufficiency 11/25/2014 GERD (gastroesophageal reflux disease) 5 Positive LILLY (antinuclear antibody). [facility] la b. 2010 11/25/2014 DDD (degenerative disc disease), cervical 2014 Overview (11/25/2014): Xray 2006 at [facility] and then at [facility] February 2012: same, mild DDD Calcaneal spur. Lt foot. Xray 2006 11/25/2014 Headache 11/25/2014 Overview (11/25/2014): MRI at [facility] 2006 (report sent for scan) Ct head at [facility]: February 2012: No acute pathology H/O colonoscopy. [facility]. December 2005. Rec to repeat in 10ys. Due 2015. 11/25/2014 Breast mass, right. Phyllode s tu s/p resection Mar 2013. Dr Holder at [facility]. Last Mammo January 2014 Normal 11/19/2014 Overview (11/19/2014): S/p removal of Phyllodes Tu of rt breast: 03/2013 Dr Holder (surgeon) [facility] Breast S/P hemorrhoidectomy. [facility] 200511/19/2014 Sleep disturbance. Sleep issac dy performed at [facility] in 2009. No BOB. Seen by Neuro [facility]. Rec better sleep hygene. 11/19/2014 Overview (11/19/2014): Result type: Polysomnogram Study Result date: 16 May 2010 8:41 Result status: Auth (Verified) Result title: Polysomnogram Performed by: Asuncion Alexis MD on 16 May 2010 8:41 Encounter info: [id number], [facility], One Time OP, 05/07/2010 - 05/07/2010 Contributor system: Host Committee * Final Report * Polysomnogram POLYSOMNOGRAM REPORT Ordering Physician: Linda Pruett M.D. Order ID: [id number] Date of Service: May 07, 2010 through [...] and active situations. Her score on the [place] Sleepiness Scale is 9 to 10. She [...] This overnight polysomnogram was done utilizing a [employer] digital polysomnograph machine. Four channels were devoted [...] was sustained fairly well. The technologist noted [id number]-[id number] snoring at times. Review of samples of [...] sleep hygiene elements might be pertinent. DocID: [id number] Electronically verified by: Asuncion Alexis M.D. 05/17/2010 18:09 Asuncion Alexis M.D. A P DOC#: [id number] [facility]#: [id number] NAB cc: Linda Pruett M.D. [address] [facility] [address] Family History Medical History Relation Name Comments [...] Plan of Treatment Not on file Insurance [facility] Member Subscriber Plan / Payer (Ef fective 2014-Present) Name:Rebecca Cole Relation to Subscriber:Self Name:Rebecca Cole Payer ID:[id number] Group ID:Not on file Type:Ry Address: [address] [place] [id number] Care Teams Dry House Worker Relationship Specialty Start Date End Date Estefani Luna PA-C [address] [place] [address] PCP - General 09/30/18
== END 2024-12-22 16:31 | disposition home or self-care (01) ==
LOC: HO.RHE 15:38
PROVIDERS: PCP Internal Medicine; Visit Provider Student in an Organized Health Care Education/Training Program
DX: M35.01 Sjogren syndrome with keratoconjunctivitis (principal); M79.7 Fibromyalgia
CPT/HCPCS: 99213

== ENCOUNTER → 2024-12-22 15:37 | Outpatient (BNVA) | payer OTHER, SELFPAY | PROVIDERS: PCP Internal Medicine; Visit Provider Student in an Organized Health Care Education/Training Program | DX: M15.9 Polyosteoarthritis, unspecified (principal); M79.7 Fibromyalgia; M32.9 Systemic lupus erythematosus, unspecified; M35.01 Sjogren syndrome with keratoconjunctivitis | CPT/HCPCS: 99212 ==

== ENCOUNTER 2025-01-07 11:00 | Outpatient (RCR) | payer OTHER, SELFPAY ==
[2024-12-04 10:58] VITALS: BP 104/60; PULSE 69; O2SAT 98
--- NOTE | 2024-12-04 12:43 | MHC.PT.EP ---
[facility] [place] Office [place] Office [place] Office [address] Nico Gagnon [address] [phone] F: [phone] F: [phone] F: [phone] F: [phone] Physical Therapy Plan of Care Date of Evaluation: 12/04/24 Date of Surgery: Diagnosis: Z96.641 and Presence of right artificial hip joint s/p total right hip arthroplasty R AMADOR w/ NE 10/21/24. signed by Nelsy 11/16/24 Assessment: Pt is a RHD Uruguayan speaking 64 y/o female accompanied by spouse Andrei for PT eval today, s/p R posterior AMADOR 10/20/[address] Briseno following history of R hip pain for some time. Pt was not using AD prior to surgery. Pt had post op appt on 11/30/24. Post op course was D/C home same day from surgery> had home PT/OT until two weeks ago, 2x/weekly. Pt went to ER at [facility] on 12/01/24 due to c/o epigastroc pain was seen by PCP today telehealth and is being referred to GI. Pt also had venous doppler due to history of swelling R LE on 10/26/24. Pt was educated to go back to using the RW vs std cane due to reports of back pain, L LE pain, and poor gait mechanics. Pt was educated re: / posterior AMADOR precautions and was advised re: the benefits of icing her hip. More recently pt states she has not been icing her hip. Today she presents with incision healing well has 6 steri-strips remaining. Pt will be seen in PT twice a week x 6 weeks to address impairments, implement HEP, and restore functional mobility tolerance to resume PLOF. We discussed avoidance of using mechanical grocery cart and using a rolling cart to promote/support gentle walking to tolerance when>if she is ready to start ambulating in the community small amounts over time. PMH includes: Pt DJD (degenerative joint disease) History of blood transfusion Hepatic steatosis Hand numbness Arthritis Migraines Hx of migraines Allergic rhinitis Snores Chronic GERD Bilateral hip pain Degenerative joint disease of both hips TMJ arthropathy COVID-19 vaccine dose declined Heartburn symptom History of sleep study Long-term use of Plaquenil Difficulty sleeping Achilles tendinitis of left lower extremity Paresthesia and pain of extremity Fibromyalgia Sjogrens syndrome History of lumpectomy of right breast Hx of hemorrhoidectomy Hx of colonoscopy History of cholecystectomy Frequency and Duration: The patient will be seen 2x/week x 6 weeks Short Term Goals: 1. Initiate home self care for R AMADOR; demonstrate precautions 3:3 trials. 2. Demonstrate R Knee flexion AAROM to 120, IR: 65 AROM in supine today. 3. Initiate symmetrical weight bearing for functional transfers. IR: weight shifted off of R LE, poor tolerance for knee flexion in sitting. 4. Pt will demonstrate R hip abd strength 4/5. (IR 3/5). Manager Speech Goals: 1. Negotiate stairs reciprocally with good dynamic balance. (IR: step to pattern heavy reliance on UE support). 2. Pt will ambulate least restrictive AD for community distances. (IR: needs walker, poor endurance community distances) 3. Strength R hip abd 5/5. (IR: 3/5 R hip). 4. I HEP self care management for posterior AMADOR pre-cautions. 5. Centralize report of L LE radiating pain to height of L/S. (IR: Intermittent radiating pain down L LE since use of std cane in the past week). Treatment Plan: Modalities to reduce pain, spasms and effusion. Manual therapy to restore motion and function. Therapeutic exercise to improve strength and flexibility. Neuromuscular re-education for posture and balance. Therapeutic activities to return to functional activities of daily living. Electronically signed by: Sandra Her, PT, DPT Please sign and return to therapist. Thank you for your referral.
--- NOTE | 2025-01-07 12:04 | MHC.PT.OD ---
[facility] [place] Office [place] Office [place] Office [address] Nico Gagnon [address] [phone] F: [phone] F: [phone] F: [phone] F: [phone] Physical Therapy Daily Note Diagnosis: Z96.641 and Presence of right artificial hip joint s/p total right hip arthroplasty R AMADOR w/ NE 10/21/24. signed by Nelsy 11/16/24 Date of Surgery: Date of Evaluation: 12/04/24 Date of Treatment: 01/07/25 Treatments to Date: Cancellations to Date: No Shows to Date: Authorized Visits: 7 Insurance End Date: Precautions/ Contraindications:posterior R AMADOR 10/20/24 Dr. Briseno Subjective: Doing good. Pt states she is doing better overall. Pain Score and Location: 2 R hip Objective Flowsheet: Tests & Measures see eval Exercises Seat #19 seat reclined for stepper x five minutes for warm-up UE at #5 for movements. Step-up leading with R LE 4 inch step x 2 sets 10R; step up 6 inch x 2 sets 10R, step- down 4 inch x 2 sets 10R, step-down 6 inch x 2 set 10R, lateral step-down 4 inch x 2 sets 10R, lateral step up down from 6 inch x 2 sets 10R L>R and R>L seated ice to R hip x 10 minutes at end of session. Review of posterior AMADOR precautions as it relates to bed mobility and transfers. Education for hand placement/sequencing. Reinforced precautions, pt able to recall safety as it related to movement for bed mobility and transfers. Education for flexbar STM to lateral hip musculature; education for CFM to incision, positioned in SL for ice x 10 minutes. Reviewed stairs/sequencing, education, goals of PT moving ahead. Modalities Assessment: 01/07/25: Rebecca is doing well in regard to R AMADOR 10/20/24 recovery. Pt has been educated with HEP and notes compliance. She is no longer using the cane in the home. She continues to ice her R hip at night. She has been expressing some radicular sx L>R posterior thigh which presents itself when lying supine at night. She reports sx occur also with prolonged sitting. She has been educated in some gentle stabilization exercises to address. Anticipate transition to I HEP in a few weeks. She is starting to navigate stairs reciprocally at times. 01/04/25: Pt reports doing much better overall but new c/o burning in bilateral proximal posterior thigh at night when supine or sitting. Trial of prone lying over 2 pillow with ice and educated re: JUAREZ. Pt progressed in lumbar stabilization, fatigue and challenged with bridge. Pt educated in goal of centralization and progression of lower back>hip stab. Pt using std cane notes walking a lot of stairs over the weekend at [employer] [facility]. Pt relief with prone lying>JUAREZ with ice. 12/31/24: Pt expressing she is doing better overall with walking and activities. Pt presents with cane, notes has been going without the cane in the house at times. Pt to see Dr. Briseno early January. Standing air squats were added for HEP program today with good tolerance. 12/21/24; Pt presented to office with std cane. Today we progressed standing sit<>stand and standing hip abd standing exercise. Pt doing well overall. Positive response for stair negotiation. 12/15/24:Pt initiated in for bridge in hook-lying with good tolerance. Discussed benefit in progressing from rollator to cane when feeling good. Educated ongoing icing. 12/09/24: Pt presented to office with a rollator, was educated re: hand placement and sequencing as it related to functional transfers, required adjustment of the rollator walker. Pt was issued written HEP sheets including: AP, aarom heel slide in sitting/supine x 2 sets 5R, SAQ, posterior pelvic tilt, and icing for R hip. Five steri-strips remain in place over incision. Pt to see orthopedics on 01/11/25. Pt is a RHD Amharic speaking 64 y/o female accompanied by spouse Andrei for PT eval today, s/p R posterior AMADOR 10/20/[address] Briseno following history of R hip pain for some time. Pt was not using AD prior to surgery. Pt had post op appt on 11/30/24. Post op course was D/C home same day from surgery> had home PT/OT until two weeks ago, 2x/weekly. Pt went to ER at [facility] on 12/01/24 due to c/o epigastroc pain was seen by PCP today telehealth and is being referred to GI. Pt also had venous doppler due to history of swelling R LE on 10/26/24. Pt was educated to go back to using the RW vs std cane due to reports of back pain, L LE pain, and poor gait mechanics. Pt was educated re: 3/3 posterior AMADOR precautions and was advised re: the benefits of icing her hip. More recently pt states she has not been icing her hip. Today she presents with incision healing well has 6 steri-strips remaining. Pt will be seen in PT twice a week x 6 weeks to address impairments, implement HEP, and restore functional mobility tolerance to resume PLOF. We discussed avoidance of using mechanical grocery cart and using a rolling cart to promote/support gentle walking to tolerance when>if she is ready to start ambulating in the community small amounts over time. PMH includes: Pt DJD (degenerative joint disease) History of blood transfusion Hepatic steatosis Hand numbness Arthritis Migraines Hx of migraines Allergic rhinitis Snores Chronic GERD Bilateral hip pain Degenerative joint disease of both hips TMJ arthropathy COVID-19 vaccine dose declined Heartburn symptom History of sleep study Long-term use of Plaquenil Difficulty sleeping Achilles tendinitis of left lower extremity Paresthesia and pain of extremity Fibromyalgia Sjogrens syndrome History of lumpectomy of right breast Hx of hemorrhoidectomy Hx of colonoscopy History of cholecystectomy PT Plan: 2x/week posterior hip precautions, core and hip program with HEP education , gait training Short Term Goals: 1. Initiate home self care for R AMADOR; demonstrate precautions 3:3 trials. 2. Demonstrate R Knee flexion AAROM to 120, IR: 65 AROM in supine today. 3. Initiate symmetrical weight bearing for functional transfers. IR: weight shifted off of R LE, poor tolerance for knee flexion in sitting. 4. Pt will demonstrate R hip abd strength 4/5. (IR 3/5). Jail Goals: 1. Negotiate stairs reciprocally with good dynamic balance. (IR: step to pattern heavy reliance on UE support). 2. Pt will ambulate least restrictive AD for community distances. (IR: needs walker, poor endurance community distances) 3. Strength R hip abd 5/5. (IR: 3/5 R hip). 4. I HEP self care management for posterior AMADOR pre-cautions. 5. Centralize report of L LE radiating pain to height of L/S. (IR: Intermittent radiating pain down L LE since use of std cane in the past week). Electronically signed by: Sandra Her, PT, DPT
== END 2025-02-23 07:27 | disposition home or self-care (01) ==
LOC: HO.PTS 11:00
PROVIDERS: Visit Provider Physician Assistant
DX: Z47.1 Aftercare following joint replacement surgery (principal); Z96.641 Presence of right artificial hip joint
CPT/HCPCS: 97110; 97116; 97140; 97161

== ENCOUNTER 2025-01-11 13:52 | Outpatient (AMB) | payer OTHER, SELFPAY ==
--- NOTE | 2025-01-11 14:26 | MHC.OFFVIS ---
Vital Signs 01/11/25 14:29 Height 5 ft 4 in Weight 171 lb BMI 29.3 Intake Visit Reasons: PO: R AMADOR w/NE 10/21/24-6WK f/U Intake Note: Rebecca is a 64 year old female who presents today for a post operative appointment about 3 moths s/p Right AMADOR 10/21/24. At her last visit she was referred for outpatient PT. States she is doing good. She is experiencing a burning sensation around her incision when sheets rub on her hip and also wants to know when to discontinue using pillow between her legs. Allergies No Known Allergies Allergy (Verified 01/11/25 14:28) HPI HPI PO: R AMADOR w/NE 10/21/24-6WK f/U: Details: Rebecca is a 64 year old female who presents today for a post operative appointment about 3 moths s/p Right AMADOR 10/21/24. At her last visit she was referred for outpatient PT. States she is doing good. She is experiencing a burning sensation around her incision when sheets rub on her hip and also wants to know when to discontinue using pillow between her legs. [facility] Medical History (Updated 12/22/24 @ 16:06 by Deonna Prado MD) Heartburn symptom Epigastric abdominal pain DJD (degenerative joint disease) History of blood transfusion Hepatic steatosis Hand numbness Arthritis Migraines Hx of migraines Allergic rhinitis Snores Chronic GERD Bilateral hip pain Degenerative joint disease of both hips TMJ arthropathy COVID-19 vaccine dose declined History of sleep study Long-term use of Plaquenil Difficulty sleeping Achilles tendinitis of left lower extremity Paresthesia and pain of extremity Fibromyalgia Sjogrens syndrome Surgical History History of lumpectomy of right breast Hx of hemorrhoidectomy Hx of colonoscopy History of cholecystectomy Family History Mother Arthritis Diabetes mellitus Hypertension Mental health disorder Father CKD (chronic kidney disease) Maternal Grandfather Mental health disorder Social History Household Members: Spouse Housing: House Are you a primary senior care provider to a significant other at home: No Do you presently have visiting nurse or other home services: No Alcohol intake: never Comment: in bathroom, aware of trip hazard Patient Tobacco Use Status: Never used Tobacco e-Cigarette/Vaping Use: Never Used Second Hand Smoke Exposure: No service: No Current occupational status: unemployed Cognitive needs: No Hearing needs: No Vision needs: Yes Physical Exam Vital Signs: BMI result Body Mass Index 29.3 Extrem Other: No hip pain with range of motion. Incision clean dry and intact. No gait antalgia. Assessment & Plan Assessment & Plan (1) S/P total right hip arthroplasty: Code(s): Z96.641 - Presence of right artificial hip joint Category: Surgical Plan: Status post right knee replacement. She complains of some burning in the low back and buttock region. It is not specifically around the incision per se. This is not getting worse. She feels like she is ready to go back to work in his doing well in many respects but this does continue to bother her. She has got no weakness and no complications with her hip replacement. She may follow up in 3 months to discuss again but I think she is doing well and continue PT and gait training. Coding Level of Care Code Global (97447) Diagnoses S/P total right hip arthroplasty Z96.641
[2025-01-11 14:29] VITALS: BMI 29.3
--- OUTSIDE RECORDS SUMMARY | 2025-01-11 15:45 | XMS_ITS | Clinical Summary ---
Author Organization [facility] ity Address [address] [place] [address] Care Team Providers Care Wiring Mechanic Name Role Phone Unavailable Primary Care Provider [...]
== END 2025-01-11 15:09 | disposition home or self-care (01) ==
LOC: HO.HOS 13:52
PROVIDERS: PCP Internal Medicine; Visit Provider Orthopaedic Surgery
DX: Z96.641 Presence of right artificial hip joint (principal)
CPT/HCPCS: 99024

== ENCOUNTER → 2025-01-11 13:52 | Outpatient (BNVA) | payer OTHER, SELFPAY | PROVIDERS: PCP Internal Medicine; Visit Provider Orthopaedic Surgery | DX: Z96.641 Presence of right artificial hip joint (principal) | CPT/HCPCS: 99212 ==

== ENCOUNTER 2025-03-12 15:25 | Outpatient (AMB) | payer OTHER, SELFPAY ==
--- OUTSIDE RECORDS SUMMARY | 2025-03-12 15:27 | XMS_ITS | Clinical Summary ---
Author Organization [facility] Address [address] [place] [address] Care Team Providers Care Contaminated Land Consultant Name Role Phone Estefani Luna PA-C Primary Care Provider [phone] Source Comments PLEASE NOTE, if this patient [...] % nasal sprayIndications :Nasal congestion Place 1 [place] into the nostril(s) as needed for congestion. [...] of pain. They will not follow at [facility], for us to follow and determine next line of treatment H/O electromyography. FEBRUARY 03 [facility]. Normal Bilat LE EMG 03/09/2015 Vitamin D insufficiency 11/25/2014 GERD (gastroesophageal reflux disease) 5 Positive LILLY (antinuclear antibody). [facility] la b. 2010 11/25/2014 DDD (degenerative disc disease), cervical 2014 Overview (11/25/2014): Xray 2006 at [facility] and then at [facility] February 2012: same, mild DDD Calcaneal spur. Lt foot. Xray 2006 11/25/2014 Headache 11/25/2014 Overview (11/25/2014): MRI at [facility] 2006 (report sent for scan) Ct head at [facility]: February 2012: No acute pathology H/O colonoscopy. [facility]. December 2005. Rec to repeat in 10ys. Due 2015. 11/25/2014 Breast mass, right. Phyllode s tu s/p resection Mar 2013. Dr Holder at [facility]. Last Mammo January 2014 Normal 11/19/2014 Overview (11/19/2014): S/p removal of Phyllodes Tu of rt breast: 03/2013 Dr Holder (surgeon) [facility] Breast S/P hemorrhoidectomy. [facility] 200511/19/2014 Sleep disturbance. Sleep issac dy performed at [facility] in 2009. No BOB. Seen by Neuro [facility]. Rec better sleep hygene. 11/19/2014 Overview (11/19/2014): Result type: Polysomnogram Study Result date: 16 May 2010 8:41 Result status: Auth (Verified) Result title: Polysomnogram Performed by: Asuncion Alexis MD on 16 May 2010 8:41 Encounter info: [id number], [facility], One Time OP, 05/07/2010 - 05/07/2010 Contributor system: [employer] * Final Report * Polysomnogram POLYSOMNOGRAM REPORT Ordering Physician: Linda Pruett M.D. Order ID: [id number] Date of Service: May 07, 2010 through [...] and active situations. Her score on the [place] Sleepiness Scale is 9 to 10. She [...] This overnight polysomnogram was done utilizing a [employer] digital polysomnograph machine. Four channels were devoted [...] was sustained fairly well. The technologist noted [id number] snoring at times. Review of samples of [...] sleep hygiene elements might be pertinent. DocID: [id number] Electronically verified by: Asuncion Alexis M.D. 05/17/2010 18:09 Asuncion Alexis M.D. A P DOC#: [id number] [facility]#: [id number] NAB cc: Linda Pruett M.D. [address] [facility] [address] Family History Medical History Relation Name Comments [...] 68 11/04/2015 8:54 AM EDT Temperature 36.8 C (98.3 F) 11/04/2015 8:54 AM EDT Respiratory Rate 14 11/04/2015 8:54 AM EDT Oxygen Saturation - - Inhaled Oxygen Concentration - - Weight 75.7 kg (166 lb 14.4 oz) 11/04/2015 8:54 AM EDT Height 166.4 cm (5' 5.5 ) 11/04/2015 8:54 AM EDT Body Mass Index 27.35 11/04/2015 8:54 AM EDT Plan of Treatment Not on file Insurance [facility] ([facility]) Member Subscriber Plan / Payer (Ef fective 2014-Present) Name:Rebecca Cole Relation to Subscriber:Self Name:Rebecca Cole Payer ID:[id number] Group ID:Not on file Type:[employer] Address: [address] [place] [id number] Care Teams Contaminated Land Consultant Relationship Specialty Start Date End Date Estefani Luna PA-C [address] [place] [address] PCP - General 09/30/18
--- OUTSIDE RECORDS SUMMARY | 2025-03-12 15:27 | XMS_ITS | Patient Health Record ---
Author Organization [facility] Address [address] [address] Support Name Relationship Address Phone PAULETTE DOUGLAS Guarantor Unknown [phone] Reason For Referral No Information Plan Of Treatment No Information
--- NOTE | 2025-03-12 15:28 | MHC.OFFVIS ---
Vital Signs 03/12/25 15:42 Height 5 ft 4 in Weight 170 lb BMI 29.2 BP 100/53 L Blood Pressure Location Lt brachial Position Sitting Pulse 75 Pulse Oximetry (%) 96 Oxygen Delivery Method Room Air Intake Visit Reasons: Epigastric Pain, Heartburn Intake Note: Patient new consult for Epigastric pain and heartburn. Patient cc: GERD at nighttime, bloating, a lot of burping in the afternoon, and constipation. Saas Architect Required: Yes Saas Architect Name: [facility] interpeter Accompanied by: Spouse Allergies No Known Allergies Allergy (Verified 03/12/25 15:27) Medication List - Last Reconciled 03/12/25 by Kezia Hassan CNP acetaminophen 650 mg (2 x 325 mg) PO Q6H PRN 30 days acetaminophen-caffeine 500-65 mg 1 tab PO TID PRN cane As directed cholecalciferol (vitamin D3) (Vitamin D3) 25 mcg PO DAILY docosahexaenoic acid-epa 120-180 mg (Fish Oil) 1 cap PO DAILY magnesium citrate 100 mg PO DAILY omeprazole 40 mg PO QPM peg 400-propylene glycol 0.4-0.3 % (Systane Gel) 1 drp ophthalmic (eye) Q4-6H PRN potassium gluconate 550 mg PO DAILY walker Folding front wheeled walker walker (Ultra-Light Rollator misc) use As directed HPI HPI Epigastric Pain, Heartburn: Details: Patient is a 64-year-old female with PMH of arthritis, migraines and DJD. Referred by PCP for further evaluation of GERD/epigastric pain Rebecca presents for evaluation of chronic epigastric pain and reflux symptoms. She is accompanied by her .She reports symptoms starting over ten years ago subsequent to a cholecystectomy. Pain is localized to the upper stomach, described as a gas-like pain, predominantly worse when lying down at night. Additionally, she experiences a persistent pyrosis without regurgitation of food or liquid. Symptom frequency is approximately every two weeks, prompting intermittent use of omeprazole, though adherence to regular daily dosing is inconsistent ( last use one week ago). She also reports longstanding constipation, with bowel movements at times delayed up to one week, managed with dietary adjustments including papaya and erica with onions. In the past, she experienced adverse effects, including dizziness, when prescribed medication for GI symptoms by another provider. Since undergoing a hip replacement in October 2024, she describes decreased appetite. She denies dysphagia, nausea, vomiting, blood in stools, or acute changes in bowel habits. Family history is notable for her mother having similar GI symptoms. Social hx: -denies ETOH use -denies recreational drug use - non-smoker - family hx as below -denies personal hx of CA -denies significant cardiopulmonary history -tolerated anesthesia in the past without difficulty. [facility] Medical History (Updated 03/12/25 @ 16:53 by Kezia Hassan CNP) Chronic constipation Heartburn symptom Epigastric abdominal pain DJD (degenerative joint disease) History of blood transfusion Hepatic steatosis Hand numbness Arthritis Migraines Hx of migraines Allergic rhinitis Snores Chronic GERD Bilateral hip pain Degenerative joint disease of both hips TMJ arthropathy COVID-19 vaccine dose declined History of sleep study Long-term use of Plaquenil Difficulty sleeping Achilles tendinitis of left lower extremity Paresthesia and pain of extremity Fibromyalgia Sjogrens syndrome Surgical History (Updated 03/12/25 @ 15:45 by Carli Sandoval) History of hip replacement History of lumpectomy of right breast Hx of hemorrhoidectomy Hx of colonoscopy History of cholecystectomy Family History Mother Arthritis Diabetes mellitus Hypertension Mental health disorder Father CKD (chronic kidney disease) Maternal Grandfather Mental health disorder Social History Household Members: Spouse Housing: House Are you a primary infant childcare provider to a significant other at home: No Do you presently have visiting nurse or other home services: No Alcohol intake: never Comment: in bathroom, aware of trip hazard Patient Tobacco Use Status: Never used Tobacco e-Cigarette/Vaping Use: Never Used Second Hand Smoke Exposure: No service: No Current occupational status: unemployed Cognitive needs: No Hearing needs: No Vision needs: Yes Review of Systems Const Reports as per HPI ENT Reports as per HPI Card Reports as per HPI Resp Reports as per HPI GI Reports as per HPI Reports as per HPI Physical Exam Vital Signs: Last Vital Signs Pulse 75 03/12/25 15:42 BP 100/53 L 03/12/25 15:42 Pulse Ox 96 03/12/25 15:42 Oxygen Delivery Method Room Air 03/12/25 15:42 BMI result Body Mass Index 29.2 Const General: healthy appearing, no acute distress and well developed Nutritional Appearance: average body habitus Orientation/consciousness: patient oriented x3 HEENT Head: Yes normal to inspection, Yes normocephalic and Yes atraumatic Face and sinus: Yes normal facial exam Eyes General: appearance normal, both eyes and all related structures Neck Neck: Yes normal visual inspection Resp Effort & Inspection: normal respiratory effort, able to speak in complete sentences, no tracheal deviation and symmetric chest movement Auscultation: clear to auscultation bilaterally Cardio Jugular venous distension: no JVD Rate: regular rate Rhythm: regular rhythm Heart sounds: S1 normal heart sound present, S2 normal heart sound present, no gallops and no murmurs GI Inspection: Yes normal to inspection, No distended and Yes striae Palpation (GI): Soft to palpation, not firm, nontender and No hepatosplenomegaly present Auscultation: normal bowel sounds Neuro General: patient oriented x3 Gait exam (Neuro): Normal gait present Psych Appearance: grossly normal Mental Status: mental status grossly normal Speech and movement: Normal speech and movement present Affect: normal affect Attitude: cooperative Thought process: Normal thought process present Thought content: Normal thought content present Insight: Good insight present (Psych) Judgement: Good judgement present (Psych) Results Reviewed Results Reviewed: Date of Service: 12/01/24 Procedure(s): CT abdomen pelvis w IV con EXAMINATION: CT ABDOMEN AND PELVIS WITH CONTRAST CLINICAL INFORMATION: Left lower quadrant abdominal pain. COMPARISON: None available. TECHNIQUE: Multidetector volumetric images were obtained from the superior aspect of the liver through the pubic symphysis following administration 85 mL of Omnipaque 350 intravenous contrast. Sagittal and coronal reformatted images were obtained on the technologist's workstation. Oral contrast: No This CT examination was performed using dose optimization techniques as appropriate, variously including the following: *Automated exposure control *Adjustment of mA and/or kV according to patient size (this includes techniques or standardized protocols for targeted exams where dose is matched to indication/reason for exam; i.e. extremities or head) *Use of iterative reconstruction technique FINDINGS: LUNG BASES: The visualized lung bases are unremarkable. LIVER, GALLBLADDER, AND BILIARY TREE: The liver is normal in size, shape, and attenuation. No focal hepatic lesion or biliary ductal dilatation is present. There has been a cholecystectomy. PANCREAS: Unremarkable. SPLEEN: Unremarkable. ADRENAL GLANDS: Unremarkable. KIDNEYS AND URETERS: The kidneys are normal in size, shape, and attenuation. No hydronephrosis, hydroureter, or calculi seen. No perinephric stranding. There is an 8 mm cyst arising from the right lateral mid kidney. There is minimal scarring in the dorsal inferior pole of the right kidney. BLADDER: Partially obscured by streak artifact from right hip prosthesis. Imaged aspects are normal. GASTROINTESTINAL TRACT: The small and large bowel are unremarkable. The appendix is unremarkable. ABDOMINAL WALL: No significant hernia is appreciated. LYMPH NODES: Normal. VASCULAR: Unremarkable. PELVIC VISCERA: The uterus and adnexa are unremarkable. OSSEOUS STRUCTURES: Total right hip arthroplasty without complication. No lytic or blastic bone lesion identified. Mild degenerative changes throughout the spine. CT/CT abdomen pelvis w IV con IMPRESSION: 1. No acute abnormality in the abdomen or pelvis. 2. See the body of the report for ancillary findings. Assessment & Plan Assessment & Plan (1) Chronic GERD: Code(s): K21.9 - Gastro-esophageal reflux disease without esophagitis Category: Medical Plan: Persistent symptoms with epigastric pain, intermittent response to omeprazole. Additional Testing: -H. pylori breath test (schedule post-discontinuation of omeprazole for total of 2 weeks). -Upper GI series scheduled for March 16, 2025. -Plan for future upper endoscopy for direct evaluation if indicated. Medication Management: -Omeprazole to be held for additional week for H. pylori testing. -Sucralfate 1g oral PRN prescribed for symptom relief during this testing window. Lifestyle Recommendations:Continue avoiding trigger foods, maintain small and frequent meals, take omeprazole daily on empty stomach when resumed. Follow-Up: Reassess in six weeks to review testing outcomes and evaluate next steps (e.g., treatment for H. pylori or further procedural intervention). (2) Chronic constipation: Code(s): K59.09 - Other constipation Category: Medical Plan: Long-standing history of delayed bowel movements, non-blood stools, and dietary management. Additional Testing: None required unless symptoms worsen. Medication Management: Patient declined pharmacologic intervention; prefers dietary adjustments. Lifestyle Recommendations: Maintain high-fiber diet and hydration. Reinforce intake of fruits, vegetables, legumes, and water. Follow-Up: Monitor symptoms at next visit in six weeks. Plan Follow up with nursing in 1-2 weeks for H. pylori testing. Follow-up in 6 weeks with provider or sooner as needed Time: I spent a total of 45 minutes on the date of encounter which includes: Preparing to see the patient (reviewed previous documentation, test results and medical history) Performing a medically appropriate exam and/or evaluation Ordering medications, tests, and procedures Documenting clinical information in the health record Orders: Orders H pylori Ag Stool Today K21.9 - Gastro-esophageal reflux disease without esophagitis, R10.13 - Epigastric pain Medications: New sucralfate Take on tablet two times daily as needed. Take an empty stomach. Avoid antacids within 30 minutes. 1 g PO BID 90 tabs 1RF Coding Level of Care Code New Pt New Pt Level 4 (48229) Patient Type New Diagnoses Chronic GERD K21.9 Chronic constipation K59.09
[2025-03-12 15:42] VITALS: BP 100/53; PULSE 75; O2SAT 96; BMI 29.2
== END 2025-03-12 16:12 | disposition home or self-care (01) ==
LOC: HO.HGI 15:25
PROVIDERS: PCP Internal Medicine; Visit Provider Nurse Practitioner Family
DX: K21.9 Gastro-esophageal reflux disease without esophagitis (principal); K59.09 Other constipation
CPT/HCPCS: 99204

== ENCOUNTER → 2025-03-12 15:25 | Outpatient (BNVA) | payer OTHER, SELFPAY | PROVIDERS: PCP Internal Medicine; Visit Provider Nurse Practitioner Family | DX: K21.9 Gastro-esophageal reflux disease without esophagitis (principal); K59.09 Other constipation; R10.13 Epigastric pain | CPT/HCPCS: 99202 ==

== ENCOUNTER 2025-03-16 08:50 | Outpatient (REF) | payer OTHER, SELFPAY ==
--- NOTE | ~2025-03-16 | FL_ITS ---
EXAMINATION: UPPER GI AIR CONTRAST SERIES CLINICAL INFORMATION: Epigastric pain COMPARISON: CT abdomen and pelvis with IV contrast 12/01/2024. TECHNIQUE: Routine upper GI air contrast study was performed in upright and lying position. FINDINGS: On oral administration of thick barium and effervescent granules there is normal propagation of bolus from the oral cavity through the pharynx, esophagus into stomach without any evidence of obstruction, narrowing or stricture. On placing patient supine and prone lying the course caliber and peristalsis of the stomach, duodenal bulb and this CT is normal. The mucosal pattern of the stomach and the duodenum is normal. There is moderate gastroesophageal reflux into upper mid esophagus without hiatal hernia. FLUOROSCOPY TIME: 1 minute 26 seconds DOSE AREA PRODUCT: 1429 uGy-m2 (microgray-meter squared) FL/FL upper GI series IMPRESSION: Moderate gastroesophageal reflux without hiatal hernia. Rest of the upper GI exam is unremarkable. Electronically signed by: Rob Rodrigues MD 03/16/2025 12:34 PM EDT
--- OUTSIDE RECORDS SUMMARY | 2025-03-16 09:10 | XMS_ITS | Patient Health Record ---
Author Organization [facility] Address [address] [address] Support Name Relationship Address Phone PAULETTE DOUGLAS Guarantor Unknown [phone] Reason For Referral No Information Plan Of Treatment No Information
--- OUTSIDE RECORDS SUMMARY | 2025-03-16 09:10 | XMS_ITS | Encounter Summary ---
Author Organization [facility] Address [address] [facility] [address] [place] [id number] Phone Care Team Providers Care Multimedia Producer Name Role Phone Helena Han MD Primary Care Provider Encounter Details Date Type Department Care Team (Late st Contact Info) Description 08/15/2020 Telephone [facility] [address] [place] [address] Sudhir Kahn MD [address] [facility] [[email or web address] [address] [place] [id number] [email or web address] Social History Tobacco Use Types Packs/Day Years Used Date Smoking Tobacco: Never Smokeless Tobacco: Never Alcohol Use Standard Drinks/Week Comments Not Currently 0 (1 standard drink = 0.6 oz pur e alcohol) Comments Unknown Sex and Gender Information Value Date Recorded Sex Assigned at Not on file Legal Sex Female 12:00 PM EDT Gender Identity Not on file Sexual Orientation Not on file documented as of this encounter Plan of Treatment Not on file documented as of this encounter Visit Diagnoses Diagnosis Neck pain- Primary Cervicalgia documented in this encounter Care Teams Multimedia Producer Relationship Specialty Start Date End Date Helena Han MD [address] [place] [address] PCP - General Internal Medicine 04/21/20 documented as of this encounter Additional Source Comments The information contained in this document represents components of the legal health record. It is not the complete legal health record.[facility]
--- OUTSIDE RECORDS SUMMARY | 2025-03-16 09:10 | XMS_ITS | Clinical Summary ---
Author Organization [facility] Address [address] [place] [address] Care Team Providers Care Tattooer Name Role Phone Estefani Luna PA-C Primary Care Provider [phone] Source Comments PLEASE NOTE, if this patient [...] % nasal sprayIndications :Nasal congestion Place 1 [place] into the nostril(s) as needed for congestion. [...] of pain. They will not follow at [facility], for us to follow and determine next line of treatment H/O electromyography. FEBRUARY 03 [facility]. Normal Bilat LE EMG 03/09/2015 Vitamin D insufficiency 11/25/2014 GERD (gastroesophageal reflux disease) 5 Positive LILLY (antinuclear antibody). [facility] la b. 2010 11/25/2014 DDD (degenerative disc disease), cervical 2014 Overview (11/25/2014): Xray 2006 at [facility] and then at [facility] February 2012: same, mild DDD Calcaneal spur. Lt foot. Xray 2006 11/25/2014 Headache 11/25/2014 Overview (11/25/2014): MRI at [facility] 2006 (report sent for scan) Ct head at [facility]: February 2012: No acute pathology H/O colonoscopy. [facility]. December 2005. Rec to repeat in 10ys. Due 2015. 11/25/2014 Breast mass, right. Phyllode s tu s/p resection Mar 2013. Dr Holder at [facility]. Last Mammo January 2014 Normal 11/19/2014 Overview (11/19/2014): S/p removal of Phyllodes Tu of rt breast: 03/2013 Dr Holder (surgeon) [facility] Breast S/P hemorrhoidectomy. [facility] 200511/19/2014 Sleep disturbance. Sleep issac dy performed at [facility] in 2009. No BOB. Seen by Neuro [facility]. Rec better sleep hygene. 11/19/2014 Overview (11/19/2014): Result type: Polysomnogram Study Result date: 16 May 2010 8:41 Result status: Auth (Verified) Result title: Polysomnogram Performed by: Asuncion Alexis MD on 16 May 2010 8:41 Encounter info: [id number], [facility], One Time OP, 05/07/2010 - 05/07/2010 Contributor system: [employer] * Final Report * Polysomnogram POLYSOMNOGRAM REPORT Ordering Physician: Linda Pruett M.D. Order ID: [id number] Date of Service: May 07, 2010 through [...] and active situations. Her score on the [place] Sleepiness Scale is 9 to 10. She [...] This overnight polysomnogram was done utilizing a [employer] digital polysomnograph machine. Four channels were devoted [...] was sustained fairly well. The technologist noted [id number] snoring at times. Review of samples of [...] sleep hygiene elements might be pertinent. DocID: [id number] Electronically verified by: Asuncion Alexis M.D. 05/17/2010 18:09 Asuncion Alexis M.D. A P DOC#: [id number] [facility]#: [id number] NAB cc: Linda Pruett M.D. [address] [facility] [address] Family History Medical History Relation Name Comments [...] Plan of Treatment Not on file Insurance [facility] ([facility]) Member Subscriber Plan / Payer (Ef fective 2014-Present) Name:Rebecca Cole Relation to Subscriber:Self Name:Rebecca Cole Payer ID:[id number] Group ID:Not on file Type:[employer] Address: [address] [place] [id number] Care Teams Tattooer Relationship Specialty Start Date End Date Estefani Luna PA-C [address] [place] [address] PCP - General 09/30/18
--- OUTSIDE RECORDS SUMMARY | 2025-03-16 09:10 | XMS_ITS | Clinical Summary ---
Author Organization [facility] ity Address [address] [place] [address] Care Team Providers Care Sales Vice President Name Role Phone Unavailable Primary Care Provider [...] Vaccine (1 - 2023-2 5 season) 2024 Depression Screening 08/05/2024 Influenza Vaccine (#1) 2025 RSV Immunization Adult Patie nts (1 [...]
== END 2025-03-16 08:51 | disposition home or self-care (01) ==
LOC: HO.XRAY 08:50
PROVIDERS: PCP Internal Medicine; Visit Provider Internal Medicine
DX: R10.13 Epigastric pain (principal)
CPT/HCPCS: 74240

== ENCOUNTER → 2025-03-16 08:53 | Outpatient (BNV) | payer OTHER, SELFPAY | PROVIDERS: PCP Internal Medicine; Visit Provider Radiology Diagnostic Radiology | DX: K21.9 Gastro-esophageal reflux disease without esophagitis (principal) | CPT/HCPCS: 74246 ==

== ENCOUNTER 2025-03-23 08:18 | Outpatient (REF) | payer OTHER, SELFPAY | END 2025-03-23 08:19 | disposition home or self-care (01) | LOC: HO.LNP 08:18 | PROVIDERS: PCP Internal Medicine; Visit Provider Nurse Practitioner Family | DX: K21.9 Gastro-esophageal reflux disease without esophagitis (principal); R10.13 Epigastric pain | CPT/HCPCS: 83013; 99211 ==

== ENCOUNTER 2025-03-23 08:18 | Outpatient (AMB) | payer OTHER, SELFPAY ==
--- NOTE | 2025-03-23 08:51 | AM.OFFVISNUR ---
Intake Visit Reasons: h pylori Intake Note: Patient presents for collection of?H Pylori?breath test. Patient has been fasting for 1 hour (nothing to eat, drink, no chewing gum or smoking) has not taken any antacid medication for at least 2 weeks and has no allergies to artificial sweeteners.?? Allergies No Known Allergies Allergy (Verified 03/12/25 15:27) Assessment & Plan Assessment & Plan (1) Chronic GERD: Code(s): K21.9 - Gastro-esophageal reflux disease without esophagitis Category: Medical (2) Epigastric abdominal pain: Code(s): R10.13 - Epigastric pain Category: Medical (3) Chronic constipation: Code(s): K59.09 - Other constipation Category: Medical Plan Patient presents for collection of?H Pylori?breath test. Patient has been fasting for 1 hour (nothing to eat, drink, no chewing gum or smoking) has not taken any antacid medication for at least 2 weeks and has no allergies to artificial sweeteners.???This test checks for an overgrowth of bacteria in your stomach. We all have bacteria but some may have more than others. It is treatable. if the test comes back negative there is nothing else to do. If the test result is positive we will treat you with 2 antibiotics and a medication to decrease the acid in your stomach (PPI) for 2 weeks. Two weeks after you have completed the treatment we will retest you to make sure the overgrowth has resolved. Patient Instructions: Process for specimen collection and reason for testing was explained to the patient. Specimen collection. Patient instructed to take a deep breath and then exhale into the blue bag, filling it up as much as possible. Patient instructed to drink a mixture of water and the artificial sweetener with a straw. A 15 minute wait period was observed. Patient instructed to take a deep breath and then exhale into the pink bag, filling it up as much as possible.?? Coding Level of Care Code Est Pt Level 1 (80659) Diagnoses Chronic GERD K21.9 Epigastric abdominal pain R10.13 Chronic constipation K59.09
--- OUTSIDE RECORDS SUMMARY | 2025-03-23 08:58 | XMS_ITS | Clinical Summary ---
Author Organization [facility] ity Address [address] [place] [address] Care Team Providers Care Percussion Instrument Tuner Name Role Phone Unavailable Primary Care Provider [...]
--- OUTSIDE RECORDS SUMMARY | 2025-03-23 08:58 | XMS_ITS | Encounter Summary ---
Author Organization [facility] Address [address] [facility] [address] [place] [address] Phone Care Team Providers Care Adjuster And Inspector Name Role Phone Helena Han MD Primary Care Provider Encounter Details Date Type Department Care Team (Late st Contact Info) Description 08/15/2020 Telephone [email or web address] [address] [place] [address] Sudhir Kahn MD [address] [facility] [address] [place] [phone] [email or web address] Social History Tobacco Use Types Packs/Day Years [...] Cervicalgia documented in this encounter Care Teams Adjuster And Inspector Relationship Specialty Start Date End Date Helena Han MD [address] [facility] [address] PCP - General Internal Medicine 04/21/20 documented as of this encounter Additional Source Comments The information contained in this document represents components of the legal health record. It is not the complete legal health record.[facility]
--- OUTSIDE RECORDS SUMMARY | 2025-03-23 08:59 | XMS_ITS | Clinical Summary ---
Author Organization [facility] Address [address] [place] [address] Care Team Providers Care Medical Records Technician Name Role Phone Estefani Luna PA-C Primary Care Provider [phone] Source Comments PLEASE NOTE, if this patient [...] % nasal sprayIndications :Nasal congestion Place 1 [place] into the nostril(s) as needed for congestion. [...] of pain. They will not follow at [facility], for us to follow and determine next line of treatment H/O electromyography. FEBRUARY 03 [facility]. Normal Bilat LE EMG 03/09/2015 Vitamin D insufficiency 11/25/2014 GERD (gastroesophageal reflux disease) 5 Positive LILLY (antinuclear antibody). [facility] la b. 2010 11/25/2014 DDD (degenerative disc disease), cervical 2014 Overview (11/25/2014): Xray 2006 at [facility] and then at [facility] February 2012: same, mild DDD Calcaneal spur. Lt foot. Xray 2006 11/25/2014 Headache 11/25/2014 Overview (11/25/2014): MRI at [facility] 2006 (report sent for scan) Ct head at [facility]: February 2012: No acute pathology H/O colonoscopy. [facility]. December 2005. Rec to repeat in 10ys. Due 2015. 11/25/2014 Breast mass, right. Phyllode s tu s/p resection Mar 2013. Dr Holder at [facility]. Last Mammo January 2014 Normal 11/19/2014 Overview (11/19/2014): S/p removal of Phyllodes Tu of rt breast: 03/2013 Dr Holder (surgeon) [facility] Breast S/P hemorrhoidectomy. [facility] 200511/19/2014 Sleep disturbance. Sleep issac dy performed at [facility] in 2009. No BOB. Seen by Neuro [facility]. Rec better sleep hygene. 11/19/2014 Overview (11/19/2014): Result type: Polysomnogram Study Result date: 16 May 2010 8:41 Result status: Auth (Verified) Result title: Polysomnogram Performed by: Asuncion Alexis MD on 16 May 2010 8:41 Encounter info: [id number], [facility], One Time OP, 05/07/2010 - 05/07/2010 Contributor system: [employer] * Final Report * Polysomnogram POLYSOMNOGRAM REPORT Ordering Physician: Linda Pruett M.D. Order ID: [id number] Date of Service: May 07, 2010 through [...] and active situations. Her score on the [place] Sleepiness Scale is 9 to 10. She [...] This overnight polysomnogram was done utilizing a [employer] digital polysomnograph machine. Four channels were devoted [...] was sustained fairly well. The technologist noted [id number] snoring at times. Review of samples of [...] sleep hygiene elements might be pertinent. DocID: [id number] Electronically verified by: Asuncion Alexis M.D. 05/17/2010 18:09 Asuncion Alexis M.D. A P DOC#: [id number] [facility]#: [id number] NAB cc: Linda Pruett M.D. [address] [facility] [address] Family History Medical History Relation Name Comments [...] Plan of Treatment Not on file Insurance [facility] ([facility]) Member Subscriber Plan / Payer (Ef fective 2014-Present) Name:Rebecca Cole Relation to Subscriber:Self Name:Rebecca Cole Payer ID:[id number] Group ID:Not on file Type:[employer]em[employer] Address: [address] [place] [id number] Care Teams Medical Records Technician Relationship Specialty Start Date End Date Estefani Luna PA-C [address] [place] [address] PCP - General 09/30/18
--- OUTSIDE RECORDS SUMMARY | 2025-03-23 08:59 | XMS_ITS | Patient Health Record ---
Author Organization [facility] Address [address] [address] Support Name Relationship Address Phone PAULETTE DOUGLAS Guarantor Unknown [phone] Reason For Referral No Information Plan Of Treatment No Information
== END 2025-03-23 08:52 | disposition home or self-care (01) ==
LOC: HO.HGI 08:19
PROVIDERS: PCP Internal Medicine; Visit Provider Nurse Practitioner Family
DX: K21.9 Gastro-esophageal reflux disease without esophagitis (principal); R10.13 Epigastric pain; K59.09 Other constipation

== ENCOUNTER 2025-04-15 14:25 | Outpatient (AMB) | payer OTHER, SELFPAY ==
[2025-04-15 14:27] VITALS: BMI 29.2
--- NOTE | 2025-04-15 14:27 | MHC.OFFVIS ---
Vital Signs 04/15/25 14:27 Height 5 ft 4 in Weight 170 lb BMI 29.2 Intake Visit Reasons: OV- R AMADOR w/NE 10/21/24-6WK f/U Intake Note: Rebecca is a 64 year old female who presents today for a follow up about 6 months s/p Right AMADOR 10/21/24. At her last visit she complains of low back and upper buttock pain - and wanted to return to work. Allergies No Known Allergies Allergy (Verified 03/12/25 15:27) HPI HPI OV- R AMADOR w/NE 10/21/24-6WK f/U: Details: Six months status post right hip replacement. She states she has some mild numbness in her contralateral buttock when she is sleeping at night. She also describes some burning. This is not getting worse and in fact seems to be getting better. She has no hip pain and walks normally. [facility] Medical History (Updated 03/12/25 @ 16:53 by Kezia Hassan CNP) Chronic constipation Heartburn symptom Epigastric abdominal pain DJD (degenerative joint disease) History of blood transfusion Hepatic steatosis Hand numbness Arthritis Migraines Hx of migraines Allergic rhinitis Snores Chronic GERD Bilateral hip pain Degenerative joint disease of both hips TMJ arthropathy COVID-19 vaccine dose declined History of sleep study Long-term use of Plaquenil Difficulty sleeping Achilles tendinitis of left lower extremity Paresthesia and pain of extremity Fibromyalgia Sjogrens syndrome Surgical History (Updated 03/12/25 @ 15:45 by Carli Sandoval) History of hip replacement History of lumpectomy of right breast Hx of hemorrhoidectomy Hx of colonoscopy History of cholecystectomy Family History Mother Arthritis Diabetes mellitus Hypertension Mental health disorder Father CKD (chronic kidney disease) Maternal Grandfather Mental health disorder Social History Household Members: Spouse Housing: House Are you a primary neonatal intensive care nurse to a significant other at home: No Do you presently have visiting nurse or other home services: No Alcohol intake: never Comment: in bathroom, aware of trip hazard Patient Tobacco Use Status: Never used Tobacco e-Cigarette/Vaping Use: Never Used Second Hand Smoke Exposure: No service: No Current occupational status: unemployed Cognitive needs: No Hearing needs: No Vision needs: Yes Physical Exam Vital Signs: BMI result Body Mass Index 29.2 Extrem Other: Normal gait and no pain with hip range of motion. Assessment & Plan Assessment & Plan (1) S/P total right hip arthroplasty: Code(s): Z96.641 - Presence of right artificial hip joint Category: Surgical Plan: Status post right hip replacement doing well. May follow up as needed. No additional intervention warranted. If her burning gets worse she will contact me and I will send her to pain management. Coding Level of Care Code Est Pt Level 3 (50162) Diagnoses S/P total right hip arthroplasty Z96.641
--- OUTSIDE RECORDS SUMMARY | 2025-04-15 18:10 | XMS_ITS | Clinical Summary ---
Author Organization [facility] Address [address] [facility] [address] [place] [address] Phone Care Team Providers Care Windows Server Support Technician Name Role Phone Helena Han MD Primary Care Provider Allergies No known active allergies Medications cholecalciferol (VITAMIN D3) 50,000 unit tablet Take by mouth once a week. Active cyclobenzaprine (FLEXERIL) 5 MG tablet Take 2 tablets (10 mg total) by mouth nightly at bedtime. 60 tablet 1 1 Active hydrOXYchloroQUINE (PLAQUENIL) 200 mg tablet TAKE 1 TABLET BY MOUTH EVERY DAY 30 tablet 2 1 Active celecoxib (CELEBREX) 100 MG capsuleIndications: Primary osteoarthritis involving multiple joints Take 1 capsule (100 mg total) by mouth 2 (two) times a day. 60 capsule 2 1 Active DULoxetine (CYMBALTA) 20 MG capsuleIndications: Fibromyalgia,Primar y osteoarthritis involving multiple joints Take 1 capsule (20 mg total) by mouth nightly at bedtime. 90 capsule 1 2 Active Active Problems Problem Noted Date Diagnosed Date Sjogren's syndrome with keratoconjunctivitis sic ca 05/12/2020 LILLY positive 05/12/2020 Heartburn 05/12/2020 Multiple joint pain 05/12/2020 Arthralgia of multiple joints 05/12/2020 Immunizations Immunization Administration Dates Next Due COVID-19 (Pre-05/27) Moderna Vaccine, mRNA, PF 0 12/07/2020,11/09/2020 Influenza Quadrivalent Preservative Free IM 06/06 Tdap 01/28/2017 Social History Tobacco Use Types Packs/Day Years Used Date Smoking Tobacco: Never Smokeless Tobacco: Never Alcohol Use Standard Drinks/Week Comments Not Currently 0 (1 standard drink = 0.6 oz pur e alcohol) Education Answer Date Recorded Are you interested in more education? Not on nazario e 11/30/2022 Are you concerned about learning? Not on file 11/30/2022 No 11/30/2022 No 11/30/2022 Digital Access Answer Date Recorded No 12/29/2022 No 12/29/2022 No 12/29/2022 Reliable internet access at home? Not on file 12/29/2022 Device with a working camera? Not on file Comments Unknown Sex and Gender Information Value Date Recorded Sex Assigned at Not on file Legal Sex Female 12:00 PM EDT Gender Identity Not on file Sexual Orientation Not on file Last Filed Vital Signs Vital Sign Reading Time Taken Comments Blood Pressure 140/88 01/16/2022 2:11 PM EDT Pulse 72 01/16/2022 2:11 PM EDT Temperature 36.4 C (97.6 F) 08/09/2020 3:24 PM EST Respiratory Rate 16 01/16/2022 2:11 PM EDT Oxygen Saturation 98% 01/16/2022 2:11 PM EDT Inhaled Oxygen Concentration - - Weight 75.8 kg (167 lb) 01/16/2022 2:11 PM EDT Height 162.6 cm (5' 4.02 ) 01/16/2022 2:11 PM ED T Body Mass Index 28.65 01/16/2022 2:11 PM EDT Plan of Treatment Health Maintenance Due Date Last Done Comments DEPRESSION SCREENING 1973 HEPATITIS C SCREENING 1979 HIV ONE-TIME SCREENING (18-6 5 YEARS) 1979 PAP SMEAR 1982 MAMMOGRAM 2001 COLOGUARD 2006 COLONOSCOPY 2006 COLORECTAL CANCER SCREENING 2006 FIT TEST 2006 FOBT 2006 SIGMOIDOSCOPY 2006 VIRTUAL COLONOSCOPY 2006 PNEUMOCOCCAL VACCINES (50+ years) (1 of 1 - PCV) 2011 LIPID PANEL 11/03/2020 11/04/2015 ZOSTER VACCINES (2 of 2) 11/25/2021 09/30/2021 INFLUENZA VACCINE (#1) 2025 06/25/2020 COVID-19 VACCINE (2024-2 6 season) 2025 07/24/2021, 12/07/2020, 11/09/2020 Adult Td,Tdap Booster 01/28/2027 01/28/2017 RSV VACCINE (1 - 1-dose 75+ series) 2036 SMOKING STATUS SCREENING (On ce After 26 Yrs) Completed 11/14/2020 HEPATITIS A VACCINES Aged Out No long er eligible based on patient's age to complete this topic HIB VACCINES Aged Out No longer eligi ble based on patient's age to complete this topic MENINGOCOCCAL VACCINES (ACWY) Aged Out No longer eligible based on patient's age to complete this topic MENINGOCOCCAL VACCINES (B) Aged Out N o longer eligible based on patient's age to complete this topic Medical Devices Not on file Insurance [address] [place], [place] [address] [place], [place] [address] [place] [address] [place] [address] [place] [address] [facility] Care Teams Windows Server Support Technician Relationship Specialty Start Date End Date Helena Han MD [address] [facility] [place] [address] PCP - General Internal Medicine 04/21/20 Additional Source Comments The information contained in this document represents components of the legal health record. It is not the complete legal health record.[facility]
--- OUTSIDE RECORDS SUMMARY | 2025-04-15 18:10 | XMS_ITS | Clinical Summary ---
Author Organization [facility] Address [address] [place] [address] Care Team Providers Care Ambulatory Analyst Name Role Phone Estefani Luna PA-C Primary Care Provider [phone] Source Comments PLEASE NOTE, if this patient [...] nasal sprayIndications :Nasal congestion Place 1 [place] into the nostril(s) as needed for congestion. [...] of pain. They will not follow at [facility], for us to follow and determine next line of treatment H/O electromyography. FEBRUARY 03 [facility]. Normal Bilat LE EMG 03/09/2015 Vitamin D insufficiency 11/25/2014 GERD (gastroesophageal reflux disease) 5 Positive LILLY (antinuclear antibody). [facility] la b. 2010 11/25/2014 DDD (degenerative disc disease), cervical 2014 Overview (11/25/2014): Xray 2006 at [facility] and then at [facility] February 2012: same, mild DDD Calcaneal spur. Lt foot. Xray 2006 11/25/2014 Headache 11/25/2014 Overview (11/25/2014): MRI at [facility] 2006 (report sent for scan) Ct head at [facility]: February 2012: No acute pathology H/O colonoscopy. [facility]. December 2005. Rec to repeat in 10ys. Due 2015. 11/25/2014 Breast mass, right. Phyllode s tu s/p resection Mar 2013. Dr Holder at [facility]. Last Mammo January 2014 Normal 11/19/2014 Overview (11/19/2014): S/p removal of Phyllodes Tu of rt breast: 03/2013 Dr Holder (surgeon) [facility] Breast S/P hemorrhoidectomy. [facility] 200511/19/2014 Sleep disturbance. Sleep issac dy performed at [facility] in 2009. No BOB. Seen by Neuro [facility]. Rec better sleep hygene. 11/19/2014 Overview (11/19/2014): Result type: Polysomnogram Study Result date: 16 May 2010 8:41 Result status: Auth (Verified) Result title: Polysomnogram Performed by: Asuncion Alexis MD on 16 May 2010 8:41 Encounter info: [id number], [facility], One Time OP, 05/07/2010 - 05/07/2010 Contributor system: [employer] * Final Report * Polysomnogram POLYSOMNOGRAM REPORT Ordering Physician: Linda Pruett M.D. Order ID: [id number] Date of Service: May 07, 2010 through [...] and active situations. Her score on the [place] Sleepiness Scale is 9 to 10. She [...] This overnight polysomnogram was done utilizing a [employer] digital polysomnograph machine. Four channels were devoted [...] was sustained fairly well. The technologist noted [id number] snoring at times. Review of samples of [...] sleep hygiene elements might be pertinent. DocID: [id number] Electronically verified by: Asuncion Alexis M.D. 05/17/2010 18:09 Asuncion Alexis M.D. A P DOC#: [id number] [facility]#: [id number] NAB cc: Linda Pruett M.D. [address] [facility] [address] Family History Medical History Relation Name Comments [...] on file Insurance [facility] ([facility]) Member Subscriber Plan / Payer (Ef fective 2014-Present) Name:Rebecca Cole Relation to Subscriber:Self Name:Rebecca Cole Payer ID:[id number] Group ID:Not on file Type:[employer] Address: [address] [place] [address] Care Teams Ambulatory Analyst Relationship Specialty Start Date End Date Estefani Luna PA-C [address] [place] [address] PCP - General 09/30/18
--- OUTSIDE RECORDS SUMMARY | 2025-04-15 18:10 | XMS_ITS | Patient Health Record ---
Author Organization [facility] Address [address] [address] Support Name Relationship Address Phone PAULETTE DOUGLAS Guarantor Unknown [phone] Reason For Referral No Information Plan Of Treatment No Information
--- OUTSIDE RECORDS SUMMARY | 2025-04-15 18:10 | XMS_ITS | Encounter Summary ---
Author Organization [facility] Address [address] [facility] [address] [place] [address] Phone Care Team Providers Care Line Maintenance Supervisor Name Role Phone Helena Han MD Primary Care Provider Encounter Details Date Type Department Care Team (Late st Contact Info) Description 08/15/2020 Telephone [facility] Rheumatology [address] [place] [address] Sudhir Kahn MD [address] [facility] [address] [place] [id number] [email or web address] Social History Tobacco Use Types Packs/Day Years [...] Cervicalgia documented in this encounter Care Teams Line Maintenance Supervisor Relationship Specialty Start Date End Date Helena Han MD [address] [facility] [place] [address] PCP - General Internal Medicine 04/21/20 documented as of this encounter Additional Source Comments The information contained in this document represents components of the legal health record. It is not the complete legal health record.[facility]
== END 2025-04-15 15:15 | disposition home or self-care (01) ==
LOC: HO.HOS 14:26
PROVIDERS: PCP Internal Medicine; Visit Provider Orthopaedic Surgery
DX: Z47.89 Encounter for other orthopedic aftercare (principal); Z96.641 Presence of right artificial hip joint
CPT/HCPCS: 99213

== ENCOUNTER → 2025-04-15 14:25 | Outpatient (BNVA) | payer OTHER, SELFPAY | PROVIDERS: PCP Internal Medicine; Visit Provider Orthopaedic Surgery | DX: Z47.1 Aftercare following joint replacement surgery (principal); Z96.641 Presence of right artificial hip joint | CPT/HCPCS: 99212 ==

== ENCOUNTER 2025-04-23 10:00 | Outpatient (AMB) | payer OTHER, SELFPAY ==
--- NOTE | 2025-04-23 10:13 | MHC.OFFVIS ---
Vital Signs 04/23/25 10:15 Height 5 ft 4 in Weight 166 lb BMI 28.5 BP 103/56 L Blood Pressure Location Lt brachial Position Sitting Pulse 82 Intake Visit Reasons: h pylori f/u Intake Note: Patient follow up for Chronic GERD and H pylori results no stool results. Patient cc: GERD at night time. Denies any other GI issues. Environmental Services Coordinator Required: Yes Environmental Services Coordinator Name: [facility] Interpeter Accompanied by: Self / Same As Patient Allergies No Known Allergies Allergy (Verified 04/23/25 10:13) HPI HPI h pylori f/u: Details: Patient is a 64-year-old citizen of [place] speaking female with PMH of arthritis, migraines and DJD. F/u for GERD; review of recent upper GI series and labs. She is accompanied by her . Pt reports decreased reflux sx, now milder and less frequent since discontinuing aspirin, which previously aggravated her stomach. Nausea and upper abdominal discomfort resolved after stopping aspirin and resuming omeprazole. Constipation remains mild and somewhat improved with continued OTC magnesium and dietary changes (increased fruit/fiber, hydration). No current blood in stool, N/V, or significant abd pain. Noted 4 lb unintentional wt loss in the past week, attributed to increased activity post-hip replacement; appetite decreased by choice and diminished hunger, but stable overall. No recent hospitalizations, UC visits, or flares reported. [facility] Medical History (Updated 04/23/25 @ 10:49 by Kezia Hassan CNP) Elevated LFTs Chronic constipation Heartburn symptom Epigastric abdominal pain DJD (degenerative joint disease) History of blood transfusion Hepatic steatosis Hand numbness Arthritis Migraines Hx of migraines Allergic rhinitis Snores Chronic GERD Bilateral hip pain Degenerative joint disease of both hips TMJ arthropathy COVID-19 vaccine dose declined History of sleep study Long-term use of Plaquenil Difficulty sleeping Achilles tendinitis of left lower extremity Paresthesia and pain of extremity Fibromyalgia Sjogrens syndrome Surgical History History of hip replacement History of lumpectomy of right breast Hx of hemorrhoidectomy Hx of colonoscopy History of cholecystectomy Family History Mother Arthritis Diabetes mellitus Hypertension Mental health disorder Father CKD (chronic kidney disease) Maternal Grandfather Mental health disorder Social History Household Members: Spouse Housing: House Are you a primary residential care facility manager to a significant other at home: No Do you presently have visiting nurse or other home services: No Alcohol intake: never Comment: in bathroom, aware of trip hazard Patient Tobacco Use Status: Never used Tobacco e-Cigarette/Vaping Use: Never Used Second Hand Smoke Exposure: No service: No Current occupational status: unemployed Cognitive needs: No Hearing needs: No Vision needs: Yes Review of Systems Const Reports as per HPI ENT Reports as per HPI Card Reports as per HPI Resp Reports as per HPI GI Reports as per HPI Reports as per HPI Physical Exam Const General: healthy appearing, no acute distress and well developed Nutritional Appearance: average body habitus Orientation/consciousness: patient oriented x3 HEENT Head: Yes normal to inspection, Yes normocephalic and Yes atraumatic Face and sinus: Yes normal facial exam Eyes General: appearance normal, both eyes and all related structures Neck Neck: Yes normal visual inspection Resp Effort & Inspection: normal respiratory effort, able to speak in complete sentences, no tracheal deviation and symmetric chest movement Cardio Jugular venous distension: no JVD Neuro General: patient oriented x3 Gait exam (Neuro): Normal gait present Psych Appearance: grossly normal Mental Status: mental status grossly normal Speech and movement: Normal speech and movement present Affect: normal affect Attitude: cooperative Thought process: Normal thought process present Thought content: Normal thought content present Insight: Good insight present (Psych) Judgement: Good judgement present (Psych) Results Reviewed Results Reviewed: Date of Service: 03/16/25 Procedure(s): FL upper GI w air Accession Number(s): [id number] cc: Helena Han MD~ Reason for Exam: R10.13 - Epigastric pain EXAMINATION: UPPER GI AIR CONTRAST SERIES CLINICAL INFORMATION: Epigastric pain COMPARISON: CT abdomen and pelvis with IV contrast 12/01/2024. TECHNIQUE: Routine upper GI air contrast study was performed in upright and lying position. FINDINGS: On oral administration of thick barium and effervescent granules there is normal propagation of bolus from the oral cavity through the pharynx, esophagus into stomach without any evidence of obstruction, narrowing or stricture. On placing patient supine and prone lying the course caliber and peristalsis of the stomach, duodenal bulb and this CT is normal. The mucosal pattern of the stomach and the duodenum is normal. There is moderate gastroesophageal reflux into upper mid esophagus without hiatal hernia. FLUOROSCOPY TIME: 1 minute 26 seconds DOSE AREA PRODUCT: 1429 uGy-m2 (microgray-meter squared) FL/FL upper GI w air IMPRESSION: Moderate gastroesophageal reflux without hiatal hernia. Rest of the upper GI exam is unremarkable. Date of Service: 12/01/24 EXAMINATION: CT ABDOMEN AND PELVIS WITH CONTRAST CLINICAL INFORMATION: Left lower quadrant abdominal pain. COMPARISON: None available. TECHNIQUE: Multidetector volumetric images were obtained from the superior aspect of the liver through the pubic symphysis following administration 85 mL of Omnipaque 350 intravenous contrast. Sagittal and coronal reformatted images were obtained on the technologist's workstation. Oral contrast: No This CT examination was performed using dose optimization techniques as appropriate, variously including the following: *Automated exposure control *Adjustment of mA and/or kV according to patient size (this includes techniques or standardized protocols for targeted exams where dose is matched to indication/reason for exam; i.e. extremities or head) *Use of iterative reconstruction technique FINDINGS: LUNG BASES: The visualized lung bases are unremarkable. LIVER, GALLBLADDER, AND BILIARY TREE: The liver is normal in size, shape, and attenuation. No focal hepatic lesion or biliary ductal dilatation is present. There has been a cholecystectomy. PANCREAS: Unremarkable. SPLEEN: Unremarkable. ADRENAL GLANDS: Unremarkable. KIDNEYS AND URETERS: The kidneys are normal in size, shape, and attenuation. No hydronephrosis, hydroureter, or calculi seen. No perinephric stranding. There is an 8 mm cyst arising from the right lateral mid kidney. There is minimal scarring in the dorsal inferior pole of the right kidney. BLADDER: Partially obscured by streak artifact from right hip prosthesis. Imaged aspects are normal. GASTROINTESTINAL TRACT: The small and large bowel are unremarkable. The appendix is unremarkable. ABDOMINAL WALL: No significant hernia is appreciated. LYMPH NODES: Normal. VASCULAR: Unremarkable. PELVIC VISCERA: The uterus and adnexa are unremarkable. OSSEOUS STRUCTURES: Total right hip arthroplasty without complication. No lytic or blastic bone lesion identified. Mild degenerative changes throughout the spine. CT/CT abdomen pelvis w IV con IMPRESSION: 1. No acute abnormality in the abdomen or pelvis. 2. See the body of the report for ancillary findings. Assessment & Plan Assessment & Plan (1) Chronic GERD: Code(s): K21.9 - Gastro-esophageal reflux disease without esophagitis Category: Medical Plan: Correlation of sx with aspirin and relief on omeprazole; imaging confirms GERD, no complicating factors on UGI series. Additional testing: None needed at present. Meds: Reinforce daily omeprazole 20 mg PO qAM (Pt was nonadherent; encouraged daily use for maximal benefit; reviewed risk/benefit of long-term PPI). Lifestyle: Continue dietary mods (avoid triggers, elevate HOB prn, avoid late evening eating); pt educated on fiber, hydration, and exercise. Referrals: None. F/u: Reassess in 8 wks or sooner for worsening sx. (2) Chronic constipation: Code(s): K59.09 - Other constipation Category: Medical Plan: Stable, mild improvement; bm q2?3d, no new/worsening sx. Rationale: Partial response to magnesium, high-fiber diet, hydration, physical activity. Additional testing: None indicated at present. Meds: Continue OTC magnesium as tolerated. She declines further pharmacologic intervention Lifestyle: Reinforce high fiber (fruits, veg, nuts, beans); maintain hydration, encourage regular activity. Referrals: None currently; prn if no improvement or alarm features develop. F/u: Monitor with next visit; earlier if new issues (pain, N/V, bleeding, severe constipation). (3) Elevated LFTs: Code(s): R79.89 - Other specified abnormal findings of blood chemistry Category: Medical Plan: Persistently mildly elevated; no clinical evidence liver dx on imaging or PE. Etiology unclear?likely NAFLD vs. non-fasting draw vs. comorbid autoimmune. Additional testing: Repeat fasting CMP, LFTs, lipid panel, DM screening, autoimmune panel (labs ordered; pt instructed on fasting draw). Meds: None specific. Lifestyle: Continue weight management, consider further diet/exercise if NAFLD confirmed. Referrals: As needed pending new labs. F/u: 8 wks; review labs, reassess need for further workup. 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 dry eyes on Restasis and dry mouth, arthralgias, fatigue) [id number] Code(s): M35.00 - Sjogren syndrome, unspecified Category: Medical Qualifiers: Sjogren organ or system involvement: keratoconjunctivitis Qualified Code(s): M35.01 - Sjogren syndrome with keratoconjunctivitis Plan: Could contribute to slight elevation in LFTs Established with Rheumatology Plan Follow-up in 8 weeks or sooner as needed Time: I spent a total of 40 minutes on the date of encounter which includes: Preparing to see the patient (reviewed previous documentation, test results and medical history) Performing a medically appropriate exam and/or evaluation Ordering medications, tests, and procedures Documenting clinical information in the health record Orders: Orders Mitochondrial Antibody Today R79.89 - Other specified abnormal findings of blood chemistry Comprehensive [place]. Panel Fast Today R79.89 - Other specified abnormal findings of blood chemistry Hemoglobin A1c Today R79.89 - Other specified abnormal findings of blood chemistry Ferritin Today R79.89 - Other specified abnormal findings of blood chemistry Smooth Muscle Antibody Today R79.89 - Other specified abnormal findings of blood chemistry Transglutaminase IgA Today R79.89 - Other specified abnormal findings of blood chemistry Hepatitis A IgM Today R79.89 - Other specified abnormal findings of blood chemistry Prothrombin Time INR Today R79.89 - Other specified abnormal findings of blood chemistry Lipase Today R79.89 - Other specified abnormal findings of blood chemistry Coding Level of Care Code Established Pt Est Pt Level 5 (22089) Patient Type Established Diagnoses Chronic GERD K21.9 Chronic constipation K59.09 Elevated LFTs R79.89 Sjogren's syndrome with keratoconjunctivitis sicca M35.01 Sjogren organ or system involvement: keratoconjunctivitis
[2025-04-23 10:15] VITALS: BP 103/56; PULSE 82; BMI 28.5
--- OUTSIDE RECORDS SUMMARY | 2025-04-23 10:34 | XMS_ITS | Clinical Summary ---
Author Organization [facility] ity Address [address] [place] [address] Care Team Providers Care Boiler/Chiller Operator Name Role Phone Unavailable Primary Care Provider [...] 2011 Zoster Vaccines (1 of 2) 2011 Depression Screening 08/05/2024 COVID-19 Vaccine (1 - 2023-2 5 season) 2025 Influenza Vaccine (#1) 2025 RSV Immunization Adult [...]
--- OUTSIDE RECORDS SUMMARY | 2025-04-23 10:34 | XMS_ITS | Clinical Summary ---
Author Organization [facility] Address [address] [facility] [place] [address] Phone Care Team Providers Care International Trade Compliance Manager Name Role Phone Helena Han MD Primary [...] Medical Devices Not on file Insurance [address] [place], [place] [address] [place], [place] [address] [place] [address] [address] [place] [address] [facility] Care Teams International Trade Compliance Manager Relationship Specialty Start Date End Date Helena Han MD [address] [place] [address] PCP - General Internal Medicine 04/21/20 Additional Source Comments The information contained in this document represents components of the legal health record. It is not the complete legal health record.[facility]
--- OUTSIDE RECORDS SUMMARY | 2025-04-23 10:34 | XMS_ITS | Encounter Summary ---
Author Organization [facility] Address [address] [facility] [address] [place] [address] Phone Care Team Providers Care Proof Sorter Name Role Phone Helena Han MD Primary Care Provider Encounter Details Date Type Department Care Team (Late st Contact Info) Description 08/15/2020 Telephone [facility] [facility] Rheumatology [address] [place] [address] Sudhir Kahn MD [address] [facility] [address] [place] [id number] [email or web address] Social History Tobacco Use Types [...] Cervicalgia documented in this encounter Care Teams Proof Sorter Relationship Specialty Start Date End Date Helena Han MD [address] [place] [address] PCP - General Internal Medicine 04/21/20 documented as of this encounter Additional Source Comments The information contained in this document represents components of the legal health record. It is not the complete legal health record.[facility]
--- OUTSIDE RECORDS SUMMARY | 2025-04-23 10:34 | XMS_ITS | Clinical Summary ---
Author Organization [facility] Address [address] [place] [address] Care Team Providers Care Plugman Name Role Phone Estefani Luna PA-C Primary Care Provider [phone] Source Comments PLEASE NOTE, if this patient [...] % nasal sprayIndications :Nasal congestion Place 1 [place] into the nostril(s) as needed for congestion. [...] of pain. They will not follow at [facility], for us to follow and determine next line of treatment H/O electromyography. FEBRUARY 03 [facility]. Normal Bilat LE EMG 03/09/2015 Vitamin D insufficiency 11/25/2014 GERD (gastroesophageal reflux disease) 5 Positive LILLY (antinuclear antibody). [facility] la b. 2010 11/25/2014 DDD (degenerative disc disease), cervical 2014 Overview (11/25/2014): Xray 2006 at [facility] and then at [facility] February 2012: same, mild DDD Calcaneal spur. Lt foot. Xray 2006 11/25/2014 Headache 11/25/2014 Overview (11/25/2014): MRI at [facility] 2006 (report sent for scan) Ct head at [facility]: February 2012: No acute pathology H/O colonoscopy. [facility]. December 2005. Rec to repeat in 10ys. Due 2015. 11/25/2014 Breast mass, right. Phyllode s tu s/p resection Mar 2013. Dr Holder at [facility]. Last Mammo January 2014 Normal 11/19/2014 Overview (11/19/2014): S/p removal of Phyllodes Tu of rt breast: 03/2013 Dr Holder (surgeon) [facility] Breast S/P hemorrhoidectomy. [facility] 200511/19/2014 Sleep disturbance. Sleep issac dy performed at [facility] in 2009. No BOB. Seen by Neuro [facility]. Rec better sleep hygene. 11/19/2014 Overview (11/19/2014): Result type: Polysomnogram Study Result date: 16 May 2010 8:41 Result status: Auth (Verified) Result title: Polysomnogram Performed by: Asuncion Alexis MD on 16 May 2010 8:41 Encounter info: [id number], [facility], One Time OP, 05/07/2010 - 05/07/2010 Contributor system: [employer] * Final Report * Polysomnogram POLYSOMNOGRAM REPORT Ordering Physician: Linda Pruett M.D. Order ID: [id number] Date of Service: May 07, 2010 through [...] and active situations. Her score on the [place] Sleepiness Scale is 9 to 10. She [...] This overnight polysomnogram was done utilizing a [employer] digital polysomnograph machine. Four channels were devoted [...] was sustained fairly well. The technologist noted [id number] snoring at times. Review of samples of [...] sleep hygiene elements might be pertinent. DocID: [id number] Electronically verified by: Asuncion Alexis M.D. 05/17/2010 18:09 Asuncion Alexis M.D. A P DOC#: [id number] [facility]#: [id number] NAB cc: Linda Pruett M.D. [address] [facility] [address] Family History Medical History Relation Name Comments [...] Treatment Not on file Insurance [facility] Member Subscriber Plan / Payer (Ef fective 2014-Present) Name:Rebecca Cole Relation to Subscriber:Self Name:Rebecca Cole Payer ID:[id number] Group ID:Not on file Type:Indemnikati Address: [address] [place] [id number] Care Teams Plugman Relationship Specialty Start Date End Date Estefani Luna PA-C [address] [place] [address] PCP - General 09/30/18
== END 2025-04-23 10:56 | disposition home or self-care (01) ==
LOC: HO.HGI 10:01
PROVIDERS: PCP Internal Medicine; Visit Provider Nurse Practitioner Family
DX: K21.9 Gastro-esophageal reflux disease without esophagitis (principal); K59.09 Other constipation; R74.01 Elevation of levels of liver transaminase levels; M35.01 Sjogren syndrome with keratoconjunctivitis
CPT/HCPCS: 99215

== ENCOUNTER → 2025-04-23 10:00 | Outpatient (BNVA) | payer OTHER, SELFPAY | PROVIDERS: PCP Internal Medicine; Visit Provider Nurse Practitioner Family | DX: K21.9 Gastro-esophageal reflux disease without esophagitis (principal); K59.09 Other constipation; R79.89 Other specified abnormal findings of blood chemistry; M35.01 Sjogren syndrome with keratoconjunctivitis | CPT/HCPCS: 99212 ==

== ENCOUNTER 2025-04-26 07:11 | Outpatient (REF) | payer OTHER, SELFPAY ==
--- OUTSIDE RECORDS SUMMARY | 2025-04-26 07:16 | XMS_ITS | Encounter Summary ---
Author Organization [facility] Address [address] [facility] [address] [place] [address] Phone Care Team Providers Care Jigman Name Role Phone Helena Han MD Primary Care Provider Encounter Details Date Type Department Care Team (Late st Contact Info) Description 08/15/2020 Telephone [employer] [facility] Rheumatology [address] [place] [address] Sudhir Kahn MD [address] [facility] [address] [place] [phone] [email or web address] Social History Tobacco Use Types Packs/Day Years [...] Cervicalgia documented in this encounter Care Teams Jigman Relationship Specialty Start Date End Date Helena Han MD [address] [facility] [place] [address] PCP - General Internal Medicine 04/21/20 documented as of this encounter Additional Source Comments The information contained in this document represents components of the legal health record. It is not the complete legal health record.[facility]
--- OUTSIDE RECORDS SUMMARY | 2025-04-26 07:16 | XMS_ITS | Clinical Summary ---
Author Organization [facility] Address [address] [facility] [address] [place] [address] Phone Care Team Providers Care Hemstitching Machine Operator Name Role Phone Helena Han MD Primary [...] Medical Devices Not on file Insurance [address] [place], [place] [address] [place], [place] [address] [place], [place] [address] [address] [place] [address] [facility] Care Teams Hemstitching Machine Operator Relationship Specialty Start Date End Date Helena Han MD [address] [place] [address] PCP - General Internal Medicine 04/21/20 Additional Source Comments The information contained in this document represents components of the legal health record. It is not the complete legal health record.[facility]
--- OUTSIDE RECORDS SUMMARY | 2025-04-26 07:16 | XMS_ITS | Patient Health Record ---
Author Organization [facility] Address [address] [address] Support Name Relationship Address Phone PAULETTE DOUGLAS Guarantor Unknown [phone] Reason For Referral No Information Plan Of Treatment No Information
--- OUTSIDE RECORDS SUMMARY | 2025-04-26 07:16 | XMS_ITS | Clinical Summary ---
Author Organization [facility] Address [address] [place] [address] Care Team Providers Care Hotbed Lever Operator Name Role Phone Estefani Luna PA-C Primary Care Provider [phone] Source Comments PLEASE NOTE, if this patient [...] % nasal sprayIndications :Nasal congestion Place 1 [place] into the nostril(s) as needed for congestion. [...] will not follow at [facility], for us to follow and determine next line of treatment H/O electromyography. FEBRUARY 03 [facility]. Normal Bilat LE EMG 03/09/2015 Vitamin D insufficiency 11/25/2014 GERD (gastroesophageal reflux disease) 5 Positive LILLY (antinuclear antibody). [facility] la b. 2010 11/25/2014 DDD (degenerative disc disease), cervical 2014 Overview (11/25/2014): Xray 2006 at [facility] and then at [facility] February 2012: same, mild DDD Calcaneal spur. Lt foot. Xray 2006 11/25/2014 Headache 11/25/2014 Overview (11/25/2014): MRI at [facility] 2006 (report sent for scan) Ct head at [facility]: February 2012: No acute pathology H/O colonoscopy. [facility]. December 2005. Rec to repeat in 10ys. Due 2015. 11/25/2014 Breast mass, right. Phyllode s tu s/p resection Mar 2013. Dr Holder at [facility]. Last Mammo January 2014 Normal 11/19/2014 Overview (11/19/2014): S/p removal of Phyllodes Tu of rt breast: 03/2013 Dr Holder (surgeon) [facility] Breast S/P hemorrhoidectomy. [facility] 200511/19/2014 Sleep disturbance. Sleep issac dy performed at [facility] in 2009. No BOB. Seen by Neuro [facility]. Rec better sleep hygene. 11/19/2014 Overview (11/19/2014): Result type: Polysomnogram Study Result date: 16 May 2010 8:41 Result status: Auth (Verified) Result title: Polysomnogram Performed by: Asuncion Alexis MD on 16 May 2010 8:41 Encounter info: [id number], [facility], One Time OP, 05/07/2010 - 05/07/2010 Contributor system: [employer] * Final Report * Polysomnogram POLYSOMNOGRAM REPORT Ordering Physician: Linda Pruett M.D. Order ID: [id number] Date of Service: May 07, 2010 through [...] and active situations. Her score on the [place] Sleepiness Scale is 9 to 10. [...] This overnight polysomnogram was done utilizing a [employer] digital polysomnograph machine. Four channels were devoted [...] was sustained fairly well. The technologist noted [id number] snoring at times. Review of samples of [...] sleep hygiene elements might be pertinent. DocID: [id number] Electronically verified by: Asuncion Alexis M.D. 05/17/2010 18:09 Asuncion Alexis M.D. A P DOC#: [id number] [facility]#: [id number] NAB cc: Linda Pruett M.D. [address] [facility] [address] Family History Medical History Relation Name Comments [...] of Treatment Not on file Insurance [facility]) Member Subscriber Plan / Payer (Ef fective 2014-Present) Name:Rebecca Cole Relation to Subscriber:Self Name:Rebecca Cole Payer ID:[id number] Group ID:Not on file Type:Indemnikati Address: [address] [place] [id number] Care Teams Hotbed Lever Operator Relationship Specialty Start Date End Date Estefani Luna PA-C [address] [place] [address] PCP - General 09/30/18
--- OUTSIDE RECORDS SUMMARY | 2025-04-26 07:16 | XMS_ITS | Clinical Summary ---
Author Organization [facility] ity Address [address] [place] [address] Care Team Providers Care Cold Roll Inspector Name Role Phone Unavailable Primary Care Provider [...]
[2025-04-26 10:33] LABS: INTERNATIONAL NORM RATIO 1.1 (0.9-1.1); Prothrombin Time 12.1 SEC (10.9-12.4)
[2025-04-26 10:41] LABS: Hemoglobin A1C 138.5378 umol/L; Total Hemoglobin (HGBA1C) 3637.6758 umol/L
[2025-04-26 11:04] LABS: Alanine Aminotransferase 34 U/L (0-31); Albumin Level 4.2 g/dL (3.5-5.0); Alkaline Phosphatase 91 U/L (39-117); Anion Gap 10 (12-20); Aspartate Amino Transferase 35 U/L (5-31); Blood Urea Nitrogen 14 mg/dL (9-16); Calcium 9.1 mg/dL (8.4-10.2); Carbon Dioxide 27 mmol/L (22-29); Chloride 108 mmol/L (96-108); Estimated Glomerular Filt Rate > 60; Lipase 34 U/L (8-78); Potassium 3.9 mmol/L (3.3-5.1); Sodium 141 mmol/L (135-145); Total Protein 7.6 g/dL (6.5-8.0)
[2025-04-26 11:05] LABS: Hepatitis A Antibody IgM 0.16 Index (0-0.79); ~Hepatitis A Antibody IgM Nonreactive (Nonreactive)
[2025-04-26 11:23] LABS: Ferritin 54 ng/mL (10-250)
== END 2025-04-26 07:12 | disposition home or self-care (01) ==
LOC: HO.HMGCLDS 07:11
PROVIDERS: PCP Internal Medicine; Visit Provider Nurse Practitioner Family
DX: Z01.84 Encounter for antibody response examination (principal); Z11.59 Encounter for screening for other viral diseases; R79.89 Other specified abnormal findings of blood chemistry
CPT/HCPCS: 36415; 80053; 82728; 83036; 83690; 85610; 86015; 86364; 86381; 86709

== ENCOUNTER 2025-05-11 11:49 | Outpatient (REF) | payer OTHER, SELFPAY ==
--- NOTE | ~2025-05-11 | US_ITS ---
EXAMINATION: US KIDNEY BILATERAL HISTORY: R31.29 - Other microscopic hematuria TECHNIQUE: Real-time grayscale ultrasound imaging of the kidneys was performed and images were reviewed. COMPARISON: Correlation is made with a CT of the abdomen with contrast dated 12/01/2024. FINDINGS: Right kidney: The right kidney measures 10.4 x 5.0 x 5.0 cm. Renal parenchymal echotexture and thickness are normal. There is a 10 x 6 x 8 mm upper pole cyst. There is no hydronephrosis or renal calculi. Left Kidney: The left kidney measures 11.4 x 5.9 x 5.4 cm. Renal parenchymal echotexture and thickness are normal. There are no masses. There is no hydronephrosis or renal calculi. US/US renal BI IMPRESSION: 10 mm right upper pole renal cyst. Otherwise unremarkable renal ultrasound. Electronically signed by: Ronaldo Dunaway MD 05/11/2025 12:17 PM EDT
--- OUTSIDE RECORDS SUMMARY | 2025-05-11 14:55 | XMS_ITS | Clinical Summary ---
Author Organization [facility] Address [address] [facility] [address] [place] [address] Phone Care Team Providers Care Application Trainer Name Role Phone Helena Han MD Primary [...] Medical Devices Not on file Insurance [address] [place], [place] [address] [place], [place] [address] [place], [place] [address] [place] [address] [place] [address] [facility] Care Teams Application Trainer Relationship Specialty Start Date End Date Helena Han MD 1960 [facility] [place] [address] PCP - General Internal Medicine 04/21/20 Additional Source Comments The information contained in this document represents components of the legal health record. It is not the complete legal health record.[facility]
--- OUTSIDE RECORDS SUMMARY | 2025-05-11 14:55 | XMS_ITS | Clinical Summary ---
Author Organization [facility] Address [address] [place] [address] Care Team Providers Care Helpdesk Analyst Name Role Phone Estefani Luna PA-C Primary Care Provider [phone] Source Comments PLEASE NOTE, if this patient [...] % nasal sprayIndications :Nasal congestion Place 1 [place] into the nostril(s) as needed for congestion. [...] of pain. They will not follow at [facility], for us to follow and determine next line of treatment H/O electromyography. FEBRUARY 03 [facility]. Normal Bilat LE EMG 03/09/2015 Vitamin D insufficiency 11/25/2014 GERD (gastroesophageal reflux disease) 5 Positive LILLY (antinuclear antibody). [facility] la b. 2010 11/25/2014 DDD (degenerative disc disease), cervical 2014 Overview (11/25/2014): Xray 2006 at [facility] and then at [facility] February 2012: same, mild DDD Calcaneal spur. Lt foot. Xray 2006 11/25/2014 Headache 11/25/2014 Overview (11/25/2014): MRI at [facility] 2006 (report sent for scan) Ct head at [facility]: February 2012: No acute pathology H/O colonoscopy. [facility]. December 2005. Rec to repeat in 10ys. Due 2015. 11/25/2014 Breast mass, right. Phyllode s tu s/p resection Mar 2013. Dr Holder at [facility]. Last Mammo January 2014 Normal 11/19/2014 Overview (11/19/2014): S/p removal of Phyllodes Tu of rt breast: 03/2013 Dr Holder (surgeon) [facility] Breast S/P hemorrhoidectomy. [facility] 200511/19/2014 Sleep disturbance. Sleep issac dy performed at [facility] in 2009. No BOB. Seen by Neuro [facility]. Rec better sleep hygene. 11/19/2014 Overview (11/19/2014): Result type: Polysomnogram Study Result date: 16 May 2010 8:41 Result status: Auth (Verified) Result title: Polysomnogram Performed by: Asuncion Alexis MD on 16 May 2010 8:41 Encounter info: [id number], [facility], One Time OP, 05/07/2010 - 05/07/2010 Contributor system: Cloudamize * Final Report * Polysomnogram POLYSOMNOGRAM REPORT Ordering Physician: Linda Pruett M.D. Order ID: [id number] Date of Service: May 07, 2010 through [...] and active situations. Her score on the [place] Sleepiness Scale is 9 to 10. She [...] This overnight polysomnogram was done utilizing a [employer] digital polysomnograph machine. Four channels were devoted [...] was sustained fairly well. The technologist noted [id number] snoring at times. Review of samples of [...] sleep hygiene elements might be pertinent. DocID: [id number] Electronically verified by: Asuncion Alexis M.D. 05/17/2010 18:09 Asuncion Alexis M.D. A P DOC#: [id number] [facility]#: [id number] NAB cc: Linda Pruett M.D. [address] [facility] [address] Family History Medical History Relation Name Comments [...] Plan of Treatment Not on file Insurance [facility] Member Subscriber Plan / Payer (Ef fective 2014-Present) Name:Rebecca Cole Relation to Subscriber:Self Name:Rebecca Cole Payer ID:[id number] Group ID:Not on file Type:[employer] Address: [address] [place] [address] Care Teams Helpdesk Analyst Relationship Specialty Start Date End Date Estefani Luna PA-C [address] [place] [address] PCP - General 09/30/18
--- OUTSIDE RECORDS SUMMARY | 2025-05-11 14:55 | XMS_ITS | Patient Health Record ---
Author Organization [facility] Address [address] [address] Support Name Relationship Address Phone PAULETTE DOUGLAS Guarantor Unknown [phone] Reason For Referral No Information Plan Of Treatment No Information
--- OUTSIDE RECORDS SUMMARY | 2025-05-11 14:55 | XMS_ITS | Encounter Summary ---
Author Organization [facility] Address [address] [facility] [address] [place] [address] Phone Care Team Providers Care Equipment Associate Name Role Phone Helena Han MD Primary Care Provider Encounter Details Date Type Department Care Team (Late st Contact Info) Description 08/15/2020 Telephone Finding Something 3 [facility] Rheumatology [address] [place] [address] Sudhir Kahn MD [address] [facility] [address] [place] [phone] [email or web address] Social History Tobacco Use Types [...] Cervicalgia documented in this encounter Care Teams Equipment Associate Relationship Specialty Start Date End Date Helena Han MD [address] [place] [address] PCP - General Internal Medicine 04/21/20 documented as of this encounter Additional Source Comments The information contained in this document represents components of the legal health record. It is not the complete legal health record.[facility]
--- OUTSIDE RECORDS SUMMARY | 2025-05-11 14:55 | XMS_ITS | Clinical Summary ---
Author Organization [facility] ity Address [address] [place] [address] Care Team Providers Care Laborer Electroplating Name Role Phone Unavailable Primary Care Provider [...]
== END 2025-05-11 11:50 | disposition home or self-care (01) ==
LOC: HO.US 11:49
PROVIDERS: PCP Internal Medicine; Visit Provider Urology
DX: R31.29 Other microscopic hematuria (principal); N28.1 Cyst of kidney, acquired
CPT/HCPCS: 76775

== ENCOUNTER → 2025-05-11 11:51 | Outpatient (BNV) | payer OTHER, SELFPAY | PROVIDERS: PCP Internal Medicine; Visit Provider Radiology Diagnostic Radiology | DX: N28.1 Cyst of kidney, acquired (principal) | CPT/HCPCS: 76775 ==

== ENCOUNTER 2025-05-12 08:25 | Outpatient (REF) | payer OTHER, SELFPAY | END 2025-05-12 08:26 | disposition home or self-care (01) | LOC: HO.LNP 08:25 | PROVIDERS: PCP Internal Medicine; Visit Provider Internal Medicine | DX: Z12.4 Encounter for screening for malignant neoplasm of cervix (principal); Z79.899 Other long term (current) drug therapy; Z00.01 Encounter for general adult medical examination with abnormal findings; Z13.820 Encounter for screening for osteoporosis; Z28.21 Immunization not carried out because of patient refusal; M79.7 Fibromyalgia; M16.0 Bilateral primary osteoarthritis of hip; K21.9 Gastro-esophageal reflux disease without esophagitis | CPT/HCPCS: 87626; 88175; 96127 ==

== ENCOUNTER 2025-05-12 08:25 | Outpatient (AMB) | payer OTHER, SELFPAY ==
[2025-05-12 08:41] VITALS: BP 104/70; PULSE 92; RESP 15; TEMP 36.8; O2SAT 95; BMI 29.3
--- NOTE | 2025-05-12 08:41 | A.OFFPC_ITS ---
Vital Signs 05/12/25 08:41 Height 5 ft 4 in Weight 171 lb BMI 29.3 BP 104/70 Blood Pressure Location Lt brachial Position Sitting Respiration 15 Pulse 92 Pulse Source Pulse Oximeter Temp 98.3 F Temp Source Oral Pulse Oximetry (%) 95 Oxygen Delivery Method Room Air Intake Visit Reasons: Annual PE Intake Note: Pt is here today for her PE: Last mammogram 10/07/23, papsmear 04/13/21, colonoscopy 01/26/16 Allergies No Known Allergies Allergy (Verified 05/12/25 09:02) Medication List - Last Reconciled 05/12/25 by Helena Han MD acetaminophen 650 mg (2 x 325 mg) PO Q6H PRN 30 days acetaminophen-caffeine 500-65 mg 1 tab PO TID PRN cane As directed cholecalciferol (vitamin D3) (Vitamin D3) 25 mcg PO DAILY docosahexaenoic acid-epa 120-180 mg (Fish Oil) 1 cap PO DAILY magnesium citrate 100 mg PO DAILY omeprazole 40 mg PO QPM peg 400-propylene glycol 0.4-0.3 % (Systane Gel) 1 drp ophthalmic (eye) Q4-6H PRN potassium gluconate 550 mg PO DAILY walker Folding front wheeled walker walker (Ultra-Light Rollator misc) use As directed Tobacco use date assessed: 05/12/25 Dental Screening Dental Screen Date: 05/12/25 Did you have a dental visit in the last 12 months?: Yes Did you have a dental problem in the last 6 months where you did not have access to dental care?: No Was dental information given to patient?: Patient has dentist HPI Annual PE HPI Details 64-year-old female with PMH of arthriti s, migraines, GERD, fibromyalgia, and DJD, here today for her physical exam. The patient has a history of gastroesophageal reflux disease, which has been managed with omeprazole taken as needed. She reports that the medication is effective in controlling her symptoms, which include heartburn and regurgitation, particularly after meals. The patient underwent a hip replacement, and she experiences occasional stiffness and pain, especially in cold weather. She takes Tylenol and uses a heating pad, which provide relief. The patient is postmenopausal and has not experienced any fractures. She is scheduled for a bone density scan to assess for osteoporosis. The patient has been diagnosed with cataracts, which are in the early stages and are being monitored. Preventative care measures include a mammogram last done 10/07/2023, Pap smear was done 04/13/2021, colonoscopy was done 01/26/2016. The patient is due for a mammogram and Pap smear, and she has scheduled a colonoscopy for the following year. [facility] Medical History (Updated 05/12/25 @ 09:26 by Helena Han MD) Elevated LFTs Chronic constipation Heartburn symptom Epigastric abdominal pain DJD (degenerative joint disease) History of blood transfusion Hepatic steatosis Hand numbness Arthritis Migraines Hx of migraines Allergic rhinitis Snores Chronic GERD Bilateral hip pain Degenerative joint disease of both hips TMJ arthropathy COVID-19 vaccine dose declined History of sleep study Long-term use of Plaquenil Difficulty sleeping Achilles tendinitis of left lower extremity Paresthesia and pain of extremity Fibromyalgia Sjogrens syndrome Surgical History History of hip replacement History of lumpectomy of right breast Hx of hemorrhoidectomy Hx of colonoscopy History of cholecystectomy Family History Mother Arthritis Diabetes mellitus Hypertension Mental health disorder Father CKD (chronic kidney disease) Maternal Grandfather Mental health disorder Social History Household Members: Spouse Housing: House Are you a primary acute care surgeon to a significant other at home: No Do you presently have visiting nurse or other home services: No Alcohol intake: never Comment: in bathroom, aware of trip hazard Patient Tobacco Use Status: Never used Tobacco e-Cigarette/Vaping Use: Never Used Second Hand Smoke Exposure: No service: No Current occupational status: unemployed Cognitive needs: No Hearing needs: No Vision needs: Yes Questionnaire PHQ-9 Over the last 2 weeks, how often have you been bothered by any of the following problems? 1. Little interest or pleasure in doing things: several days 2. Feeling down, depressed, or hopeless: not at all 3. Trouble falling or staying asleep, or sleeping too much: several days 4. Feeling tired or having little energy: several days 5. Poor appetite or overeating: not at all 6. Feeling bad about yourself - or that you are a failure or have let yourself or your family down: not at all 7. Trouble concentrating on things, such as reading the newspaper or watching television: not at all 8. Moving or speaking so slowly that other people could have noticed. Or the opposite - being so fidgety or restless that you have been moving around a lot more than usual: not at all 9. Thoughts that you would be better off or of hurting yourself in some way: not at all Total score: 3 Depression Screening Interpretation: Negative Depression Screening Done: Yes Source: Developed by Drs. Ronaldo Haynes, Deysi Lacey, Jerome Locke and colleagues, with an educational sarmad from [employer]. Thrive Questionnaire Date Thrive assessed: 08/24/24 I am a: Patient What is your living situation today?: I have a steady place to live Within the past 12 months, did the food you bought not last and you didn't have the money to get more?: I choose not to answer this question Within the past 12 months, did you worry whether your food would run out before you got money to buy more?: I choose not to answer this question Do you have trouble paying for medicines?: I choose not to answer this question Do you have trouble getting transportation to medical appointments?: No Do you have trouble paying your heating and electricity bill?: No Do you have trouble taking care of your child, family member or friend?: No Do you have trouble with day-to-day activities such as bathing, preparing meals, shopping, managing finances, etc.?: No Are you currently unemployed and looking for a job?: No Are you interested in more education?: No Please select the resources that you would like help with: None Currently or been in a relationship where the following occur: No concerns reported THRIVE Score: 0 AUDIT C Alcohol Use Questionnaire (AUDIT-C) 1. How often do you have a drink containing alcohol?: Never Total Score: 0 BIANCA-7 AMB Questionnaire BIANCA-7 Date BIANCA - 7 assessed: 08/31/24 Feeling nervous, anxious, or on edge: 0 = Not at all Not being able to stop or control worryin = Not at all Worrying too much about different things: 0 = Not at all Trouble relaxin = Not at all Being so restless that it is hard to sit still: 0 = Not at all Becoming easily annoyed or irritable: 0 = Not at all Feeling afraid as if something awful might happen: 0 = Not at all Total BIANCA-7 score (0-4 normal; 5-9 mild; 10-14 moderate; 15-21 severe): 0 Source: Developed by Drs. Ronaldo Haynes, Deysi Lacey, Jerome Locke and colleagues, with an educational sarmad from [employer]. Review of Systems Const Reports difficulty sleeping, Denies fever(s) and Denies weakness Eyes Reports no additional complaints ENT Reports no additional complaints Card Reports no additional complaints Resp Reports no additional complaints GI Denies melena, Denies hematochezia and Denies change in bowel habits Reports no additional complaints Musc Reports as per HPI Skin/Breast Denies breast pain, Denies breast mass and Denies rash Neuro Denies weakness Psych Reports no additional complaints Endo Reports no additional complaints Sushil/Lymph Reports no additional complaints Aller/Immun Reports no additional complaints Physical exam (Primary Care) Vital Signs: Last Vital Signs Temp 98.3 F 05/12/25 08:41 Pulse 92 05/12/25 08:41 Resp 15 05/12/25 08:41 BP 104/70 05/12/25 08:41 Pulse Ox 95 05/12/25 08:41 Oxygen Delivery Method Room Air 05/12/25 08:41 BMI result Body Mass Index 29.3 Tobacco/Smoking Status: Tobacco use Status Tobacco use date assessed 05/12/25 05/12/25 08:52 Patient Tobacco Use Status Never used Tobacco 05/12/25 08:52 e-Cigarette/Vaping Use Never Used 05/12/25 08:52 PHQ-9: PHQ-9 Score PHQ-9: Total score 6 05/12/25 09:00 Depression Screening Interpretation: Negative Thrive Assessment: Date of Thrive Assessment Date Thrive assessed 08/24/24 05/12/25 08:52 Currently or been in a relationship where the following occur: No concerns reported Const Other: Alert oriented x3, no acute distress noted ambulatory normal gait Orientation/consciousness: patient oriented x3 HENMT Head: Yes normocephalic Ears: external ears normal, TM's normal bilaterally and EAC's normal General nose exam: Normal external nose present Face and sinus: Yes face symmetric Mouth: Normal oral and palatal mucosa present and moist mucous membranes Eyes General: appearance normal, both eyes and all related structures Neck Neck: Yes full ROM, Yes no lymphadenopathy and Yes supple Chest Breast/axilla inspection: normal inspection of the breasts Breast/axilla palpation: normal palpation of the breasts Resp Auscultation: clear to auscultation bilaterally Cardio Rate: regular rate Rhythm: regular rhythm Heart sounds: S1 normal heart sound present and S2 normal heart sound present GI Palpation (GI): Soft to palpation, nontender and no guarding General: Yes bladder normal to inspection and Yes no CVA tenderness External Female Exam: normal external appearance and normal appearance of the urethra Speculum Exam - Vagina: normal palpation and vagina atrophic Speculum Exam - Cervix: normal palpation and nontender Bimanual exam- vagina & uterus: normal bimanual exam, normal palpation, normal palpation, No Cervical tenderness present and no cervical motion tenderness Bimanual Exam- Adnexa, other: no masses, normal, No adnexal tenderness, No cul-de-sac fullness and No cul-de-sac tenderness Back/Spine/Pelvis Other: Tenderness on palpation over mid back bilateral, full range of motion in lumbosacral spine, negative straight leg raising sign bilaterally Back: no CVA tenderness Skin General skin exam: no rashes or lesions noted Neuro General: patient oriented x3, tone normal, moves all extremities, Normal light touch and pain sensation and no focal motor deficits Extrem General: Yes full ROM, Yes no joint enlargement, Yes no clubbing, cyanosis or edema and Yes normal gait Psych Appearance: grossly normal Mental Status: mental status grossly normal Speech and movement: Normal speech and movement present Affect: normal affect Results Reviewed Results Reviewed: Name: Rebecca Cole Age/Sex: 64/F : 1960 Unit#: [id number] Attend Dr: Kezia Hassan CNP Re04/26/25 Status: DEP REF Location: [facility] Disch: SPEC : [id number] REYNOLD: 04/26/25 STATUS: COMP REQ : [id number] RECD: 04/26/25-[address]: Kezia Hassan CNP COMP: 04/26/25-1104 ENTERED: 04/26/25 [facility] DR: Heelna Han MD ORDERED: CMP Fast, Ferritin, Lip Test Result Flag Reference Sodium 141 135-145 mmol/L Potassium 3.9 3.3-5.1 mmol/L CL 108 96-108 mmol/L CO2 27 22-29 mmol/L Gap 10 L 12-20 BUN 14 9-16 mg/dL Creat 0.75 0.5-1.4 mg/dL eGFR > 60 Chronic Kidney Disease: Estimated GFR < 60 mL/min/1.73m2 Severe Kidney Disease: Estimated GFR < 15 mL/min/1.73m2 FBS 99 60-99 mg/dL CA 9.1 8.4-10.2 mg/dL Ferritin 54 10-250 ng/mL Total Bili 0.4 0.0-1.0 mg/dL AST (GOT) 35 H 5-31 U/L ALT (GPT) 34 H 0-31 U/L Protein, Total 7.6 6.5-8.0 g/dL Alb 4.2 3.5-5.0 g/dL Alk Phos 91 39-117 U/L Lipase 34 8-78 U/L Name: Rebecca Cole Age/Sex: 64/F : 1960 Unit#: [id number] Attend Dr: Andrew Mohan MD Re12/16/24 Status: DEP REF Location: [facility] Disch: SPEC : [id number] REYNOLD: 12/16/24 STATUS: COMP REQ : [id number] RECD: 12/16/[address] [facility] [address]: Andrew Mohan MD COMP: 12/16/24 ENTERED: 12/16/24 [facility] DR: Helena Han MD ORDERED: CBC Auto Diff Test Result Flag Reference WBC 4.2 L 4.8-10.8 X10*3/uL RBC 4.76 4.20-5.50 X10*6/uL HGB 13.5 12.0-16.0 g/dl HCT 41.9 37.0-47.0 % MCV 88.0 80.0-98.0 fL MCH 28.4 27.0-33.0 pg MCHC 32.2 31.0-35.0 g/dl RDW 13.5 11.0-16.0 % PLT 231 160-400 X10*3/uL MPV 10.2 9.4-12.3 fL Neut Pct Auto 57.8 45-73 % ImGran Pct Auto 0.2 0.0-0.4 % Lymp Pct Auto 26.7 20-40 % Hudspeth Pct Auto 8.7 2-11 % Eos Pct Auto 5.7 H 0-4 % Baso Pct Auto 0.9 0-2 % NRBC Pct Auto 0.0 0.0-0.2 /100WBC ANC Neut Abs # 2.4 2.0-8.3 x10*3/uL ImGran Abs Auto 0.01 0.00-0.03 X10*3/uL Lymph Abs Auto 1.1 L 1.2-4.9 X10*3/uL Hudspeth Abs Auto 0.4 0.1-1.2 X10*3/uL Eos Abs Auto 0.2 0.0-0.4 X10*3/uL Baso Abs Auto 0.0 0.0-0.2 X10*3/uL NRBC Abs Auto 0.000 0.0-0.012 X10*3/uL Coding Level of Care Code Est Pt Prev Care 40-64y(93117) Diagnoses Annual visit for general adult medical examination with abnormal findings Z00. Encounter for screening for osteoporosis Z13.820 Fibromyalgia M79.7 Degenerative joint disease of both hips M16.0 Chronic GERD K21.9 Cervical cancer screening Z12.4 Refused influenza vaccine Z28.21 Assessment & Plan Assessment & Plan (1) Annual visit for general adult medical examination with abnormal findings: Code(s): Z00.01 - Encounter for general adult medical examination with abnormal findings Plan: Will check appropriate labs. Recommended dental visit every 6 months and regular eye exams, at least every 2 years. Take adequate calcium in diet and vitamin-D 3 at 2000 IU per cap once a day, in addition to weight-bearing exercises to help maintain good muscle tone and weight control. Instructed to do self-breast exam, and recommended to get yearly mammogram, ordered today. Cancer screening and pelvic exam done today. Declined flu vaccine. Due for a repeat screening colonoscopy next year (2) Encounter for screening for osteoporosis: Code(s): Z13.820 - Encounter for screening for osteoporosis Plan: Bone density scan ordered, take adequate calcium from dietary sources and continue taking vitamin-D 3 supplements at least 1002 1000 units daily. Will check vitamin-D level (3) Fibromyalgia: Code(s): M79.7 - Fibromyalgia Category: Medical Plan: Followed by Rheumatology takes acetaminophen 650 mg as needed (4) Degenerative joint disease of both hips: Code(s): M16.0 - Bilateral primary osteoarthritis of hip Category: Medical Plan: Uses walker for aid in ambulation. Followed by Orthopedics (5) Chronic GERD: Code(s): K21.9 - Gastro-esophageal reflux disease without esophagitis Category: Medical Plan: Takes omeprazole as needed (6) Cervical cancer screening: Code(s): Z12.4 - Encounter for screening for malignant neoplasm of cervix Plan: Pap smear and pelvic exam done today (7) Refused influenza vaccine: Code(s): Z28.21 - Immunization not carried out because of patient refusal Plan: Patient declined flu shot Orders: Orders XR DEXA axial skeleton 05/12/25 Z12.31 - Encounter for screening mammogram for malignant neoplasm of breast, Z13.820 - Encounter for screening for osteoporosis, Z78.0 - Asymptomatic menopausal state MM tomosynthesis screening BI 05/12/25 Z12.31 - Encounter for screening mammogram for malignant neoplasm of breast, Z13.820 - Encounter for screening for osteoporosis, Z78.0 - Asymptomatic menopausal state Aspartate Amino Transferase 05/12/25 Z13.220 - Encounter for screening for lipoid disorders, Z78.0 - Asymptomatic menopausal state Pap Smear 05/12/25 Z12.4 - Encounter for screening for malignant neoplasm of cervix Lipid Panel 05/12/25 Z13.220 - Encounter for screening for lipoid disorders, Z78.0 - Asymptomatic menopausal state Alanine Aminotransferase 05/12/25 Z13.220 - Encounter for screening for lipoid disorders, Z78.0 - Asymptomatic menopausal state Vitamin D 25-OH Total 05/12/25 Z13.220 - Encounter for screening for lipoid disorders, Z78.0 - Asymptomatic menopausal state
== END 2025-05-12 10:21 | disposition home or self-care (01) ==
LOC: HO.HMCC 08:26
PROVIDERS: PCP Internal Medicine; Visit Provider Internal Medicine
DX: Z00.01 Encounter for general adult medical examination with abnormal findings (principal); Z13.820 Encounter for screening for osteoporosis; M79.7 Fibromyalgia; M16.0 Bilateral primary osteoarthritis of hip; K21.9 Gastro-esophageal reflux disease without esophagitis; Z12.4 Encounter for screening for malignant neoplasm of cervix; Z28.21 Immunization not carried out because of patient refusal

== ENCOUNTER 2025-05-18 07:16 | Outpatient (REF) | payer OTHER, SELFPAY ==
--- OUTSIDE RECORDS SUMMARY | 2025-05-18 07:19 | XMS_ITS | Encounter Summary ---
Author Organization [facility] Address [address] [facility] [address] [place] [address] Phone Care Team Providers Care Ready Mix Truck Driver Name Role Phone Helena Han MD Primary Care Provider Encounter Details Date Type Department Care Team (Late st Contact Info) Description 08/15/2020 Telephone [facility] Rheumatology [address] [place] [address] Sudhir Kahn MD [address] [facility] [address] [place] [phone] [email or web address] Tobacco Use Types Packs/Day Years [...] Cervicalgia documented in this encounter Care Teams Ready Mix Truck Driver Relationship Specialty Start Date End Date Helena Han MD [address] [place] [address] PCP - General Internal Medicine 04/21/20 documented as of this encounter Additional Source Comments The information contained in this document represents components of the legal health record. It is not the complete legal health record.[facility]
--- OUTSIDE RECORDS SUMMARY | 2025-05-18 07:19 | XMS_ITS | Clinical Summary ---
Author Organization [facility] ity Address [address] [place] [address] Care Team Providers Care Associate Faculty Name Role Phone Unavailable Primary Care Provider [...]
--- OUTSIDE RECORDS SUMMARY | 2025-05-18 07:19 | XMS_ITS | Clinical Summary ---
Author Organization [facility] Address [address] [facility] [address] [place] [address] Phone Care Team Providers Care Independent Jeweler Name Role Phone Helena Han MD Primary [...] Medical Devices Not on file Insurance [address] [place], [place] [address] [place] [address] [place] [address] [address] [place] [address] [facility] Care Teams Independent Jeweler Relationship Specialty Start Date End Date Helena Han MD [address] [place] [address] PCP - General Internal Medicine 04/21/20 Additional Source Comments The information contained in this document represents components of the legal health record. It is not the complete legal health record.[facility]
--- OUTSIDE RECORDS SUMMARY | 2025-05-18 07:19 | XMS_ITS | Patient Health Record ---
Author Organization [facility] Address [address] [address] Support Name Relationship Address Phone PAULETTE DOUGLAS Guarantor Unknown [phone] Reason For Referral No Information Plan Of Treatment No Information
--- OUTSIDE RECORDS SUMMARY | 2025-05-18 07:19 | XMS_ITS | Clinical Summary ---
Author Organization [facility] Address [address] [place] [address] Care Team Providers Care Composition Roofer Name Role Phone Estefani Luna PA-C Primary Care Provider [phone] Source Comments PLEASE NOTE, if this patient [...] % nasal sprayIndications :Nasal congestion Place 1 Kila into the nostril(s) as needed for congestion. [...] line of treatment H/O electromyography. FEBRUARY 03 [facility]. Normal Bilat LE EMG 03/09/2015 Vitamin D insufficiency 11/25/2014 GERD (gastroesophageal reflux disease) 5 Positive LILLY (antinuclear antibody). [facility] la b. 2010 11/25/2014 DDD (degenerative disc disease), cervical 2014 Overview (11/25/2014): Xray 2006 at [facility] and then at [facility] February 2012: same, mild DDD Calcaneal spur. Lt foot. Xray 2006 11/25/2014 Headache 11/25/2014 Overview (11/25/2014): MRI at [facility] 2006 (report sent for scan) Ct head at [facility]: February 2012: No acute pathology H/O colonoscopy. [facility]. December 2005. Rec to repeat in 10ys. Due 2015. 11/25/2014 Breast mass, right. Phyllode s tu s/p resection Mar 2013. Dr Holder at [facility]. Last Mammo January 2014 Normal 11/19/2014 Overview (11/19/2014): S/p removal of Phyllodes Tu of rt breast: 03/2013 Dr Holder (surgeon) [facility] Breast S/P hemorrhoidectomy. [facility] 200511/19/2014 Sleep disturbance. Sleep issac dy performed at [facility] in 2009. No BOB. Seen by Neuro [facility]. Rec better sleep hygene. 11/19/2014 Overview (11/19/2014): Result type: Polysomnogram Study Result date: 16 May 2010 8:41 Result status: Auth (Verified) Result title: Polysomnogram Performed by: Asuncion Alexis MD on 16 May 2010 8:41 Encounter info: [id number], [facility], One Time OP, 05/07/2010 - 05/07/2010 Contributor system: TransLattice * Final Report * Polysomnogram POLYSOMNOGRAM REPORT Ordering Physician: Linda Pruett M.D. Order ID: [id number] Date of Service: May 07, 2010 through [...] and active situations. Her score on the [place] Sleepiness Scale is 9 to 10. She [...] This overnight polysomnogram was done utilizing a [employer] digital polysomnograph machine. Four channels were devoted [...] was sustained fairly well. The technologist noted [id number] snoring at times. Review of samples of [...] sleep hygiene elements might be pertinent. DocID: [id number] Electronically verified by: Asuncion Alexis M.D. 05/17/2010 18:09 Asuncion Alexis M.D. A P DOC#: [id number] [facility]#: [id number] NAB cc: Linda Pruett M.D. [address] [facility] [address] Family History Medical History Relation Name Comments [...] Plan of Treatment Not on file Insurance [facility] ([facility]) Member Subscriber Plan / Payer (Ef fective 2014-Present) Name:Rebecca Cole Relation to Subscriber:Self Name:Rebecca Cole Payer ID:[id number] Group ID:Not on file Type:[employer]nik[employer] Address: [address] [place] [address] Care Teams Composition Roofer Relationship Specialty Start Date End Date Estefani Luna PA-C [address] [place] [address] PCP - General 09/30/18
[2025-05-18 11:09] LABS: Alanine Aminotransferase 33 U/L (0-31); Aspartate Amino Transferase 39 U/L (5-31); Cholesterol 197 mg/dL (<200); HDL Cholesterol 30 mg/dL (>40); Triglycerides 268 mg/dL (<150)
== END 2025-05-18 07:17 | disposition home or self-care (01) ==
LOC: HO.HMGCLDS 07:16
PROVIDERS: PCP Internal Medicine; Visit Provider Internal Medicine
DX: Z13.220 Encounter for screening for lipoid disorders (principal); Z78.0 Asymptomatic menopausal state; Z13.6 Encounter for screening for cardiovascular disorders; Z13.21 Encounter for screening for nutritional disorder
CPT/HCPCS: 36415; 80061; 82306; 84450; 84460

== ENCOUNTER 2025-06-17 10:50 | Outpatient (AMB) | payer OTHER, SELFPAY ==
--- NOTE | 2025-06-17 10:57 | MHC.OFFVIS ---
Vital Signs 06/17/25 11:01 Height 5 ft 4 in Weight 169 lb BMI 29.0 BP 105/66 Blood Pressure Location Lt brachial Position Sitting Pulse 88 Intake Visit Reasons: follow up Intake Note: Patient follow up for Chronic GERD and lab results. Patient cc: discomfort swallowing and GERD is better. [employer] Teacher Required: Yes [employer] Teacher Name: Rory Vazquez [id number] Accompanied by: Spouse Allergies No Known Allergies Allergy (Verified 06/17/25 11:04) HPI HPI follow up: Details: Patient is a 64-year-old female with PMH of arthritis, migraines and DJD. FU for GERD, constipation, elevated LFTs. Pt reports continued control of reflux sx on omeprazole, describing current symptoms as stable and manageable compared to last FU. Constipation now improved with increased intake of papaya and other natural foods; BM pattern continues ~q2-3 days. No incomplete evacuation, rectal bleeding, or alarming GI sx. Adherence to prior medication (omeprazole) confirmed; pt declined further medication for constipation?prefers dietary management. No interval hospitalizations/visits for GI or other relevant complaints. Reports new onset of external neck lesions, waxing/waning over past 2 mo, occasionally tender, managed by self-expression. Symptoms present during previous visit but not fully addressed then. [facility] Medical History (Updated 06/17/25 @ 11:38 by Kezia Hassan CNP) Concern about skin disease without diagnosis Constipation Elevated LFTs Chronic constipation Heartburn symptom Epigastric abdominal pain DJD (degenerative joint disease) History of blood transfusion Hepatic steatosis Hand numbness Arthritis Migraines Hx of migraines Allergic rhinitis Snores Chronic GERD Bilateral hip pain Degenerative joint disease of both hips TMJ arthropathy COVID-19 vaccine dose declined History of sleep study Long-term use of Plaquenil Difficulty sleeping Achilles tendinitis of left lower extremity Paresthesia and pain of extremity Fibromyalgia Sjogrens syndrome Surgical History History of hip replacement History of lumpectomy of right breast Hx of hemorrhoidectomy Hx of colonoscopy History of cholecystectomy Family History Mother Arthritis Diabetes mellitus Hypertension Mental health disorder Father CKD (chronic kidney disease) Maternal Grandfather Mental health disorder Social History Household Members: Spouse Housing: House Are you a primary nursing care attendant to a significant other at home: No Do you presently have visiting nurse or other home services: No Alcohol intake: never Comment: in bathroom, aware of trip hazard Patient Tobacco Use Status: Never used Tobacco e-Cigarette/Vaping Use: Never Used Second Hand Smoke Exposure: No service: No Current occupational status: unemployed Cognitive needs: No Hearing needs: No Vision needs: Yes Review of Systems Const Reports as per HPI ENT Reports as per HPI Card Reports as per HPI Resp Reports as per HPI GI Reports as per HPI Reports as per HPI Physical Exam Vital Signs: Last Vital Signs Pulse 88 06/17/25 11:01 BP 105/66 06/17/25 11:01 BMI result Body Mass Index 29.0 Const General: healthy appearing, no acute distress and well developed Nutritional Appearance: average body habitus Orientation/consciousness: patient oriented x3 HEENT Head: Yes normal to inspection, Yes normocephalic and Yes atraumatic Face and sinus: Yes normal facial exam Mouth: other (left check) Throat: Yes posterior oropharynx normal Eyes General: appearance normal, both eyes and all related structures Neck Neck: Yes normal visual inspection Lymphatic: no lymphadenopathy noted Resp Effort & Inspection: normal respiratory effort, able to speak in complete sentences, no tracheal deviation and symmetric chest movement Cardio Jugular venous distension: no JVD GI Inspection: Yes normal to inspection, No distended and Yes obesity Palpation (GI): Soft to palpation, not firm, nontender and No hepatosplenomegaly present Auscultation: normal bowel sounds Neuro General: patient oriented x3 Gait exam (Neuro): Normal gait present Psych Appearance: grossly normal Mental Status: mental status grossly normal Speech and movement: Normal speech and movement present Affect: normal affect Attitude: cooperative Thought process: Normal thought process present Thought content: Normal thought content present Insight: Good insight present (Psych) Judgement: Good judgement present (Psych) Assessment & Plan Assessment & Plan (1) Chronic GERD: Code(s): K21.9 - Gastro-esophageal reflux disease without esophagitis Category: Medical Plan: Current Status: Stable, sx controlled. No new complaints; maintained relief on current regimen. Additional testing: None. Medications: Continue omeprazole as previously prescribed. Lifestyle Recommendations: Maintain reflux diet, avoid triggers, head-of-bed elevation PRN. Referrals / Coordination of Care: None at this time. Follow-Up Plan: Monitor for recurrent/worsening sx. (2) Constipation: Code(s): K59.00 - Constipation, unspecified Category: Medical Qualifiers: Constipation type: chronic idiopathic constipation Qualified Code(s): K59.04 - Chronic idiopathic constipation Plan: Current Status: Improved, diet-responsive. Pt declined additional meds, effective dietary modification. Additional testing: None. Medications: Continue dietary/natural approaches; no new meds. Lifestyle Recommendations: Continue fruits (papaya) and fiber as tolerated; maintain hydration. Referrals / Coordination of Care: None. Follow-Up Plan: Monitor bowel habit and reassess as needed. (3) Elevated LFTs: Code(s): R79.89 - Other specified abnormal findings of blood chemistry Category: Medical Plan: Current Status: Persistent mild elevation, no new lab abnormalities. Nonalcoholic etiology; metabolic risk factors (abdominal obesity, HLD, prediabetes). Additional testing: None at this time (autoimmune, hepatitis, and celiac causes ruled out). Medications: None specific. Continue cardiac/metabolic risk reduction as outlined by PCP. Lifestyle Recommendations: Encourage further weight reduction, low-cholesterol/low-saturated fat diet, daily moderate PA, hydration. Referrals / Coordination of Care: None new; coordinate with PCP on ongoing management of metabolic risk. Follow-Up Plan: Periodic LFT monitoring; reassess post-procedure or sooner if clinical change. (4) Concern about skin disease without diagnosis: Code(s): Z71.1 - Person with feared health complaint in whom no diagnosis is made Category: Medical Plan: Intermittent episodes. No active findings; outside GI scope?likely skin condition (?acne). Additional testing: None scheduled. Medications: None initiated. Lifestyle Recommendations: Good skin hygiene, perfume-free moisturizer daily; avoid scented products. Pt advised to photograph lesions during an episode for specialty input. Referrals / Coordination of Care: Encourage FU w/PCP or derm if lesions recur/worsen. Recommend also discussing w/rheumatology given possible Sj?gren?s association. Follow-Up Plan: None specific within GI; pt to arrange derm/rheum eval if indicated. Plan Follow-up after endoscopy or sooner as needed Time: I spent a total of 35 minutes on the date of encounter which includes: Preparing to see the patient (reviewed previous documentation, test results and medical history) Performing a medically appropriate exam and/or evaluation Ordering medications, tests, and procedures Documenting clinical information in the health record Coding Level of Care Code Established Pt Est Pt Level 3 (69249) Patient Type Established Diagnoses Chronic GERD K21.9 Chronic idiopathic constipation K59.04 Constipation type: chronic idiopathic constipation Elevated LFTs R79.89 Concern about skin disease without diagnosis Z71.1
[2025-06-17 11:01] VITALS: BP 105/66; PULSE 88; BMI 29.0
--- OUTSIDE RECORDS SUMMARY | 2025-06-17 13:28 | XMS_ITS | Encounter Summary ---
Author Organization [facility] Address [address] [facility] [address] [place] [address] Phone Care Team Providers Care Produce Department Manager Name Role Phone Helena Han MD Primary Care Provider Encounter Details Date Type Department Care Team (Late st Contact Info) Description 08/15/2020 Telephone [facility] Rheumatology [address] [place] [address] Sudhir Kahn MD [address] [facility] [address] [place] [id number] [email or web address] Social History Tobacco Use Types Packs/Day [...] Cervicalgia documented in this encounter Care Teams Produce Department Manager Relationship Specialty Start Date End Date Helena Han MD [address] [facility] [address] [place] [address] PCP - General Internal Medicine 04/21/20 documented as of this encounter Additional Source Comments The information contained in this document represents components of the legal health record. It is not the complete legal health record.[facility]
--- OUTSIDE RECORDS SUMMARY | 2025-06-17 13:29 | XMS_ITS | Clinical Summary ---
Author Organization [facility] Address [address] [place] [address] Care Team Providers Care Photo Retoucher Name Role Phone Estefani Luna PA-C Primary Care Provider [phone] Source Comments PLEASE NOTE, if this patient [...] % nasal sprayIndications :Nasal congestion Place 1 [place] into the nostril(s) as needed for congestion. [...] pain. They will not follow at [facility], for us to follow and determine next line of treatment H/O electromyography. FEBRUARY 03 [facility]. Normal Bilat LE EMG 03/09/2015 Vitamin D insufficiency 11/25/2014 GERD (gastroesophageal reflux disease) 5 Positive LILLY (antinuclear antibody). [facility] la b. 2010 11/25/2014 DDD (degenerative disc disease), cervical 2014 Overview (11/25/2014): Xray 2006 at [facility] and then at [facility] February 2012: same, mild DDD Calcaneal spur. Lt foot. Xray 2006 11/25/2014 Headache 11/25/2014 Overview (11/25/2014): MRI at [facility] 2006 (report sent for scan) Ct head at [facility]: February 2012: No acute pathology H/O colonoscopy. [facility]. December 2005. Rec to repeat in 10ys. Due 2015. 11/25/2014 Breast mass, right. Phyllode s tu s/p resection Mar 2013. Dr Holder at [facility]. Last Mammo January 2014 Normal 11/19/2014 Overview (11/19/2014): S/p removal of Phyllodes Tu of rt breast: 03/2013 Dr Holder (surgeon) [facility] Breast S/P hemorrhoidectomy. [facility] 200511/19/2014 Sleep disturbance. Sleep issac dy performed at [facility] in 2009. No BOB. Seen by Neuro [facility]. Rec better sleep hygene. 11/19/2014 Overview (11/19/2014): Result type: Polysomnogram Study Result date: 16 May 2010 8:41 Result status: Auth (Verified) Result title: Polysomnogram Performed by: Asuncion Alexis MD on 16 May 2010 8:41 Encounter info: [id number], [facility], One Time OP, 05/07/2010 - 05/07/2010 Contributor system: [employer] * Final Report * Polysomnogram POLYSOMNOGRAM REPORT Ordering Physician: Linda Pruett M.D. Order ID: [id number] Date of Service: May 07, 2010 through [...] and active situations. Her score on the [place] Sleepiness Scale is 9 to 10. She [...] This overnight polysomnogram was done utilizing a [employer] digital polysomnograph machine. Four channels were devoted [...] was sustained fairly well. The technologist noted [id number] snoring at times. Review of samples of [...] sleep hygiene elements might be pertinent. DocID: [id number] Electronically verified by: Asuncion Alexis M.D. 05/17/2010 18:09 sAuncion Alexis M.D. A P DOC#: [id number] [facility]#: [id number] NAB cc: Linda Pruett M.D. [address] [facility] [address] Family History Medical History Relation Name Comments [...] Plan of Treatment Not on file Insurance [facility] ([facility]) Member Subscriber Plan / Payer (Ef fective 2014-Present) Name:Rebecca Cole Relation to Subscriber:Self Name:Rebecca Cole Payer ID:[id number] Group ID:Not on file Type:[employer] Address: [address] [place] [id number] Care Teams Photo Retoucher Relationship Specialty Start Date End Date Estefani Luna PA-C [address] [place] [address] PCP - General 09/30/18
--- OUTSIDE RECORDS SUMMARY | 2025-06-17 13:29 | XMS_ITS | Patient Health Record ---
Author Organization [facility] Address [address] [address] Support Name Relationship Address Phone PAULETTE DOUGLAS Guarantor Unknown [phone] Reason For Referral No Information Plan Of Treatment No Information
--- OUTSIDE RECORDS SUMMARY | 2025-06-17 13:29 | XMS_ITS | Clinical Summary ---
Author Organization [facility] Address [address] [place] [address] Care Team Providers Care Accounting Lecturer Name Role Phone Unavailable Primary Care Provider [...] Depression Screening 08/05/2024 COVID-19 Vaccine (1 - 2024-2 6 season) 2025 Influenza Vaccine (#1) 2025 RSV [...]
--- OUTSIDE RECORDS SUMMARY | 2025-06-17 13:29 | XMS_ITS | Clinical Summary ---
Author Organization [facility] Address [address] [facility] [address] [place] [address] Phone Care Team Providers Care Dowel Pin Man Name Role Phone Helena Han MD Primary [...] patient's age to complete this topic IPV VACCINES Aged Out No longer eligi ble based on patient's age to complete this topic MENINGOCOCCAL VACCINES (ACWY) Aged Out No longer eligible based on patient's age to complete this topic MENINGOCOCCAL VACCINES (B) Aged Out N o longer eligible based on patient's age to complete this topic Medical Devices Not on file Insurance [address] [place], [place] [address] [place] [address] [facility] [address] [place] [place] [address] [place] [address]O HEALTH [employer] HMO [facility] Address: [address] [address] Care Teams Dowel Pin Man Relationship Specialty Start Date End Date Helena Han MD [address] [facility] [address] [place] [address] PCP - General Internal Medicine 04/21/20 Additional Source Comments The information contained in this document represents components of the legal health record. It is not the complete legal health record.[facility]
== END 2025-06-17 11:40 | disposition home or self-care (01) ==
LOC: HO.HGI 10:51
PROVIDERS: PCP Internal Medicine; Visit Provider Nurse Practitioner Family
DX: K21.9 Gastro-esophageal reflux disease without esophagitis (principal); K59.04 Chronic idiopathic constipation; R79.89 Other specified abnormal findings of blood chemistry; Z71.1 Person with feared health complaint in whom no diagnosis is made
CPT/HCPCS: 99213

== ENCOUNTER → 2025-06-17 10:50 | Outpatient (BNVA) | payer OTHER, SELFPAY | PROVIDERS: PCP Internal Medicine; Visit Provider Nurse Practitioner Family | DX: K59.04 Chronic idiopathic constipation (principal); K21.9 Gastro-esophageal reflux disease without esophagitis; R79.89 Other specified abnormal findings of blood chemistry | CPT/HCPCS: 99212 ==